=== PATIENT | female | born 1950 ===

== ENCOUNTER 2018-06-21 13:17 | Inpatient (IN) | payer MEDICARE ==
[2018-06-21] MEDS ORDERED: KEPPRA 1,000 MG/NS 0.75% 100ML 1,000 MG/100 ML BAG IV ONE (13:34)
--- NOTE | 2018-06-21 13:41 | Emergency Department Report ---
HPI - General Time Seen by Provider: 06/21/18 13:30 - HPI HPI: Room 1 The patient is a 67-year-old female presenting with chief complaint of altered mental status. Per EMS the [facility] after reportedly having a seizure witnessed by her roommate. Upon arrival to the ED the patient is unresponsive with a rightward gaze and has gurgling respirations. EMS states it has been at least 40 minutes since the seizure. At this time the decision to intubate was made using RSI Location: Mental state Duration: [See above] Quality: Altered Severity: Moderate Modifying factors: [see above] Context: [see above] Mode of transportation: [not driving] ED Past Medical Hx - Past Medical History Hx CVA: Yes Hx Diabetes: Yes Hx Deep Vein Thrombosis: Yes Hx Renal Disease: Yes Hx Psychiatric Treatment: Yes (Depression) Hx Dementia: Yes Additional medical history: Glaucoma - Surgical History Past Surgical History?: No - Family History Family history: no significant - Social History Smoking Status: Unknown if ever smoked - Medications Home Medications: Home Medications Medication Instructions Recorded Confirmed Last Taken Type Acetaminophen [Acetaminophen TAB] 650 mg PO Q4H PRN 04/06/18 04/06/18 Unknown History Apixaban [Eliquis] 5 mg PO Q12H 04/06/18 04/06/18 Unknown History AtorvaSTATin [Lipitor] 40 mg PO QHS 04/06/18 04/06/18 Unknown History Brimonidine Tartrate/Timolol 1 drop OU Q12H 04/06/18 04/06/18 Unknown History [Combigan 0.2%-0.5% Eye Drops] Donepezil HCl [Aricept] 10 mg PO HS 04/06/18 04/06/18 Unknown History Insulin Glargine [Lantus VIAL] 50 units SUB-Q QHS 04/06/18 04/06/18 Unknown History Insulin Lispro [HumaLOG VIAL] 9 units SUB-Q AC 04/06/18 04/06/18 Unknown History Lispro Insulin [Humalog] See Protocol SUB-Q ACHS 04/06/18 04/06/18 Unknown History Mirtazapine [Remeron] 15 mg PO HS 04/06/18 04/06/18 Unknown History levETIRAcetam [Keppra TAB] 1,000 mg PO Q12H 04/06/18 04/06/18 Unknown History Furosemide [Lasix TAB] 40 mg PO QDAY #30 tablet 04/10/18 Unknown Rx HYDROcodone/APAP 5-325 [[place] 1 each PO Q8HR PRN #7 tablet 04/10/18 Unknown Rx 5-325 mg TAB] Losartan [Cozaar] 25 mg PO QDAY #30 tablet 04/10/18 Unknown Rx Metoprolol Succinate [Toprol Xl] 25 mg PO DAILY #30 tab.er.24h 04/10/18 Unknown Rx ED Review of Systems ROS: Stated complaint: ALTERED MENTAL STATUS/POSS SEIZURE Other details as noted in HPI Comment: Unobtainable due to pts medical conditions Physical Exam - Physical Exam Physical Exam: GENERAL: The patient is well-developed well-nourished female lying on stretcher unresponsive. [] HEENT: Normocephalic. Atraumatic. Rightward gaze NECK: Trachea midline CHEST/LUNGS: Gurgling respirations. HEART/CARDIOVASCULAR: Regular. There is no tachycardia. There is no gallop rub or murmur. ABDOMEN: Abdomen is soft, nontender. Patient has normal bowel sounds. There is no abdominal distention. SKIN: There is no rash. There is no edema. There is no diaphoresis. NEURO: The patient is GCS 3 MUSCULOSKELETAL: There is no evidence of acute injury. - Intubation Time Out Performed: No Sedative: Versed Mg Given: 5 Paralytic: Succinylcholine Mg Given: 100 Laryngoscope: Elio Size: 3 ET Tube Size: 8 Tube Secured Depth (cm): 21 Tube Secured Location: lips Tube Placement Confirmation: equal breath sounds bilat, no breath sounds over epi, confirmation by capnometr Patient Tolerated Procedure: no complications Intubation Complications: hypoxia (transient hypoxia) ED Medical Decision Making - Lab Data Result diagrams: 06/21/18 14:06 06/21/18 14:06 Laboratory Tests 06/21/18 06/21/18 06/21/18 14:02 14:06 14:06 WBC 7.3 RBC 4.90 Hgb 10.8 Hct 34.6 MCV 71 L MCH 22 L MCHC 31 RDW 21.1 H Plt Count 252 Lymph % (Auto) 21.8 Lynn % (Auto) 6.8 Eos % (Auto) 2.1 Baso % (Auto) 0.6 Lymph # 1.6 Lynn # 0.5 Eos # 0.2 Baso # 0.0 Seg Neutrophils % 68.7 Seg Neutrophils # 5.0 PT 18.9 H INR 1.54 H APTT 32.5 POC ABG pH POC ABG pCO2 POC ABG pO2 POC ABG HCO3 POC ABG Total CO2 POC ABG O2 Sat POC ABG Base Excess FiO2 Sodium Potassium Chloride Carbon Dioxide Anion Gap BUN Creatinine Estimated GFR BUN/Creatinine Ratio Glucose POC Glucose 250 H Calcium Magnesium Total Bilirubin AST ALT Alkaline Phosphatase Total Creatine Kinase CK-MB (CK-2) CK-MB (CK-2) Rel Index Troponin T Total Protein Albumin Albumin/Globulin Ratio Triglycerides Cholesterol LDL Cholesterol Direct HDL Cholesterol Cholesterol/HDL Ratio 06/21/18 06/21/18 06/21/18 14:06 14:06 14:23 WBC RBC Hgb Hct MCV MCH MCHC RDW Plt Count Lymph % (Auto) Lynn % (Auto) Eos % (Auto) Baso % (Auto) Lymph # Lynn # Eos # Baso # Seg Neutrophils % Seg Neutrophils # PT INR APTT POC ABG pH 7.499 H POC ABG pCO2 34.8 L POC ABG pO2 342 H POC ABG HCO3 27.0 POC ABG Total CO2 28 POC ABG O2 Sat 100 POC ABG Base Excess 4 FiO2 100 Sodium 142 Potassium 3.8 Chloride 100.2 Carbon Dioxide 23 Anion Gap 23 BUN 15 Creatinine 1.5 H Estimated GFR 35 BUN/Creatinine Ratio 10 Glucose 214 H POC Glucose Calcium 8.8 Magnesium 1.70 Total Bilirubin 1.30 H AST 19 ALT 17 Alkaline Phosphatase 174 H Total Creatine Kinase 102 CK-MB (CK-2) 2.2 CK-MB (CK-2) Rel Index 2.1 Troponin T 0.050 H Total Protein 6.9 Albumin 3.1 L Albumin/Globulin Ratio 0.8 Triglycerides 115 Cholesterol 123 LDL Cholesterol Direct 61 HDL Cholesterol 50 Cholesterol/HDL Ratio 2.46 - EKG Data -: EKG Interpreted by Me EKG shows normal: sinus rhythm Rate: normal - EKG Data When compared to previous EKG there are: previous EKG unavailable Interpretation: nonspecific ST-T wave wenceslao (T-wave inversions in leads V5, V6) - Radiology Data Radiology results: report reviewed (CT head, chest x-ray), image reviewed (CT head, chest x-ray) interpreted by me: Chest x-ray- ET tube in appropriate position. No definite focal infiltrates, no pneumothorax [facility] [address] [place] [id number] Cat Scan Report Signed Patient: INESSA GOLDSTEIN MR#: [id number] : 1950 Acct:[id number] Age/Sex: 67 / F ADM Date: 06/21/18 Loc: ED Attending Dr: Ordering Physician: MASSIMO ZELAYA MD Date of Service: 06/21/18 Procedure(s): CT head/brain wo con Accession Number(s): [id number] cc: MASSIMO ZELAYA MD FINAL REPORT PROCEDURE: CT HEAD/BRAIN WO CON TECHNIQUE: Computerized tomography of the head was performed without contrast material. HISTORY: prolonged postictal state, rightward gaze COMPARISON: No prior studies are available for comparison. FINDINGS: Brain: There is no evidence of intracranial hemorrhage. No parenchymal hemorrhage is seen. No mass lesions or mass effect is identified. No abnormal extra-axial fluid collections or masses are seen. Chronic encephalomalacia visualized in the left parietal lobe and a portion of the left temporal lobe. This was seen on the prior study without interval change. There is chronic heavy nonspecific calcification of portions of the right and left basal ganglia, right caudate nucleus and right and left cerebellar hemispheres. There is some decreased density seen in the periventricular white matter without mass effect. This is fairly symmetric and does not exhibit any mass effect consistent with gliosis probably on the basis of microvascular disease or white matter changes of aging. Ventricles: The ventricles, sulcal pattern and fissures are prominent consistent with atrophy. Bones: No evidence of acute fracture. Paranasal sinuses: Visualized portions are clear. Mastoid air cells: clear NG tube partially visualized IMPRESSION: Stable exam. There is evidence of atrophy and gliosis. Old encephalomalacia again seen in portions of the left parietal and left temporal lobe. Nonspecific calcifications seen in the right and left basal ganglia and right and left cerebellar hemispheres as described. No acute intracranial abnormalities are identified. Portion of an NG tube is visualized. Transcribed By: DFN Dictated By: XOCHITL JUSTICE MD Electronically Authenticated By: XOCHITL JUSTICE MD Signed Date/Time: 06/21/181433 DD/ 35 TD/TT: 06/21/181435 [address] [address] XRay Report Signed Patient: INESSA GOLDSTEIN MR#: [id number] : 1950 Acct:[id number] Age/Sex: 67 / F ADM Date: 06/21/18 Loc: ED Attending Dr: Ordering Physician: MASSIMO ZELAYA MD Date of Service: 06/21/18 Procedure(s): XR chest 1V ap Accession Number(s): [id number] cc: MASSIMO ZELAYA MD Fluoro Time In Minutes: FINAL REPORT EXAM: XR CHEST 1V AP HISTORY: post intubation TECHNIQUE: Frontal chest radiograph. PRIORS: None. FINDINGS: The endotracheal tube tip projects in the mid to lower thoracic trachea. Aortic calculi are seen. The cardiac silhouette is mildly prominent in size. Hazy bilateral pulmonary opacities are seen. No focal consolidation. There is a small left pleural effusion. No pneumothorax. No acute osseous abnormality. The enteric tube tip projects in the gastric fundus. IMPRESSION: 1. Endotracheal tube tip projecting in the mid to lower thoracic trachea, 2.9 centimeters above the jojo. 2. Mildly prominent cardiac silhouette size with bilateral pulmonary edema versus atypical pneumonia. Small left pleural effusion. Transcribed By: MG Dictated By: JOHNSON LUCAS MD Electronically Authenticated By: JOHNSON LUCAS MD Signed Date/Time: 06/21/18 144 DD/ 144 TD/TT: 06/21/18 144 - Differential Diagnosis ICH, prolonged postictal state Critical care attestation.: If time is entered above; I have spent that time in minutes in the direct care of this critically ill patient, excluding procedure time. ED Disposition Clinical Impression: Altered mental status Disposition: DC-[id number] OP ADMIT IP TO THIS HOSP Is pt being admited?: Yes Does the pt Need Aspirin: Yes Condition: Fair Referrals: RAFA PRAKASH MD [Primary Care Provider] - 3-5 Days Time of Disposition: 15:34 (Hospitalist Notified (Dr Mcneal))
[2018-06-21 14:33] LABS: Basophils % (Auto) 0.6 % (0.0-1.8); Eosinophils # (Auto) 0.2 K/mm3 (0.0-0.4); Eosinophils % (Auto) 2.1 % (0.0-4.3); Hematocrit 34.6 % (30.3-42.9); Hemoglobin 10.8 gm/dl (10.1-14.3); Lymphocytes # (Auto) 1.6 K/mm3 (1.2-5.4); Lymphocytes % (Auto) 21.8 % (13.4-35.0); Mean Corpuscular HGB Conc 31 % (30-34); Mean Corpuscular Volume 71 fl (79-97); Monocytes # (Auto) 0.5 K/mm3 (0.0-0.8); Monocytes % (Auto) 6.8 % (0.0-7.3); Platelet Count 252 K/mm3 (140-440)
[2018-06-21 14:34] LABS: Red Cell Distribution Width 21.1 % (13.2-15.2)
--- NOTE | 2018-06-21 14:34 | Cat Scan Report ---
FINAL REPORT PROCEDURE: CT HEAD/BRAIN WO CON TECHNIQUE: Computerized tomography of the head was performed without contrast material. HISTORY: prolonged postictal state, rightward gaze COMPARISON: No prior studies are available for comparison. FINDINGS: Brain: There is no evidence of intracranial hemorrhage. No parenchymal hemorrhage is seen. No mass lesions or mass effect is identified. No abnormal extra-axial fluid collections or masses are seen. Chronic encephalomalacia visualized in the left parietal lobe and a portion of the left temporal lobe . This was seen on the prior study without interval change. There is chronic heavy nonspecific calcif ication of portions of the right and left basal ganglia, right caudate nucleus and right and left cer ebellar hemispheres. There is some decreased density seen in the periventricular white matter without mass effect. This i s fairly symmetric and does not exhibit any mass effect consistent with gliosis probably on the basis of microvascular disease or white matter changes of aging. Ventricles: The ventricles, sulcal pattern and fissures are prominent consistent with atrophy. Bones: No evidence of acute fracture. Paranasal sinuses: Visualized portions are clear. Mastoid air cells: clear NG tube partially visualized IMPRESSION: Stable exam. There is evidence of atrophy and gliosis. Old encephalomalacia again seen in portions of the left parietal and left temporal lobe. Nonspecific calcifications seen in the right and left basal ganglia and right and left cerebellar hem ispheres as described. No acute intracranial abnormalities are identified. Portion of an NG tube is visualized.
--- NOTE | 2018-06-21 14:45 | XRay Report ---
FINAL REPORT EXAM: XR CHEST 1V AP HISTORY: post intubation TECHNIQUE: Frontal chest radiograph. PRIORS: None. FINDINGS: The endotracheal tube tip projects in the mid to lower thoracic trachea. Aortic calculi are seen. The cardiac silhouette is mildly prominent in size. Hazy bilateral pulmonary opacities are seen. No focal consolidation. There is a small left pleural effusion. No pneumothorax. No acute osseous abnormality. The enteric tube tip projects in the gastric fundus. IMPRESSION: 1. Endotracheal tube tip projecting in the mid to lower thoracic trachea, 2.9 centimeters above the c vlad. 2. Mildly prominent cardiac silhouette size with bilateral pulmonary edema versus atypical pneumonia. Small left pleural effusion.
[2018-06-21 14:46] LABS: INR 1.54 (0.87-1.13)
[2018-06-21 14:47] LABS: Partial Thromboplastin Time 32.5 Sec. (24.2-36.6)
[2018-06-21 14:49] LABS: Creatine Kinase MB 2.2 ng/mL (0.0-4.0)
[2018-06-21 15:14] LABS: Albumin 3.1 g/dL (3.9-5); Calcium 8.8 mg/dL (8.4-10.2); Chol/HDL Ratio 2.46 %
[2018-06-21] MEDS ORDERED: ASPIRIN PR ONE ×2 (15:15→19:56)
--- NOTE | 2018-06-21 15:30 | History and Physical Report ---
History of Present Illness Chief complaint: Unresponsive History of present illness: 67 YO Female [facility] Resident with Obesity, DM, HTN, HLD, CVA, DVT,Dementia, Debility presents to ED for evaluation. Pt is confused, lethargic and unable to provide history. Pt history provides by EMS, ED staff, and SNF staff. As per SNF staff, the patient was found to have a witnessed generalized tonic clonic seizure with gurgling sounds coming from her oral cavity. EMS notified, and upon arrival the patient was found to be in distress. Pt transported to [facility] for further care and evaluation. Pt seen and evaluated in ED and found to have Encephalopathy, Acute Respiratory Failure, ARF, as well Aspiration Pneumonia. Pt is unable to protect her airway. Pt intubated and placed on vent support. Pt admitted to ICU. Pulmonary team consulted in ED. Past History Past Medical History: diabetes, DVT, stroke, other (Dementia, Debility, Depression) Past Surgical History: No surgical history, Other (reviewed) Social history: single. denies: smoking, alcohol abuse, prescription drug abuse Family history: diabetes Medications and Allergies Allergies Allergy/AdvReac Type Severity Reaction Status Date / Time No Known Allergies Allergy Unverified 04/06/18 11:56 Home Medications Medication Instructions Recorded Confirmed Last Taken Type Acetaminophen [Acetaminophen TAB] 650 mg PO Q4H PRN 04/06/18 04/06/18 Unknown History Apixaban [Eliquis] 5 mg PO Q12H 04/06/18 04/06/18 Unknown History AtorvaSTATin [Lipitor] 40 mg PO QHS 04/06/18 04/06/18 Unknown History Brimonidine Tartrate/Timolol 1 drop OU Q12H 04/06/18 04/06/18 Unknown History [Combigan 0.2%-0.5% Eye Drops] Donepezil HCl [Aricept] 10 mg PO HS 04/06/18 04/06/18 Unknown History Insulin Glargine [Lantus VIAL] 50 units SUB-Q QHS 04/06/18 04/06/18 Unknown History Insulin Lispro [HumaLOG VIAL] 9 units SUB-Q AC 04/06/18 04/06/18 Unknown History Lispro Insulin [Humalog] See Protocol SUB-Q ACHS 04/06/18 04/06/18 Unknown Histo ry Mirtazapine [Remeron] 15 mg PO HS 04/06/18 04/06/18 Unknown History levETIRAcetam [Keppra TAB] 1,000 mg PO Q12H 04/06/18 04/06/18 Unknown History Furosemide [Lasix TAB] 40 mg PO QDAY #30 tablet 04/10/18 Unknown Rx HYDROcodone/APAP 5-325 [[place] 1 each PO Q8HR PRN #7 tablet 04/10/18 Unknown Rx 5-325 mg TAB] Losartan [Cozaar] 25 mg PO QDAY #30 tablet 04/10/18 Unknown Rx Metoprolol Succinate [Toprol Xl] 25 mg PO DAILY #30 tab.er.24h 04/10/18 Unknown Rx Review of Systems ROS unobtainable: due to endotracheal tube Exam - Constitutional Vitals: Temp Pulse Resp BP Pulse Ox 97.6 F 78 18 164/98 100 06/21/18 14:56 06/21/18 14:30 06/21/18 14:30 06/21/18 14:30 06/21/18 14:30 General appearance: Present: severe distress, obese - EENT Eyes: Present: irregular pupil - Neck Neck: Present: supple, normal ROM - Respiratory Respiratory effort: labored Respiratory: bilateral: diminished, rhonchi - Cardiovascular Heart Sounds: Present: S1 & S2. Absent: rub, click - Extremities Extremities: pulses symmetrical, No edema Peripheral Pulses: within normal limits - Abdominal General gastrointestinal: Present: soft, non-tender, non-distended, normal bowel sounds Female genitourinary: Present: normal - Integumentary Integumentary: Present: clear, dry, clammy, decreased turgor - Musculoskeletal Musculoskeletal: generalized weakness - Psychiatric Psychiatric: no appropriate mood/affect, no intact judgment & insight, no memory intact - Neurologic Neurologic: focal deficits, no gait normal Results - Labs CBC & Chem 7: 06/21/18 14:06 06/21/18 14:06 Labs: Abnormal lab results 06/21/18 06/21/18 06/21/18 Range/Units 14:02 14:06 14:06 MCV 71 L (79-97) fl MCH 22 L (28-32) pg RDW 21.1 H (13.2-15.2) % PT 18.9 H (12.2-14.9) Sec. INR 1.54 H (0.87-1.13) POC ABG pH (7.35-7.45) POC ABG pCO2 (35-45) POC ABG pO2 (80-105) Creatinine (0.7-1.2) mg/dL Glucose (65-100) mg/dL POC Glucose 250 H (70-105) Total Bilirubin (0.1-1.2) mg/dL Alkaline Phosphatase (35-129) units/L Troponin T (0.00-0.029) ng/mL Albumin (3.9-5) g/dL 06/21/18 06/21/18 Range/Units 14:06 14:23 MCV (79-97) fl MCH (28-32) pg RDW (13.2-15.2) % PT (12.2-14.9) Sec. INR (0.87-1.13) POC ABG pH 7.499 H (7.35-7.45) POC ABG pCO2 34.8 L (35-45) POC ABG pO2 342 H (80-105) Creatinine 1.5 H (0.7-1.2) mg/dL Glucose 214 H (65-100) mg/dL POC Glucose (70-105) Total Bilirubin 1.30 H (0.1-1.2) mg/dL Alkaline Phosphatase 174 H (35-129) units/L Troponin T 0.050 H (0.00-0.029) ng/mL Albumin 3.1 L (3.9-5) g/dL Assessment and Plan - Patient Problems (1) Respiratory failure Current Visit: No Status: Acute Qualifiers: Chronicity: acute Respiratory failure complication: hypoxia Plan to address problem: Admit to ICU, Pt intubated, sedated on vent support, wean vent as tolerated, SBT daily, sedation holiday, Pulmonary team consulted in ED, The high probability of a clinically significant, sudden or life threatening deterioration of the [pulmonary, neuro, renal, cardiac] system(s) required my full and direct attention, intervention and personal management. The aggregate critical care time was [65] minutes. This time is in addition to time spent performing reported procedures but includes the following: [x] Data Review and interpretation [x] Patient assessment and monitoring of vital signs [x] Documentation [x] Medication orders and management (2) Pneumonia Current Visit: Yes Status: Acute Qualifiers: Laterality: bilateral Lung location: lower lobe of lung Plan to address problem: Pneumonia protocol: IV antibiotic therapy, chest x ray, supplemental oxygen, nebulizer therapy (3) ARF (acute renal failure) with tubular necrosis Current Visit: Yes Status: Acute Plan to address problem: IVF resuscitation therapy, monitor uop q shift, supportive care. repeat bmp to monitor serum creatnine (4) Encephalopathy Current Visit: No Status: Acute Plan to address problem: CT head, neuro checks, supportive care. treat SIRS (5) SIRS due to infectious process with acute organ dysfunction Current Visit: Yes Status: Acute Plan to address problem: IV antibiotic therapy, IVF resuscitation as tolerated, CBC, Urinalysis, Blood cultures, monitor uop q shift, serial lactic acid level (6) Seizures Current Visit: Yes Status: Acute Plan to address problem: continue AED, Seizure precautions, (7) DVT prophylaxis Current Visit: No Status: Acute Plan to address problem: SCD to BLE while in bed.
[2018-06-21] MEDS ORDERED: SODIUM CHLORIDE FLUSH SYRINGE 10 ML IV PRN (15:39)
[2018-06-21] MEDS ORDERED: VERSED IV PRN (15:50)
[2018-06-21] MEDS ORDERED: ARTIFICIAL TEARS OPHTH OINT OU PRN (15:50)
[2018-06-21] MEDS ORDERED: VASELINE LIP THERAPY TP PRN (15:50)
--- NOTE | 2018-06-21 16:44 | Consultation ---
History of Present Illness Consult date: 06/21/18 Requesting physician: JUAN COBURN Reason for consult: hypoxemia, other (Hypothermia, JULISA, acute encephaloapthy, SIRS , pneumonia) History of present illness: History of Present Illness Chief complaint: Unresponsive History of present illness: 67 YO Female [facility] Resident with Obesity, DM, HTN, HLD,CVA, DVT,Dementia, Debility presents to ED for evaluation. Pt is confused, lethargic and unable to provide history. Pt history provides by EMS, ED staff, and SNF staff. As per SNF staff, the patient was found to have a witnessed generalized tonic clonic seizure by her roommate. . EMS was notified, and upon arrival the patient was found to be lethargic with a blood glucose of 18 as well as hypoxemic with a pulse oximetry of 88% on room air. Pt transported to [facility] for further care and evaluation. Pt seen and evaluated in ED and found to have Encephalopathy, Acute respiratory Failure, ARF, as well ACS. Upon arrival to the ED the patient is unresponsive with a rightward gaze and has gurgling respirations. EMS states it has been at least 40 minutes since the seizure. At that time the decision to intubate was made by the ED staff. I have been consulted fro critical care management. At the time of my evaluation in the ED, she was agitated. Unable to get any history from the patient. She was seen and examined. Vitals, labs, medications, chart and imaging were reviewed. Past History Past Medical History: diabetes, DVT, stroke, other (Dementia, Debility, Depression) Past Surgical History: No surgical history, Other (reviewed) Social history: single. denies: smoking, alcohol abuse, prescription drug abuse Family history: diabetes Medications and Allergies Allergies Allergy/AdvReac Type Severity Reaction Status Date / Time No Known Allergies Allergy Unverified 04/06/18 11:56 Home Medications Medication Instructions Recorded Confirmed Last Taken Type Acetaminophen [Acetaminophen TAB] 650 mg PO Q4H PRN 04/06/18 06/21/18 Unknown History Apixaban [Eliquis] 5 mg PO Q12H 04/06/18 06/21/18 Unknown History AtorvaSTATin [Lipitor] 40 mg PO QHS 04/06/18 06/21/18 Unknown History Brimonidine Tartrate/Timolol 1 drop OU Q12H 04/06/18 06/21/18 Unknown History [Combigan 0.2%-0.5% Eye Drops] Donepezil HCl [Aricept] 10 mg PO HS 04/06/18 06/21/18 Unknown History Insulin Glargine [Lantus VIAL] 50 units SUB-Q QHS 04/06/18 06/21/18 Unknown History Insulin Lispro [HumaLOG VIAL] 9 units SUB-Q AC 04/06/18 06/21/18 Unknown History Lispro Insulin [Humalog] See Protocol SUB-Q ACHS 04/06/18 06/21/18 Unknown History Mirtazapine [Remeron] 15 mg PO HS 04/06/18 06/21/18 Unknown History levETIRAcetam [Keppra TAB] 1,000 mg PO Q12H 04/06/18 06/21/18 Unknown History Furosemide [Lasix TAB] 40 mg PO QDAY #30 tablet 04/10/18 06/21/18 Unknown Rx HYDROcodone/APAP 5-325 [[place] 1 each PO Q8HR PRN #7 tablet 04/10/18 06/21/18 Unknown Rx 5-325 mg TAB] Losartan [Cozaar] 25 mg PO QDAY #30 tablet 04/10/18 06/21/18 Unknown Rx Metoprolol Succinate [Toprol Xl] 25 mg PO DAILY #30 tab.er.24h 04/10/18 06/21/18 Unknown Rx Active Meds: Active Medications Hydrophilic Ointment (Vaseline Lip Therapy) 1 applic TP Q2HR PRN PRN Reason: Dry Lips Azithromycin 500 mg/ Sodium (Chloride) 250 mls @ 250 mls/hr IV Q24HR RICKY; Protocol Ceftriaxone Sodium (Rocephin/Ns 2 Gm/100 Ml) 2 gm in 100 mls @ 200 mls/hr IV Q24HR RICKY; Protocol Metronidazole (Flagyl 500 Mg/100 Ml) 500 mg in 100 mls @ 100 mls/hr IV Q8HR RICKY; Protocol Midazolam HCl 100 mg/ Sodium (Chloride) 100 mls @ 2 mls/hr IV TITR RICKY; Protocol Midazolam HCl (Versed) 2 mg IV Q10MIN PRN PRN Reason: Sedation Multi-Ingred Cream/Lotion/Oil/Oint (Artificial Tears Ophth Oint) 1 applic OU Q4HR PRN PRN Reason: Dry Eye(s) Sodium Chloride (Sodium Chloride Flush Syringe 10 Ml) 10 ml IV BID RICKY Sodium Chloride (Sodium Chloride Flush Syringe 10 Ml) 10 ml IV PRN PRN PRN Reason: LINE FLUSH Review of Systems ROS unobtainable: due to endotracheal tube, due to mental status Physical Examination Vital signs: Vital Signs Pulse Ox 96 06/21/18 13:22 General appearance: agitated, other (Obese, ETT at 21 cm at the lip) Eyes: non-icteric ENT: oropharynx moist Neck: supple, no lymphadenopathy, no JVD Effort: mildly labored Ascultation: Bilateral: diminished breath sounds, rhonchi Cardiovascular: regular rate and rhythm, other (S1,S2, no murmurs, gallops, rubs) Gastrointestinal: normoactive bowel sounds, soft, non-tender, non-distended, other (No hepatosplenomegaly) Integumentary: normal Extremities: no cyanosis, no edema, pulses normal, no ischemia or petechiae pupils equal and round, unable to assess, other (moves all extremities) other (unable to assess) Results - Laboratory Findings CBC and BMP: 06/22/18 17:21 06/22/18 03:17 ABG POC ABG pH 7.499 (7.35-7.45) H 06/21/18 14:23 POC ABG pCO2 34.8 (35-45) L 06/21/18 14:23 POC ABG pO2 342 (80-105) H 06/21/18 14:23 POC ABG HCO3 27.0 06/21/18 14:23 POC ABG Total CO2 28 06/21/18 14:23 POC ABG O2 Sat 100 06/21/18 14:23 PT/INR, D-dimer PT 18.9 Sec. (12.2-14.9) H 06/21/18 14:06 INR 1.54 (0.87-1.13) H 06/21/18 14:06 Abnormal lab findings: Abnormal Labs 06/21/18 06/21/18 06/21/18 14:02 14:06 14:06 MCV 71 L MCH 22 L RDW 21.1 H PT 18.9 H INR 1.54 H POC ABG pH POC ABG pCO2 POC ABG pO2 Creatinine Glucose POC Glucose 250 H Total Bilirubin Alkaline Phosphatase Troponin T Albumin 06/21/18 06/21/18 14:06 14:23 MCV MCH RDW PT INR POC ABG pH 7.499 H POC ABG pCO2 34.8 L POC ABG pO2 342 H Creatinine 1.5 H Glucose 214 H POC Glucose Total Bilirubin 1.30 H Alkaline Phosphatase 174 H Troponin T 0.050 H Albumin 3.1 L - Diagnostic Findings Chest x-ray: image reviewed (ETT in position, right lung infiltrate) Assessment and Plan Respiratory failure-acute hypoxemic on MVS Seizures Pneumonia, Right lung ARF (acute renal failure) with tubular necrosis Encephalopathy Hypothermia Obesity Hyperglycemia -Admit ICU -VAP bundle addressed -Get procalcitonin, CRP levels -VTE prophylaxis( anticoagulated)- on Eliquis -Stress ulcer prophylaxis -Treat for aspiration pneumonia empirically in view of hypothermia, witnessed seizures and right lung infiltrate -Monitor renal function -Avoid nephrotoxic agents, adjust all medications for GFR and CrCL -Agitation management -AEDs -Get EEG -Place SBFT for nutritional support -Supplemental oxygen to keep O2 sats>90% -Daily SBT and SAT trials to start in the morning -Titrate sedation to RAAS 0 to -1 -Get urine, tracheal and blood cultures -Strict intake and output -Accuchecks, glycemic control. Target blood glucose of 140-180mg/dL -Get 2D echocardiogram to evaluate LVEF and for pulmonary HTN CONDITION: CRITICAL CODE STATUS: FULL CODE PROGNOSIS: GUARDED The high probability of a clinically significant, sudden or life threatening deterioration of the [pulmonary, neurology, renal, cardiac] system(s) required my full and direct attention, intervention and personal management. The aggregate critical care time was [65] minutes. This time is in addition to time spent performing reported procedures but includes the following: [x] Data Review and interpretation [x] Patient assessment and monitoring of vital signs [x] Documentation [x] Medication orders and management
[2018-06-21] MEDS ORDERED: KEPPRA 500 MG/NS 0.82% 100 ML 500 MG/100 ML BAG IV ONE (17:19)
[2018-06-21] MEDS: MIDAZOLAM 100 MG in NACL 0.9% 80 ML IV SCH (17:59)
[2018-06-21] MEDS ORDERED: ATIVAN IV ONE (18:00)
[2018-06-21] MEDS ORDERED: XYLOCAINE CARDIAC IV ONE (18:08)
[2018-06-21] MEDS ORDERED: ZEMURON IV ONE (18:08)
[2018-06-21] MEDS ORDERED: QUELICIN ONE (18:08)
[2018-06-21] MEDS ORDERED: ATIVAN ONE (18:30)
[2018-06-21] MEDS: ZITHROMAX 500 MG in NACL 0.9% 250ML 250 ML IV SCH (19:05)
[2018-06-21] MEDS: KEPPRA 500 MG in NACL 0.9% 100 ML IV SCH (19:06)
[2018-06-21] MEDS: ROCEPHIN/NS 2 GM/100 ML 2 GM/100 ML BAG IV SCH (21:48)
[2018-06-21] MEDS: SODIUM CHLORIDE FLUSH SYRINGE 10 ML IV SCH (22:49)
[2018-06-21] MEDS: FLAGYL 500 MG/100 ML 500 MG/100 ML BAG IV SCH (22:49)
[2018-06-21] MEDS: APRESOLINE IV PRN (22:49)
[2018-06-22 04:16] LABS: Calcium 8.7 mg/dL (8.4-10.2)
[2018-06-22 04:22] LABS: Basophils # (Auto) 0.1 K/mm3 (0.0-0.1); Basophils % (Auto) 0.6 % (0.0-1.8); Eosinophils % (Auto) 0.1 % (0.0-4.3); Hemoglobin 10.8 gm/dl (10.1-14.3); Lymphocytes # (Auto) 2.4 K/mm3 (1.2-5.4); Mean Corpuscular HGB Conc 31 % (30-34); Monocytes # (Auto) 1.1 K/mm3 (0.0-0.8); Monocytes % (Auto) 9.8 % (0.0-7.3); Platelet Count 242 K/mm3 (140-440); Red Blood Count 5.07 M/mm3 (3.65-5.03)
[2018-06-22 04:26] LABS: Mean Corpuscular Volume 69 fl (79-97); Red Cell Distribution Width 21.9 % (13.2-15.2)
[2018-06-22] MEDS: APRESOLINE IV PRN ×3 (06:25→17:00)
[2018-06-22] MEDS: FLAGYL 500 MG/100 ML 500 MG/100 ML BAG IV SCH ×3 (06:27→22:00)
[2018-06-22] MEDS: KEPPRA 500 MG in NACL 0.9% 100 ML IV SCH ×2 (06:27→18:41)
--- NOTE | 2018-06-22 08:48 | XRay Report ---
AP CHEST: HISTORY: Followup respiratory failure Lines and support devices remain in good position. Mild bilateral pulmonary vascular congestion has resolved since yesterday's exam. The lungs are generally clear. Heart and mediastinal structures are within normal limits. IMPRESSION: Unremarkable AP chest.
[2018-06-22] MEDS: ROCEPHIN/NS 2 GM/100 ML 2 GM/100 ML BAG IV SCH (09:38)
[2018-06-22] MEDS: SODIUM CHLORIDE FLUSH SYRINGE 10 ML IV SCH ×2 (09:38→22:00)
[2018-06-22] MEDS: ZITHROMAX 500 MG in NACL 0.9% 250ML 250 ML IV SCH (10:27)
--- NOTE | 2018-06-22 12:10 | Progress Note ---
Assessment and Plan Acute Hypoxemic Respiratory failure on MVS Pneumonia (Likely aspiration) JULISA Acute on Chronic Encephalopathy SIRS due to infectious process with acute organ dysfunction Seizures Obesity Diabetes type II Hypertension Hyperlipidemia H/O CVA H/O DVT Dementia Debility - continue full MVS acutely - neurology consultation re: seizures - continue versed drip acutely - Keppra for seizures - VAP bundle addressed - continue empiric CAP antibiotics and follow cultures - continue IV heparin acutely (H/O DVT and on outpatient Eliquis) - Stress ulcer prophylaxis - Monitor renal function - Avoid nephrotoxic agents, adjust all medications for GFR and CrCL - titrate sedation for RASS 0 to -1 - follow EEG - enteral nutrition as tolerated - wean supplemental oxygen to keep O2 sats>90% - Daily SBT and SAT trials to start shortly - follow urine, tracheal and blood cultures (NGTD) - Strict intake and output - Accuchecks, glycemic control. Target blood glucose of 140-180mg/dL - follow 2D echocardiogram to evaluate LVEF and for pulmonary HTN CONDITION: CRITICAL CODE STATUS: FULL CODE PROGNOSIS: GUARDED The high probability of a clinically significant, sudden or life threatening deterioration of the [pulmonary, neuro, renal, cardiac] system(s) required my full and direct attention, intervention and personal management. The aggregate critical care time was [35] minutes. This time is in addition to time spent performing reported procedures but includes the following: [x] Data Review and interpretation [x] Patient assessment and monitoring of vital signs [x] Documentation [x] Medication orders and management Subjective Date of service: 06/22/18 Principal diagnosis: Acute Hypoxemic Resp failure; Pneumonia (Likely aspiration); JULISA; SIRS Interval history: Patient is seen today for: Acute Hypoxemic Respiratory failure on MVS; Pneumonia (Likely aspiration); JULISA; Acute on Chronic Encephalopathy; SIRS Seen and examined at bedside; 24hour events reviewed; nursing and respiratory ca re staff consulted; no adverse overnight events reported to me; resting peacefully in bed; remains on MVS; AMS is persistent; no recurrent seizures reported; no emesis or overt aspiration; no new issues otherwise Objective Vital Signs - 12hr 06/22/18 06/22/18 06/22/18 00:15 00:22 00:30 Temperature Pulse Rate 84 83 82 Pulse Rate [ From Monitor] Respiratory 06 03 12 Rate Blood Pressure 165/82 159/76 154/74 O2 Sat by Pulse 100 100 100 Oximetry 06/22/18 06/22/18 06/22/18 00:45 01:00 01:16 Temperature Pulse Rate 82 83 84 Pulse Rate [ From Monitor] Respiratory 12 12 12 Rate Blood Pressure 144/67 144/75 177/96 O2 Sat by Pulse 100 99 100 Oximetry 06/22/18 06/22/18 06/22/18 01:30 01:45 02:00 Temperature Pulse Rate 84 82 81 Pulse Rate [ From Monitor] Respiratory 12 12 12 Rate Blood Pressure 173/86 157/76 149/72 O2 Sat by Pulse 100 100 100 Oximetry 06/22/18 06/22/18 06/22/18 02:16 02:30 02:45 Temperature Pulse Rate 87 86 93 H Pulse Rate [ From Monitor] Respiratory 12 12 11 L Rate Blood Pressure 174/85 166/97 176/93 O2 Sat by Pulse 100 100 100 Oximetry 06/22/18 06/22/18 06/22/18 03:00 03:15 03:30 Temperature Pulse Rate 87 88 86 Pulse Rate [ From Monitor] Respiratory 12 12 12 Rate Blood Pressure 177/87 187/92 180/90 O2 Sat by Pulse 100 100 100 Oximetry 06/22/18 06/22/18 06/22/18 03:45 04:00 04:15 Temperature 99.1 F Pulse Rate 85 85 84 Pulse Rate [ From Monitor] Respiratory 12 12 12 Rate Blood Pressure 176/89 166/82 160/79 O2 Sat by Pulse 100 100 100 Oximetry 06/22/18 06/22/18 06/22/18 04:20 04:30 04:45 Temperature Pulse Rate 84 87 Pulse Rate [ 84 From Monitor] Respiratory 16 12 12 Rate Blood Pressure 158/76 180/95 O2 Sat by Pulse 100 100 100 Oximetry 06/22/18 06/22/18 06/22/18 05:00 05:15 05:16 Temperature Pulse Rate 87 90 88 Pulse Rate [ From Monitor] Respiratory 12 12 Rate Blood Pressure 187/100 192/106 187/101 O2 Sat by Pulse 100 100 100 Oximetry 06/22/18 06/22/18 06/22/18 05:30 05:45 06:00 Temperature Pulse Rate 86 86 87 Pulse Rate [ From Monitor] Respiratory 12 12 12 Rate Blood Pressure 181/93 179/93 175/92 O2 Sat by Pulse 100 100 100 Oximetry 06/22/18 06/22/18 06/22/18 06:15 06:25 06:30 Temperature Pulse Rate 90 90 90 Pulse Rate [ From Monitor] Respiratory 12 15 Rate Blood Pressure 189/99 189/99 177/83 O2 Sat by Pulse 100 100 Oximetry 06/22/18 06/22/18 06/22/18 06:45 07:00 07:15 Temperature Pulse Rate 97 H 96 H 97 H Pulse Rate [ From Monitor] Respiratory 18 19 19 Rate Blood Pressure 151/72 151/72 157/72 O2 Sat by Pulse 100 99 99 Oximetry 06/22/18 06/22/18 06/22/18 07:30 07:45 08:00 Temperature Pulse Rate 96 H 94 H 95 H Pulse Rate [ From Monitor] Respiratory 15 13 16 Rate Blood Pressure 170/73 165/71 164/75 O2 Sat by Pulse 100 99 100 Oximetry 06/22/18 06/22/18 06/22/18 08:15 08:30 08:35 Temperature Pulse Rate 94 H 92 H 94 H Pulse Rate [ From Monitor] Respiratory 13 15 Rate Blood Pressure 161/77 162/71 161/77 O2 Sat by Pulse 99 99 99 Oximetry 06/22/18 06/22/18 06/22/18 08:45 09:00 09:15 Temperature Pulse Rate 94 H 92 H 90 Pulse Rate [ From Monitor] Respiratory 15 14 12 Rate Blood Pressure 169/79 161/76 164/68 O2 Sat by Pulse 100 100 99 Oximetry 06/22/18 06/22/18 06/22/18 09:30 09:45 10:00 Temperature Pulse Rate 90 91 H 95 H Pulse Rate [ From Monitor] Respiratory 12 12 14 Rate Blood Pressure 137/67 166/80 177/91 O2 Sat by Pulse 99 99 100 Oximetry 06/22/18 06/22/18 06/22/18 10:15 10:30 10:46 Temperature Pulse Rate 90 90 91 H Pulse Rate [ From Monitor] Respiratory 14 13 12 Rate Blood Pressure 161/77 161/79 161/79 O2 Sat by Pulse 99 100 100 Oximetry 06/22/18 06/22/18 11:00 11:16 Temperature Pulse Rate 93 H 93 H Pulse Rate [ From Monitor] Respiratory 12 12 Rate Blood Pressure 149/77 149/77 O2 Sat by Pulse 100 100 Oximetry Constitutional: no acute distress, other (elderly looking AAF normocephalic and atraumatic with ETT to MVS and mildly increased resp effort) Eyes: non-icteric ENT: oropharynx moist, other (ETT 23 cm DAVIDSON) Neck: supple, no lymphadenopathy, no JVD, other (no thyromegaly) Effort: mildly labored Ascultation: Bilateral: rhonchi Percussion: Bilateral: not dull Cardiovascular: regular rate and rhythm Gastrointestinal: normoactive bowel sounds, soft, tender, non-distended Extremities: no cyanosis, no edema, pulses normal, no ischemia or petechiae Neurologic: non-focal exam (grossly), pupils equal and round, unable to assess Psychiatric: other (unable to assess) CBC and BMP: 06/22/18 17:21 06/22/18 03:17 ABG, PT/INR, D-dimer: ABG POC ABG pH 7.539 (7.35-7.45) H 06/22/18 05:27 POC ABG pCO2 30.1 (35-45) L 06/22/18 05:27 POC ABG pO2 170 (80-105) H 06/22/18 05:27 POC ABG HCO3 25.7 06/22/18 05:27 POC ABG Total CO2 27 06/22/18 05:27 POC ABG O2 Sat 100 06/22/18 05:27 PT/INR, D-dimer PT 18.9 Sec. (12.2-14.9) H 06/21/18 14:06 INR 1.54 (0.87-1.13) H 06/21/18 14:06 Abnormal lab findings: Abnormal Labs 06/21/18 06/21/18 06/21/18 14:02 14:06 14:06 WBC RBC MCV 71 L MCH 22 L RDW 21.1 H Fallon % (Auto) Fallon # Seg Neutrophils # PT 18.9 H INR 1.54 H POC ABG pH POC ABG pCO2 POC ABG pO2 Creatinine Glucose POC Glucose 250 H Total Bilirubin Alkaline Phosphatase Troponin T Albumin 06/21/18 06/21/18 06/21/18 14:06 14:23 21:17 WBC RBC MCV MCH RDW Fallon % (Auto) Fallon # Seg Neutrophils # PT INR POC ABG pH 7.499 H 7.600 H POC ABG pCO2 34.8 L 24.9 L POC ABG pO2 342 H 176 H Creatinine 1.5 H Glucose 214 H POC Glucose Total Bilirubin 1.30 H Alkaline Phosphatase 174 H Troponin T 0.050 H Albumin 3.1 L 06/22/18 06/22/18 06/22/18 03:17 03:17 05:27 WBC 11.5 H RBC 5.07 H MCV 69 L MCH 21 L RDW 21.9 H Fallon % (Auto) 9.8 H Fallon # 1.1 H Seg Neutrophils # 7.9 H PT INR POC ABG pH 7.539 H POC ABG pCO2 30.1 L POC ABG pO2 170 H Creatinine 1.5 H Glucose 164 H POC Glucose Total Bilirubin Alkaline Phosphatase Troponin T Albumin Chest x-ray: image reviewed (ETT in good position; borderline cardiomegaly but AP film) Allied health notes reviewed: nursing
[2018-06-22] MEDS ORDERED: NON-FORMULARY (Levetiracetam [Keppra Tab] 1,000 MG) PO SCH (16:00)
--- NOTE | 2018-06-22 16:25 | Progress Note ---
Assessment and Plan Assessment and plan: 65[facility] The staff witnessed grand mal seizure, she had gurgling sounds were oral cavities. And she was then brought into the ER, she was intubated there. Past medical history includes obesity diabetes hypertension hyperlipidemia CVA history of DVT dementia debility Acute respiratory failure Continue ventilator, management per pulmonary team Pneumonia ruled out, repeat x-ray does not show any pneumonia Acute renal failure, suspected vasomotor nephropathy Continue IV fluids Acute metabolic encephalopathy Likely from post ictal state, Supportive care SIRS with acute organ dysfunction Presenting with hypothermia now having fevers Treatment and empiric antibiotics, obtain UA and urine culture, chest x-ray is negative, obtain blood cultures Status epilepticus AED, seizure precautions, neurology consults ? PE Given history of DVT, will obtain VQ scan and LE US, keep on heparin drip for now, she usually is on eliquis 5 twice a day Hypertensive urgency Optimize BP meds DVT prophylaxis Full anticoagulated Critical care time 35 minutes History Interval history: No seizures overnight, no fevers overnight, no agitation Hospitalist Physical - Physical exam Narrative exam: General.: Intubated and sedated HEENT: Moist mucous membranes, extraocular muscles intact, no lymphadenopathy Neck: supple Cardiac: S1-S2 heard Lungs: clear to auscultation bilaterally Abdomen: soft , nontender, nondistended, bowel sounds positive Extremities: no edema clubbing or cyanosis Skin: no rash or lesions Neurologic: Intubated and sedated Psych: Intubated and sedated - Constitutional Vitals: Temp Pulse Resp BP Pulse Ox 100.3 F H 106 H 19 168/82 99 06/22/18 16:01 06/22/18 15:00 06/22/18 15:00 06/22/18 15:00 06/22/18 15:00 General appearance: Present: severe distress, obese Results - Labs CBC & Chem 7: 06/22/18 03:17 06/22/18 03:17 Labs: Laboratory Last Values WBC 11.5 K/mm3 (4.5-11.0) H 06/22/18 03:17 RBC 5.07 M/mm3 (3.65-5.03) H 06/22/18 03:17 Hgb 10.8 gm/dl (10.1-14.3) 06/22/18 03:17 Hct 35.0 % (30.3-42.9) 06/22/18 03:17 MCV 69 fl (79-97) L 06/22/18 03:17 MCH 21 pg (28-32) L 06/22/18 03:17 MCHC 31 % (30-34) 06/22/18 03:17 RDW 21.9 % (13.2-15.2) H 06/22/18 03:17 Plt Count 242 K/mm3 (140-440) 06/22/18 03:17 Lymph % (Auto) 21.0 % (13.4-35.0) 06/22/18 03:17 Mitchell % (Auto) 9.8 % (0.0-7.3) H 06/22/18 03:17 Eos % (Auto) 0.1 % (0.0-4.3) 06/22/18 03:17 Baso % (Auto) 0.6 % (0.0-1.8) 06/22/18 03:17 Lymph # 2.4 K/mm3 (1.2-5.4) 06/22/18 03:17 Mitchell # 1.1 K/mm3 (0.0-0.8) H 06/22/18 03:17 Eos # 0.0 K/mm3 (0.0-0.4) 06/22/18 03:17 Baso # 0.1 K/mm3 (0.0-0.1) 06/22/18 03:17 Seg Neutrophils % 68.5 % (40.0-70.0) 06/22/18 03:17 Seg Neutrophils # 7.9 K/mm3 (1.8-7.7) H 06/22/18 03:17 PT 18.9 Sec. (12.2-14.9) H 06/21/18 14:06 INR 1.54 (0.87-1.13) H 06/21/18 14:06 APTT 32.5 Sec. (24.2-36.6) 06/21/18 14:06 POC ABG pH 7.539 (7.35-7.45) H 06/22/18 05:27 POC ABG pCO2 30.1 (35-45) L 06/22/18 05:27 POC ABG pO2 170 (80-105) H 06/22/18 05:27 POC ABG HCO3 25.7 06/22/18 05:27 POC ABG Total CO2 27 06/22/18 05:27 POC ABG O2 Sat 100 06/22/18 05:27 POC ABG Base Excess 3 06/22/18 05:27 FiO2 35 % 06/22/18 05:27 Sodium 143 mmol/L (137-145) 06/22/18 03:17 Potassium 3.8 mmol/L (3.6-5.0) 06/22/18 03:17 Chloride 101.9 mmol/L (98-107) 06/22/18 03:17 Carbon Dioxide 27 mmol/L (22-30) 06/22/18 03:17 Anion Gap 18 mmol/L 06/22/18 03:17 BUN 16 mg/dL (7-17) 06/22/18 03:17 Creatinine 1.5 mg/dL (0.7-1.2) H 06/22/18 03:17 Estimated GFR 35 ml/min 06/22/18 03:17 BUN/Creatinine Ratio 11 % 06/22/18 03:17 Glucose 164 mg/dL (65-100) H 06/22/18 03:17 POC Glucose 250 (70-105) H 06/21/18 14:02 Calcium 8.7 mg/dL (8.4-10.2) 06/22/18 03:17 Magnesium 1.70 mg/dL (1.7-2.3) 06/21/18 14:06 Total Bilirubin 1.30 mg/dL (0.1-1.2) H 06/21/18 14:06 AST 19 units/L (5-40) 06/21/18 14:06 ALT 17 units/L (7-56) 06/21/18 14:06 Alkaline Phosphatase 174 units/L (35-129) H 06/21/18 14:06 Total Creatine Kinase 102 units/L (30-135) 06/21/18 14:06 CK-MB (CK-2) 2.2 ng/mL (0.0-4.0) 06/21/18 14:06 CK-MB (CK-2) Rel Index 2.1 (0-4) 06/21/18 14:06 Troponin T 0.050 ng/mL (0.00-0.029) H 06/21/18 14:06 Total Protein 6.9 g/dL (6.3-8.2) 06/21/18 14:06 Albumin 3.1 g/dL (3.9-5) L 06/21/18 14:06 Albumin/Globulin Ratio 0.8 % 06/21/18 14:06 Triglycerides 115 mg/dL (2-149) 06/21/18 14:06 Cholesterol 123 mg/dL (50-199) 06/21/18 14:06 LDL Cholesterol Direct 61 mg/dL (50-130) 06/21/18 14:06 HDL Cholesterol 50 mg/dL (40-59) 06/21/18 14:06 Cholesterol/HDL Ratio 2.46 % 06/21/18 14:06 Nutrition/Malnutrition Assess - Dietary Evaluation Nutrition/Malnutrition Findings: Nutrition Notes Start: 06/22/18 10:19 Freq: Status: Active Protocol: Document 06/22/18 10:35 OL (Rec: 06/22/18 10:45 OL [id number]) Nutrition Notes Need for Assessment generated from: MD Order Initial or Follow up Assessment Current Diagnoses Diabetes Hypertension Stroke Hyperlipidemia Current Diet NPO Labs/Tests Cr 1.5 glucose 164 Medications Reviewed Height 5 ft 2 in Weight 92.986 kg Armstrong Body Weight (lbs) 110.0 BMI 37.5 Weight Status Obese Subjective/Other Information RD consult to evaluate nutrition intake and screen for malnutrition risk. Pt. admitted from SNF. Burn Absent Trauma Absent #1 Nutrition Diagnoses Inadequate oral intake Etiology mech vent As Evidenced by Signs and Symptoms NPO status Is patient on ventilator? Yes Is Patient Ambulatory and/or Out of Bed No REE-([facility]-confined to bed) 1707.048 Calculation Used for Recommendations [facility] Additional Notes protein (2g/kg IBW): 105g fluid: 1mL/kcal or per MD Nutrition Intervention Change Diet Order: Advance when medically feasible Nutrition Support: TF recs: Vital AF at 60mL/hr with 100mL flush q4h Kcal 1,728 Protein (gm) 108 Fluid (mL) 1,167 Goal #1 Diet advancement or nutrition support to meet nutrient needs Anticipated Discharge Needs: Unable to determine at this time Follow-Up By: 06/24/18 Additional Comments f/u: diet advancement/TF consult
[2018-06-22] MEDS: KEPPRA PO SCH ×2 (16:39→22:00)
[2018-06-22] MEDS ORDERED: PANCREAZE DR 10,500 UNIT FEEDTUBE PRN (16:53)
[2018-06-22] MEDS ORDERED: SODIUM BICARBONATE FEEDTUBE PRN (16:53)
[2018-06-22] MEDS ORDERED: SIMPLE SYRUP FEEDTUBE PRN ×2 (16:53)
[2018-06-22] MEDS: MIDAZOLAM 100 MG in NACL 0.9% 80 ML IV SCH (17:01)
[2018-06-22 17:36] LABS: Hemoglobin 11.6 gm/dl (10.1-14.3)
--- NOTE | 2018-06-22 17:44 | XRay Report ---
FINAL REPORT EXAM: XR ABDOMEN 1V AP HISTORY: confirm NG tube placement TECHNIQUE: Frontal portable views of the chest and abdomen Comparison: Chest x-ray dated June 21, 2018. FINDINGS: The tip of the endotracheal tube is at the inferior aspect of the clavicles. The tip and side port location of the IVC. Of the esophagogastric tube are projected in the region of the stomach. A tip of an IVC filter is demonstrated in the abdomen in the expected There is pulmonary consolidation in the left lung base with possible small left pleural fluid collect ion as was demonstrated on the previous study. The cardiac silhouette is enlarged similar in appearance to the previous study. The thoracic aorta is unremarkable. The bony structures are unremarkable. Surgical clips are demonstrated in the right axillary region. IMPRESSION: 1. Endotracheal tube and esophagogastric tube projected to be in satisfactory position. 2. Persistent pulmonary consolidation left lung base with possible small left pleural fluid collectio n. 3. Enlarged cardiac silhouette.
[2018-06-22 17:46] LABS: INR 1.39 (0.87-1.13)
[2018-06-22 17:47] LABS: Partial Thromboplastin Time 22.8 Sec. (24.2-36.6)
[2018-06-22] MEDS: COMBIGAN 0.2-0.5% OU SCH (18:29)
[2018-06-22] MEDS: NORVASC PO SCH (18:40)
[2018-06-22] MEDS: NORMODYNE IV PRN ×2 (18:41→18:55)
[2018-06-22] MEDS ORDERED: ATIVAN ONE (18:53)
[2018-06-22] MEDS: HEPARIN/ 0.45% NACL-25,000 UNIT/500 ML 25,000 UNIT/500 ML BAG IV SCH (19:04)
[2018-06-22] MEDS: COREG PO SCH (22:00)
[2018-06-23] MEDS: HumaLOG SUB-Q SCH ×6 (00:40→22:36)
--- NOTE | 2018-06-23 03:42 | XRay Report ---
FINAL REPORT PROCEDURE: XR CHEST 1V AP TECHNIQUE: Chest radiograph anteroposterior view. CPT 12169 HISTORY: follow up respiratory failure COMPARISON: 06/21/2018 FINDINGS: Heart: Normal. Mediastinum/Vessels: Normal. Lungs/Pleural space: Normal. Bony thorax: No acute osseous abnormality. Life support devices: The endotracheal tube ends 4 centimeters above jojo a nasogastric tube ends b elow the hemidiaphragms. IMPRESSION: There is no evidence of an acute infiltrate or effusion. The endotracheal tube and nasogastric tube a re properly positioned.
[2018-06-23] MEDS: COMBIGAN 0.2-0.5% OU SCH ×2 (04:00→16:18)
[2018-06-23] MEDS: KEPPRA 500 MG in NACL 0.9% 100 ML IV SCH (06:13)
[2018-06-23] MEDS: FLAGYL 500 MG/100 ML 500 MG/100 ML BAG IV SCH ×3 (06:14→22:00)
[2018-06-23] MEDS: ROCEPHIN/NS 2 GM/100 ML 2 GM/100 ML BAG IV SCH (09:41)
[2018-06-23] MEDS: SODIUM CHLORIDE FLUSH SYRINGE 10 ML IV SCH ×2 (09:43→22:35)
[2018-06-23] MEDS: NORVASC PO SCH (09:43)
[2018-06-23] MEDS: COZAAR PO SCH (09:44)
[2018-06-23] MEDS: COREG PO SCH ×2 (09:44→22:15)
[2018-06-23] MEDS: KEPPRA PO SCH ×2 (09:44→22:00)
[2018-06-23] MEDS: ZITHROMAX 500 MG in NACL 0.9% 250ML 250 ML IV SCH (09:47)
[2018-06-23] MEDS ORDERED: TOPROL XL PO SCH (10:00)
[2018-06-23] MEDS ORDERED: COZAAR PO SCH (10:00)
--- NOTE | 2018-06-23 11:09 | Progress Note ---
Assessment and Plan Assessment and plan: 65-year-old woman presents from [facility] nursing facility. The staff witnessed grand mal seizure, she had gurgling sounds were oral cavities. And she was then brought into the ER, she was intubated there. Past medical history includes obesity diabetes hypertension hyperlipidemia CVA history of DVT dementia debility Acute respiratory failure Continue ventilator, management per pulmonary team Pneumonia ruled out, repeat x-ray does not show any pneumonia Acute renal failure, suspected vasomotor nephropathy Continue IV fluids Acute metabolic encephalopathy Likely from post ictal state, Supportive care SIRS with acute organ dysfunction Presenting with hypothermia now having fevers- TMAX 100.7 this am Treatment and empiric antibiotics, obtain UA and urine culture, chest x-ray is negative, obtain blood cultures pending with no growth yet Status epilepticus AED, seizure precautions, neurology consults pending ? PE Given history of DVT, will obtain VQ scan and LE US pending, keep on heparin drip for now, she usually is on eliquis 5 twice a day Hypertensive urgency Optimize BP meds DVT prophylaxis Full anticoagulated ' Patients nurse today had finger stick while providing care to the patient. Nursing management is calling family, if no objection from them, can procedure with rapid HIV check blood draw since patient unable to give consent due to current medical condition Critical care time 35 minutes History Interval history: Patient seen and examined, No seizures overnight, no fevers overnight, no agitation. Remains intubated Hospitalist Physical - Physical exam Narrative exam: General.: Intubated and sedated HEENT: Moist mucous membranes, PERRL no lymphadenopathy Neck: supple Cardiac: S1-S2 heard Lungs: clear to auscultation bilaterally Abdomen: soft , nontender, nondistended, bowel sounds positive Extremities: no edema clubbing or cyanosis Skin: no rash or lesions Neurologic: Intubated and sedated Psych: Intubated and sedated - Constitutional Vitals: Temp Pulse Resp BP Pulse Ox 98.6 F 73 12 132/63 89 06/23/18 08:00 06/23/18 09:44 06/23/18 09:00 06/23/18 09:44 06/23/18 09:00 General appearance: Present: severe distress, obese Results - Labs CBC & Chem 7: 06/24/18 03:55 06/24/18 03:55 Labs: Laboratory Last Values WBC 11.5 K/mm3 (4.5-11.0) H 06/22/18 03:17 RBC 5.07 M/mm3 (3.65-5.03) H 06/22/18 03:17 Hgb 11.6 gm/dl (10.1-14.3) 06/22/18 17:21 Hct 37.0 % (30.3-42.9) 06/22/18 17:21 MCV 69 fl (79-97) L 06/22/18 03:17 MCH 21 pg (28-32) L 06/22/18 03:17 MCHC 31 % (30-34) 06/22/18 03:17 RDW 21.9 % (13.2-15.2) H 06/22/18 03:17 Plt Count 219 K/mm3 (140-440) 06/22/18 17:21 Lymph % (Auto) 21.0 % (13.4-35.0) 06/22/18 03:17 [place] % (Auto) 9.8 % (0.0-7.3) H 06/22/18 03:17 Eos % (Auto) 0.1 % (0.0-4.3) 06/22/18 03:17 Baso % (Auto) 0.6 % (0.0-1.8) 06/22/18 03:17 Lymph # 2.4 K/mm3 (1.2-5.4) 06/22/18 03:17 [place] # 1.1 K/mm3 (0.0-0.8) H 06/22/18 03:17 Eos # 0.0 K/mm3 (0.0-0.4) 06/22/18 03:17 Baso # 0.1 K/mm3 (0.0-0.1) 06/22/18 03:17 Seg Neutrophils % 68.5 % (40.0-70.0) 06/22/18 03:17 Seg Neutrophils # 7.9 K/mm3 (1.8-7.7) H 06/22/18 03:17 PT 17.5 Sec. (12.2-14.9) H 06/22/18 17:21 INR 1.39 (0.87-1.13) H 06/22/18 17:21 APTT 22.8 Sec. (24.2-36.6) L 06/22/18 17:21 Heparin Anti-Xa Level 0.10 U.I./ml (0.3-0.7) L 06/23/18 01:44 POC ABG pH 7.519 (7.35-7.45) H 06/23/18 05:34 POC ABG pCO2 35.7 (35-45) 06/23/18 05:34 POC ABG pO2 133 (80-105) H 06/23/18 05:34 POC ABG HCO3 29.1 06/23/18 05:34 POC ABG Total CO2 30 06/23/18 05:34 POC ABG O2 Sat 99 06/23/18 05:34 POC ABG Base Excess 6 06/23/18 05:34 FiO2 35 % 06/23/18 05:34 Sodium 143 mmol/L (137-145) 06/22/18 03:17 Potassium 3.8 mmol/L (3.6-5.0) 06/22/18 03:17 Chloride 101.9 mmol/L (98-107) 06/22/18 03:17 Carbon Dioxide 27 mmol/L (22-30) 06/22/18 03:17 Anion Gap 18 mmol/L 06/22/18 03:17 BUN 16 mg/dL (7-17) 06/22/18 03:17 Creatinine 1.5 mg/dL (0.7-1.2) H 06/22/18 03:17 Estimated GFR 35 ml/min 06/22/18 03:17 BUN/Creatinine Ratio 11 % 06/22/18 03:17 Glucose 164 mg/dL (65-100) H 06/22/18 03:17 POC Glucose 183 (70-105) H 06/23/18 10:24 Calcium 8.7 mg/dL (8.4-10.2) 06/22/18 03:17 Magnesium 1.70 mg/dL (1.7-2.3) 06/21/18 14:06 Total Bilirubin 1.30 mg/dL (0.1-1.2) H 06/21/18 14:06 AST 19 units/L (5-40) 06/21/18 14:06 ALT 17 units/L (7-56) 06/21/18 14:06 Alkaline Phosphatase 174 units/L (35-129) H 06/21/18 14:06 Total Creatine Kinase 102 units/L (30-135) 06/21/18 14:06 CK-MB (CK-2) 2.2 ng/mL (0.0-4.0) 06/21/18 14:06 CK-MB (CK-2) Rel Index 2.1 (0-4) 06/21/18 14:06 Troponin T 0.050 ng/mL (0.00-0.029) H 06/21/18 14:06 Total Protein 6.9 g/dL (6.3-8.2) 06/21/18 14:06 Albumin 3.1 g/dL (3.9-5) L 06/21/18 14:06 Albumin/Globulin Ratio 0.8 % 06/21/18 14:06 Triglycerides 115 mg/dL (2-149) 06/21/18 14:06 Cholesterol 123 mg/dL (50-199) 06/21/18 14:06 LDL Cholesterol Direct 61 mg/dL (50-130) 06/21/18 14:06 HDL Cholesterol 50 mg/dL (40-59) 06/21/18 14:06 Cholesterol/HDL Ratio 2.46 % 06/21/18 14:06 Nutrition/Malnutrition Assess - Dietary Evaluation Nutrition/Malnutrition Findings: Nutrition Notes Start: 06/22/18 10:19 Freq: Status: Active Protocol: Document 06/22/18 10:35 OL (Rec: 06/22/18 10:45 OL [id number]) Nutrition Notes Need for Assessment generated from: MD Order Initial or Follow up Assessment Current Diagnoses Diabetes Hypertension Stroke Hyperlipidemia Current Diet NPO Labs/Tests Cr 1.5 glucose 164 Medications Reviewed Height 5 ft 2 in Weight 92.986 kg [place] Body Weight (lbs) 110.0 BMI 37.5 Weight Status Obese Subjective/Other Information RD consult to evaluate nutrition intake and screen for malnutrition risk. Pt. admitted from SNF. Addendum (16:52) TF consult received. Order entered into chart. Burn Absent Trauma Absent #1 Nutrition Diagnoses Inadequate oral intake Etiology mech vent As Evidenced by Signs and Symptoms NPO status Is patient on ventilator? Yes Is Patient Ambulatory and/or Out of Bed No REE-([place]-St. Jeor-confined to bed) 1707.048 Calculation Used for Recommendations [place]-St Jeor Additional Notes protein (2g/kg IBW): 105g fluid: 1mL/kcal or per MD Nutrition Intervention Change Diet Order: Advance when medically feasible Nutrition Support: TF recs: Vital AF at 60mL/hr with 100mL flush q4h Kcal 1,728 Protein (gm) 108 Fluid (mL) 1,167 Goal #1 Diet advancement or nutrition support to meet nutrient needs Anticipated Discharge Needs: Unable to determine at this time Follow-Up By: 06/24/18 Additional Comments f/u: diet advancement/TF consult
--- NOTE | 2018-06-23 11:56 | Consultation ---
History of Present Illness Consult date: 06/23/18 Requesting physician: MARYA ROBERSON Reason for Consult: generalized seizure, encephalopathy History of present illness: 67 YO Female from a Assisted Facility, has a hx of Obesity, DM, HTN, HLD, CVA, DVT, Dementia, and presented to ED for generalized witnessed seizure. The patient's room mate witnessed the seizure, EMS was called, she was brought to the ED unresponsive and at risk for aspiration. She was intubated and sedated. CT scan reveals old left parietal/frontal cortical CVAs, no acute process. CXR clear. UA is pending. The patient has been on Keppra 1000 mg BID, as per discharge from admission in 2017. Currently she is on the respirator, sedated on Versed Past History Past Medical History: diabetes, DVT, hypertension, hyperlipidemia, seizures, s troke, other (Dementia, Debility, Depression) Past Surgical History: No surgical history, Other (reviewed) Social history: single. denies: smoking, alcohol abuse, prescription drug abuse Family history: diabetes Medications and Allergies Allergies Allergy/AdvReac Type Severity Reaction Status Date / Time No Known Allergies Allergy Unverified 04/06/18 11:56 Home Medications Medication Instructions Recorded Confirmed Last Taken Type Acetaminophen [Acetaminophen TAB] 650 mg PO Q4H PRN 04/06/18 06/21/18 Unknown History Apixaban [Eliquis] 5 mg PO Q12H 04/06/18 06/21/18 Unknown History AtorvaSTATin [Lipitor] 40 mg PO QHS 04/06/18 06/21/18 Unknown History Brimonidine Tartrate/Timolol 1 drop OU Q12H 04/06/18 06/21/18 Unknown History [Combigan 0.2%-0.5% Eye Drops] Donepezil HCl [Aricept] 10 mg PO HS 04/06/18 06/21/18 Unknown History Insulin Glargine [Lantus VIAL] 50 units SUB-Q QHS 04/06/18 06/21/18 Unknown History Insulin Lispro [HumaLOG VIAL] 9 units SUB-Q AC 04/06/18 06/21/18 Unknown History Lispro Insulin [Humalog] See Protocol SUB-Q ACHS 04/06/18 06/21/18 Unknown History Mirtazapine [Remeron] 15 mg PO HS 04/06/18 06/21/18 Unknown History levETIRAcetam [Keppra TAB] 1,000 mg PO Q12H 04/06/18 06/21/18 Unknown History Furosemide [Lasix TAB] 40 mg PO QDAY #30 tablet 04/10/18 06/21/18 Unknown Rx HYDROcodone/APAP 5-325 [[place] 1 each PO Q8HR PRN #7 tablet 04/10/18 06/21/18 Unknown Rx 5-325 mg TAB] Losartan [Cozaar] 25 mg PO QDAY #30 tablet 04/10/18 06/21/18 Unknown Rx Metoprolol Succinate [Toprol Xl] 25 mg PO DAILY #30 tab.er.24h 04/10/18 06/21/18 Unknown Rx Active Meds: Active Medications Amlodipine Besylate (Norvasc) 10 mg PO QDAY [facility] Last Admin: 06/23/18 09:43 Dose: 10 mg Documented by: Lipase/Protease/Amylase ([place]yl [place] 10,500 Unit) 1 each FEEDTUBE PRN PRN PRN Reason: For Clogged Feeding Tube Atorvastatin Calcium (Lipitor) 40 mg PO QHS [facility] Last Admin: 06/22/18 22:00 Dose: 40 mg Documented by: Brimonidine/Timolol (Combigan 0.2-0.5%) 1 drops OU Q12H [facility] Last Admin: 06/23/18 04:00 Dose: 1 drops Documented by: Carvedilol (Coreg) 12.5 mg PO BID [facility] Last Admin: 06/23/18 09:44 Dose: 12.5 mg Documented by: Hydralazine HCl (Apresoline) 20 mg IV Q6H PRN PRN Reason: HTN Last Admin: 06/22/18 17:00 Dose: 20 mg Documented by: Hydrophilic Ointment (Vaseline Lip Therapy) 1 applic TP Q2HR PRN PRN Reason: Dry Lips Azithromycin 500 mg/ Sodium (Chloride) 250 mls @ 250 mls/hr IV Q24HR [facility]; Protocol Last Infusion: 06/23/18 11:24 Dose: Infused Documented by: Ceftriaxone Sodium (Rocephin/Ns 2 Gm/100 Ml) 2 gm in 100 mls @ 200 mls/hr IV Q24HR [facility]; Protocol Last Infusion: 06/23/18 11:25 Dose: Infused Documented by: Metronidazole (Flagyl 500 Mg/100 Ml) 500 mg in 100 mls @ 100 mls/hr IV Q8HR [facility]; Protocol Last Infusion: 06/23/18 07:43 Dose: Infused Documented by: Midazolam HCl 100 mg/ Sodium (Chloride) 100 mls @ 2 mls/hr IV TITR [facility]; Protocol Last Titration: 06/23/18 09:40 Dose: 4 mg/hr, 4 mls/hr Documented by: Heparin Sodium/Sodium Chloride (Heparin/ 0.45% Nacl-25,000 Unit/500 Ml) 25,000 unit in 500 mls @ 27 mls/hr IV TITR [facility]; Protocol Last Titration: 06/23/18 07:42 Dose: 1,550 units/hr, 31 mls/hr Documented by: Insulin Human Lispro (Humalog) 0 unit SUB-Q Q4HR [facility]; Protocol Last Admin: 06/23/18 09:48 Dose: 2 unit Documented by: Labetalol HCl (Normodyne) 20 mg IV Q4H PRN PRN Reason: BP >160/100; hold for HR <60 Last Admin: 06/22/18 18:55 Dose: 20 mg Documented by: Levetiracetam (Keppra) 1,500 mg PO BID [facility] Losartan Potassium (Cozaar) 100 mg PO QDAY [facility] Last Admin: 06/23/18 09:44 Dose: 100 mg Documented by: Midazolam HCl (Versed) 2 mg IV Q10MIN PRN PRN Reason: Sedation Multi-Ingred Cream/Lotion/Oil/Oint (Artificial Tears Ophth Oint) 1 applic OU Q4HR PRN PRN Reason: Dry Eye(s) Simple Syrup (Simple Syrup) 15 ml FEEDTUBE PRN PRN PRN Reason: Hypoglycemia Simple Syrup (Simple Syrup) 30 ml FEEDTUBE PRN PRN PRN Reason: Hypoglycemia Sodium Bicarbonate (Sodium Bicarbonate) 325 mg FEEDTUBE PRN PRN PRN Reason: For Clogged Feeding Tube Sodium Chloride (Sodium Chloride Flush Syringe 10 Ml) 10 ml IV BID [facility] Last Admin: 06/23/18 09:43 Dose: 10 ml Documented by: Sodium Chloride (Sodium Chloride Flush Syringe 10 Ml) 10 ml IV PRN PRN PRN Reason: LINE FLUSH Last Admin: 06/22/18 06:27 Dose: 10 ml Documented by: Review of Systems ROS unobtainable: due to endotracheal tube Physical Examination - Vital Signs Vital Signs: Vital Signs Pulse Ox 96 06/21/18 13:22 - Physical Exam Narrative exam: Neurological exam - sedated on ventilator Opens eyes to examiner's voice. Does not follow commands family support worker - eyes appear yoked. Blinks spontaneously and to threat. face symmetric Motor - no spontaneous movement. No movement to deep pain stimuli. Reflexes - trace throughout. Sensory - eyes open to painful stimuli but there is no withdrawal or movement, in all 4 limbs. Results - Laboratory Findings CBC and BMP: 06/22/18 17:21 06/22/18 03:17 Abnormal Lab Findings: Abnormal Labs 06/21/18 06/21/18 06/21/18 14:02 14:06 14:06 WBC RBC MCV 71 L MCH 22 L RDW 21.1 H Ada % (Auto) Ada # Seg Neutrophils # PT 18.9 H INR 1.54 H APTT Heparin Anti-Xa Level POC ABG pH POC ABG pCO2 POC ABG pO2 Creatinine Glucose POC Glucose 250 H Total Bilirubin Alkaline Phosphatase Troponin T Albumin 06/21/18 06/21/18 06/21/18 14:06 14:23 21:17 WBC RBC MCV MCH RDW Ada % (Auto) Ada # Seg Neutrophils # PT INR APTT Heparin Anti-Xa Level POC ABG pH 7.499 H 7.600 H POC ABG pCO2 34.8 L 24.9 L POC ABG pO2 342 H 176 H Creatinine 1.5 H Glucose 214 H POC Glucose Total Bilirubin 1.30 H Alkaline Phosphatase 174 H Troponin T 0.050 H Albumin 3.1 L 06/22/18 06/22/18 06/22/18 03:17 03:17 05:27 WBC 11.5 H RBC 5.07 H MCV 69 L MCH 21 L RDW 21.9 H Ada % (Auto) 9.8 H Ada # 1.1 H Seg Neutrophils # 7.9 H PT INR APTT Heparin Anti-Xa Level POC ABG pH 7.539 H POC ABG pCO2 30.1 L POC ABG pO2 170 H Creatinine 1.5 H Glucose 164 H POC Glucose Total Bilirubin Alkaline Phosphatase Troponin T Albumin 06/22/18 06/22/18 06/22/18 17:21 17:50 19:46 WBC RBC MCV MCH RDW Ada % (Auto) Ada # Seg Neutrophils # PT 17.5 H INR 1.39 H APTT 22.8 L Heparin Anti-Xa Level 1.64 H POC ABG pH POC ABG pCO2 POC ABG pO2 Creatinine Glucose POC Glucose 240 H Total Bilirubin Alkaline Phosphatase Troponin T Albumin 06/22/18 06/23/18 06/23/18 23:47 01:44 04:14 WBC RBC MCV MCH RDW Ada % (Auto) Ada # Seg Neutrophils # PT INR APTT Heparin Anti-Xa Level 0.10 L POC ABG pH POC ABG pCO2 POC ABG pO2 Creatinine Glucose POC Glucose 240 H 229 H Total Bilirubin Alkaline Phosphatase Troponin T Albumin 06/23/18 06/23/18 06/23/18 05:34 09:24 10:24 WBC RBC MCV MCH RDW Ada % (Auto) Ada # Seg Neutrophils # PT INR APTT Heparin Anti-Xa Level POC ABG pH 7.519 H POC ABG pCO2 POC ABG pO2 133 H Creatinine Glucose POC Glucose 220 H 183 H Total Bilirubin Alkaline Phosphatase Troponin T Albumin Assessment and Plan 67 yr old female admitted from shelter facility because of a witnessed generalized seizure. The pt. was admitted in for hypoglycemia. There do not appear to be any metabolic issues on this admission. According to notes from , the pt. was taking Keppra [address] brain reveals old CVAs in left hemisphere, no acute ischemia. CXR is clear. Plan - UA pending, rule out UTI MRI when stable Increased Keppra to 1500 mg BID
[2018-06-23] MEDS: HEPARIN/ 0.45% NACL-25,000 UNIT/500 ML 25,000 UNIT/500 ML BAG IV SCH (12:21)
--- NOTE | 2018-06-23 18:35 | Progress Note ---
Assessment and Plan Acute Hypoxemic Respiratory failure on MVS Pneumonia (Likely aspiration) JULISA Respiratory Alkalosis Acute on Chronic Encephalopathy SIRS due to infectious process with acute organ dysfunction Seizures Obesity Diabetes type II Hypertension Hyperlipidemia H/O CVA H/O DVT Dementia Debility - continue full MVS acutely but reduce set minute ventilation (rate to 10/min and TV to 400 mls) - neurology consultation re: seizures - continue versed drip acutely - Keppra for seizures - VAP bundle addressed - continue empiric CAP antibiotics and follow cultures - continue IV heparin acutely (H/O DVT and on outpatient Eliquis) - Stress ulcer prophylaxis - Monitor renal function - Avoid nephrotoxic agents, adjust all medications for GFR and CrCL - titrate sedation for RASS 0 to -1 - follow EEG - enteral nutrition as tolerated - wean supplemental oxygen to keep O2 sats>90% - Daily SBT and SAT trials to start shortly - follow urine, tracheal and blood cultures (NGTD) - Strict intake and output - Accuchecks, glycemic control. Target blood glucose of 140-180mg/dL - follow 2D echocardiogram to evaluate LVEF and for pulmonary HTN CONDITION: CRITICAL CODE STATUS: FULL CODE PROGNOSIS: GUARDED The high probability of a clinically significant, sudden or life threatening deterioration of the [pulmonary, neuro, renal, cardiac] system(s) required my full and direct attention, intervention and personal management. The aggregate critical care time was [35] minutes. This time is in addition to time spent performing reported procedures but includes the following: [x] Data Review and interpretation [x] Patient assessment and monitoring of vital signs [x] Documentation [x] Medication orders and management Subjective Date of service: 06/23/18 Principal diagnosis: Acute Hypoxemic Resp failure; Pneumonia (Likely aspiration); JULISA; SIRS Interval history: Patient is seen today for: Acute Hypoxemic Respiratory failure on MVS; Pneumonia (Likely aspiration); JULISA; Acute on Chronic Encephalopathy; SIRS Seen and examined at bedside; 24hour events reviewed; nursing and respiratory care staff consulted; no adverse overnight events reported to me; resting peacefully in bed; remains on MVS; AMS is persistent; no recurrent seizures reported; seen by neurologist and keppra dose increased Objective Vital Signs - 12hr 06/23/18 06/23/18 06/23/18 06:46 07:00 07:16 Temperature Pulse Rate 72 72 72 Pulse Rate [ Right Dorsalis Pedis] Respiratory 12 12 12 Rate Blood Pressure 113/55 126/61 126/61 O2 Sat by Pulse 100 100 100 Oximetry 06/23/18 06/23/18 06/23/18 07:30 07:46 07:50 Temperature Pulse Rate 71 72 71 Pulse Rate [ Right Dorsalis Pedis] Respiratory 12 12 Rate Blood Pressure 120/57 120/57 120/57 O2 Sat by Pulse 100 99 100 Oximetry 06/23/18 06/23/18 06/23/18 08:00 08:16 08:30 Temperature 98.6 F Pulse Rate 71 71 73 Pulse Rate [ 73 Right Dorsalis Pedis] Respiratory 12 12 12 Rate Blood Pressure 131/63 131/63 135/68 O2 Sat by Pulse 100 99 99 Oximetry 06/23/18 06/23/18 06/23/18 08:46 09:00 09:16 Temperature Pulse Rate 73 72 74 Pulse Rate [ Right Dorsalis Pedis] Respiratory 12 12 12 Rate Blood Pressure 131/63 124/59 124/59 O2 Sat by Pulse 90 89 89 Oximetry 06/23/18 06/23/18 06/23/18 09:30 09:43 09:44 Temperature Pulse Rate 72 73 73 Pulse Rate [ Right Dorsalis Pedis] Respiratory 12 Rate Blood Pressure 132/63 132/63 132/63 O2 Sat by Pulse 100 Oximetry 06/23/18 06/23/18 06/23/18 09:46 10:00 10:16 Temperature Pulse Rate 72 74 73 Pulse Rate [ Right Dorsalis Pedis] Respiratory 12 12 12 Rate Blood Pressure 132/63 134/75 134/75 O2 Sat by Pulse 98 100 98 Oximetry 06/23/18 06/23/18 06/23/18 10:30 10:46 11:00 Temperature Pulse Rate 73 73 74 Pulse Rate [ Right Dorsalis Pedis] Respiratory 13 12 12 Rate Blood Pressure 128/63 134/75 134/75 O2 Sat by Pulse 99 96 97 Oximetry 06/23/18 06/23/18 06/23/18 11:16 11:29 11:30 Temperature Pulse Rate 77 77 76 Pulse Rate [ Right Dorsalis Pedis] Respiratory 12 12 Rate Blood Pressure 128/63 102/56 O2 Sat by Pulse 94 95 Oximetry 06/23/18 06/23/18 06/23/18 11:46 12:00 12:13 Temperature 98.6 F Pulse Rate 74 74 74 Pulse Rate [ 77 Right Dorsalis Pedis] Respiratory 12 12 Rate Blood Pressure 102/56 111/63 111/63 O2 Sat by Pulse 97 97 97 Oximetry 06/23/18 06/23/18 06/23/18 12:16 12:30 12:46 Temperature Pulse Rate 73 73 74 Pulse Rate [ Right Dorsalis Pedis] Respiratory 12 13 12 Rate Blood Pressure 102/56 113/65 111/63 O2 Sat by Pulse 98 99 99 Oximetry 06/23/18 06/23/18 06/23/18 13:00 13:16 13:30 Temperature Pulse Rate 73 77 75 Pulse Rate [ Right Dorsalis Pedis] Respiratory 12 12 12 Rate Blood Pressure 124/68 124/68 132/71 O2 Sat by Pulse 99 99 100 Oximetry 06/23/18 06/23/18 06/23/18 13:46 14:00 14:16 Temperature Pulse Rate 76 77 77 Pulse Rate [ Right Dorsalis Pedis] Respiratory 14 14 13 Rate Blood Pressure 132/71 132/71 122/64 O2 Sat by Pulse 99 99 99 Oximetry 06/23/18 06/23/18 06/23/18 14:30 14:46 15:00 Temperature Pulse Rate 75 75 77 Pulse Rate [ Right Dorsalis Pedis] Respiratory 13 12 16 Rate Blood Pressure 122/64 133/64 133/64 O2 Sat by Pulse 99 100 98 Oximetry 06/23/18 06/23/18 06/23/18 15:16 15:30 15:46 Temperature Pulse Rate 76 76 74 Pulse Rate [ Right Dorsalis Pedis] Respiratory 12 12 12 Rate Blood Pressure 139/61 139/61 131/62 O2 Sat by Pulse 98 98 99 Oximetry 06/23/18 06/23/18 06/23/18 15:55 16:00 16:16 Temperature 98.4 F 98.4 F Pulse Rate 75 75 Pulse Rate [ 72 Right Dorsalis Pedis] Respiratory 14 14 Rate Blood Pressure 131/62 146/65 O2 Sat by Pulse 93 100 Oximetry 06/23/18 06/23/18 06/23/18 16:30 16:33 16:46 Temperature Pulse Rate 75 77 74 Pulse Rate [ Right Dorsalis Pedis] Respiratory 12 12 Rate Blood Pressure 146/65 124/68 125/64 O2 Sat by Pulse 100 99 100 Oximetry 01/01/19 01/01/19 01/01/19 17:00 17:16 17:30 Temperature Pulse Rate 75 73 73 Pulse Rate [ Right Dorsalis Pedis] Respiratory 12 12 11 L Rate Blood Pressure 122/63 122/63 114/65 O2 Sat by Pulse 100 100 100 Oximetry 06/23/18 06/23/18 17:46 18:00 Temperature Pulse Rate 72 73 Pulse Rate [ Right Dorsalis Pedis] Respiratory 12 12 Rate Blood Pressure 114/65 124/63 O2 Sat by Pulse 100 100 Oximetry Constitutional: no acute distress, other (elderly looking AAF normocephalic and atraumatic with ETT to MVS and mildly increased resp effort) Eyes: non-icteric ENT: oropharynx moist, other (ETT 23 cm DAVIDSON) Neck: supple, no lymphadenopathy, no JVD, other (no thyromegaly) Effort: mildly labored Ascultation: Bilateral: diminished breath sounds, rhonchi Percussion: Bilateral: not dull Cardiovascular: regular rate and rhythm Gastrointestinal: normoactive bowel sounds, soft, tender, non-distended Integumentary: normal Extremities: no cyanosis, no edema, pulses normal, no ischemia or petechiae Neurologic: non-focal exam (grossly), pupils equal and round, unable to assess Psychiatric: other (unable to assess) CBC and BMP: 06/22/18 17:21 06/22/18 03:17 ABG, PT/INR, D-dimer: ABG POC ABG pH 7.519 (7.35-7.45) H 06/23/18 05:34 POC ABG pCO2 35.7 (35-45) 06/23/18 05:34 POC ABG pO2 133 (80-105) H 06/23/18 05:34 POC ABG HCO3 29.1 06/23/18 05:34 POC ABG Total CO2 30 06/23/18 05:34 POC ABG O2 Sat 99 06/23/18 05:34 PT/INR, D-dimer PT 17.5 Sec. (12.2-14.9) H 06/22/18 17:21 INR 1.39 (0.87-1.13) H 06/22/18 17:21 Abnormal lab findings: Abnormal Labs 06/21/18 06/21/18 06/21/18 14:02 14:06 14:06 WBC RBC MCV 71 L MCH 22 L RDW 21.1 H [place] % (Auto) [place] # Seg Neutrophils # PT 18.9 H INR 1.54 H APTT Heparin Anti-Xa Level POC ABG pH POC ABG pCO2 POC ABG pO2 Creatinine Glucose POC Glucose 250 H Total Bilirubin Alkaline Phosphatase Troponin T Albumin 06/21/18 06/21/18 06/21/18 14:06 14:23 21:17 WBC RBC MCV MCH RDW [place] % (Auto) [place] # Seg Neutrophils # PT INR APTT Heparin Anti-Xa Level POC ABG pH 7.499 H 7.600 H POC ABG pCO2 34.8 L 24.9 L POC ABG pO2 342 H 176 H Creatinine 1.5 H Glucose 214 H POC Glucose Total Bilirubin 1.30 H Alkaline Phosphatase 174 H Troponin T 0.050 H Albumin 3.1 L 06/22/18 06/22/18 06/22/18 03:17 03:17 05:27 WBC 11.5 H RBC 5.07 H MCV 69 L MCH 21 L RDW 21.9 H [place] % (Auto) 9.8 H [place] # 1.1 H Seg Neutrophils # 7.9 H PT INR APTT Heparin Anti-Xa Level POC ABG pH 7.539 H POC ABG pCO2 30.1 L POC ABG pO2 170 H Creatinine 1.5 H Glucose 164 H POC Glucose Total Bilirubin Alkaline Phosphatase Troponin T Albumin 06/22/18 06/22/18 06/22/18 17:21 17:50 19:46 WBC RBC MCV MCH RDW [place] % (Auto) [place] # Seg Neutrophils # PT 17.5 H INR 1.39 H APTT 22.8 L Heparin Anti-Xa Level 1.64 H POC ABG pH POC ABG pCO2 POC ABG pO2 Creatinine Glucose POC Glucose 240 H Total Bilirubin Alkaline Phosphatase Troponin T Albumin 06/22/18 06/23/18 06/23/18 23:47 01:44 04:14 WBC RBC MCV MCH RDW [place] % (Auto) [place] # Seg Neutrophils # PT INR APTT Heparin Anti-Xa Level 0.10 L POC ABG pH POC ABG pCO2 POC ABG pO2 Creatinine Glucose POC Glucose 240 H 229 H Total Bilirubin Alkaline Phosphatase Troponin T Albumin 06/23/18 06/23/18 06/23/18 05:34 09:24 10:24 WBC RBC MCV MCH RDW [place] % (Auto) [place] # Seg Neutrophils # PT INR APTT Heparin Anti-Xa Level POC ABG pH 7.519 H POC ABG pCO2 POC ABG pO2 133 H Creatinine Glucose POC Glucose 220 H 183 H Total Bilirubin Alkaline Phosphatase Troponin T Albumin 06/23/18 06/23/18 06/23/18 12:39 13:32 14:08 WBC RBC MCV MCH RDW [place] % (Auto) [place] # Seg Neutrophils # PT INR APTT Heparin Anti-Xa Level > 2.00 H POC ABG pH POC ABG pCO2 POC ABG pO2 Creatinine Glucose POC Glucose 151 H 140 H Total Bilirubin Alkaline Phosphatase Troponin T Albumin 06/23/18 18:00 WBC RBC MCV MCH RDW [place] % (Auto) [place] # Seg Neutrophils # PT INR APTT Heparin Anti-Xa Level POC ABG pH POC ABG pCO2 POC ABG pO2 Creatinine Glucose POC Glucose 141 H Total Bilirubin Alkaline Phosphatase Troponin T Albumin Allied health notes reviewed: nursing
[2018-06-23] MEDS ORDERED: KEPPRA FEEDTUBE SCH (22:00)
[2018-06-24] MEDS: HumaLOG SUB-Q SCH ×6 (02:00→21:50)
--- NOTE | 2018-06-24 02:57 | XRay Report ---
FINAL REPORT PROCEDURE: XR CHEST 1V AP TECHNIQUE: Chest radiograph anteroposterior view. CPT 54470 HISTORY: follow up respiratory failure COMPARISON: None 19 FINDINGS: Heart: Normal. Mediastinum/Vessels: Normal. Lungs/Pleural space: Slight atelectasis right lower lung.. Bony thorax: No acute osseous abnormality. Life support devices: The endotracheal tube ends 4 centimeters above the jojo. A nasogastric tube e nds below the hemidiaphragms.. IMPRESSION: Mild atelectasis right lower lung. The endotracheal tube and nasogastric tube are properly positioned ..
[2018-06-24] MEDS: COMBIGAN 0.2-0.5% OU SCH ×2 (04:08→17:10)
[2018-06-24 04:28] LABS: Hematocrit 31.7 % (30.3-42.9); Hemoglobin 9.9 gm/dl (10.1-14.3); Mean Corpuscular HGB Conc 31 % (30-34); Platelet Count 195 K/mm3 (140-440); Red Blood Count 4.55 M/mm3 (3.65-5.03)
[2018-06-24 04:33] LABS: Mean Corpuscular Volume 70 fl (79-97); Red Cell Distribution Width 22.1 % (13.2-15.2)
[2018-06-24 04:52] LABS: Calcium 8.2 mg/dL (8.4-10.2)
[2018-06-24] MEDS: FLAGYL 500 MG/100 ML 500 MG/100 ML BAG IV SCH ×3 (06:00→21:46)
[2018-06-24] MEDS: ZITHROMAX 500 MG in NACL 0.9% 250ML 250 ML IV SCH (09:45)
[2018-06-24] MEDS: COREG PO SCH ×2 (09:46→21:47)
[2018-06-24] MEDS: ROCEPHIN/NS 2 GM/100 ML 2 GM/100 ML BAG IV SCH (09:46)
[2018-06-24] MEDS: PEPCID PO SCH (09:47)
[2018-06-24] MEDS: COZAAR PO SCH (09:47)
[2018-06-24] MEDS: NORVASC PO SCH (09:47)
[2018-06-24] MEDS: KEPPRA PO SCH ×2 (09:48→21:46)
[2018-06-24] MEDS: HEPARIN/ 0.45% NACL-25,000 UNIT/500 ML 25,000 UNIT/500 ML BAG IV SCH (09:48)
[2018-06-24] MEDS: SODIUM CHLORIDE FLUSH SYRINGE 10 ML IV SCH ×2 (10:00→21:47)
--- NOTE | 2018-06-24 11:18 | Progress Note ---
Assessment and Plan Acute Hypoxemic Respiratory failure on MVS Pneumonia (Likely aspiration) JULISA Respiratory Alkalosis Acute on Chronic Encephalopathy SIRS due to infectious process with acute organ dysfunction Seizures Obesity Diabetes type II Hypertension Hyperlipidemia H/O CVA H/O DVT Dementia Debility - Begin daily SBT's as tolerated - ABG after first couple hours on PSV - resume daily SAT's (no breakthrough seizures) - neurology evaluation ongoing and input appreciated - Keppra for seizures (1500mg bid) - VAP bundle addressed - continue empiric CAP antibiotics and follow cultures - continue IV heparin acutely (H/O DVT and on outpatient Eliquis) - Stress ulcer prophylaxis - Monitor renal function - Avoid nephrotoxic agents, adjust all medications for GFR and CrCL - titrate sedation for RASS 0 to -1 - follow EEG report - continue enteral nutrition as tolerated - continue to wean supplemental oxygen to keep O2 sats>90% - follow urine, tracheal and blood cultures (NGTD) - Strict intake and output - Accuchecks, glycemic control. Target blood glucose of 140-180mg/dL - follow 2D echocardiogram to evaluate LVEF and for pulmonary HTN CONDITION: CRITICAL CODE STATUS: FULL CODE PROGNOSIS: GUARDED The high probability of a clinically significant, sudden or life threatening deterioration of the [pulmonary, neuro, renal, cardiac] system(s) required my full and direct attention, intervention and personal management. The aggregate critical care time was [35] minutes. This time is in addition to time spent performing reported procedures but includes the following: [x] Data Review and interpretation [x] Patient assessment and monitoring of vital signs [x] Documentation [x] Medication orders and management Subjective Date of service: 06/24/18 Principal diagnosis: Acute Hypoxemic Resp failure; Pneumonia (Likely aspiration); JULISA; SIRS Interval history: Patient is seen today for: Acute Hypoxemic Respiratory failure on MVS; Pneumonia (Likely aspiration); JULISA; Acute on Chronic Encephalopathy; SIRS Seen and examined at bedside; 24hour events reviewed; nursing and respiratory care staff consulted; no adverse overnight events reported to me; remains on MVS ; tolerated reduced set rate with good ventilation and ABG; no emesis or overt aspiration; a little more responsive and no repeat seizures Objective Vital Signs - 12hr 06/23/18 06/23/18 06/23/18 23:30 23:46 23:47 Temperature 99.1 F Pulse Rate 80 78 Pulse Rate [ Right Dorsalis Pedis] Respiratory 18 15 Rate Blood Pressure 137/62 137/62 O2 Sat by Pulse 97 97 Oximetry 06/23/18 06/24/18 06/24/18 23:50 00:00 00:01 Temperature Pulse Rate 80 77 Pulse Rate [ 81 Right Dorsalis Pedis] Respiratory 17 15 Rate Blood Pressure 119/62 119/61 O2 Sat by Pulse 99 100 97 Oximetry 06/24/18 06/24/18 06/24/18 00:15 00:30 00:45 Temperature Pulse Rate 78 76 76 Pulse Rate [ Right Dorsalis Pedis] Respiratory 18 13 15 Rate Blood Pressure 137/62 109/58 119/61 O2 Sat by Pulse 97 97 98 Oximetry 06/24/18 06/24/18 06/24/18 01:00 01:15 01:30 Temperature Pulse Rate 75 75 73 Pulse Rate [ Right Dorsalis Pedis] Respiratory 13 13 11 L Rate Blood Pressure 112/54 112/54 122/61 O2 Sat by Pulse 98 98 99 Oximetry 06/24/18 06/24/18 06/24/18 01:45 02:00 02:15 Temperature Pulse Rate 101 H 100 H 99 H Pulse Rate [ Right Dorsalis Pedis] Respiratory 12 11 L 10 L Rate Blood Pressure 122/61 121/66 121/66 O2 Sat by Pulse 99 99 98 Oximetry 06/24/18 06/24/18 06/24/18 02:30 02:45 03:01 Temperature Pulse Rate 101 H 100 H 102 H Pulse Rate [ Right Dorsalis Pedis] Respiratory 18 14 15 Rate Blood Pressure 125/69 125/69 125/69 O2 Sat by Pulse 100 100 100 Oximetry 06/24/18 06/24/18 06/24/18 03:15 03:25 03:30 Temperature 98.8 F Pulse Rate 101 H 102 H Pulse Rate [ Right Dorsalis Pedis] Respiratory 18 Rate Blood Pressure 124/82 133/85 133/85 O2 Sat by Pulse 98 99 98 Oximetry 06/24/18 06/24/18 06/24/18 03:45 03:54 04:00 Temperature Pulse Rate 100 H 101 H Pulse Rate [ 88 Right Dorsalis Pedis] Respiratory 14 17 20 Rate Blood Pressure 133/85 144/83 O2 Sat by Pulse 98 100 97 Oximetry 06/24/18 06/24/18 06/24/18 04:15 04:30 04:45 Temperature Pulse Rate 102 H 102 H 101 H Pulse Rate [ Right Dorsalis Pedis] Respiratory 18 16 14 Rate Blood Pressure 144/83 146/84 146/84 O2 Sat by Pulse 98 99 98 Oximetry 06/24/18 06/24/18 06/24/18 05:00 05:15 05:30 Temperature Pulse Rate 102 H 100 H 98 H Pulse Rate [ Right Dorsalis Pedis] Respiratory 16 14 11 L Rate Blood Pressure 140/91 140/91 142/80 O2 Sat by Pulse 99 99 99 Oximetry 06/24/18 06/24/18 06/24/18 05:45 06:00 06:15 Temperature Pulse Rate 98 H 98 H 97 H Pulse Rate [ Right Dorsalis Pedis] Respiratory 11 L 16 11 L Rate Blood Pressure 142/80 135/73 135/73 O2 Sat by Pulse 100 99 99 Oximetry 06/24/18 06/24/18 06/24/18 06:30 06:45 07:00 Temperature Pulse Rate 97 H 96 H 98 H Pulse Rate [ Right Dorsalis Pedis] Respiratory 11 L 11 L 23 Rate Blood Pressure 127/68 127/68 140/82 O2 Sat by Pulse 99 99 92 Oximetry 06/24/18 06/24/18 06/24/18 07:15 07:30 07:45 Temperature Pulse Rate 96 H 96 H 95 H Pulse Rate [ Right Dorsalis Pedis] Respiratory 11 L 13 12 Rate Blood Pressure 140/82 144/84 144/84 O2 Sat by Pulse 99 98 99 Oximetry 06/24/18 06/24/18 06/24/18 07:56 08:00 08:15 Temperature 98.5 F Pulse Rate 96 H 95 H Pulse Rate [ 96 H Right Dorsalis Pedis] Respiratory 15 14 Rate Blood Pressure 149/84 149/84 O2 Sat by Pulse 100 90 Oximetry 06/24/18 06/24/18 06/24/18 08:30 08:45 09:00 Temperature Pulse Rate 95 H 94 H 96 H Pulse Rate [ Right Dorsalis Pedis] Respiratory 16 11 L 14 Rate Blood Pressure 144/79 144/79 143/80 O2 Sat by Pulse 91 93 94 Oximetry 06/24/18 06/24/18 06/24/18 09:15 09:23 09:30 Temperature Pulse Rate 96 H 97 H 98 H Pulse Rate [ Right Dorsalis Pedis] Respiratory 15 14 Rate Blood Pressure 143/80 143/80 138/79 O2 Sat by Pulse 95 95 98 Oximetry 06/24/18 06/24/18 06/24/18 09:45 09:46 09:47 Temperature Pulse Rate 99 H 100 H 100 H Pulse Rate [ Right Dorsalis Pedis] Respiratory 19 Rate Blood Pressure 138/79 138/79 138/79 O2 Sat by Pulse 99 Oximetry 06/24/18 06/24/18 06/24/18 10:00 10:15 10:30 Temperature Pulse Rate 98 H 97 H 98 H Pulse Rate [ Right Dorsalis Pedis] Respiratory 15 13 20 Rate Blood Pressure 144/81 144/81 130/80 O2 Sat by Pulse 99 100 100 Oximetry 06/24/18 06/24/18 10:45 11:00 Temperature Pulse Rate 96 H 97 H Pulse Rate [ Right Dorsalis Pedis] Respiratory 12 15 Rate Blood Pressure 130/80 123/76 O2 Sat by Pulse 100 100 Oximetry Constitutional: no acute distress, other (elderly looking AAF normocephalic and atraumatic with ETT to MVS and mildly increased resp effort) Eyes: non-icteric ENT: oropharynx moist, other (ETT 23 cm DAVIDSON) Neck: supple, no lymphadenopathy, no JVD, other (no thyromegaly) Effort: mildly labored Ascultation: Bilateral: diminished breath sounds, rhonchi Percussion: Bilateral: not dull Cardiovascular: regular rate and rhythm Gastrointestinal: normoactive bowel sounds, soft, tender, non-distended Integumentary: normal Extremities: no cyanosis, no edema, pulses normal, no ischemia or petechiae Neurologic: non-focal exam (grossly), pupils equal and round, unable to assess Psychiatric: other (unable to assess) CBC and BMP: 06/26/18 10:14 06/26/18 10:14 ABG, PT/INR, D-dimer: ABG POC ABG pH 7.446 (7.35-7.45) 06/24/18 04:21 POC ABG pCO2 37.6 (35-45) 06/24/18 04:21 POC ABG pO2 82 (80-105) 06/24/18 04:21 POC ABG HCO3 25.9 06/24/18 04:21 POC ABG Total CO2 27 06/24/18 04:21 POC ABG O2 Sat 97 06/24/18 04:21 PT/INR, D-dimer PT 17.5 Sec. (12.2-14.9) H 06/22/18 17:21 INR 1.39 (0.87-1.13) H 06/22/18 17:21 Abnormal lab findings: Abnormal Labs 06/21/18 06/21/18 06/21/18 14:02 14:06 14:06 WBC RBC Hgb MCV 71 L MCH 22 L RDW 21.1 H [place] % (Auto) [place] # Seg Neutrophils # PT 18.9 H INR 1.54 H APTT Heparin Anti-Xa Level POC ABG pH POC ABG pCO2 POC ABG pO2 BUN Creatinine Glucose POC Glucose 250 H Calcium Total Bilirubin Alkaline Phosphatase Troponin T Albumin 06/21/18 06/21/18 06/21/18 14:06 14:23 21:17 WBC RBC Hgb MCV MCH RDW [place] % (Auto) [place] # Seg Neutrophils # PT INR APTT Heparin Anti-Xa Level POC ABG pH 7.499 H 7.600 H POC ABG pCO2 34.8 L 24.9 L POC ABG pO2 342 H 176 H BUN Creatinine 1.5 H Glucose 214 H POC Glucose Calcium Total Bilirubin 1.30 H Alkaline Phosphatase 174 H Troponin T 0.050 H Albumin 3.1 L 06/22/18 06/22/18 06/22/18 03:17 03:17 05:27 WBC 11.5 H RBC 5.07 H Hgb MCV 69 L MCH 21 L RDW 21.9 H [place] % (Auto) 9.8 H [place] # 1.1 H Seg Neutrophils # 7.9 H PT INR APTT Heparin Anti-Xa Level POC ABG pH 7.539 H POC ABG pCO2 30.1 L POC ABG pO2 170 H BUN Creatinine 1.5 H Glucose 164 H POC Glucose Calcium Total Bilirubin Alkaline Phosphatase Troponin T Albumin 06/22/18 06/22/18 06/22/18 17:21 17:50 19:46 WBC RBC Hgb MCV MCH RDW [place] % (Auto) [place] # Seg Neutrophils # PT 17.5 H INR 1.39 H APTT 22.8 L Heparin Anti-Xa Level 1.64 H POC ABG pH POC ABG pCO2 POC ABG pO2 BUN Creatinine Glucose POC Glucose 240 H Calcium Total Bilirubin Alkaline Phosphatase Troponin T Albumin 06/22/18 06/23/1819 23:47 01:44 04:14 WBC RBC Hgb MCV MCH RDW [place] % (Auto) [place] # Seg Neutrophils # PT INR APTT Heparin Anti-Xa Level 0.10 L POC ABG pH POC ABG pCO2 POC ABG pO2 BUN Creatinine Glucose POC Glucose 240 H 229 H Calcium Total Bilirubin Alkaline Phosphatase Troponin T Albumin 06/23/18 06/23/18 06/23/18 05:34 09:24 10:24 WBC RBC Hgb MCV MCH RDW [place] % (Auto) [place] # Seg Neutrophils # PT INR APTT Heparin Anti-Xa Level POC ABG pH 7.519 H POC ABG pCO2 POC ABG pO2 133 H BUN Creatinine Glucose POC Glucose 220 H 183 H Calcium Total Bilirubin Alkaline Phosphatase Troponin T Albumin 06/23/18 06/23/18 06/23/18 12:39 13:32 14:08 WBC RBC Hgb MCV MCH RDW [place] % (Auto) [place] # Seg Neutrophils # PT INR APTT Heparin Anti-Xa Level > 2.00 H POC ABG pH POC ABG pCO2 POC ABG pO2 BUN Creatinine Glucose POC Glucose 151 H 140 H Calcium Total Bilirubin Alkaline Phosphatase Troponin T Albumin 06/23/18 06/23/18 06/23/18 18:00 19:33 21:31 WBC RBC Hgb MCV MCH RDW [place] % (Auto) [place] # Seg Neutrophils # PT INR APTT Heparin Anti-Xa Level 1.74 H POC ABG pH POC ABG pCO2 POC ABG pO2 BUN Creatinine Glucose POC Glucose 141 H 153 H Calcium Total Bilirubin Alkaline Phosphatase Troponin T Albumin 06/24/18 06/24/18 06/24/18 02:36 03:55 03:55 WBC 12.9 H RBC Hgb 9.9 L MCV 70 L MCH 22 L RDW 22.1 H [place] % (Auto) [place] # Seg Neutrophils # PT INR APTT Heparin Anti-Xa Level POC ABG pH POC ABG pCO2 POC ABG pO2 BUN 25 H Creatinine 1.6 H Glucose 151 H POC Glucose 162 H Calcium 8.2 L Total Bilirubin Alkaline Phosphatase Troponin T Albumin 06/24/18 06/24/18 06/24/18 03:55 05:01 09:34 WBC RBC Hgb MCV MCH RDW [place] % (Auto) [place] # Seg Neutrophils # PT INR APTT Heparin Anti-Xa Level 1.75 H POC ABG pH POC ABG pCO2 POC ABG pO2 BUN Creatinine Glucose POC Glucose 175 H 143 H Calcium Total Bilirubin Alkaline Phosphatase Troponin T Albumin Allied health notes reviewed: nursing
[2018-06-24] MEDS ORDERED: NACL 0.9% 1000 ML 1,000 ML IV SCH (12:00)
--- NOTE | 2018-06-24 12:10 | Progress Note ---
Assessment and Plan Assessment and plan: 65-year-old woman presents from [facility] nursing facility. The staff witnessed grand mal seizure, she had gurgling sounds were oral cavities. And she was then brought into the ER, she was intubated there. Past medical history includes obesity diabetes hypertension hyperlipidemia CVA history of DVT dementia debility Acute respiratory failure Continue ventilator, management per pulmonary team Pneumonia ruled out, repeat x-ray does not show any pneumonia Acute renal failure, suspected vasomotor nephropathy Continue IV fluids Acute metabolic encephalopathy Likely from post ictal state, Supportive care SIRS with acute organ dysfunction Presenting with hypothermia now having fevers- TMAX 100.7 this am Treatment and empiric antibiotics, obtain UA and urine culture, chest x-ray is negative, obtain blood cultures pending with no growth yet Status epilepticus AED, seizure precautions, neurology consults pending ? PE Given history of DVT, will obtain VQ scan and LE US pending, keep on heparin drip for now, she usually is on eliquis 5 twice a day Hypertensive urgency Optimize BP meds DVT prophylaxis Full anticoagulated ' Patients nurse today had finger stick while providing care to the patient. Nursing management is calling family, if no objection from them, can procedure with rapid HIV check blood draw since patient unable to give consent due to current medical condition Critical care time 35 minutes History Interval history: Patient seen and examined, No seizures overnight, no fevers overnight, no agitation. Remains intubated, awakes to verbal stimuli but not following much commands Hospitalist Physical - Physical exam Narrative exam: General.: Intubated and sedated HEENT: Moist mucous membranes, PERRL no lymphadenopathy Neck: supple Cardiac: S1-S2 heard Lungs: clear to auscultation bilaterally Abdomen: soft , nontender, nondistended, bowel sounds positive Extremities: no edema clubbing or cyanosis Skin: no rash or lesions Neurologic: Intubated and sedated Psych: Intubated and sedated - Constitutional Vitals: Temp Pulse Resp BP Pulse Ox 98.5 F 97 H 15 123/76 100 06/24/18 07:56 06/24/18 11:00 06/24/18 11:00 06/24/18 11:00 06/24/18 11:00 General appearance: Present: severe distress, obese Results - Labs CBC & Chem 7: 06/24/18 03:55 06/24/18 03:55 Labs: Laboratory Last Values WBC 12.9 K/mm3 (4.5-11.0) H 06/24/18 03:55 RBC 4.55 M/mm3 (3.65-5.03) 06/24/18 03:55 Hgb 9.9 gm/dl (10.1-14.3) L 06/24/18 03:55 Hct 31.7 % (30.3-42.9) 06/24/18 03:55 MCV 70 fl (79-97) L 06/24/18 03:55 MCH 22 pg (28-32) L 06/24/18 03:55 MCHC 31 % (30-34) 06/24/18 03:55 RDW 22.1 % (13.2-15.2) H 06/24/18 03:55 Plt Count 195 K/mm3 (140-440) 06/24/18 03:55 Lymph % (Auto) 21.0 % (13.4-35.0) 06/22/18 03:17 [place] % (Auto) 9.8 % (0.0-7.3) H 06/22/18 03:17 Eos % (Auto) 0.1 % (0.0-4.3) 06/22/18 03:17 Baso % (Auto) 0.6 % (0.0-1.8) 06/22/18 03:17 Lymph # 2.4 K/mm3 (1.2-5.4) 06/22/18 03:17 [place] # 1.1 K/mm3 (0.0-0.8) H 06/22/18 03:17 Eos # 0.0 K/mm3 (0.0-0.4) 06/22/18 03:17 Baso # 0.1 K/mm3 (0.0-0.1) 06/22/18 03:17 Seg Neutrophils % 68.5 % (40.0-70.0) 06/22/18 03:17 Seg Neutrophils # 7.9 K/mm3 (1.8-7.7) H 06/22/18 03:17 PT 17.5 Sec. (12.2-14.9) H 06/22/18 17:21 INR 1.39 (0.87-1.13) H 06/22/18 17:21 APTT 22.8 Sec. (24.2-36.6) L 06/22/18 17:21 Heparin Anti-Xa Level 1.75 U.I./ml (0.3-0.7) H 06/24/18 03:55 POC ABG pH 7.446 (7.35-7.45) 06/24/18 04:21 POC ABG pCO2 37.6 (35-45) 06/24/18 04:21 POC ABG pO2 82 (80-105) 06/24/18 04:21 POC ABG HCO3 25.9 06/24/18 04:21 POC ABG Total CO2 27 06/24/18 04:21 POC ABG O2 Sat 97 06/24/18 04:21 POC ABG Base Excess 2 06/24/18 04:21 FiO2 30 % 06/24/18 04:21 Sodium 145 mmol/L (137-145) 06/24/18 03:55 Potassium 3.7 mmol/L (3.6-5.0) 06/24/18 03:55 Chloride 105.0 mmol/L (98-107) 06/24/18 03:55 Carbon Dioxide 27 mmol/L (22-30) 06/24/18 03:55 Anion Gap 17 mmol/L 06/24/18 03:55 BUN 25 mg/dL (7-17) H 06/24/18 03:55 Creatinine 1.6 mg/dL (0.7-1.2) H 06/24/18 03:55 Estimated GFR 32 ml/min 06/24/18 03:55 BUN/Creatinine Ratio 16 % 06/24/18 03:55 Glucose 151 mg/dL (65-100) H 06/24/18 03:55 POC Glucose 143 (70-105) H 06/24/18 09:34 Calcium 8.2 mg/dL (8.4-10.2) L 06/24/18 03:55 Magnesium 1.70 mg/dL (1.7-2.3) 06/21/18 14:06 Total Bilirubin 1.30 mg/dL (0.1-1.2) H 06/21/18 14:06 AST 19 units/L (5-40) 06/21/18 14:06 ALT 17 units/L (7-56) 06/21/18 14:06 Alkaline Phosphatase 174 units/L (35-129) H 06/21/18 14:06 Total Creatine Kinase 102 units/L (30-135) 06/21/18 14:06 CK-MB (CK-2) 2.2 ng/mL (0.0-4.0) 06/21/18 14:06 CK-MB (CK-2) Rel Index 2.1 (0-4) 06/21/18 14:06 Troponin T 0.050 ng/mL (0.00-0.029) H 06/21/18 14:06 Total Protein 6.9 g/dL (6.3-8.2) 06/21/18 14:06 Albumin 3.1 g/dL (3.9-5) L 06/21/18 14:06 Albumin/Globulin Ratio 0.8 % 06/21/18 14:06 Triglycerides 115 mg/dL (2-149) 06/21/18 14:06 Cholesterol 123 mg/dL (50-199) 06/21/18 14:06 LDL Cholesterol Direct 61 mg/dL (50-130) 06/21/18 14:06 HDL Cholesterol 50 mg/dL (40-59) 06/21/18 14:06 Cholesterol/HDL Ratio 2.46 % 06/21/18 14:06 Nutrition/Malnutrition Assess - Dietary Evaluation Nutrition/Malnutrition Findings: Nutrition Notes Start: 06/22/18 10:19 Freq: Status: Active Protocol: Document 06/22/18 10:35 OL (Rec: 06/22/18 10:45 OL [id number]) Nutrition Notes Need for Assessment generated from: MD Order Initial or Follow up Assessment Current Diagnoses Diabetes Hypertension Stroke Hyperlipidemia Current Diet NPO Labs/Tests Cr 1.5 glucose 164 Medications Reviewed Height 5 ft 2 in Weight 92.986 kg [place] Body Weight (lbs) 110.0 BMI 37.5 Weight Status Obese Subjective/Other Information RD consult to evaluate nutrition intake and screen for malnutrition risk. Pt. admitted from SNF. Addendum (16:52) TF consult received. Order entered into chart. Burn Absent Trauma Absent #1 Nutrition Diagnoses Inadequate oral intake Etiology mech vent As Evidenced by Signs and Symptoms NPO status Is patient on ventilator? Yes Is Patient Ambulatory and/or Out of Bed No REE-([facility]-confined to bed) 1707.048 Calculation Used for Recommendations Paulette Mathews Additional Notes protein (2g/kg IBW): 105g fluid: 1mL/kcal or per MD Nutrition Intervention Change Diet Order: Advance when medically feasible Nutrition Support: TF recs: Vital AF at 60mL/hr with 100mL flush q4h Kcal 1,728 Protein (gm) 108 Fluid (mL) 1,167 Goal #1 Diet advancement or nutrition support to meet nutrient needs Anticipated Discharge Needs: Unable to determine at this time Follow-Up By: 06/24/18 Additional Comments f/u: diet advancement/TF consult
--- NOTE | 2018-06-24 13:19 | Progress Note ---
Assessment and Plan 67 yr old female admitted from senior living facility because of a witnessed generalized seizure. The pt. was admitted in for hypoglycemia. There do not appear to be any metabolic issues on this admission. According to notes from , the pt. was taking Keppra [address] brain reveals old CVAs in left hemisphere, no acute ischemia. CXR is clear. Plan - MRI when stable Increased Keppra to 1500 mg BID Will watch renal function and adjust Keppra dose accordingly EEG Subjective Principal diagnosis: Acute Hypoxemic Resp failure; Pneumonia (Likely aspiration); JULISA; SIRS Interval history: 67 YO Female from a Group Home Facility, has a hx of Obesity, DM, HTN, HLD, CVA, DVT, Dementia, and presented to ED for generalized witnessed seizure. The patient's room mate witnessed the seizure, EMS was called, she was brought to the ED unresponsive and at risk for aspiration. She was intubated and sedated. CT scan reveals old left parietal/frontal cortical CVAs, no acute process. The patient has been on Keppra 1000 mg BID, as per discharge from admission in 2017. Continues on ventilator. Objective - Exam Narrative Exam: Neurological exam - sedated on ventilator Opens eyes to examiner's voice. Follows simple commands, such as blink your eyes, slight hand squeeze. instructor bridge - eyes appear yoked. Blinks spontaneously and to threat. face symmetric Motor - no spontaneous movement. No withdrawal to pain. Moves feet on command. Reflexes - trace throughout. Sensory - eyes open to painful stimuli but there is no withdrawal or movement, in all 4 limbs. - Vital Sign Vital Signs - 12hr 06/24/18 06/24/18 06/24/18 01:30 01:45 02:00 Temperature Pulse Rate 73 101 H 100 H Pulse Rate [ Right Dorsalis Pedis] Respiratory 11 L 12 11 L Rate Blood Pressure 122/61 122/61 121/66 O2 Sat by Pulse 99 99 99 Oximetry 06/24/18 06/24/18 06/24/18 02:15 02:30 02:45 Temperature Pulse Rate 99 H 101 H 100 H Pulse Rate [ Right Dorsalis Pedis] Respiratory 10 L 18 14 Rate Blood Pressure 121/66 125/69 125/69 O2 Sat by Pulse 98 100 100 Oximetry 06/24/18 06/24/18 06/24/18 03:01 03:15 03:25 Temperature Pulse Rate 102 H 101 H Pulse Rate [ Right Dorsalis Pedis] Respiratory 15 Rate Blood Pressure 125/69 124/82 133/85 O2 Sat by Pulse 100 98 99 Oximetry 06/24/18 06/24/18 06/24/18 03:30 03:45 03:54 Temperature 98.8 F Pulse Rate 102 H 100 H Pulse Rate [ 88 Right Dorsalis Pedis] Respiratory 18 14 17 Rate Blood Pressure 133/85 133/85 O2 Sat by Pulse 98 98 100 Oximetry 06/24/18 06/24/18 06/24/18 04:00 04:15 04:30 Temperature Pulse Rate 101 H 102 H 102 H Pulse Rate [ Right Dorsalis Pedis] Respiratory 20 18 16 Rate Blood Pressure 144/83 144/83 146/84 O2 Sat by Pulse 97 98 99 Oximetry 06/24/18 06/24/18 06/24/18 04:45 05:00 05:15 Temperature Pulse Rate 101 H 102 H 100 H Pulse Rate [ Right Dorsalis Pedis] Respiratory 14 16 14 Rate Blood Pressure 146/84 140/91 140/91 O2 Sat by Pulse 98 99 99 Oximetry 06/24/18 06/24/18 06/24/18 05:30 05:45 06:00 Temperature Pulse Rate 98 H 98 H 98 H Pulse Rate [ Right Dorsalis Pedis] Respiratory 11 L 11 L 16 Rate Blood Pressure 142/80 142/80 135/73 O2 Sat by Pulse 99 100 99 Oximetry 06/24/18 06/24/18 06/24/18 06:15 06:30 06:45 Temperature Pulse Rate 97 H 97 H 96 H Pulse Rate [ Right Dorsalis Pedis] Respiratory 11 L 11 L 11 L Rate Blood Pressure 135/73 127/68 127/68 O2 Sat by Pulse 99 99 99 Oximetry 06/24/18 06/24/18 06/24/18 07:00 07:15 07:30 Temperature Pulse Rate 98 H 96 H 96 H Pulse Rate [ Right Dorsalis Pedis] Respiratory 23 11 L 13 Rate Blood Pressure 140/82 140/82 144/84 O2 Sat by Pulse 92 99 98 Oximetry 06/24/18 06/24/18 06/24/18 07:45 07:56 08:00 Temperature 98.5 F Pulse Rate 95 H 96 H Pulse Rate [ 96 H Right Dorsalis Pedis] Respiratory 12 15 Rate Blood Pressure 144/84 149/84 O2 Sat by Pulse 99 100 Oximetry 06/24/18 06/24/18 06/24/18 08:15 08:30 08:45 Temperature Pulse Rate 95 H 95 H 94 H Pulse Rate [ Right Dorsalis Pedis] Respiratory 14 16 11 L Rate Blood Pressure 149/84 144/79 144/79 O2 Sat by Pulse 90 91 93 Oximetry 06/24/18 06/24/18 06/24/18 09:00 09:15 09:23 Temperature Pulse Rate 96 H 96 H 97 H Pulse Rate [ Right Dorsalis Pedis] Respiratory 14 15 Rate Blood Pressure 143/80 143/80 143/80 O2 Sat by Pulse 94 95 95 Oximetry 06/24/18 06/24/18 06/24/18 09:30 09:45 09:46 Temperature Pulse Rate 98 H 99 H 100 H Pulse Rate [ Right Dorsalis Pedis] Respiratory 14 19 Rate Blood Pressure 138/79 138/79 138/79 O2 Sat by Pulse 98 99 Oximetry 06/24/18 06/24/18 06/24/18 09:47 10:00 10:15 Temperature Pulse Rate 100 H 98 H 97 H Pulse Rate [ Right Dorsalis Pedis] Respiratory 15 13 Rate Blood Pressure 138/79 144/81 144/81 O2 Sat by Pulse 99 100 Oximetry 06/24/18 06/24/18 06/24/18 10:30 10:45 11:00 Temperature Pulse Rate 98 H 96 H 97 H Pulse Rate [ Right Dorsalis Pedis] Respiratory 20 12 15 Rate Blood Pressure 130/80 130/80 123/76 O2 Sat by Pulse 100 100 100 Oximetry 06/24/18 06/24/18 06/24/18 11:15 11:30 11:45 Temperature Pulse Rate 96 H 98 H 100 H Pulse Rate [ Right Dorsalis Pedis] Respiratory 15 20 19 Rate Blood Pressure 123/76 132/84 132/84 O2 Sat by Pulse 100 100 100 Oximetry 06/24/18 06/24/18 06/24/18 12:00 12:01 12:15 Temperature 98.6 F Pulse Rate 99 H 98 H Pulse Rate [ 100 H Right Dorsalis Pedis] Respiratory 18 21 18 Rate Blood Pressure 141/83 141/83 O2 Sat by Pulse 99 100 100 Oximetry 06/24/18 06/24/18 06/24/18 12:30 12:45 12:58 Temperature Pulse Rate 100 H 99 H 100 H Pulse Rate [ Right Dorsalis Pedis] Respiratory 18 20 22 Rate Blood Pressure 147/84 147/84 139/82 O2 Sat by Pulse 100 100 99 Oximetry - Laboratory Findings CBC and BMP: 06/24/18 03:55 06/24/18 03:55 Abnormal Lab Findings: Abnormal Labs 06/21/18 06/21/18 06/21/18 14:02 14:06 14:06 WBC RBC Hgb MCV 71 L MCH 22 L RDW 21.1 H [place] % (Auto) [place] # Seg Neutrophils # PT 18.9 H INR 1.54 H APTT Heparin Anti-Xa Level POC ABG pH POC ABG pCO2 POC ABG pO2 BUN Creatinine Glucose POC Glucose 250 H Calcium Total Bilirubin Alkaline Phosphatase Troponin T Albumin 06/21/18 06/21/18 06/21/18 14:06 14:23 21:17 WBC RBC Hgb MCV MCH RDW [place] % (Auto) [place] # Seg Neutrophils # PT INR APTT Heparin Anti-Xa Level POC ABG pH 7.499 H 7.600 H POC ABG pCO2 34.8 L 24.9 L POC ABG pO2 342 H 176 H BUN Creatinine 1.5 H Glucose 214 H POC Glucose Calcium Total Bilirubin 1.30 H Alkaline Phosphatase 174 H Troponin T 0.050 H Albumin 3.1 L 06/22/18 06/22/18 06/22/18 03:17 03:17 05:27 WBC 11.5 H RBC 5.07 H Hgb MCV 69 L MCH 21 L RDW 21.9 H [place] % (Auto) 9.8 H [place] # 1.1 H Seg Neutrophils # 7.9 H PT INR APTT Heparin Anti-Xa Level POC ABG pH 7.539 H POC ABG pCO2 30.1 L POC ABG pO2 170 H BUN Creatinine 1.5 H Glucose 164 H POC Glucose Calcium Total Bilirubin Alkaline Phosphatase Troponin T Albumin 06/22/18 06/22/18 06/22/18 17:21 17:50 19:46 WBC RBC Hgb MCV MCH RDW [place] % (Auto) [place] # Seg Neutrophils # PT 17.5 H INR 1.39 H APTT 22.8 L Heparin Anti-Xa Level 1.64 H POC ABG pH POC ABG pCO2 POC ABG pO2 BUN Creatinine Glucose POC Glucose 240 H Calcium Total Bilirubin Alkaline Phosphatase Troponin T Albumin 06/22/18 06/23/18 06/23/18 23:47 01:44 04:14 WBC RBC Hgb MCV MCH RDW [place] % (Auto) [place] # Seg Neutrophils # PT INR APTT Heparin Anti-Xa Level 0.10 L POC ABG pH POC ABG pCO2 POC ABG pO2 BUN Creatinine Glucose POC Glucose 240 H 229 H Calcium Total Bilirubin Alkaline Phosphatase Troponin T Albumin 06/23/18 06/23/18 06/23/18 05:34 09:24 10:24 WBC RBC Hgb MCV MCH RDW [place] % (Auto) [place] # Seg Neutrophils # PT INR APTT Heparin Anti-Xa Level POC ABG pH 7.519 H POC ABG pCO2 POC ABG pO2 133 H BUN Creatinine Glucose POC Glucose 220 H 183 H Calcium Total Bilirubin Alkaline Phosphatase Troponin T Albumin 06/23/18 06/23/18 06/23/18 12:39 13:32 14:08 WBC RBC Hgb MCV MCH RDW [place] % (Auto) [place] # Seg Neutrophils # PT INR APTT Heparin Anti-Xa Level > 2.00 H POC ABG pH POC ABG pCO2 POC ABG pO2 BUN Creatinine Glucose POC Glucose 151 H 140 H Calcium Total Bilirubin Alkaline Phosphatase Troponin T Albumin 06/23/18 06/23/18 06/23/18 18:00 19:33 21:31 WBC RBC Hgb MCV MCH RDW [place] % (Auto) [place] # Seg Neutrophils # PT INR APTT Heparin Anti-Xa Level 1.74 H POC ABG pH POC ABG pCO2 POC ABG pO2 BUN Creatinine Glucose POC Glucose 141 H 153 H Calcium Total Bilirubin Alkaline Phosphatase Troponin T Albumin 06/24/18 06/24/18 06/24/18 02:36 03:55 03:55 WBC 12.9 H RBC Hgb 9.9 L MCV 70 L MCH 22 L RDW 22.1 H [place] % (Auto) [place] # Seg Neutrophils # PT INR APTT Heparin Anti-Xa Level POC ABG pH POC ABG pCO2 POC ABG pO2 BUN 25 H Creatinine 1.6 H Glucose 151 H POC Glucose 162 H Calcium 8.2 L Total Bilirubin Alkaline Phosphatase Troponin T Albumin 06/24/18 06/24/18 06/24/18 03:55 05:01 09:34 WBC RBC Hgb MCV MCH RDW [place] % (Auto) [place] # Seg Neutrophils # PT INR APTT Heparin Anti-Xa Level 1.75 H POC ABG pH POC ABG pCO2 POC ABG pO2 BUN Creatinine Glucose POC Glucose 175 H 143 H Calcium Total Bilirubin Alkaline Phosphatase Troponin T Albumin
--- NOTE | 2018-06-24 13:31 | Progress Note ---
Subjective Date of service: 06/24/18 Principal diagnosis: Acute Hypoxemic Resp failure; Pneumonia (Likely aspiration); JULISA; SIRS Objective - Vital Sign Vital Signs - 12hr 06/24/18 06/24/18 06/24/18 01:15 01:30 01:45 Temperature Pulse Rate 75 73 101 H Pulse Rate [ Right Dorsalis Pedis] Respiratory 13 11 L 12 Rate Blood Pressure 112/54 122/61 122/61 O2 Sat by Pulse 98 99 99 Oximetry 06/24/18 06/24/18 06/24/18 02:00 02:15 02:30 Temperature Pulse Rate 100 H 99 H 101 H Pulse Rate [ Right Dorsalis Pedis] Respiratory 11 L 10 L 18 Rate Blood Pressure 121/66 121/66 125/69 O2 Sat by Pulse 99 98 100 Oximetry 06/24/18 06/24/18 06/24/18 02:45 03:01 03:15 Temperature Pulse Rate 100 H 102 H Pulse Rate [ Right Dorsalis Pedis] Respiratory 14 15 Rate Blood Pressure 125/69 125/69 124/82 O2 Sat by Pulse 100 100 98 Oximetry 06/24/18 06/24/18 06/24/18 03:25 03:30 03:45 Temperature 98.8 F Pulse Rate 101 H 102 H 100 H Pulse Rate [ Right Dorsalis Pedis] Respiratory 18 14 Rate Blood Pressure 133/85 133/85 133/85 O2 Sat by Pulse 99 98 98 Oximetry 06/24/18 06/24/18 06/24/18 03:54 04:00 04:15 Temperature Pulse Rate 101 H 102 H Pulse Rate [ 88 Right Dorsalis Pedis] Respiratory 17 20 18 Rate Blood Pressure 144/83 144/83 O2 Sat by Pulse 100 97 98 Oximetry 06/24/18 06/24/18 06/24/18 04:30 04:45 05:00 Temperature Pulse Rate 102 H 101 H 102 H Pulse Rate [ Right Dorsalis Pedis] Respiratory 16 14 16 Rate Blood Pressure 146/84 146/84 140/91 O2 Sat by Pulse 99 98 99 Oximetry 06/24/18 06/24/18 06/24/18 05:15 05:30 05:45 Temperature Pulse Rate 100 H 98 H 98 H Pulse Rate [ Right Dorsalis Pedis] Respiratory 14 11 L 11 L Rate Blood Pressure 140/91 142/80 142/80 O2 Sat by Pulse 99 99 100 Oximetry 06/24/18 06/24/18 06/24/18 06:00 06:15 06:30 Temperature Pulse Rate 98 H 97 H 97 H Pulse Rate [ Right Dorsalis Pedis] Respiratory 16 11 L 11 L Rate Blood Pressure 135/73 135/73 127/68 O2 Sat by Pulse 99 99 99 Oximetry 06/24/18 06/24/18 06/24/18 06:45 07:00 07:15 Temperature Pulse Rate 96 H 98 H 96 H Pulse Rate [ Right Dorsalis Pedis] Respiratory 11 L 23 11 L Rate Blood Pressure 127/68 140/82 140/82 O2 Sat by Pulse 99 92 99 Oximetry 06/24/18 06/24/18 06/24/18 07:30 07:45 07:56 Temperature 98.5 F Pulse Rate 96 H 95 H Pulse Rate [ Right Dorsalis Pedis] Respiratory 13 12 Rate Blood Pressure 144/84 144/84 O2 Sat by Pulse 98 99 Oximetry 06/24/18 06/24/18 06/24/18 08:00 08:15 08:30 Temperature Pulse Rate 96 H 95 H 95 H Pulse Rate [ 96 H Right Dorsalis Pedis] Respiratory 15 14 16 Rate Blood Pressure 149/84 149/84 144/79 O2 Sat by Pulse 100 90 91 Oximetry 06/24/18 06/24/18 06/24/18 08:45 09:00 09:15 Temperature Pulse Rate 94 H 96 H 96 H Pulse Rate [ Right Dorsalis Pedis] Respiratory 11 L 14 15 Rate Blood Pressure 144/79 143/80 143/80 O2 Sat by Pulse 93 94 95 Oximetry 06/24/18 06/24/18 06/24/18 09:23 09:30 09:45 Temperature Pulse Rate 97 H 98 H 99 H Pulse Rate [ Right Dorsalis Pedis] Respiratory 14 19 Rate Blood Pressure 143/80 138/79 138/79 O2 Sat by Pulse 95 98 99 Oximetry 06/24/18 06/24/18 06/24/18 09:46 09:47 10:00 Temperature Pulse Rate 100 H 100 H 98 H Pulse Rate [ Right Dorsalis Pedis] Respiratory 15 Rate Blood Pressure 138/79 138/79 144/81 O2 Sat by Pulse 99 Oximetry 06/24/18 06/24/18 06/24/18 10:15 10:30 10:45 Temperature Pulse Rate 97 H 98 H 96 H Pulse Rate [ Right Dorsalis Pedis] Respiratory 13 20 12 Rate Blood Pressure 144/81 130/80 130/80 O2 Sat by Pulse 100 100 100 Oximetry 06/24/18 06/24/18 06/24/18 11:00 11:15 11:30 Temperature Pulse Rate 97 H 96 H 98 H Pulse Rate [ Right Dorsalis Pedis] Respiratory 15 15 20 Rate Blood Pressure 123/76 123/76 132/84 O2 Sat by Pulse 100 100 100 Oximetry 06/24/18 06/24/18 06/24/18 11:45 12:00 12:01 Temperature 98.6 F Pulse Rate 100 H 99 H Pulse Rate [ 100 H Right Dorsalis Pedis] Respiratory 19 18 21 Rate Blood Pressure 132/84 141/83 O2 Sat by Pulse 100 99 100 Oximetry 06/24/18 06/24/18 06/24/18 12:15 12:30 12:45 Temperature Pulse Rate 98 H 100 H 99 H Pulse Rate [ Right Dorsalis Pedis] Respiratory 18 18 20 Rate Blood Pressure 141/83 147/84 147/84 O2 Sat by Pulse 100 100 100 Oximetry 06/24/18 12:58 Temperature Pulse Rate 100 H Pulse Rate [ Right Dorsalis Pedis] Respiratory 22 Rate Blood Pressure 139/82 O2 Sat by Pulse 99 Oximetry - Laboratory Findings CBC and BMP: 06/24/18 03:55 06/24/18 03:55 Abnormal Lab Findings: Abnormal Labs 06/21/18 06/21/18 06/21/18 14:02 14:06 14:06 WBC RBC Hgb MCV 71 L MCH 22 L RDW 21.1 H [place] % (Auto) [place] # Seg Neutrophils # PT 18.9 H INR 1.54 H APTT Heparin Anti-Xa Level POC ABG pH POC ABG pCO2 POC ABG pO2 BUN Creatinine Glucose POC Glucose 250 H Calcium Total Bilirubin Alkaline Phosphatase Troponin T Albumin 06/21/18 06/21/18 06/21/18 14:06 14:23 21:17 WBC RBC Hgb MCV MCH RDW [place] % (Auto) [place] # Seg Neutrophils # PT INR APTT Heparin Anti-Xa Level POC ABG pH 7.499 H 7.600 H POC ABG pCO2 34.8 L 24.9 L POC ABG pO2 342 H 176 H BUN Creatinine 1.5 H Glucose 214 H POC Glucose Calcium Total Bilirubin 1.30 H Alkaline Phosphatase 174 H Troponin T 0.050 H Albumin 3.1 L 06/22/18 06/22/18 06/22/18 03:17 03:17 05:27 WBC 11.5 H RBC 5.07 H Hgb MCV 69 L MCH 21 L RDW 21.9 H [place] % (Auto) 9.8 H [place] # 1.1 H Seg Neutrophils # 7.9 H PT INR APTT Heparin Anti-Xa Level POC ABG pH 7.539 H POC ABG pCO2 30.1 L POC ABG pO2 170 H BUN Creatinine 1.5 H Glucose 164 H POC Glucose Calcium Total Bilirubin Alkaline Phosphatase Troponin T Albumin 06/22/18 06/22/18 06/22/18 17:21 17:50 19:46 WBC RBC Hgb MCV MCH RDW [place] % (Auto) [place] # Seg Neutrophils # PT 17.5 H INR 1.39 H APTT 22.8 L Heparin Anti-Xa Level 1.64 H POC ABG pH POC ABG pCO2 POC ABG pO2 BUN Creatinine Glucose POC Glucose 240 H Calcium Total Bilirubin Alkaline Phosphatase Troponin T Albumin 06/22/18 06/23/18 06/23/18 23:47 01:44 04:14 WBC RBC Hgb MCV MCH RDW [place] % (Auto) [place] # Seg Neutrophils # PT INR APTT Heparin Anti-Xa Level 0.10 L POC ABG pH POC ABG pCO2 POC ABG pO2 BUN Creatinine Glucose POC Glucose 240 H 229 H Calcium Total Bilirubin Alkaline Phosphatase Troponin T Albumin 06/23/18 06/23/18 06/23/18 05:34 09:24 10:24 WBC RBC Hgb MCV MCH RDW [place] % (Auto) [place] # Seg Neutrophils # PT INR APTT Heparin Anti-Xa Level POC ABG pH 7.519 H POC ABG pCO2 POC ABG pO2 133 H BUN Creatinine Glucose POC Glucose 220 H 183 H Calcium Total Bilirubin Alkaline Phosphatase Troponin T Albumin 06/23/18 06/23/18 06/23/18 12:39 13:32 14:08 WBC RBC Hgb MCV MCH RDW [place] % (Auto) [place] # Seg Neutrophils # PT INR APTT Heparin Anti-Xa Level > 2.00 H POC ABG pH POC ABG pCO2 POC ABG pO2 BUN Creatinine Glucose POC Glucose 151 H 140 H Calcium Total Bilirubin Alkaline Phosphatase Troponin T Albumin 06/23/18 06/23/18 06/23/18 18:00 19:33 21:31 WBC RBC Hgb MCV MCH RDW [place] % (Auto) [place] # Seg Neutrophils # PT INR APTT Heparin Anti-Xa Level 1.74 H POC ABG pH POC ABG pCO2 POC ABG pO2 BUN Creatinine Glucose POC Glucose 141 H 153 H Calcium Total Bilirubin Alkaline Phosphatase Troponin T Albumin 06/24/18 06/24/18 06/24/18 02:36 03:55 03:55 WBC 12.9 H RBC Hgb 9.9 L MCV 70 L MCH 22 L RDW 22.1 H [place] % (Auto) [place] # Seg Neutrophils # PT INR APTT Heparin Anti-Xa Level POC ABG pH POC ABG pCO2 POC ABG pO2 BUN 25 H Creatinine 1.6 H Glucose 151 H POC Glucose 162 H Calcium 8.2 L Total Bilirubin Alkaline Phosphatase Troponin T Albumin 06/24/18 06/24/18 06/24/18 03:55 05:01 09:34 WBC RBC Hgb MCV MCH RDW [place] % (Auto) [place] # Seg Neutrophils # PT INR APTT Heparin Anti-Xa Level 1.75 H POC ABG pH POC ABG pCO2 POC ABG pO2 BUN Creatinine Glucose POC Glucose 175 H 143 H Calcium Total Bilirubin Alkaline Phosphatase Troponin T Albumin
--- NOTE | 2018-06-24 13:58 | Nuclear Medicine Report ---
PERFUSION LUNG SCAN: History: Respiratory failure. After injection of Technetium 99m macroaggregated albumin gamma camera imaging of the lungs in multiple projections demonstrates normal pulmonary contours with a homogeneous distribution of activity. No focal areas of perfusion deficiency are identified. IMPRESSION: No perfusion defect is identified to suggest pulmonary embolus.
[2018-06-24] MEDS ORDERED: PANCREAZE DR 10,500 UNIT FEEDTUBE PRN (13:59)
[2018-06-24] MEDS ORDERED: SIMPLE SYRUP FEEDTUBE PRN ×2 (13:59)
[2018-06-24] MEDS ORDERED: SODIUM BICARBONATE FEEDTUBE PRN (13:59)
[2018-06-25] MEDS: HumaLOG SUB-Q SCH ×6 (01:49→22:13)
--- NOTE | 2018-06-25 03:51 | XRay Report ---
FINAL REPORT PROCEDURE: XR CHEST 1V AP TECHNIQUE: Chest radiograph anteroposterior view. CPT 19951 HISTORY: RESPIRATORY FAILURE COMPARISON: 06/24/2018 FINDINGS: Heart: Normal. Mediastinum/Vessels: Normal. Lungs/Pleural space: Normal. Bony thorax: No acute osseous abnormality. Life support devices: The nasogastric tube ends below the hemidiaphragms. IMPRESSION: There is no evidence of an acute infiltrate or effusion. The nasogastric tube ends below the hemidiap hragms..
[2018-06-25] MEDS: COMBIGAN 0.2-0.5% OU SCH ×2 (04:14→18:19)
[2018-06-25] MEDS: FLAGYL 500 MG/100 ML 500 MG/100 ML BAG IV SCH ×2 (05:34→14:55)
[2018-06-25] MEDS ORDERED: KCL 10MEQ/100ML 40 MEQ/400 ML BAG IV ONE (07:22)
[2018-06-25] MEDS ORDERED: POTASSIUM CHLORIDE ONE (07:23)
--- NOTE | 2018-06-25 09:41 | Progress Note ---
Assessment and Plan Respiratory failure-acute hypoxemic on MVS Seizures Pneumonia, Right lung ARF (acute renal failure) with tubular necrosis Encephalopathy Hypothermia Obesity Hyperglycemia -VAP bundle addressed -VTE prophylaxis( anticoagulated)- on heparin infusion Eliquis on hold -Stress ulcer prophylaxis -Complete antibiotic course -Monitor renal function -Avoid nephrotoxic agents, adjust all medications for GFR and CrCL -Agitation management -Enteric feeding with aspiration precautions -Supplemental oxygen to keep O2 sats>90% -Strict intake and output -Accuchecks, glycemic control. Target blood glucose of 140-180mg/dL Discussed in ICU-IDT rounds. For SBT today, if weaning parameters, mental status and respiratory mechanics are acceptable, plan to wean to extubate. Otherwise will place back on full support . CONDITION: CRITICAL CODE STATUS: FULL CODE PROGNOSIS: GUARDED The high probability of a clinically significant, sudden or life threatening deterioration of the [pulmonary, neurology, renal, cardiac] system(s) required my full and direct attention, intervention and personal management. The aggregate critical care time was [35] minutes. This time is in addition to time spent performing reported procedures but includes the following: [x] Data Review and interpretation [x] Patient assessment and monitoring of vital signs [x] Documentation [x] Medication orders and management Subjective Date of service: 06/25/18 Principal diagnosis: Acute Hypoxemic Resp failure; Pneumonia (Likely aspiration); JULISA; SIRS Interval history: Patient is seen today for: Acute Hypoxemic Respiratory failure on MVS; Pneumonia (Likely aspiration); JULISA; Acute on Chronic Encephalopathy; SIRS Seen and examined at bedside; 24hour events reviewed; nursing and respiratory care staff consulted; no adverse overnight events reported to me; resting peacefully in bed; remains on MVS; AMS is improving, opens eyes, no recurrent seizures reported; Objective Vital Signs - 12hr 06/24/18 06/24/18 06/24/18 21:47 22:00 22:30 Temperature Pulse Rate 108 H 109 H 107 H Respiratory 18 14 Rate Blood Pressure 141/75 131/69 127/67 O2 Sat by Pulse 96 96 Oximetry 06/24/18 06/24/18 06/24/18 23:00 23:18 23:30 Temperature Pulse Rate 104 H 104 H 104 H Respiratory 16 15 14 Rate Blood Pressure 115/63 141/75 115/59 O2 Sat by Pulse 96 97 96 Oximetry 06/24/18 06/25/18 06/25/18 23:40 00:00 00:15 Temperature 100.1 F H Pulse Rate 101 H 106 H Respiratory 12 Rate Blood Pressure 111/60 127/67 O2 Sat by Pulse 96 96 Oximetry 06/25/18 06/25/18 06/25/18 00:30 01:00 01:31 Temperature Pulse Rate 101 H 103 H 104 H Respiratory 12 15 12 Rate Blood Pressure 114/68 119/69 101/54 O2 Sat by Pulse 96 96 97 Oximetry 06/25/18 06/25/18 06/25/18 02:00 02:30 03:00 Temperature Pulse Rate 103 H 103 H 100 H Respiratory 12 12 12 Rate Blood Pressure 110/56 113/59 115/62 O2 Sat by Pulse 96 97 97 Oximetry 06/25/18 06/25/18 06/25/18 03:30 04:00 04:30 Temperature 99.6 F Pulse Rate 102 H 103 H 103 H Respiratory 19 13 20 Rate Blood Pressure 115/63 126/66 125/72 O2 Sat by Pulse 96 96 96 Oximetry 06/25/18 06/25/18 06/25/18 05:00 05:30 06:00 Temperature Pulse Rate 103 H 102 H 106 H Respiratory 20 14 12 Rate Blood Pressure 125/72 131/69 135/74 O2 Sat by Pulse 97 94 97 Oximetry 06/25/18 07:36 Temperature Pulse Rate 103 H Respiratory Rate Blood Pressure 139/70 O2 Sat by Pulse 99 Oximetry Constitutional: no acute distress, other (elderly looking AAF normocephalic and atraumatic with ETT to MVS and mildly increased resp effort) Eyes: non-icteric ENT: oropharynx moist, other (ETT 23 cm DAVIDSON) Neck: supple, no lymphadenopathy, no JVD, other (no thyromegaly) Effort: mildly labored Ascultation: Bilateral: diminished breath sounds, rhonchi Percussion: Bilateral: not dull Cardiovascular: regular rate and rhythm, other (S1,S2) Gastrointestinal: normoactive bowel sounds, soft, tender, non-distended Integumentary: normal Extremities: no cyanosis, no edema, pulses normal, no ischemia or petechiae Neurologic: non-focal exam (withdraws all extemities to pain, opens eyes to verbal and tactile stimuli), pupils equal and round, unable to assess Psychiatric: other (unable to assess) CBC and BMP: 06/26/18 10:14 06/26/18 10:14 ABG, PT/INR, D-dimer: ABG POC ABG pH 7.422 (7.35-7.45) 06/24/18 16:00 POC ABG pCO2 40.3 (35-45) 06/24/18 16:00 POC ABG pO2 90 (80-105) 06/24/18 16:00 POC ABG HCO3 26.2 06/24/18 16:00 POC ABG Total CO2 27 06/24/18 16:00 POC ABG O2 Sat 97 06/24/18 16:00 PT/INR, D-dimer PT 17.5 Sec. (12.2-14.9) H 06/22/18 17:21 INR 1.39 (0.87-1.13) H 06/22/18 17:21 Abnormal lab findings: Abnormal Labs 06/21/18 06/21/18 06/21/18 14:02 14:06 14:06 WBC RBC Hgb MCV 71 L MCH 22 L RDW 21.1 H [place] % (Auto) [place] # Seg Neutrophils # PT 18.9 H INR 1.54 H APTT Heparin Anti-Xa Level POC ABG pH POC ABG pCO2 POC ABG pO2 BUN Creatinine Glucose POC Glucose 250 H Calcium Total Bilirubin Alkaline Phosphatase Troponin T Albumin 06/21/18 06/21/18 06/21/18 14:06 14:23 21:17 WBC RBC Hgb MCV MCH RDW [place] % (Auto) [place] # Seg Neutrophils # PT INR APTT Heparin Anti-Xa Level POC ABG pH 7.499 H 7.600 H POC ABG pCO2 34.8 L 24.9 L POC ABG pO2 342 H 176 H BUN Creatinine 1.5 H Glucose 214 H POC Glucose Calcium Total Bilirubin 1.30 H Alkaline Phosphatase 174 H Troponin T 0.050 H Albumin 3.1 L 06/22/18 06/22/18 06/22/18 03:17 03:17 05:27 WBC 11.5 H RBC 5.07 H Hgb MCV 69 L MCH 21 L RDW 21.9 H [place] % (Auto) 9.8 H [place] # 1.1 H Seg Neutrophils # 7.9 H PT INR APTT Heparin Anti-Xa Level POC ABG pH 7.539 H POC ABG pCO2 30.1 L POC ABG pO2 170 H BUN Creatinine 1.5 H Glucose 164 H POC Glucose Calcium Total Bilirubin Alkaline Phosphatase Troponin T Albumin 06/22/18 06/22/18 06/22/18 17:21 17:50 19:46 WBC RBC Hgb MCV MCH RDW [place] % (Auto) [place] # Seg Neutrophils # PT 17.5 H INR 1.39 H APTT 22.8 L Heparin Anti-Xa Level 1.64 H POC ABG pH POC ABG pCO2 POC ABG pO2 BUN Creatinine Glucose POC Glucose 240 H Calcium Total Bilirubin Alkaline Phosphatase Troponin T Albumin 06/22/18 06/23/18 06/23/18 23:47 01:44 04:14 WBC RBC Hgb MCV MCH RDW [place] % (Auto) [place] # Seg Neutrophils # PT INR APTT Heparin Anti-Xa Level 0.10 L POC ABG pH POC ABG pCO2 POC ABG pO2 BUN Creatinine Glucose POC Glucose 240 H 229 H Calcium Total Bilirubin Alkaline Phosphatase Troponin T Albumin 06/23/18 06/23/18 06/23/18 05:34 09:24 10:24 WBC RBC Hgb MCV MCH RDW [place] % (Auto) [place] # Seg Neutrophils # PT INR APTT Heparin Anti-Xa Level POC ABG pH 7.519 H POC ABG pCO2 POC ABG pO2 133 H BUN Creatinine Glucose POC Glucose 220 H 183 H Calcium Total Bilirubin Alkaline Phosphatase Troponin T Albumin 06/23/18 06/23/18 06/23/18 12:39 13:32 14:08 WBC RBC Hgb MCV MCH RDW [place] % (Auto) [place] # Seg Neutrophils # PT INR APTT Heparin Anti-Xa Level > 2.00 H POC ABG pH POC ABG pCO2 POC ABG pO2 BUN Creatinine Glucose POC Glucose 151 H 140 H Calcium Total Bilirubin Alkaline Phosphatase Troponin T Albumin 06/23/18 06/23/18 06/23/18 18:00 19:33 21:31 WBC RBC Hgb MCV MCH RDW [place] % (Auto) [place] # Seg Neutrophils # PT INR APTT Heparin Anti-Xa Level 1.74 H POC ABG pH POC ABG pCO2 POC ABG pO2 BUN Creatinine Glucose POC Glucose 141 H 153 H Calcium Total Bilirubin Alkaline Phosphatase Troponin T Albumin 06/24/18 06/24/18 06/24/18 02:36 03:55 03:55 WBC 12.9 H RBC Hgb 9.9 L MCV 70 L MCH 22 L RDW 22.1 H [place] % (Auto) [place] # Seg Neutrophils # PT INR APTT Heparin Anti-Xa Level POC ABG pH POC ABG pCO2 POC ABG pO2 BUN 25 H Creatinine 1.6 H Glucose 151 H POC Glucose 162 H Calcium 8.2 L Total Bilirubin Alkaline Phosphatase Troponin T Albumin 06/24/18 06/24/18 06/24/18 03:55 05:01 09:34 WBC RBC Hgb MCV MCH RDW [place] % (Auto) [place] # Seg Neutrophils # PT INR APTT Heparin Anti-Xa Level 1.75 H POC ABG pH POC ABG pCO2 POC ABG pO2 BUN Creatinine Glucose POC Glucose 175 H 143 H Calcium Total Bilirubin Alkaline Phosphatase Troponin T Albumin 06/24/18 06/24/18 06/24/18 12:50 14:29 17:08 WBC RBC Hgb MCV MCH RDW [place] % (Auto) [place] # Seg Neutrophils # PT INR APTT Heparin Anti-Xa Level 1.60 H POC ABG pH POC ABG pCO2 POC ABG pO2 BUN Creatinine Glucose POC Glucose 169 H 138 H Calcium Total Bilirubin Alkaline Phosphatase Troponin T Albumin 06/24/18 06/24/18 06/25/18 21:13 21:50 01:45 WBC RBC Hgb MCV MCH RDW [place] % (Auto) [place] # Seg Neutrophils # PT INR APTT Heparin Anti-Xa Level 1.53 H POC ABG pH POC ABG pCO2 POC ABG pO2 BUN Creatinine Glucose POC Glucose 186 H 177 H Calcium Total Bilirubin Alkaline Phosphatase Troponin T Albumin 06/25/18 06/25/18 05:23 05:41 WBC RBC Hgb MCV MCH RDW [place] % (Auto) [place] # Seg Neutrophils # PT INR APTT Heparin Anti-Xa Level 1.13 H POC ABG pH POC ABG pCO2 POC ABG pO2 BUN Creatinine Glucose POC Glucose 160 H Calcium Total Bilirubin Alkaline Phosphatase Troponin T Albumin Chest x-ray: image reviewed Allied health notes reviewed: RT (iniitate SBT today)
[2018-06-25] MEDS: PEPCID PO SCH (10:10)
[2018-06-25] MEDS: NORVASC PO SCH (10:10)
[2018-06-25] MEDS: KEPPRA PO SCH ×2 (10:10→22:12)
[2018-06-25] MEDS: ROCEPHIN/NS 2 GM/100 ML 2 GM/100 ML BAG IV SCH (10:11)
[2018-06-25] MEDS: COREG PO SCH ×2 (10:11→22:13)
[2018-06-25] MEDS: HEPARIN/ 0.45% NACL-25,000 UNIT/500 ML 25,000 UNIT/500 ML BAG IV SCH (10:12)
[2018-06-25] MEDS: COZAAR PO SCH (10:12)
[2018-06-25] MEDS: SODIUM CHLORIDE FLUSH SYRINGE 10 ML IV SCH ×2 (10:14→22:15)
[2018-06-25] MEDS: ZITHROMAX 500 MG in NACL 0.9% 250ML 250 ML IV SCH (11:03)
[2018-06-25 15:22] LABS: Calcium 8.5 mg/dL (8.4-10.2)
[2018-06-25] MEDS ORDERED: K-DUR PO ONE (16:43)
--- NOTE | 2018-06-25 17:10 | Progress Note ---
Assessment and Plan Assessment and plan: 65-year-old woman presents from [facility] nursing facility. The staff witnessed grand mal seizure, she had gurgling sounds were oral cavities. And she was then brought into the ER, she was intubated there. Past medical history includes obesity diabetes hypertension hyperlipidemia CVA history of DVT dementia debility Acute respiratory failure Continue ventilator, management per pulmonary team Pneumonia ruled out, repeat x-ray does not show any pneumonia Acute renal failure, suspected vasomotor nephropathy Continue IV fluids Acute metabolic encephalopathy Likely from post ictal state, Supportive care SIRS with acute organ dysfunction Presenting with hypothermia- TMAX 100.7 this am Treatment and empiric antibiotics, obtain UA and urine culture, chest x-ray is negative, obtain blood cultures pending with no growth yet Status epilepticus AED, seizure precautions, neurology consults pending ?PE Given history of DVT, will obtain VQ scan and LE US pending, keep on heparin drip for now, she usually is on eliquis 5 twice a day Hypertensive urgency Optimize BP meds DVT prophylaxis Full anticoagulated ' Critical care time 35 minutes History Interval history: Patient seen and examined, No seizures overnight, no fevers overnight, no agitation. Remains intubated, awakes to verbal stimuli but not following much commands Hospitalist Physical - Physical exam Narrative exam: General.: Intubated and sedated HEENT: Moist mucous membranes, PERRL no lymphadenopathy Neck: supple Cardiac: S1-S2 heard Lungs: clear to auscultation bilaterally Abdomen: soft , nontender, nondistended, bowel sounds positive Extremities: no edema clubbing or cyanosis Skin: no rash or lesions Neurologic: Intubated. off sedation but still very weak Psych: Intubated and off sedation - Constitutional Vitals: Temp Pulse Resp BP Pulse Ox 99 F 82 27 H 112/61 99 06/25/18 08:00 06/25/18 16:00 06/25/18 15:00 06/25/18 16:00 06/25/18 16:00 General appearance: Present: severe distress, obese Results - Labs CBC & Chem 7: 06/24/18 03:55 06/25/18 14:27 Labs: Laboratory Last Values WBC 12.9 K/mm3 (4.5-11.0) H 06/24/18 03:55 RBC 4.55 M/mm3 (3.65-5.03) 06/24/18 03:55 Hgb 9.9 gm/dl (10.1-14.3) L 06/24/18 03:55 Hct 31.7 % (30.3-42.9) 06/24/18 03:55 MCV 70 fl (79-97) L 06/24/18 03:55 MCH 22 pg (28-32) L 06/24/18 03:55 MCHC 31 % (30-34) 06/24/18 03:55 RDW 22.1 % (13.2-15.2) H 06/24/18 03:55 Plt Count 195 K/mm3 (140-440) 06/24/18 03:55 Lymph % (Auto) 21.0 % (13.4-35.0) 06/22/18 03:17 [place] % (Auto) 9.8 % (0.0-7.3) H 06/22/18 03:17 Eos % (Auto) 0.1 % (0.0-4.3) 06/22/18 03:17 Baso % (Auto) 0.6 % (0.0-1.8) 06/22/18 03:17 Lymph # 2.4 K/mm3 (1.2-5.4) 06/22/18 03:17 [place] # 1.1 K/mm3 (0.0-0.8) H 06/22/18 03:17 Eos # 0.0 K/mm3 (0.0-0.4) 06/22/18 03:17 Baso # 0.1 K/mm3 (0.0-0.1) 06/22/18 03:17 Seg Neutrophils % 68.5 % (40.0-70.0) 06/22/18 03:17 Seg Neutrophils # 7.9 K/mm3 (1.8-7.7) H 06/22/18 03:17 PT 17.5 Sec. (12.2-14.9) H 06/22/18 17:21 INR 1.39 (0.87-1.13) H 06/22/18 17:21 APTT 22.8 Sec. (24.2-36.6) L 06/22/18 17:21 Heparin Anti-Xa Level 0.73 U.I./ml (0.3-0.7) H 06/25/18 12:54 POC ABG pH 7.422 (7.35-7.45) 06/24/18 16:00 POC ABG pCO2 40.3 (35-45) 06/24/18 16:00 POC ABG pO2 90 (80-105) 06/24/18 16:00 POC ABG HCO3 26.2 06/24/18 16:00 POC ABG Total CO2 27 06/24/18 16:00 POC ABG O2 Sat 97 06/24/18 16:00 POC ABG Base Excess 2 06/24/18 16:00 FiO2 30 % 06/24/18 16:00 Sodium 145 mmol/L (137-145) 06/25/18 14:27 Potassium 3.4 mmol/L (3.6-5.0) L 06/25/18 14:27 Chloride 105.6 mmol/L (98-107) 06/25/18 14:27 Carbon Dioxide 26 mmol/L (22-30) 06/25/18 14:27 Anion Gap 17 mmol/L 06/25/18 14:27 BUN 30 mg/dL (7-17) H 06/25/18 14:27 Creatinine 2.1 mg/dL (0.7-1.2) H 06/25/18 14:27 Estimated GFR 23 ml/min 06/25/18 14:27 BUN/Creatinine Ratio 14 % 06/25/18 14:27 Glucose 220 mg/dL (65-100) H 06/25/18 14:27 POC Glucose 218 (70-105) H 06/25/18 14:33 Calcium 8.5 mg/dL (8.4-10.2) 06/25/18 14:27 Magnesium 1.70 mg/dL (1.7-2.3) 06/21/18 14:06 Total Bilirubin 1.30 mg/dL (0.1-1.2) H 06/21/18 14:06 AST 19 units/L (5-40) 06/21/18 14:06 ALT 17 units/L (7-56) 06/21/18 14:06 Alkaline Phosphatase 174 units/L (35-129) H 06/21/18 14:06 Total Creatine Kinase 102 units/L (30-135) 06/21/18 14:06 CK-MB (CK-2) 2.2 ng/mL (0.0-4.0) 06/21/18 14:06 CK-MB (CK-2) Rel Index 2.1 (0-4) 06/21/18 14:06 Troponin T 0.050 ng/mL (0.00-0.029) H 06/21/18 14:06 Total Protein 6.9 g/dL (6.3-8.2) 06/21/18 14:06 Albumin 3.1 g/dL (3.9-5) L 06/21/18 14:06 Albumin/Globulin Ratio 0.8 % 06/21/18 14:06 Triglycerides 115 mg/dL (2-149) 06/21/18 14:06 Cholesterol 123 mg/dL (50-199) 06/21/18 14:06 LDL Cholesterol Direct 61 mg/dL (50-130) 06/21/18 14:06 HDL Cholesterol 50 mg/dL (40-59) 06/21/18 14:06 Cholesterol/HDL Ratio 2.46 % 06/21/18 14:06 Levetiracetam 65.9 mcg/mL 06/21/18 16:01 Nutrition/Malnutrition Assess - Dietary Evaluation Nutrition/Malnutrition Findings: Nutrition Notes Start: 06/22/18 10:19 Freq: Status: Active Protocol: Document 06/24/18 13:47 JOHNNIE (Rec: 06/24/18 13:58 JOHNNIE [email or web address]- [email or web address]) Nutrition Notes Initial or Follow up Reassessment Current Diagnoses Acute Kidney Injury Diabetes Hypertension Respiratory Failure Stroke Hyperlipidemia Other Pertinent Diagnosis Pneu, dementia, seizures Current Diet TF - Vital AF 1.2 at 60ml/hr Labs/Tests BUN 25 Cr 1.6 BG 151 Medications Reviewed Height 5 ft 2 in Weight 92.4 kg [place] Body Weight (lbs) 110.0 BMI 37.2 Weight change and time frame Current wt obtained from bed scale Weight Status Obese Subjective/Other Information Observed TF infusing at 20ml/ hr. Per RN, TF started this am. Pt remains on vent support. Pt not making urine; nephrology consulted. Percent of energy/protein needs met: 100% energy and pro Burn Absent Trauma Absent #1 Nutrition Diagnoses Inadequate oral intake Diagnosis Progress(for reassessment Continues documentation) Is patient on ventilator? Yes Is Patient Ambulatory and/or Out of Bed No REE-([place]-conf[place] to bed) 1700.028 Additional Notes Pro needs 2g/kg IBW: 100g/day Fluid needs 1ml/kcal Nutrition Intervention Nutrition Support: Decrease TF goal rate to 45ml/ hr. Provide 100ml water flush q4h. Kcal 1,296 Protein (gm) 81 Carbohydrates (gm) 119 Fat (gm) 58 Fluid (mL) 876 Goal #1 TF tolerance Goal #2 TF to meet at least 75% energy and pro needs Follow-Up By: 06/26/18 Additional Comments F/U: TF rate decrease, renal function, vent status - Attestation Statement I have reviewed and agreed w/ Malnutrition eval & tx plan: Yes
--- NOTE | 2018-06-25 20:09 | Progress Note ---
Assessment and Plan 67 yr old female admitted from assisted facility because of a witnessed generalized seizure. The pt. was admitted in for hypoglycemia. There do not appear to be any metabolic issues on this admission. According to notes from , the pt. was taking Keppra [address] brain reveals old CVAs in left hemisphere, no acute ischemia. CXR is clear. Creatinine is rising. EEG performed today reveals diffuse slowing, delta wave activity throughout. Higher voltage, and occasional sharp waves in the frontal leads. No active seizures. Compatible with encephalopathy Plan - MRI when stable Increased Keppra to 1500 mg BID. In light of rising creatinine will go down to 1000 mg BID on the Keppra. Add dilantin if necessary. Subjective Date of service: 06/26/18 Principal diagnosis: Acute Hypoxemic Resp failure; Pneumonia (Likely aspiration); JULISA; SIRS Interval history: 67 YO Female from a [facility], has a hx of Obesity, DM, HTN, HLD, CVA, DVT, Dementia, and presented to ED for generalized witnessed seizure. The patient's room mate witnessed the seizure, EMS was called, she was brought to the ED unresponsive and at risk for aspiration. She was intubated and sedated. CT scan reveals old left parietal/frontal cortical CVAs, no acute process. The patient has been on Keppra 1000 mg BID, as per discharge from admission in 2017. Continues on ventilator. Objective - Exam Narrative Exam: Neurological exam - sedated on ventilator Opens eyes to examiner's voice. Follows simple commands, such as blink your eyes, slight hand squeeze. bariatric surgeon - eyes appear yoked. Blinks spontaneously and to threat. face symmetric Motor - no spontaneous movement. No withdrawal to pain. Moves feet on command. Reflexes - trace throughout. Sensory - eyes open to painful stimuli but there is no withdrawal or movement, in all 4 limbs. - Vital Sign Vital Signs - 12hr 06/25/18 06/25/18 06/25/18 08:30 09:00 09:30 Temperature Pulse Rate 100 H 102 H 100 H Respiratory 26 H 21 17 Rate Blood Pressure 132/65 134/70 131/69 O2 Sat by Pulse 91 99 100 Oximetry 06/25/18 06/25/18 06/25/18 10:00 10:10 10:11 Temperature Pulse Rate 102 H 102 H 103 H Respiratory 23 Rate Blood Pressure 121/60 121/60 121/60 O2 Sat by Pulse 99 Oximetry 06/25/18 06/25/18 06/25/18 10:12 10:30 10:32 Temperature Pulse Rate 103 H 102 H 103 H Respiratory 27 H Rate Blood Pressure 121/60 129/64 132/74 O2 Sat by Pulse 99 99 Oximetry 06/25/18 06/25/18 06/25/18 11:00 11:30 12:00 Temperature 99.3 F Pulse Rate 102 H 100 H 80 Respiratory 20 20 Rate Blood Pressure 138/72 133/70 101/56 O2 Sat by Pulse 100 99 96 Oximetry 06/25/18 06/25/18 06/25/18 12:01 12:31 13:00 Temperature Pulse Rate 86 81 79 Respiratory 24 22 15 Rate Blood Pressure 108/59 98/53 95/47 O2 Sat by Pulse 98 96 95 Oximetry 06/25/18 06/25/18 06/25/18 13:30 14:00 14:30 Temperature Pulse Rate 79 81 84 Respiratory 24 26 H 28 H Rate Blood Pressure 101/56 108/58 103/61 O2 Sat by Pulse 93 86 97 Oximetry 06/25/18 06/25/18 06/25/18 15:00 15:30 16:00 Temperature 99.2 F Pulse Rate 84 87 85 Respiratory 27 H 21 19 Rate Blood Pressure 111/64 109/56 117/68 O2 Sat by Pulse 98 99 98 Oximetry 06/25/18 06/25/18 06/25/18 16:30 17:00 17:30 Temperature Pulse Rate 84 84 80 Respiratory 19 22 17 Rate Blood Pressure 112/61 109/60 111/60 O2 Sat by Pulse 98 99 99 Oximetry 06/25/18 06/25/18 18:00 18:30 Temperature Pulse Rate 84 80 Respiratory 19 18 Rate Blood Pressure 113/65 110/62 O2 Sat by Pulse 99 100 Oximetry - Laboratory Findings CBC and BMP: 06/24/18 03:55 06/25/18 14:27 Abnormal Lab Findings: Abnormal Labs 06/21/18 06/21/18 06/21/18 14:02 14:06 14:06 WBC RBC Hgb MCV 71 L MCH 22 L RDW 21.1 H [place] % (Auto) [place] # Seg Neutrophils # PT 18.9 H INR 1.54 H APTT Heparin Anti-Xa Level POC ABG pH POC ABG pCO2 POC ABG pO2 Potassium BUN Creatinine Glucose POC Glucose 250 H Calcium Total Bilirubin Alkaline Phosphatase Troponin T Albumin 06/21/18 06/21/18 06/21/18 14:06 14:23 21:17 WBC RBC Hgb MCV MCH RDW [place] % (Auto) [place] # Seg Neutrophils # PT INR APTT Heparin Anti-Xa Level POC ABG pH 7.499 H 7.600 H POC ABG pCO2 34.8 L 24.9 L POC ABG pO2 342 H 176 H Potassium BUN Creatinine 1.5 H Glucose 214 H POC Glucose Calcium Total Bilirubin 1.30 H Alkaline Phosphatase 174 H Troponin T 0.050 H Albumin 3.1 L 06/22/18 06/22/18 06/22/18 03:17 03:17 05:27 WBC 11.5 H RBC 5.07 H Hgb MCV 69 L MCH 21 L RDW 21.9 H [place] % (Auto) 9.8 H [place] # 1.1 H Seg Neutrophils # 7.9 H PT INR APTT Heparin Anti-Xa Level POC ABG pH 7.539 H POC ABG pCO2 30.1 L POC ABG pO2 170 H Potassium BUN Creatinine 1.5 H Glucose 164 H POC Glucose Calcium Total Bilirubin Alkaline Phosphatase Troponin T Albumin 06/22/18 06/22/18 06/22/18 17:21 17:50 19:46 WBC RBC Hgb MCV MCH RDW [place] % (Auto) [place] # Seg Neutrophils # PT 17.5 H INR 1.39 H APTT 22.8 L Heparin Anti-Xa Level 1.64 H POC ABG pH POC ABG pCO2 POC ABG pO2 Potassium BUN Creatinine Glucose POC Glucose 240 H Calcium Total Bilirubin Alkaline Phosphatase Troponin T Albumin 06/22/18 06/23/18 06/23/18 23:47 01:44 04:14 WBC RBC Hgb MCV MCH RDW [place] % (Auto) [place] # Seg Neutrophils # PT INR APTT Heparin Anti-Xa Level 0.10 L POC ABG pH POC ABG pCO2 POC ABG pO2 Potassium BUN Creatinine Glucose POC Glucose 240 H 229 H Calcium Total Bilirubin Alkaline Phosphatase Troponin T Albumin 06/23/18 06/23/18 06/23/18 05:34 09:24 10:24 WBC RBC Hgb MCV MCH RDW [place] % (Auto) [place] # Seg Neutrophils # PT INR APTT Heparin Anti-Xa Level POC ABG pH 7.519 H POC ABG pCO2 POC ABG pO2 133 H Potassium BUN Creatinine Glucose POC Glucose 220 H 183 H Calcium Total Bilirubin Alkaline Phosphatase Troponin T Albumin 06/23/18 06/23/18 06/23/18 12:39 13:32 14:08 WBC RBC Hgb MCV MCH RDW [place] % (Auto) [place] # Seg Neutrophils # PT INR APTT Heparin Anti-Xa Level > 2.00 H POC ABG pH POC ABG pCO2 POC ABG pO2 Potassium BUN Creatinine Glucose POC Glucose 151 H 140 H Calcium Total Bilirubin Alkaline Phosphatase Troponin T Albumin 06/23/18 06/23/18 06/23/18 18:00 19:33 21:31 WBC RBC Hgb MCV MCH RDW [place] % (Auto) [place] # Seg Neutrophils # PT INR APTT Heparin Anti-Xa Level 1.74 H POC ABG pH POC ABG pCO2 POC ABG pO2 Potassium BUN Creatinine Glucose POC Glucose 141 H 153 H Calcium Total Bilirubin Alkaline Phosphatase Troponin T Albumin 06/24/18 06/24/18 06/24/18 02:36 03:55 03:55 WBC 12.9 H RBC Hgb 9.9 L MCV 70 L MCH 22 L RDW 22.1 H [place] % (Auto) [place] # Seg Neutrophils # PT INR APTT Heparin Anti-Xa Level POC ABG pH POC ABG pCO2 POC ABG pO2 Potassium BUN 25 H Creatinine 1.6 H Glucose 151 H POC Glucose 162 H Calcium 8.2 L Total Bilirubin Alkaline Phosphatase Troponin T Albumin 06/24/18 06/24/18 06/24/18 03:55 05:01 09:34 WBC RBC Hgb MCV MCH RDW [place] % (Auto) [place] # Seg Neutrophils # PT INR APTT Heparin Anti-Xa Level 1.75 H POC ABG pH POC ABG pCO2 POC ABG pO2 Potassium BUN Creatinine Glucose POC Glucose 175 H 143 H Calcium Total Bilirubin Alkaline Phosphatase Troponin T Albumin 06/24/18 06/24/18 06/24/18 12:50 14:29 17:08 WBC RBC Hgb MCV MCH RDW [place] % (Auto) [place] # Seg Neutrophils # PT INR APTT Heparin Anti-Xa Level 1.60 H POC ABG pH POC ABG pCO2 POC ABG pO2 Potassium BUN Creatinine Glucose POC Glucose 169 H 138 H Calcium Total Bilirubin Alkaline Phosphatase Troponin T Albumin 06/24/18 06/24/18 06/25/18 21:13 21:50 01:45 WBC RBC Hgb MCV MCH RDW [place] % (Auto) [place] # Seg Neutrophils # PT INR APTT Heparin Anti-Xa Level 1.53 H POC ABG pH POC ABG pCO2 POC ABG pO2 Potassium BUN Creatinine Glucose POC Glucose 186 H 177 H Calcium Total Bilirubin Alkaline Phosphatase Troponin T Albumin 06/25/18 06/25/18 06/25/18 05:23 05:41 09:55 WBC RBC Hgb MCV MCH RDW [place] % (Auto) [place] # Seg Neutrophils # PT INR APTT Heparin Anti-Xa Level 1.13 H POC ABG pH POC ABG pCO2 POC ABG pO2 Potassium BUN Creatinine Glucose POC Glucose 160 H 181 H Calcium Total Bilirubin Alkaline Phosphatase Troponin T Albumin 06/25/18 06/25/18 06/25/18 12:54 14:27 14:33 WBC RBC Hgb MCV MCH RDW [place] % (Auto) [place] # Seg Neutrophils # PT INR APTT Heparin Anti-Xa Level 0.73 H POC ABG pH POC ABG pCO2 POC ABG pO2 Potassium 3.4 L BUN 30 H Creatinine 2.1 H Glucose 220 H POC Glucose 218 H Calcium Total Bilirubin Alkaline Phosphatase Troponin T Albumin 06/25/18 17:36 WBC RBC Hgb MCV MCH RDW [place] % (Auto) [place] # Seg Neutrophils # PT INR APTT Heparin Anti-Xa Level POC ABG pH POC ABG pCO2 POC ABG pO2 Potassium BUN Creatinine Glucose POC Glucose 219 H Calcium Total Bilirubin Alkaline Phosphatase Troponin T Albumin
[2018-06-26] MEDS: HumaLOG SUB-Q SCH ×5 (02:12→20:02)
--- NOTE | 2018-06-26 02:48 | XRay Report ---
FINAL REPORT PROCEDURE: XR CHEST 1V AP TECHNIQUE: Chest radiograph anteroposterior view. CPT 48073 HISTORY: follow up respiratory failure COMPARISON: 06/25/2018 FINDINGS: Heart: Normal. Mediastinum/Vessels: Normal. Lungs/Pleural space: Normal. Bony thorax: No acute osseous abnormality. Life support devices: The nasogastric tube ends below the hemidiaphragms. A tracheal tube ends 3 cent imeters above the jojo. IMPRESSION: No evidence of an acute infiltrate or effusion. The nasogastric tube and endotracheal tube are proper ly positioned..
[2018-06-26] MEDS: COMBIGAN 0.2-0.5% OU SCH ×2 (03:17→16:50)
[2018-06-26 05:39] LABS: Hematocrit 27.7 % (30.3-42.9); Hemoglobin 8.8 gm/dl (10.1-14.3)
--- NOTE | 2018-06-26 08:59 | Progress Note ---
Assessment and Plan Respiratory failure-acute hypoxemic on MVS Seizures Pneumonia, Right lung ARF (acute renal failure) with tubular necrosis Encephalopathy Hypothermia Obesity Hyperglycemia -SBT today. Get weaning parameters with goal to liberate from mechanical ventilatory support. May need NIPPV support post extubation. Discussed in detail in ICU-IDT round. -VAP bundle addressed -VTE prophylaxis( anticoagulated)- on heaprin infusion. Once extubated, resume Eliquis and stop heparin infusion -Stress ulcer prophylaxis -Antibiotics to complete course -Avoid nephrotoxic agents, adjust all medications for GFR and CrCL -Continue enteric feeding with aspiration precautions -Supplemental oxygen to keep O2 sats>90% -Strict intake and output -Accuchecks, glycemic control. Target blood glucose of 140-180mg/dL CONDITION: IMPROVING CODE STATUS: FULL CODE PROGNOSIS: GUARDED The high probability of a clinically significant, sudden or life threatening deterioration of the [pulmonary, neurology, renal, cardiac] system(s) required my full and direct attention, intervention and personal management. The aggregate critical care time was [35] minutes. This time is in addition to time spent performing reported procedures but includes the following: [x] Data Review and interpretation [x] Patient assessment and monitoring of vital signs [x] Documentation [x] Medication orders and management Subjective Date of service: 06/26/18 Principal diagnosis: Acute Hypoxemic Resp failure; Pneumonia (Likely aspiration); JULISA; SIRS Interval history: Patient is seen today for: Acute Hypoxemic Respiratory failure on MVS; Pneumonia (Likely aspiration); JULISA; Acute on Chronic Encephalopathy; SIRS Seen and examined at bedside; 24hour events reviewed; nursing and respiratory care staff consulted; no adverse overnight events reported to me; resting peacefully in bed; remains on MVS; no recurrent seizures reported, more awake and alert today, obeying one step commands; Received 1L Nsaline overnight. Unclear why as she was hemodynamically normal. Will hold off the second liter of saline that was ordered, in anticipation of liberation from MVS Objective Vital Signs - 12hr 06/25/18 06/25/18 06/25/18 21:00 21:30 22:00 Temperature Pulse Rate 79 85 81 Respiratory 15 15 15 Rate Blood Pressure 108/61 103/59 107/61 O2 Sat by Pulse 99 99 99 Oximetry 06/25/18 06/25/18 06/25/18 22:13 22:30 23:00 Temperature Pulse Rate 80 87 82 Respiratory 13 13 Rate Blood Pressure 107/61 110/66 107/64 O2 Sat by Pulse 99 100 Oximetry 06/25/18 06/25/18 06/26/18 23:13 23:30 00:00 Temperature 100.3 F H Pulse Rate 80 85 82 Respiratory 12 17 12 Rate Blood Pressure 107/64 103/56 107/60 O2 Sat by Pulse 99 99 100 Oximetry 06/26/18 06/26/18 06/26/18 00:16 00:30 01:00 Temperature Pulse Rate 86 84 84 Respiratory 14 12 Rate Blood Pressure 107/60 104/59 117/66 O2 Sat by Pulse 100 99 99 Oximetry 06/26/18 06/26/18 06/26/18 01:30 02:00 02:30 Temperature Pulse Rate 86 82 84 Respiratory 13 12 15 Rate Blood Pressure 116/64 116/62 114/61 O2 Sat by Pulse 99 99 98 Oximetry 06/26/18 06/26/18 06/26/18 03:00 03:30 04:00 Temperature 99.6 F Pulse Rate 89 82 81 Respiratory 18 14 12 Rate Blood Pressure 124/59 110/60 117/62 O2 Sat by Pulse 98 98 99 Oximetry 06/26/18 06/26/18 06/26/18 04:30 05:00 05:30 Temperature Pulse Rate 79 78 86 Respiratory 12 12 16 Rate Blood Pressure 114/61 112/60 125/68 O2 Sat by Pulse 99 100 99 Oximetry 06/26/18 06/26/18 06/26/18 05:38 06:00 08:00 Temperature 99.9 F H Pulse Rate 85 86 81 Respiratory 14 Rate Blood Pressure 125/68 121/67 129/67 O2 Sat by Pulse 11 L 99 99 Oximetry 06/26/18 08:50 Temperature Pulse Rate 86 Respiratory Rate Blood Pressure 122/72 O2 Sat by Pulse 100 Oximetry Constitutional: no acute distress, other (elderly looking AAF normocephalic and atraumatic with ETT to MVS and mildly increased resp effort) Eyes: non-icteric ENT: oropharynx moist, other (ETT 23 cm DAVIDSON) Neck: supple, no lymphadenopathy, no JVD, other (no thyromegaly) Effort: mildly labored Ascultation: Bilateral: diminished breath sounds, rhonchi Percussion: Bilateral: not dull Cardiovascular: regular rate and rhythm, other (S1,S2) Gastrointestinal: normoactive bowel sounds, soft, tender, non-distended Integumentary: normal Extremities: no cyanosis, no edema, pulses normal, no ischemia or petechiae Neurologic: non-focal exam (grossly), pupils equal and round, motor strength normal and Psychiatric: other (unable to assess) CBC and BMP: 06/26/18 10:14 06/26/18 10:14 ABG, PT/INR, D-dimer: ABG POC ABG pH 7.376 (7.35-7.45) 06/26/18 05:39 POC ABG pCO2 41.3 (35-45) 06/26/18 05:39 POC ABG pO2 102 (80-105) 06/26/18 05:39 POC ABG HCO3 24.2 06/26/18 05:39 POC ABG Total CO2 25 06/26/18 05:39 POC ABG O2 Sat 98 06/26/18 05:39 PT/INR, D-dimer PT 17.5 Sec. (12.2-14.9) H 06/22/18 17:21 INR 1.39 (0.87-1.13) H 06/22/18 17:21 Abnormal lab findings: Abnormal Labs 06/21/18 06/21/18 06/21/18 14:02 14:06 14:06 WBC RBC Hgb Hct MCV 71 L MCH 22 L RDW 21.1 H Metcalfe % (Auto) Metcalfe # Seg Neutrophils # PT 18.9 H INR 1.54 H APTT Heparin Anti-Xa Level POC ABG pH POC ABG pCO2 POC ABG pO2 Potassium BUN Creatinine Glucose POC Glucose 250 H Calcium Total Bilirubin Alkaline Phosphatase Troponin T Albumin 06/21/18 06/21/18 06/21/18 14:06 14:23 21:17 WBC RBC Hgb Hct MCV MCH RDW [place] % (Auto) Metcalfe # Seg Neutrophils # PT INR APTT Heparin Anti-Xa Level POC ABG pH 7.499 H 7.600 H POC ABG pCO2 34.8 L 24.9 L POC ABG pO2 342 H 176 H Potassium BUN Creatinine 1.5 H Glucose 214 H POC Glucose Calcium Total Bilirubin 1.30 H Alkaline Phosphatase 174 H Troponin T 0.050 H Albumin 3.1 L 06/22/18 06/22/18 06/22/18 03:17 03:17 05:27 WBC 11.5 H RBC 5.07 H Hgb Hct MCV 69 L MCH 21 L RDW 21.9 H Metcalfe % (Auto) 9.8 H Metcalfe # 1.1 H Seg Neutrophils # 7.9 H PT INR APTT Heparin Anti-Xa Level POC ABG pH 7.539 H POC ABG pCO2 30.1 L POC ABG pO2 170 H Potassium BUN Creatinine 1.5 H Glucose 164 H POC Glucose Calcium Total Bilirubin Alkaline Phosphatase Troponin T Albumin 06/22/18 06/22/18 06/22/18 17:21 17:50 19:46 WBC RBC Hgb Hct MCV MCH RDW [place] % (Auto) Met[place]fe # Seg Neutrophils # PT 17.5 H INR 1.39 H APTT 22.8 L Heparin Anti-Xa Level 1.64 H POC ABG pH POC ABG pCO2 POC ABG pO2 Potassium BUN Creatinine Glucose POC Glucose 240 H Calcium Total Bilirubin Alkaline Phosphatase Troponin T Albumin 06/22/18 06/23/18 06/23/18 23:47 01:44 04:14 WBC RBC Hgb Hct MCV MCH RDW [place] % (Auto) Metcalfe # Seg Neutrophils # PT INR APTT Heparin Anti-Xa Level 0.10 L POC ABG pH POC ABG pCO2 POC ABG pO2 Potassium BUN Creatinine Glucose POC Glucose 240 H 229 H Calcium Total Bilirubin Alkaline Phosphatase Troponin T Albumin 06/23/18 06/23/18 06/23/18 05:34 09:24 10:24 WBC RBC Hgb Hct MCV MCH RDW [place] % (Auto) Metcalfe # Seg Neutrophils # PT INR APTT Heparin Anti-Xa Level POC ABG pH 7.519 H POC ABG pCO2 POC ABG pO2 133 H Potassium BUN Creatinine Glucose POC Glucose 220 H 183 H Calcium Total Bilirubin Alkaline Phosphatase Troponin T Albumin 06/23/18 06/23/18 06/23/18 12:39 13:32 14:08 WBC RBC Hgb Hct MCV MCH RDW [place] % (Auto) [place]fe # Seg Neutrophils # PT INR APTT Heparin Anti-Xa Level > 2.00 H POC ABG pH POC ABG pCO2 POC ABG pO2 Potassium BUN Creatinine Glucose POC Glucose 151 H 140 H Calcium Total Bilirubin Alkaline Phosphatase Troponin T Albumin 06/23/18 06/23/18 06/23/18 18:00 19:33 21:31 WBC RBC Hgb Hct MCV MCH RDW [place] % (Auto) Met[place]fe # Seg Neutrophils # PT INR APTT Heparin Anti-Xa Level 1.74 H POC ABG pH POC ABG pCO2 POC ABG pO2 Potassium BUN Creatinine Glucose POC Glucose 141 H 153 H Calcium Total Bilirubin Alkaline Phosphatase Troponin T Albumin 06/24/18 06/24/18 06/24/18 02:36 03:55 03:55 WBC 12.9 H RBC Hgb 9.9 L Hct MCV 70 L MCH 22 L RDW 22.1 H [place] % (Auto) Metcalfe # Seg Neutrophils # PT INR APTT Heparin Anti-Xa Level POC ABG pH POC ABG pCO2 POC ABG pO2 Potassium BUN 25 H Creatinine 1.6 H Glucose 151 H POC Glucose 162 H Calcium 8.2 L Total Bilirubin Alkaline Phosphatase Troponin T Albumin 06/24/18 06/24/18 06/24/18 03:55 05:01 09:34 WBC RBC Hgb Hct MCV MCH RDW [place] % (Auto) Met[place]fe # Seg Neutrophils # PT INR APTT Heparin Anti-Xa Level 1.75 H POC ABG pH POC ABG pCO2 POC ABG pO2 Potassium BUN Creatinine Glucose POC Glucose 175 H 143 H Calcium Total Bilirubin Alkaline Phosphatase Troponin T Albumin 06/24/18 06/24/18 06/24/18 12:50 14:29 17:08 WBC RBC Hgb Hct MCV MCH RDW [place] % (Auto) Metcalfe # Seg Neutrophils # PT INR APTT Heparin Anti-Xa Level 1.60 H POC ABG pH POC ABG pCO2 POC ABG pO2 Potassium BUN Creatinine Glucose POC Glucose 169 H 138 H Calcium Total Bilirubin Alkaline Phosphatase Troponin T Albumin 06/24/18 06/24/18 06/25/18 21:13 21:50 01:45 WBC RBC Hgb Hct MCV MCH RDW [place] % (Auto) Metcalfe # Seg Neutrophils # PT INR APTT Heparin Anti-Xa Level 1.53 H POC ABG pH POC ABG pCO2 POC ABG pO2 Potassium BUN Creatinine Glucose POC Glucose 186 H 177 H Calcium Total Bilirubin Alkaline Phosphatase Troponin T Albumin 06/25/18 06/25/18 06/25/18 05:23 05:41 09:55 WBC RBC Hgb Hct MCV MCH RDW [place] % (Auto) Metcalfe # Seg Neutrophils # PT INR APTT Heparin Anti-Xa Level 1.13 H POC ABG pH POC ABG pCO2 POC ABG pO2 Potassium BUN Creatinine Glucose POC Glucose 160 H 181 H Calcium Total Bilirubin Alkaline Phosphatase Troponin T Albumin 06/25/18 06/25/18 06/25/18 12:54 14:27 14:33 WBC RBC Hgb Hct MCV MCH RDW [place] % (Auto) Metcalfe # Seg Neutrophils # PT INR APTT Heparin Anti-Xa Level 0.73 H POC ABG pH POC ABG pCO2 POC ABG pO2 Potassium 3.4 L BUN 30 H Creatinine 2.1 H Glucose 220 H POC Glucose 218 H Calcium Total Bilirubin Alkaline Phosphatase Troponin T Albumin 06/25/18 06/25/18 06/26/18 17:36 21:40 01:49 WBC RBC Hgb Hct MCV MCH RDW [place] % (Auto) Metcalfe # Seg Neutrophils # PT INR APTT Heparin Anti-Xa Level POC ABG pH POC ABG pCO2 POC ABG pO2 Potassium BUN Creatinine Glucose POC Glucose 219 H 162 H 152 H Calcium Total Bilirubin Alkaline Phosphatase Troponin T Albumin 06/26/18 06/26/18 04:43 05:50 WBC RBC Hgb 8.8 L Hct 27.7 L MCV MCH RDW [place] % (Auto) Metcalfe # Seg Neutrophils # PT INR APTT Heparin Anti-Xa Level POC ABG pH POC ABG pCO2 POC ABG pO2 Potassium BUN Creatinine Glucose POC Glucose 176 H Calcium Total Bilirubin Alkaline Phosphatase Troponin T Albumin Chest x-ray: image reviewed Allied health notes reviewed: RT (SBT today, plan to wean)
[2018-06-26] MEDS: COZAAR PO SCH (09:52)
[2018-06-26] MEDS: KEPPRA PO SCH ×2 (09:52→23:42)
[2018-06-26] MEDS: NORVASC PO SCH (09:52)
[2018-06-26] MEDS: PEPCID PO SCH (09:53)
[2018-06-26] MEDS: COREG PO SCH ×2 (11:12→23:42)
[2018-06-26] MEDS: SODIUM CHLORIDE FLUSH SYRINGE 10 ML IV SCH ×2 (11:13→23:59)
[2018-06-26 11:20] LABS: Basophils % (Auto) 0.2 % (0.0-1.8); Eosinophils # (Auto) 0.4 K/mm3 (0.0-0.4); Eosinophils % (Auto) 3.7 % (0.0-4.3); Hemoglobin 9.5 gm/dl (10.1-14.3); Lymphocytes # (Auto) 2.3 K/mm3 (1.2-5.4); Lymphocytes % (Auto) 24.5 % (13.4-35.0); Mean Corpuscular HGB Conc 32 % (30-34); Mean Corpuscular Volume 69 fl (79-97); Platelet Count 214 K/mm3 (140-440); Red Blood Count 4.33 M/mm3 (3.65-5.03); Red Cell Distribution Width 22.4 % (13.2-15.2)
[2018-06-26 11:33] LABS: Calcium 8.8 mg/dL (8.4-10.2)
--- NOTE | 2018-06-26 15:50 | Vascular Lab Report ---
FINAL REPORT EXAM: VL VENOUS DUPLEX LE BILAT HISTORY: LE edema COMPARISON: None. TECHNIQUE: Duplex Doppler imaging of the veins of the bilateral lower extremities was performed. FINDINGS: The right common femoral vein, greater saphenous vein, superficial femoral vein, popliteal vein, post erior tibial vein, and peroneal vein are patent, compressible, and demonstrate normal waveforms and a ugmentation. The left common femoral vein, greater saphenous vein, superficial femoral vein, popliteal vein, poste rior tibial vein, and peroneal vein are patent, compressible, and demonstrate normal waveforms and au gmentation. IMPRESSION: No evidence of deep venous thrombosis in the bilateral lower extremities.
[2018-06-26] MEDS: HEPARIN/ 0.45% NACL-25,000 UNIT/500 ML 25,000 UNIT/500 ML BAG IV SCH (16:00)
--- NOTE | 2018-06-26 20:48 | Progress Note ---
Assessment and Plan Assessment and plan: 65-year-old woman presents from [facility] nursing facility. The staff witnessed grand mal seizure, she had gurgling sounds were oral cavities. And she was then brought into the ER, she was intubated there. Past medical history includes obesity diabetes hypertension hyperlipidemia, CVA history of DVT dementia debility Acute respiratory failure Continue ventilator, management per pulmonary team Pneumonia ruled out, repeat x-ray does not show any pneumonia Acute renal failure, suspected vasomotor nephropathy Continue IV fluids. hold losartan, obtain nephrology consult Acute metabolic encephalopathy Likely from post ictal state, Supportive care SIRS with acute organ dysfunction Presenting with hypothermia- TMAX 100.7 this am Treatment and empiric antibiotics, obtain blood cultures pending with no growth yet Status epilepticus AED, seizure precautions, neurology consults pending ?PE Given history of DVT, will obtain VQ scan and LE US pending, keep on heparin drip for now, she usually is on eliquis 5 twice a day Hypertensive urgency Optimize BP meds DVT prophylaxis Full anticoagulated ' Critical care time 35 minutes History Interval history: Patient seen and examined, No seizures overnight, no fevers overnight, no agitation. Remains intubated, awakes to verbal stimuli but now following much commands, BREATHING IS IMPROVED Hospitalist Physical - Physical exam Narrative exam: General.: Intubated a HEENT: Moist mucous membranes, PERRL no lymphadenopathy Neck: supple Cardiac: S1-S2 heard Lungs: clear to auscultation bilaterally Abdomen: soft , nontender, nondistended, bowel sounds positive Extremities: no edema clubbing or cyanosis Skin: no rash or lesions Neurologic: Intubated. off sedation but still very weak Psych: Intubated and off sedation - Constitutional Vitals: Temp Pulse Resp BP Pulse Ox 97.7 F 82 25 H 115/61 98 06/26/18 20:00 06/26/18 19:30 06/26/18 19:30 06/26/18 19:30 06/26/18 19:30 General appearance: Present: severe distress, obese Results - Labs CBC & Chem 7: 06/26/18 10:14 06/26/18 10:14 Labs: Laboratory Last Values WBC 9.5 K/mm3 (4.5-11.0) 06/26/18 10:14 RBC 4.33 M/mm3 (3.65-5.03) 06/26/18 10:14 Hgb 9.5 gm/dl (10.1-14.3) L 06/26/18 10:14 Hct 30.0 % (30.3-42.9) L 06/26/18 10:14 MCV 69 fl (79-97) L 06/26/18 10:14 MCH 22 pg (28-32) L 06/26/18 10:14 MCHC 32 % (30-34) 06/26/18 10:14 RDW 22.4 % (13.2-15.2) H 06/26/18 10:14 Plt Count 214 K/mm3 (140-440) 06/26/18 10:14 Lymph % (Auto) 24.5 % (13.4-35.0) 06/26/18 10:14 [place] % (Auto) 11.0 % (0.0-7.3) H 06/26/18 10:14 Eos % (Auto) 3.7 % (0.0-4.3) 06/26/18 10:14 Baso % (Auto) 0.2 % (0.0-1.8) 06/26/18 10:14 Lymph # 2.3 K/mm3 (1.2-5.4) 06/26/18 10:14 [place] # 1.0 K/mm3 (0.0-0.8) H 06/26/18 10:14 Eos # 0.4 K/mm3 (0.0-0.4) 06/26/18 10:14 Baso # 0.0 K/mm3 (0.0-0.1) 06/26/18 10:14 Seg Neutrophils % 60.6 % (40.0-70.0) 06/26/18 10:14 Seg Neutrophils # 5.8 K/mm3 (1.8-7.7) 06/26/18 10:14 PT 17.5 Sec. (12.2-14.9) H 06/22/18 17:21 INR 1.39 (0.87-1.13) H 06/22/18 17:21 APTT 22.8 Sec. (24.2-36.6) L 06/22/18 17:21 Heparin Anti-Xa Level 0.57 U.I./ml (0.3-0.7) 06/25/18 21:54 POC ABG pH 7.311 (7.35-7.45) L 06/26/18 12:43 POC ABG pCO2 46.6 (35-45) H 06/26/18 12:43 POC ABG pO2 99 (80-105) 06/26/18 12:43 POC ABG HCO3 23.5 06/26/18 12:43 POC ABG Total CO2 25 06/26/18 12:43 POC ABG O2 Sat 97 06/26/18 12:43 POC ABG Base Excess -3 06/26/18 12:43 FiO2 30 % 06/26/18 12:43 Sodium 145 mmol/L (137-145) 06/26/18 10:14 Potassium 3.8 mmol/L (3.6-5.0) 06/26/18 10:14 Chloride 106.6 mmol/L (98-107) 06/26/18 10:14 Carbon Dioxide 24 mmol/L (22-30) 06/26/18 10:14 Anion Gap 18 mmol/L 06/26/18 10:14 BUN 34 mg/dL (7-17) H 06/26/18 10:14 Creatinine 2.4 mg/dL (0.7-1.2) H 06/26/18 10:14 Estimated GFR 20 ml/min 06/26/18 10:14 BUN/Creatinine Ratio 14 % 06/26/18 10:14 Glucose 194 mg/dL (65-100) H 06/26/18 10:14 POC Glucose 228 (70-105) H 06/26/18 17:32 Calcium 8.8 mg/dL (8.4-10.2) 06/26/18 10:14 Magnesium 1.70 mg/dL (1.7-2.3) 06/21/18 14:06 Total Bilirubin 1.30 mg/dL (0.1-1.2) H 06/21/18 14:06 AST 19 units/L (5-40) 06/21/18 14:06 ALT 17 units/L (7-56) 06/21/18 14:06 Alkaline Phosphatase 174 units/L (35-129) H 06/21/18 14:06 Total Creatine Kinase 102 units/L (30-135) 06/21/18 14:06 CK-MB (CK-2) 2.2 ng/mL (0.0-4.0) 06/21/18 14:06 CK-MB (CK-2) Rel Index 2.1 (0-4) 06/21/18 14:06 Troponin T 0.050 ng/mL (0.00-0.029) H 06/21/18 14:06 Total Protein 6.9 g/dL (6.3-8.2) 06/21/18 14:06 Albumin 3.1 g/dL (3.9-5) L 06/21/18 14:06 Albumin/Globulin Ratio 0.8 % 06/21/18 14:06 Triglycerides 115 mg/dL (2-149) 06/21/18 14:06 Cholesterol 123 mg/dL (50-199) 06/21/18 14:06 LDL Cholesterol Direct 61 mg/dL (50-130) 06/21/18 14:06 HDL Cholesterol 50 mg/dL (40-59) 06/21/18 14:06 Cholesterol/HDL Ratio 2.46 % 06/21/18 14:06 Levetiracetam 65.9 mcg/mL 06/21/18 16:01 Nutrition/Malnutrition Assess - Dietary Evaluation Nutrition/Malnutrition Findings: Nutrition Notes Start: 06/22/18 10:19 Freq: Status: Active Protocol: Document 06/26/18 14:51 JOHNNIE (Rec: 06/26/18 14:54 JOHNNIE [email or web address]) Nutrition Notes Initial or Follow up Brief Note Current Diet TF - Vital AF at 45ml/hr Height 5 ft 2 in Weight 92.4 kg [place] Body Weight (lbs) 110.0 BMI 37.2 Subjective/Other Information Pt tolerating TF at goal rate of 45ml/hr. She remains on vent support. Kcal/Kg value to use for calculation 14 Approximate Energy Requirements Using 1294 kcal/Kg Calculation Used for Recommendations Kcal/kg Nutrition Intervention Follow-Up By: 07/01/18 Additional Comments F/U: stable TF, vent status - Attestation Statement I have reviewed and agreed w/ Malnutrition eval & tx plan: Yes
[2018-06-27] MEDS: HumaLOG SUB-Q SCH ×7 (04:30→22:38)
--- NOTE | 2018-06-27 05:32 | XRay Report ---
FINAL REPORT PROCEDURE: XR CHEST 1V AP TECHNIQUE: Chest radiograph anteroposterior view. CPT 83540 HISTORY: follow up respiratory failure COMPARISON: 06/26/2018 FINDINGS: Heart: Normal. Mediastinum/Vessels: Normal. Lungs/Pleural space: Mild atelectasis and effusion left lower lung. Bony thorax: No acute osseous abnormality. Life support devices: None. IMPRESSION: Mild atelectasis and effusion left lower lung the.
[2018-06-27] MEDS: NORVASC PO SCH (10:23)
[2018-06-27] MEDS: KEPPRA PO SCH ×2 (10:24→21:03)
[2018-06-27] MEDS: PEPCID PO SCH (10:24)
[2018-06-27] MEDS: COREG PO SCH ×2 (10:24→21:02)
[2018-06-27] MEDS: SODIUM CHLORIDE FLUSH SYRINGE 10 ML IV SCH (10:25)
--- NOTE | 2018-06-27 12:22 | Consultation ---
History of Present Illness - Reason for Consult Consult date: 06/27/18 acute renal failure Requesting physician: JESSE PALACIOS - History of Present Illness 67 YO Female [facility] Resident with Obesity, DM, HTN, HLD, CVA, DVT,Dementia, Debility presents to ED on 06/21/2018 for evaluation. Pt was confused, lethargic and unable to provide history. Pt history provides by EMS, ED staff, and SNF staff. As per SNF staff, the patient was found to have a witnessed generalized tonic clonic seizure with gurgling sounds coming from her oral cavity. EMS notified, and upon arrival the patient was found to be in distress. Pt transported to [facility] for further care and evaluation. Pt seen and evaluated in ED and found to have Encephalopathy, Acute Respiratory Failure, ARF, as well Aspiration Pneumonia. Pt is unable to protect her airway. Pt was intubated and placed on vent support. Pt was admitted to ICU. Patient is not extubated. Remains in the ICU. Serum creatinine was approximately 1.5-1.6 on admission. It has not gone up to 2.4 and therefore this consultation. Patient states that she does have a kidney doctor that she sees. However cannot recall the name Past History Past Medical History: diabetes, DVT, hypertension, hyperlipidemia, seizures, stroke, other (Dementia, Debility, Depression) Past Surgical History: No surgical history, Other (reviewed) Social history: single. denies: smoking, alcohol abuse, prescription drug abuse Family history: diabetes Medications and Allergies Allergies Allergy/AdvReac Type Severity Reaction Status Date / Time No Known Allergies Allergy Unverified 04/06/18 11:56 Home Medications Medication Instructions Recorded Confirmed Last Taken Type Acetaminophen [Acetaminophen TAB] 650 mg PO Q4H PRN 04/06/18 06/21/18 Unknown History Apixaban [Eliquis] 5 mg PO Q12H 04/06/18 06/21/18 Unknown History AtorvaSTATin [Lipitor] 40 mg PO QHS 04/06/18 06/21/18 Unknown History Brimonidine Tartrate/Timolol 1 drop OU Q12H 04/06/18 06/21/18 Unknown History [Combigan 0.2%-0.5% Eye Drops] Donepezil HCl [Aricept] 10 mg PO HS 04/06/18 06/21/18 Unknown History Insulin Glargine [Lantus VIAL] 50 units SUB-Q QHS 04/06/18 06/21/18 Unknown History Insulin Lispro [HumaLOG VIAL] 9 units SUB-Q AC 04/06/18 06/21/18 Unknown History Lispro Insulin [Humalog] See Protocol SUB-Q ACHS 04/06/18 06/21/18 Unknown History Mirtazapine [Remeron] 15 mg PO HS 04/06/18 06/21/18 Unknown History levETIRAcetam [Keppra TAB] 1,000 mg PO Q12H 04/06/18 06/21/18 Unknown History Furosemide [Lasix TAB] 40 mg PO QDAY #30 tablet 04/10/18 06/21/18 Unknown Rx HYDROcodone/APAP 5-325 [Downey 1 each PO Q8HR PRN #7 tablet 04/10/18 06/21/18 Unknown Rx 5-325 mg TAB] Losartan [Cozaar] 25 mg PO QDAY #30 tablet 04/10/18 06/21/18 Unknown Rx Metoprolol Succinate [Toprol Xl] 25 mg PO DAILY #30 tab.er.24h 04/10/18 06/21/18 Unknown Rx Active Meds: Active Medications Amlodipine Besylate (Norvasc) 10 mg PO QDAY [facility] Last Admin: 06/27/18 10:23 Dose: 10 mg Documented by: Lipase/Protease/Amylase (Syl Dodd 10,500 Unit) 1 each FEEDTUBE PRN PRN PRN Reason: For Clogged Feeding Tube Atorvastatin Calcium (Lipitor) 40 mg PO QHS [facility] Last Admin: 06/26/18 23:42 Dose: 40 mg Documented by: Brimonidine/Timolol (Combigan 0.2-0.5%) 1 drops OU Q12H [facility] Last Admin: 06/26/18 16:50 Dose: 1 drops Documented by: Carvedilol (Coreg) 12.5 mg PO BID [facility] Last Admin: 06/27/18 10:24 Dose: 12.5 mg Documented by: Famotidine (Pepcid) 20 mg PO QDAY [facility] Last Admin: 06/27/18 10:24 Dose: 20 mg Documented by: Hydralazine HCl (Apresoline) 20 mg IV Q6H PRN PRN Reason: HTN Last Admin: 06/22/18 17:00 Dose: 20 mg Documented by: Hydrophilic Ointment (Vaseline Lip Therapy) 1 applic TP Q2HR PRN PRN Reason: Dry Lips Heparin Sodium/Sodium Chloride (Heparin/ 0.45% Nacl-25,000 Unit/500 Ml) 25,000 unit in 500 mls @ 27 mls/hr IV TITR [facility]; Protocol Last Titration: 06/26/18 23:00 Dose: 850 units/hr, 17 mls/hr Documented by: Insulin Human Lispro (Humalog) 0 unit SUB-Q Q4HR [facility]; Protocol Last Admin: 06/27/18 06:55 Dose: Not Given Documented by: Labetalol HCl (Normodyne) 20 mg IV Q4H PRN PRN Reason: BP >160/100; hold for HR <60 Last Admin: 06/22/18 18:55 Dose: 20 mg Documented by: Levetiracetam (Keppra) 1,000 mg PO BID [facility] Last Admin: 06/27/18 10:24 Dose: 1,000 mg Documented by: Multi-Ingred Cream/Lotion/Oil/Oint (Artificial Tears Ophth Oint) 1 applic OU Q4HR PRN PRN Reason: Dry Eye(s) Simple Syrup (Simple Syrup) 15 ml FEEDTUBE PRN PRN PRN Reason: Hypoglycemia Simple Syrup (Simple Syrup) 30 ml FEEDTUBE PRN PRN PRN Reason: Hypoglycemia Sodium Bicarbonate (Sodium Bicarbonate) 325 mg FEEDTUBE PRN PRN PRN Reason: For Clogged Feeding Tube Sodium Chloride (Sodium Chloride Flush Syringe 10 Ml) 10 ml IV BID [facility] Last Admin: 06/27/18 10:25 Dose: 10 ml Documented by: Sodium Chloride (Sodium Chloride Flush Syringe 10 Ml) 10 ml IV PRN PRN PRN Reason: LINE FLUSH Last Admin: 06/22/18 06:27 Dose: 10 ml Documented by: Review of Systems ROS unobtainable: due to mental status All systems: negative Exam - Vital Signs Vital signs: Vital Signs Pulse Ox 96 06/21/18 13:22 - General Appearance General appearance: well-developed, well-nourished, appears stated age EENT: PERRL, mucous membranes moist Neck: Present: neck supple, trachea midline. Absent: JVD/HJR, Masses Respiratory: Clear to Ascultation Heart: regular, normal heart rate, S1S2, no murmurs Gastrointestinal: Present: normal, normoactive bowel sounds Integumentary: other (trace edema) Results - Lab Results 06/26/18 10:14 06/26/18 10:14 Most recent lab results Calcium 8.8 mg/dL (8.4-10.2) 06/26/18 10:14 Magnesium 1.70 mg/dL (1.7-2.3) 06/21/18 14:06 Assessment and Plan Impression * Acute on chronic renal failure. Serum creatinine was 1.7 in March 2018 * Status post respiratory failure * Seizure disorder * Hypertension * Diabetes * Dementia * History of CVA Recommendations * Check a UA as well as a fractional excretion of sodium * Check urine for eosinophils * Renal ultrasound to assess kidney size and echogenicity * Hold off on diuretics or VU inhibitor/ARB at this time * The patient has an active urinary sediment she would need additional workup * Check office records regarding her previous renal status and workup * Avoid nephrotoxins * Monitor fluid status and electrolytes closely * Thank you very much for the consultation. Shall follow along with you
--- NOTE | 2018-06-27 13:46 | Progress Note ---
Assessment and Plan Assessment and plan: Patient is a 68 yo woman from [facility] with a history of seizure disorder, type 2 DM, hypertension, dyslipidemia, CVA, PE, DVT and Dementia who presented to [facility] ED on 06/21/18 with Seizures and was Intubated. Acute respiratory failure, s/p ETT intubated >96 hours and extubated 06/26/18: continue o2 support Status epilepticus: treat with keppra, EEG reviewed Hypertensive Urgency, resolved: iv antihypertensives as needed H/o CVA, she is weaker on the right, ?old RHP: get MRI SIRS with organ dysfunction as above Acute Metabolic Encephalopathy per above ARF, vasomotor nephropathy, Cr was 1.5 now 2.4: Nephrology following History of PE/DVT, v/q negative for PE. MRI brain has been ordered since Jun.23. CCT 32 minutes History Interval history: Patient was seen and examined. Follow-up on current diagnosis of sz. Overnight uneventful. Patient appears to have expressive aphasia. Imaging, nursing note, chart, labs and old chart reviewed. Discussed with patient. Hospitalist Physical - Physical exam Narrative exam: Gen: chronically disable, NAD, Awake, Alert, Orientated x 2, missed year HEENT: NCAT, EOMI, PERRL, OP Clear Neck: supple, no adenopathy, no thyromegaly, no JVD CVS/Heart: RRR, normal S1S2, pulses present bilaterally Chest/Lungs: CTA B, Symmetrical chest expansion, good air entry bilaterally GI/Abdomen: soft, NTND, good bowel sounds, no guarding or rebound /Bladder: no suprapubic tenderness, no CVA or paraspinal tenderness Extermity/Skin: no c/c/e, no obvious rash MSK: right side weaker than left, but spontaneous movement x 4 Neuro: CN 2-12 grossly intact, no new focal deficits, garbled speech Psych: calm - Constitutional Vitals: Temp Pulse Resp BP Pulse Ox 98.5 F 75 23 110/61 95 06/27/18 08:00 06/27/18 13:00 06/27/18 13:00 06/27/18 13:00 06/27/18 13:00 General appearance: Present: obese. Absent: severe distress Results - Labs CBC & Chem 7: 06/26/18 10:14 06/26/18 10:14 Labs: Laboratory Last Values WBC 9.5 K/mm3 (4.5-11.0) 06/26/18 10:14 RBC 4.33 M/mm3 (3.65-5.03) 06/26/18 10:14 Hgb 9.5 gm/dl (10.1-14.3) L 06/26/18 10:14 Hct 30.0 % (30.3-42.9) L 06/26/18 10:14 MCV 69 fl (79-97) L 06/26/18 10:14 MCH 22 pg (28-32) L 06/26/18 10:14 MCHC 32 % (30-34) 06/26/18 10:14 RDW 22.4 % (13.2-15.2) H 06/26/18 10:14 Plt Count 214 K/mm3 (140-440) 06/26/18 10:14 Lymph % (Auto) 24.5 % (13.4-35.0) 06/26/18 10:14 Haines % (Auto) 11.0 % (0.0-7.3) H 06/26/18 10:14 Eos % (Auto) 3.7 % (0.0-4.3) 06/26/18 10:14 Baso % (Auto) 0.2 % (0.0-1.8) 06/26/18 10:14 Lymph # 2.3 K/mm3 (1.2-5.4) 06/26/18 10:14 Haines # 1.0 K/mm3 (0.0-0.8) H 06/26/18 10:14 Eos # 0.4 K/mm3 (0.0-0.4) 06/26/18 10:14 Baso # 0.0 K/mm3 (0.0-0.1) 06/26/18 10:14 Seg Neutrophils % 60.6 % (40.0-70.0) 06/26/18 10:14 Seg Neutrophils # 5.8 K/mm3 (1.8-7.7) 06/26/18 10:14 PT 17.5 Sec. (12.2-14.9) H 06/22/18 17:21 INR 1.39 (0.87-1.13) H 06/22/18 17:21 APTT 22.8 Sec. (24.2-36.6) L 06/22/18 17:21 Heparin Anti-Xa Level 0.34 U.I./ml (0.3-0.7) 06/26/18 22:41 POC ABG pH 7.311 (7.35-7.45) L 06/26/18 12:43 POC ABG pCO2 46.6 (35-45) H 06/26/18 12:43 POC ABG pO2 99 (80-105) 06/26/18 12:43 POC ABG HCO3 23.5 06/26/18 12:43 POC ABG Total CO2 25 06/26/18 12:43 POC ABG O2 Sat 97 06/26/18 12:43 POC ABG Base Excess -3 06/26/18 12:43 FiO2 30 % 06/26/18 12:43 Sodium 145 mmol/L (137-145) 06/26/18 10:14 Potassium 3.8 mmol/L (3.6-5.0) 06/26/18 10:14 Chloride 106.6 mmol/L (98-107) 06/26/18 10:14 Carbon Dioxide 24 mmol/L (22-30) 06/26/18 10:14 Anion Gap 18 mmol/L 06/26/18 10:14 BUN 34 mg/dL (7-17) H 06/26/18 10:14 Creatinine 2.4 mg/dL (0.7-1.2) H 06/26/18 10:14 Estimated GFR 20 ml/min 06/26/18 10:14 BUN/Creatinine Ratio 14 % 06/26/18 10:14 Glucose 194 mg/dL (65-100) H 06/26/18 10:14 POC Glucose 192 (70-105) H 06/27/18 12:24 Calcium 8.8 mg/dL (8.4-10.2) 06/26/18 10:14 Magnesium 1.70 mg/dL (1.7-2.3) 06/21/18 14:06 Total Bilirubin 1.30 mg/dL (0.1-1.2) H 06/21/18 14:06 AST 19 units/L (5-40) 06/21/18 14:06 ALT 17 units/L (7-56) 06/21/18 14:06 Alkaline Phosphatase 174 units/L (35-129) H 06/21/18 14:06 Total Creatine Kinase 102 units/L (30-135) 06/21/18 14:06 CK-MB (CK-2) 2.2 ng/mL (0.0-4.0) 06/21/18 14:06 CK-MB (CK-2) Rel Index 2.1 (0-4) 06/21/18 14:06 Troponin T 0.050 ng/mL (0.00-0.029) H 06/21/18 14:06 Total Protein 6.9 g/dL (6.3-8.2) 06/21/18 14:06 Albumin 3.1 g/dL (3.9-5) L 06/21/18 14:06 Albumin/Globulin Ratio 0.8 % 06/21/18 14:06 Triglycerides 115 mg/dL (2-149) 06/21/18 14:06 Cholesterol 123 mg/dL (50-199) 06/21/18 14:06 LDL Cholesterol Direct 61 mg/dL (50-130) 06/21/18 14:06 HDL Cholesterol 50 mg/dL (40-59) 06/21/18 14:06 Cholesterol/HDL Ratio 2.46 % 06/21/18 14:06 Levetiracetam 65.9 mcg/mL 06/21/18 16:01 Nutrition/Malnutrition Assess - Dietary Evaluation Nutrition/Malnutrition Findings: Nutrition Notes Start: 06/22/18 10:19 Freq: Status: Active Protocol: Document 06/26/18 14:51 JOHNNIE (Rec: 06/26/18 14:54 JOHNNIE SRW- [email or web address]) Nutrition Notes Initial or Follow up Brief Note Current Diet TF - Vital AF at 45ml/hr Height 5 ft 2 in Weight 92.4 kg [place] Body Weight (lbs) 110.0 BMI 37.2 Subjective/Other Information Pt tolerating TF at goal rate of 45ml/hr. She remains on vent support. Kcal/Kg value to use for calculation 14 Approximate Energy Requirements Using 1294 kcal/Kg Calculation Used for Recommendations Kcal/kg Nutrition Intervention Follow-Up By: 07/01/18 Additional Comments F/U: stable TF, vent status
--- NOTE | 2018-06-27 14:08 | Progress Note ---
Assessment and Plan Acute Hypoxemic Respiratory failure on MVS Pneumonia (Likely aspiration) JULISA Respiratory Alkalosis Acute on Chronic Encephalopathy SIRS due to infectious process with acute organ dysfunction Seizures Obesity Diabetes type II Hypertension Hyperlipidemia H/O CVA H/O DVT Dementia Debility - watch closely in short term; if stridorous sounds persist will treat with racemic epinephrine, steroids course and BIPAP - schedule BIPAP qhs in short term - neurology evaluation ongoing and input appreciated - continue Keppra for seizures (1500mg bid) - complete empiric CAP antibiotics and follow cultures - continue IV heparin acutely (H/O DVT and on outpatient Eliquis) - Stress ulcer prophylaxis - Monitor renal function - Avoid nephrotoxic agents, adjust all medications for GFR and CrCL - follow EEG report - Bedside dyspagia screen and if passes then introduce oral diet otherwise continue enteral nutrition as tolerated - continue to wean supplemental oxygen to keep O2 sats>90% - follow urine, tracheal and blood cultures (NGTD) - Strict intake and output - Accuchecks, glycemic control. Target blood glucose of 140-180mg/dL - follow 2D echocardiogram to evaluate LVEF and for pulmonary HTN .... transfer to [facility] later today if no decompensation ... care plan discussed with family in room CODE STATUS: FULL CODE Subjective Date of service: 06/27/18 Principal diagnosis: Acute Hypoxemic Resp failure; Pneumonia (Likely aspiration); JULISA; SIRS Interval history: Patient is seen today for: Acute Hypoxemic Respiratory failure on MVS; Pneumonia (Likely aspiration); JULISA; Acute on Chronic Encephalopathy; SIRS Seen and examined at bedside; 24hour events reviewed; nursing and respiratory care staff consulted; no adverse overnight events reported to me; doind well post extubation; developed some stridorous type sounds / labored breathing during cleaning but no overt decompensation; family visiting; no emesis or overt aspiration Objective Vital Signs - 12hr 06/27/18 06/27/18 06/27/18 02:24 02:30 03:00 Temperature Pulse Rate 77 76 75 Pulse Rate [ From Monitor] Respiratory 26 H 27 H 26 H Rate Blood Pressure 109/66 111/67 120/67 O2 Sat by Pulse 95 94 96 Oximetry 06/27/18 06/27/18 06/27/18 03:05 03:30 04:00 Temperature 98.7 F Pulse Rate 81 77 Pulse Rate [ 81 From Monitor] Respiratory 24 27 H Rate Blood Pressure 117/75 117/65 O2 Sat by Pulse 98 96 Oximetry 06/27/18 06/27/18 06/27/18 04:30 05:00 05:30 Temperature Pulse Rate 77 79 84 Pulse Rate [ From Monitor] Respiratory 27 H 24 28 H Rate Blood Pressure 117/64 113/64 129/63 O2 Sat by Pulse 97 97 97 Oximetry 06/27/18 06/27/18 06/27/18 06:00 06:30 07:00 Temperature Pulse Rate 80 80 Pulse Rate [ From Monitor] Respiratory 27 H 29 H Rate Blood Pressure 118/65 111/65 122/60 O2 Sat by Pulse 98 97 Oximetry 06/27/18 06/27/18 06/27/18 07:30 08:00 08:30 Temperature 98.5 F Pulse Rate 81 80 82 Pulse Rate [ 82 From Monitor] Respiratory 24 28 H 29 H Rate Blood Pressure 120/63 120/66 131/63 O2 Sat by Pulse 94 94 Oximetry 06/27/18 06/27/18 06/27/18 09:00 09:30 10:00 Temperature Pulse Rate 82 83 82 Pulse Rate [ From Monitor] Respiratory 28 H 31 H 18 Rate Blood Pressure 131/76 128/67 126/70 O2 Sat by Pulse 95 95 Oximetry 06/27/18 06/27/18 06/27/18 10:23 10:24 10:30 Temperature Pulse Rate 82 82 86 Pulse Rate [ From Monitor] Respiratory 18 Rate Blood Pressure 126/70 126/70 122/66 O2 Sat by Pulse 96 Oximetry 06/27/18 06/27/18 06/27/18 11:00 11:30 12:00 Temperature Pulse Rate 82 81 79 Pulse Rate [ From Monitor] Respiratory 13 17 14 Rate Blood Pressure 123/67 134/67 121/63 O2 Sat by Pulse 95 97 96 Oximetry 06/27/18 06/27/18 12:30 13:00 Temperature Pulse Rate 73 75 Pulse Rate [ From Monitor] Respiratory 14 23 Rate Blood Pressure 112/61 110/61 O2 Sat by Pulse 94 95 Oximetry Constitutional: no acute distress, other (elderly looking AAF normocephalic and atraumatic with ETT to MVS and mildly increased resp effort) Eyes: non-icteric ENT: oropharynx moist, other (extubated) Neck: supple, no lymphadenopathy, no JVD, other (no thyromegaly) Effort: mildly labored Ascultation: Bilateral: diminished breath sounds, rhonchi Percussion: Bilateral: not dull Cardiovascular: regular rate and rhythm Gastrointestinal: normoactive bowel sounds, soft, tender, non-distended Integumentary: normal Extremities: no cyanosis, no edema, pulses normal, no ischemia or petechiae Neurologic: normal mental status, non-focal exam (grossly), pupils equal and round, CN II-XII normal Psychiatric: anxious CBC and BMP: 06/26/18 10:14 06/28/18 03:25 ABG, PT/INR, D-dimer: ABG POC ABG pH 7.311 (7.35-7.45) L 06/26/18 12:43 POC ABG pCO2 46.6 (35-45) H 06/26/18 12:43 POC ABG pO2 99 (80-105) 06/26/18 12:43 POC ABG HCO3 23.5 06/26/18 12:43 POC ABG Total CO2 25 06/26/18 12:43 POC ABG O2 Sat 97 06/26/18 12:43 PT/INR, D-dimer PT 17.5 Sec. (12.2-14.9) H 06/22/18 17:21 INR 1.39 (0.87-1.13) H 06/22/18 17:21 Abnormal lab findings: Abnormal Labs 06/21/18 06/21/18 06/21/18 14:02 14:06 14:06 WBC RBC Hgb Hct MCV 71 L MCH 22 L RDW 21.1 H Hinds % (Auto) Hinds # Seg Neutrophils # PT 18.9 H INR 1.54 H APTT Heparin Anti-Xa Level POC ABG pH POC ABG pCO2 POC ABG pO2 Potassium BUN Creatinine Glucose POC Glucose 250 H Calcium Total Bilirubin Alkaline Phosphatase Troponin T Albumin 06/21/18 06/21/18 06/21/18 14:06 14:23 21:17 WBC RBC Hgb Hct MCV MCH RDW Hinds % (Auto) Hinds # Seg Neutrophils # PT INR APTT Heparin Anti-Xa Level POC ABG pH 7.499 H 7.600 H POC ABG pCO2 34.8 L 24.9 L POC ABG pO2 342 H 176 H Potassium BUN Creatinine 1.5 H Glucose 214 H POC Glucose Calcium Total Bilirubin 1.30 H Alkaline Phosphatase 174 H Troponin T 0.050 H Albumin 3.1 L 06/22/18 06/22/18 06/22/18 03:17 03:17 05:27 WBC 11.5 H RBC 5.07 H Hgb Hct MCV 69 L MCH 21 L RDW 21.9 H Hinds % (Auto) 9.8 H Hinds # 1.1 H Seg Neutrophils # 7.9 H PT INR APTT Heparin Anti-Xa Level POC ABG pH 7.539 H POC ABG pCO2 30.1 L POC ABG pO2 170 H Potassium BUN Creatinine 1.5 H Glucose 164 H POC Glucose Calcium Total Bilirubin Alkaline Phosphatase Troponin T Albumin 06/22/18 06/22/18 06/22/18 17:21 17:50 19:46 WBC RBC Hgb Hct MCV MCH RDW Hinds % (Auto) Hinds # Seg Neutrophils # PT 17.5 H INR 1.39 H APTT 22.8 L Heparin Anti-Xa Level 1.64 H POC ABG pH POC ABG pCO2 POC ABG pO2 Potassium BUN Creatinine Glucose POC Glucose 240 H Calcium Total Bilirubin Alkaline Phosphatase Troponin T Albumin 06/22/18 06/23/18 06/23/18 23:47 01:44 04:14 WBC RBC Hgb Hct MCV MCH RDW Hinds % (Auto) Hinds # Seg Neutrophils # PT INR APTT Heparin Anti-Xa Level 0.10 L POC ABG pH POC ABG pCO2 POC ABG pO2 Potassium BUN Creatinine Glucose POC Glucose 240 H 229 H Calcium Total Bilirubin Alkaline Phosphatase Troponin T Albumin 06/23/18 06/23/18 06/23/18 05:34 09:24 10:24 WBC RBC Hgb Hct MCV MCH RDW Hinds % (Auto) Hinds # Seg Neutrophils # PT INR APTT Heparin Anti-Xa Level POC ABG pH 7.519 H POC ABG pCO2 POC ABG pO2 133 H Potassium BUN Creatinine Glucose POC Glucose 220 H 183 H Calcium Total Bilirubin Alkaline Phosphatase Troponin T Albumin 06/23/18 06/23/18 06/23/18 12:39 13:32 14:08 WBC RBC Hgb Hct MCV MCH RDW Hinds % (Auto) Hinds # Seg Neutrophils # PT INR APTT Heparin Anti-Xa Level > 2.00 H POC ABG pH POC ABG pCO2 POC ABG pO2 Potassium BUN Creatinine Glucose POC Glucose 151 H 140 H Calcium Total Bilirubin Alkaline Phosphatase Troponin T Albumin 06/23/18 06/23/18 06/23/18 18:00 19:33 21:31 WBC RBC Hgb Hct MCV MCH RDW Hinds % (Auto) Hinds # Seg Neutrophils # PT INR APTT Heparin Anti-Xa Level 1.74 H POC ABG pH POC ABG pCO2 POC ABG pO2 Potassium BUN Creatinine Glucose POC Glucose 141 H 153 H Calcium Total Bilirubin Alkaline Phosphatase Troponin T Albumin 06/24/18 06/24/18 06/24/18 02:36 03:55 03:55 WBC 12.9 H RBC Hgb 9.9 L Hct MCV 70 L MCH 22 L RDW 22.1 H Hinds % (Auto) Hinds # Seg Neutrophils # PT INR APTT Heparin Anti-Xa Level POC ABG pH POC ABG pCO2 POC ABG pO2 Potassium BUN 25 H Creatinine 1.6 H Glucose 151 H POC Glucose 162 H Calcium 8.2 L Total Bilirubin Alkaline Phosphatase Troponin T Albumin 06/24/18 06/24/18 06/24/18 03:55 05:01 09:34 WBC RBC Hgb Hct MCV MCH RDW Hinds % (Auto) Hinds # Seg Neutrophils # PT INR APTT Heparin Anti-Xa Level 1.75 H POC ABG pH POC ABG pCO2 POC ABG pO2 Potassium BUN Creatinine Glucose POC Glucose 175 H 143 H Calcium Total Bilirubin Alkaline Phosphatase Troponin T Albumin 06/24/18 06/24/18 06/24/18 12:50 14:29 17:08 WBC RBC Hgb Hct MCV MCH RDW Hinds % (Auto) Hinds # Seg Neutrophils # PT INR APTT Heparin Anti-Xa Level 1.60 H POC ABG pH POC ABG pCO2 POC ABG pO2 Potassium BUN Creatinine Glucose POC Glucose 169 H 138 H Calcium Total Bilirubin Alkaline Phosphatase Troponin T Albumin 06/24/18 06/24/18 06/25/18 21:13 21:50 01:45 WBC RBC Hgb Hct MCV MCH RDW Hinds % (Auto) Hinds # Seg Neutrophils # PT INR APTT Heparin Anti-Xa Level 1.53 H POC ABG pH POC ABG pCO2 POC ABG pO2 Potassium BUN Creatinine Glucose POC Glucose 186 H 177 H Calcium Total Bilirubin Alkaline Phosphatase Troponin T Albumin 06/25/18 06/25/18 06/25/18 05:23 05:41 09:55 WBC RBC Hgb Hct MCV MCH RDW Hinds % (Auto) Hinds # Seg Neutrophils # PT INR APTT Heparin Anti-Xa Level 1.13 H POC ABG pH POC ABG pCO2 POC ABG pO2 Potassium BUN Creatinine Glucose POC Glucose 160 H 181 H Calcium Total Bilirubin Alkaline Phosphatase Troponin T Albumin 06/25/18 06/25/18 06/25/18 12:54 14:27 14:33 WBC RBC Hgb Hct MCV MCH RDW Hinds % (Auto) Hinds # Seg Neutrophils # PT INR APTT Heparin Anti-Xa Level 0.73 H POC ABG pH POC ABG pCO2 POC ABG pO2 Potassium 3.4 L BUN 30 H Creatinine 2.1 H Glucose 220 H POC Glucose 218 H Calcium Total Bilirubin Alkaline Phosphatase Troponin T Albumin 06/25/18 06/25/18 06/26/18 17:36 21:40 01:49 WBC RBC Hgb Hct MCV MCH RDW Hinds % (Auto) Hinds # Seg Neutrophils # PT INR APTT Heparin Anti-Xa Level POC ABG pH POC ABG pCO2 POC ABG pO2 Potassium BUN Creatinine Glucose POC Glucose 219 H 162 H 152 H Calcium Total Bilirubin Alkaline Phosphatase Troponin T Albumin 06/26/18 06/26/18 06/26/18 04:43 05:50 09:43 WBC RBC Hgb 8.8 L Hct 27.7 L MCV MCH RDW Hinds % (Auto) Hinds # Seg Neutrophils # PT INR APTT Heparin Anti-Xa Level POC ABG pH POC ABG pCO2 POC ABG pO2 Potassium BUN Creatinine Glucose POC Glucose 176 H 206 H Calcium Total Bilirubin Alkaline Phosphatase Troponin T Albumin 06/26/18 06/26/18 06/26/18 10:14 10:14 12:43 WBC RBC Hgb 9.5 L Hct 30.0 L MCV 69 L MCH 22 L RDW 22.4 H Hinds % (Auto) 11.0 H Hinds # 1.0 H Seg Neutrophils # PT INR APTT Heparin Anti-Xa Level POC ABG pH 7.311 L POC ABG pCO2 46.6 H POC ABG pO2 Potassium BUN 34 H Creatinine 2.4 H Glucose 194 H POC Glucose Calcium Total Bilirubin Alkaline Phosphatase Troponin T Albumin 06/26/18 06/26/18 06/27/18 14:30 17:32 00:00 WBC RBC Hgb Hct MCV MCH RDW Hinds % (Auto) Hinds # Seg Neutrophils # PT INR APTT Heparin Anti-Xa Level POC ABG pH POC ABG pCO2 POC ABG pO2 Potassium BUN Creatinine Glucose POC Glucose 219 H 228 H 173 H Calcium Total Bilirubin Alkaline Phosphatase Troponin T Albumin 06/27/18 06/27/18 06/27/18 01:25 06:06 10:24 WBC RBC Hgb Hct MCV MCH RDW Hinds % (Auto) Hinds # Seg Neutrophils # PT INR APTT Heparin Anti-Xa Level POC ABG pH POC ABG pCO2 POC ABG pO2 Potassium BUN Creatinine Glucose POC Glucose 178 H 157 H 171 H Calcium Total Bilirubin Alkaline Phosphatase Troponin T Albumin 06/27/18 12:24 WBC RBC Hgb Hct MCV MCH RDW Hinds % (Auto) Hinds # Seg Neutrophils # PT INR APTT Heparin Anti-Xa Level POC ABG pH POC ABG pCO2 POC ABG pO2 Potassium BUN Creatinine Glucose POC Glucose 192 H Calcium Total Bilirubin Alkaline Phosphatase Troponin T Albumin Chest x-ray: image reviewed (no new infiltrate) Allied health notes reviewed: nursing
[2018-06-27] MEDS: COMBIGAN 0.2-0.5% OU SCH (16:20)
[2018-06-27 17:26] LABS: Bacteria,Urine 1+ /HPF (Negative); Bilirubin,Urine NEG (Negative); Blood,Urine NEG (Negative); Color,Urine Amber (Yellow); Creatinine,Urine 192.2 mg/dL (0.1-20.0); Urobilinogen,Urine < 2.0 mg/dL (<2.0)
[2018-06-27 19:11] LABS: Fractional Sodium Excretion 1.6
--- NOTE | 2018-06-27 20:34 | Ultrasound Report ---
FINAL REPORT PROCEDURE: US RENAL BILAT TECHNIQUE: Real-time sonography in multiple planes of the kidneys, ureters and urinary bladder was p erformed with image documentation. CPT 93537 HISTORY: renal failure COMPARISON: No prior studies are available for comparison. FINDINGS: RIGHT kidney: Normal echotexture. No focal renal mass, calculus, or hydronephrosis. Length: 10.9 x 3. 8 x 5.2 cm. LEFT kidney: Normal echotexture. No focal renal mass, calculus, or hydronephrosis. Length: 9.5 x 5.9 x 7.0cm. Bladder: Empty with a Cr bulb in situ. IMPRESSION: Unremarkable study.
[2018-06-27] MEDS: HEPARIN/ 0.45% NACL-25,000 UNIT/500 ML 25,000 UNIT/500 ML BAG IV SCH (21:11)
--- NOTE | 2018-06-28 02:22 | XRay Report ---
FINAL REPORT PROCEDURE: XR CHEST 1V AP TECHNIQUE: Chest radiograph anteroposterior view. CPT 60310 HISTORY: follow up respiratory failure COMPARISON: 06/27/2018 FINDINGS: Heart: Normal. Mediastinum/Vessels: Normal. Lungs/Pleural space: Mild left lower lung atelectasis and effusion. Bony thorax: No acute osseous abnormality. Life support devices: None. IMPRESSION: Mild left lower lung atelectasis and effusion..
[2018-06-28] MEDS: HumaLOG SUB-Q SCH ×5 (04:05→17:39)
[2018-06-28] MEDS: SODIUM CHLORIDE FLUSH SYRINGE 10 ML IV SCH ×3 (04:07→22:38)
[2018-06-28] MEDS: COMBIGAN 0.2-0.5% OU SCH ×3 (04:10→16:39)
--- NOTE | 2018-06-28 08:54 | Progress Note ---
Assessment and Plan Assessment and plan: Patient is a 68 yo woman from [facility] with a history of seizure disorder, type 2 DM, hypertension, dyslipidemia, CVA, DVT on Eliquis and Dementia who presented to [facility] ED on 06/21/18 with Seizures and was Intubated. ARF, vasomotor nephropathy, worsening: Nephrology following Acute respiratory failure, s/p ETT intubated 06/21/18 >96 hours and extubated 06/26/18: continue o2 support, Pulmonology is following Status epilepticus: treat with keppra, EEG reviewed Hypertensive Urgency, resolved: iv antihypertensives as needed H/o CVA, she is weaker on the right, ?old RHP: get MRI SIRS with organ dysfunction as above Acute Metabolic Encephalopathy per above History of DVT on Eliquis, v/q negative for PE. Continue iv heparin drip with close monitoring, and hold Eliquis because renal failure. MRI brain has been ordered since Jun.23. Renal function worsening Awaiting transfer to [facility] from ICU CCT 31 minutes History Interval history: Patient was seen and examined. Follow-up on current diagnosis of sz. Overnight uneventful. Patient appears to have expressive aphasia. Imaging, nursing note, chart, labs and old chart reviewed. Discussed with patient. Hospitalist Physical - Physical exam Narrative exam: Gen: chronically disable, NAD, Awake, Alert, Orientated x 2, missed year HEENT: NCAT, EOMI, PERRL, OP Clear Neck: supple, no adenopathy, no thyromegaly, no JVD CVS/Heart: RRR, normal S1S2, pulses present bilaterally Chest/Lungs: CTA B, Symmetrical chest expansion, good air entry bilaterally GI/Abdomen: soft, NTND, good bowel sounds, no guarding or rebound /Bladder: no suprapubic tenderness, no CVA or paraspinal tenderness Extermity/Skin: no c/c/e, no obvious rash MSK: right side weaker than left, but spontaneous movement x 4 Neuro: CN 2-12 grossly intact, no new focal deficits, garbled speech Psych: calm - Constitutional Vitals: Temp Pulse Resp BP Pulse Ox 97.5 F L 66 13 99/75 96 06/28/18 08:00 06/28/18 08:00 06/28/18 08:00 06/28/18 08:00 06/28/18 08:00 General appearance: Present: obese. Absent: severe distress Results - Labs CBC & Chem 7: 06/26/18 10:14 06/28/18 03:25 Labs: Laboratory Last Values WBC 9.5 K/mm3 (4.5-11.0) 06/26/18 10:14 RBC 4.33 M/mm3 (3.65-5.03) 06/26/18 10:14 Hgb 9.5 gm/dl (10.1-14.3) L 06/26/18 10:14 Hct 30.0 % (30.3-42.9) L 06/26/18 10:14 MCV 69 fl (79-97) L 06/26/18 10:14 MCH 22 pg (28-32) L 06/26/18 10:14 MCHC 32 % (30-34) 06/26/18 10:14 RDW 22.4 % (13.2-15.2) H 06/26/18 10:14 Plt Count 214 K/mm3 (140-440) 06/26/18 10:14 Lymph % (Auto) 24.5 % (13.4-35.0) 06/26/18 10:14 [place] % (Auto) 11.0 % (0.0-7.3) H 06/26/18 10:14 Eos % (Auto) 3.7 % (0.0-4.3) 06/26/18 10:14 Baso % (Auto) 0.2 % (0.0-1.8) 06/26/18 10:14 Lymph # 2.3 K/mm3 (1.2-5.4) 06/26/18 10:14 [place] # 1.0 K/mm3 (0.0-0.8) H 06/26/18 10:14 Eos # 0.4 K/mm3 (0.0-0.4) 06/26/18 10:14 Baso # 0.0 K/mm3 (0.0-0.1) 06/26/18 10:14 Seg Neutrophils % 60.6 % (40.0-70.0) 06/26/18 10:14 Seg Neutrophils # 5.8 K/mm3 (1.8-7.7) 06/26/18 10:14 PT 17.5 Sec. (12.2-14.9) H 06/22/18 17:21 INR 1.39 (0.87-1.13) H 06/22/18 17:21 APTT 22.8 Sec. (24.2-36.6) L 06/22/18 17:21 Heparin Anti-Xa Level 0.38 U.I./ml (0.3-0.7) 06/28/18 06:33 POC ABG pH 7.311 (7.35-7.45) L 06/26/18 12:43 POC ABG pCO2 46.6 (35-45) H 06/26/18 12:43 POC ABG pO2 99 (80-105) 06/26/18 12:43 POC ABG HCO3 23.5 06/26/18 12:43 POC ABG Total CO2 25 06/26/18 12:43 POC ABG O2 Sat 97 06/26/18 12:43 POC ABG Base Excess -3 06/26/18 12:43 FiO2 30 % 06/26/18 12:43 Sodium 139 mmol/L (137-145) 06/28/18 03:25 Potassium 4.7 mmol/L (3.6-5.0) D 06/28/18 03:25 Chloride 102.8 mmol/L (98-107) 06/28/18 03:25 Carbon Dioxide 19 mmol/L (22-30) L 06/28/18 03:25 Anion Gap 22 mmol/L 06/28/18 03:25 BUN 49 mg/dL (7-17) H 06/28/18 03:25 Creatinine 3.8 mg/dL (0.7-1.2) H 06/28/18 03:25 Estimated GFR 12 ml/min 06/28/18 03:25 BUN/Creatinine Ratio 13 % 06/28/18 03:25 Glucose 159 mg/dL (65-100) H 06/28/18 03:25 POC Glucose 174 (70-105) H 06/28/18 06:44 Calcium 9.0 mg/dL (8.4-10.2) 06/28/18 03:25 Magnesium 1.70 mg/dL (1.7-2.3) 06/21/18 14:06 Total Bilirubin 1.30 mg/dL (0.1-1.2) H 06/21/18 14:06 AST 19 units/L (5-40) 06/21/18 14:06 ALT 17 units/L (7-56) 06/21/18 14:06 Alkaline Phosphatase 174 units/L (35-129) H 06/21/18 14:06 Total Creatine Kinase 102 units/L (30-135) 06/21/18 14:06 CK-MB (CK-2) 2.2 ng/mL (0.0-4.0) 06/21/18 14:06 CK-MB (CK-2) Rel Index 2.1 (0-4) 06/21/18 14:06 Troponin T 0.050 ng/mL (0.00-0.029) H 06/21/18 14:06 Total Protein 6.9 g/dL (6.3-8.2) 06/21/18 14:06 Albumin 3.1 g/dL (3.9-5) L 06/21/18 14:06 Albumin/Globulin Ratio 0.8 % 06/21/18 14:06 Triglycerides 115 mg/dL (2-149) 06/21/18 14:06 Cholesterol 123 mg/dL (50-199) 06/21/18 14:06 LDL Cholesterol Direct 61 mg/dL (50-130) 06/21/18 14:06 HDL Cholesterol 50 mg/dL (40-59) 06/21/18 14:06 Cholesterol/HDL Ratio 2.46 % 06/21/18 14:06 Urine Color Mary (Yellow) 06/27/18 Unknown Urine Turbidity Cloudy (Clear) 06/27/18 Unknown Urine pH 5.0 (5.0-7.0) 06/27/18 Unknown Ur Specific [place] 1.015 (1.003-1.030) 06/27/18 Unknown Urine Protein 100 mg/dl mg/dL (Negative) 06/27/18 Unknown Urine Glucose (UA) Neg mg/dL (Negative) 06/27/18 Unknown Urine Ketones Tr mg/dL (Negative) 06/27/18 Unknown Urine Blood Neg (Negative) 06/27/18 Unknown Urine Nitrite Neg (Negative) 06/27/18 Unknown Urine Bilirubin Neg (Negative) 06/27/18 Unknown Urine Urobilinogen < 2.0 mg/dL (<2.0) 06/27/18 Unknown Ur Leukocyte Esterase Tr (Negative) 06/27/18 Unknown Urine WBC (Auto) 2.0 /HPF (0.0-6.0) 06/27/18 Unknown Urine RBC (Auto) 11.0 /HPF (0.0-6.0) 06/27/18 Unknown U Epithel Cells (Auto) < 1.0 /HPF (0-13.0) 06/27/18 Unknown Urine Bacteria (Auto) 1+ /HPF (Negative) 06/27/18 Unknown Urine Eosinophils None seen (None Seen) 06/27/18 Unknown Urine Creatinine 192.2 mg/dL (0.1-20.0) H 06/27/18 Unknown Urine Sodium 11 mmol/L 06/27/18 Unknown Fraction Sodium Excret 1.6 06/27/18 Unknown Levetiracetam 65.9 mcg/mL 06/21/18 16:01 Nutrition/Malnutrition Assess - Dietary Evaluation Nutrition/Malnutrition Findings: Nutrition Notes Start: 06/22/18 10:19 Freq: Status: Active Protocol: Document 06/26/18 14:51 JOHNNIE (Rec: 06/26/18 14:54 JOHNNIE [email or web address]- [email or web address]) Nutrition Notes Initial or Follow up Brief Note Current Diet TF - Vital AF at 45ml/hr Height 5 ft 2 in Weight 92.4 kg [place] Body Weight (lbs) 110.0 BMI 37.2 Subjective/Other Information Pt tolerating TF at goal rate of 45ml/hr. She remains on vent support. Kcal/Kg value to use for calculation 14 Approximate Energy Requirements Using 1294 kcal/Kg Calculation Used for Recommendations Kcal/kg Nutrition Intervention Follow-Up By: 07/01/18 Additional Comments F/U: stable TF, vent status
[2018-06-28] MEDS: KEPPRA PO SCH ×2 (10:24→22:39)
[2018-06-28] MEDS: NORVASC PO SCH (10:25)
[2018-06-28] MEDS: COREG PO SCH ×2 (10:26→22:39)
[2018-06-28] MEDS: PEPCID PO SCH (10:27)
--- NOTE | 2018-06-28 11:25 | Progress Note ---
Assessment and Plan Impression * Acute on chronic renal failure. Serum creatinine was 1.7 in March 2018 * Status post respiratory failure * Seizure disorder * Hypertension * Diabetes * Dementia * History of CVA Recommendations * her urine shows 2+ dipstick protein and a few red cells. Check urine protein creatinine ratio * fractional excretion of sodium Is 1.6%. However, patient is having some and creatinine is slowly rising. Give a trial of gentle IV hydration * Check urine for eosinophils * Renal ultrasound is normal * Hold off on diuretics or VU inhibitor/ARB at this time * The patient has an active urinary sediment she would need additional workup * Check office records regarding her previous renal status and workup * Avoid nephrotoxins * Monitor fluid status and electrolytes closely Subjective Date of service: 06/28/18 Principal diagnosis: Acute Hypoxemic Resp failure; Pneumonia (Likely aspiration); JULISA; SIRS Interval history: patient is awake and alert. Complains of diarrhea. Objective - Vital Signs Vital signs: Vital Signs - 12hr 06/27/18 06/27/18 06/28/18 23:30 23:34 00:00 Temperature 97.7 F Pulse Rate 74 75 74 Pulse Rate [ 72 From Monitor] Respiratory 18 18 17 Rate Blood Pressure 114/58 114/58 122/77 O2 Sat by Pulse 99 99 99 Oximetry 06/28/18 06/28/18 06/28/18 00:29 00:30 01:00 Temperature Pulse Rate 72 72 73 Pulse Rate [ From Monitor] Respiratory 22 19 Rate Blood Pressure 123/82 123/78 O2 Sat by Pulse 98 99 Oximetry 06/28/18 06/28/18 06/28/18 01:30 02:00 02:30 Temperature Pulse Rate 74 71 69 Pulse Rate [ From Monitor] Respiratory 21 21 19 Rate Blood Pressure 126/69 122/61 124/52 O2 Sat by Pulse 99 99 99 Oximetry 06/28/18 06/28/18 06/28/18 03:00 03:30 04:00 Temperature 97.7 F Pulse Rate 71 68 70 Pulse Rate [ 65 From Monitor] Respiratory 19 16 14 Rate Blood Pressure 119/59 126/62 109/55 O2 Sat by Pulse 97 99 100 Oximetry 06/28/18 06/28/18 06/28/18 04:30 05:00 05:30 Temperature Pulse Rate 65 64 64 Pulse Rate [ From Monitor] Respiratory 16 16 16 Rate Blood Pressure 110/53 110/53 112/60 O2 Sat by Pulse 99 99 100 Oximetry 06/28/18 06/28/18 06/28/18 06:00 06:30 07:00 Temperature Pulse Rate 60 61 62 Pulse Rate [ From Monitor] Respiratory 14 18 15 Rate Blood Pressure 96/48 113/56 119/64 O2 Sat by Pulse 97 96 99 Oximetry 06/28/18 06/28/18 06/28/18 07:30 08:00 09:41 Temperature 97.5 F L Pulse Rate 61 66 Pulse Rate [ 66 From Monitor] Respiratory 31 H 13 Rate Blood Pressure 111/61 99/75 O2 Sat by Pulse 99 99 96 Oximetry 06/28/18 06/28/18 10:25 10:26 Temperature Pulse Rate 71 71 Pulse Rate [ From Monitor] Respiratory Rate Blood Pressure 132/56 132/56 O2 Sat by Pulse Oximetry - General Appearance General appearance: well-developed, well-nourished, appears stated age EENT: PERRL, mucous membranes moist Neck: no JVD, no thyromegaly, no carotid bruit, supple Respiratory: Present: Clear to Ascultation Cardiology: regular, normal heart rate Gastrointestinal: normal Integumentary: no rash, other (1+ edema) - Lab 06/26/18 10:14 06/28/18 03:25 Most recent lab results Calcium 9.0 mg/dL (8.4-10.2) 06/28/18 03:25 Magnesium 1.70 mg/dL (1.7-2.3) 06/21/18 14:06 Urine Creatinine 192.2 mg/dL (0.1-20.0) H 06/27/18 Unknown Urine Sodium 11 mmol/L 06/27/18 Unknown Medications & Allergies - Medications Allergies/Adverse Reactions: Allergies No Known Allergies Allergy (Unverified 04/06/18 11:56) Home Medications: Home Medications Medication Instructions Recorded Confirmed Last Taken Type Acetaminophen [Acetaminophen TAB] 650 mg PO Q4H PRN 04/06/18 06/21/18 Unknown History Apixaban [Eliquis] 5 mg PO Q12H 04/06/18 06/21/18 Unknown History AtorvaSTATin [Lipitor] 40 mg PO QHS 04/06/18 06/21/18 Unknown History Brimonidine Tartrate/Timolol 1 drop OU Q12H 04/06/18 06/21/18 Unknown History [Combigan 0.2%-0.5% Eye Drops] Donepezil HCl [Aricept] 10 mg PO HS 04/06/18 06/21/18 Unknown History Insulin Glargine [Lantus VIAL] 50 units SUB-Q QHS 04/06/18 06/21/18 Unknown History Insulin Lispro [HumaLOG VIAL] 9 units SUB-Q AC 04/06/18 06/21/18 Unknown History Lispro Insulin [Humalog] See Protocol SUB-Q ACHS 04/06/18 06/21/18 Unknown History Mirtazapine [Remeron] 15 mg PO HS 04/06/18 06/21/18 Unknown History levETIRAcetam [Keppra TAB] 1,000 mg PO Q12H 04/06/18 06/21/18 Unknown History Furosemide [Lasix TAB] 40 mg PO QDAY #30 tablet 04/10/18 06/21/18 Unknown Rx HYDROcodone/APAP 5-325 [[place] 1 each PO Q8HR PRN #7 tablet 04/10/18 06/21/18 Unknown Rx 5-325 mg TAB] Losartan [Cozaar] 25 mg PO QDAY #30 tablet 04/10/18 06/21/18 Unknown Rx Metoprolol Succinate [Toprol Xl] 25 mg PO DAILY #30 tab.er.24h 04/10/18 06/21/18 Unknown Rx Active Medications: Generic Name Dose Route Start Last Admin Trade Name Freq PRN Reason Stop Dose Admin Amlodipine Besylate 10 mg 06/22/18 19:00 06/28/18 10:25 Norvasc PO 10 mg QDAY RICKY Administration Atorvastatin Calcium 40 mg 06/22/18 22:00 06/27/18 21:02 Lipitor PO 40 mg QHS RICKY Administration Brimonidine/Timolol 1 drops 06/22/18 16:00 06/28/18 04:11 Combigan 0.2-0.5% OU 1 drops Q12H RICKY Administration Carvedilol 12.5 mg 06/22/18 22:00 06/28/18 10:26 Coreg PO 12.5 mg BID RICKY Administration Famotidine 20 mg 06/24/18 10:00 06/28/18 10:27 Pepcid PO 20 mg QDAY RICKY Administration Hydralazine HCl 20 mg 06/22/18 16:03 06/22/18 17:00 Apresoline IV 20 mg Q6H PRN Administration HTN Hydrophilic Ointment 1 applic 06/21/18 15:50 Vaseline Lip Therapy TP Q2HR PRN Dry Lips Heparin Sodium/Sodium Chloride 25,000 unit in 500 mls @ 27 mls/hr 06/22/18 17:00 06/28/18 07:36 Heparin/ 0.45% Nacl-25,000 Unit/500 Ml IV 1,050 units/hr TITR RICKY 21 mls/hr Titration Protocol 1,350 UNITS/HR Insulin Human Lispro 0 unit 06/23/18 02:00 06/28/18 10:29 Humalog SUB-Q 1 unit Q4HR RICKY Administration Protocol Labetalol HCl 20 mg 06/22/18 18:00 06/22/18 18:55 Normodyne IV 20 mg Q4H PRN Administration BP >160/100; hold for HR <60 Levetiracetam 1,000 mg 06/25/18 22:00 06/28/18 10:24 Keppra PO 1,000 mg BID RICKY Administration Multi-Ingred Cream/Lotion/Oil/Oint 1 applic 06/21/18 15:50 Artificial Tears Ophth Oint OU Q4HR PRN Dry Eye(s) Sodium Chloride 10 ml 06/21/18 22:00 06/28/18 10:29 Sodium Chloride Flush Syringe 10 Ml IV 10 ml BID RICKY Administration Sodium Chloride 10 ml 06/21/18 15:39 06/22/18 06:27 Sodium Chloride Flush Syringe 10 Ml IV 10 ml PRN PRN Administration LINE FLUSH
--- NOTE | 2018-06-28 13:10 | Progress Note ---
Assessment and Plan Acute Hypoxemic Respiratory failure on MVS Pneumonia (Likely aspiration) JULISA Respiratory Alkalosis Acute on Chronic Encephalopathy SIRS due to infectious process with acute organ dysfunction Seizures Obesity Diabetes type II Hypertension Hyperlipidemia H/O CVA H/O DVT Dementia Debility - continue scheduled BIPAP qhs in short term - neurology evaluation ongoing and input appreciated - continue Keppra for seizures (1500mg bid) - complete empiric CAP antibiotics and follow cultures - transition to oral anticoagulation - Stress ulcer prophylaxis - Monitor renal function - Avoid nephrotoxic agents, adjust all medications for GFR and CrCL - follow EEG report - advance diet per ST - continue to wean supplemental oxygen to keep O2 sats>90% - Accuchecks, glycemic control. Target blood glucose of 140-180mg/dL - follow 2D echocardiogram to evaluate LVEF and for pulmonary HTN .... re-evaluate in am & prn Subjective Date of service: 06/28/18 Principal diagnosis: Acute Hypoxemic Resp failure; Pneumonia (Likely aspiration); JULISA; SIRS Interval history: Patient is seen today for: Acute Hypoxemic Respiratory failure on MVS; Pneumonia (Likely aspiration); JULISA; Acute on Chronic Encephalopathy; SIRS Seen and examined at bedside; 24hour events reviewed; nursing and respiratory care staff consulted; no adverse overnight events reported to me; resting peacefully in bed; denies acute chest pains or palpitations Objective Vital Signs - 12hr 06/28/18 06/28/18 06/28/18 01:30 02:00 02:30 Temperature Pulse Rate 74 71 69 Pulse Rate [ From Monitor] Respiratory 21 21 19 Rate Blood Pressure 126/69 122/61 124/52 O2 Sat by Pulse 99 99 99 Oximetry 06/28/18 06/28/18 06/28/18 03:00 03:30 04:00 Temperature 97.7 F Pulse Rate 71 68 70 Pulse Rate [ 65 From Monitor] Respiratory 19 16 14 Rate Blood Pressure 119/59 126/62 109/55 O2 Sat by Pulse 97 99 100 Oximetry 06/28/18 06/28/18 06/28/18 04:30 05:00 05:30 Temperature Pulse Rate 65 64 64 Pulse Rate [ From Monitor] Respiratory 16 16 16 Rate Blood Pressure 110/53 110/53 112/60 O2 Sat by Pulse 99 99 100 Oximetry 06/28/18 06/28/18 06/28/18 06:00 06:30 07:00 Temperature Pulse Rate 60 61 62 Pulse Rate [ From Monitor] Respiratory 14 18 15 Rate Blood Pressure 96/48 113/56 119/64 O2 Sat by Pulse 97 96 99 Oximetry 06/28/18 06/28/18 06/28/18 07:30 08:00 08:30 Temperature 97.5 F L Pulse Rate 61 66 68 Pulse Rate [ 66 From Monitor] Respiratory 31 H 13 22 Rate Blood Pressure 111/61 99/75 103/73 O2 Sat by Pulse 99 99 97 Oximetry 06/28/18 06/28/18 06/28/18 09:00 09:30 09:41 Temperature Pulse Rate 72 69 Pulse Rate [ From Monitor] Respiratory 14 23 Rate Blood Pressure 103/73 113/61 O2 Sat by Pulse 97 100 96 Oximetry 06/28/18 06/28/18 06/28/18 10:00 10:25 10:26 Temperature Pulse Rate 70 71 71 Pulse Rate [ From Monitor] Respiratory 23 Rate Blood Pressure 113/61 132/56 132/56 O2 Sat by Pulse 99 Oximetry 06/28/18 06/28/18 06/28/18 10:30 11:00 11:30 Temperature Pulse Rate 72 76 72 Pulse Rate [ From Monitor] Respiratory 24 12 19 Rate Blood Pressure 124/67 127/71 132/66 O2 Sat by Pulse 96 98 100 Oximetry 06/28/18 06/28/18 06/28/18 12:00 12:30 13:00 Temperature Pulse Rate 72 75 67 Pulse Rate [ From Monitor] Respiratory 20 21 15 Rate Blood Pressure 139/70 120/66 121/71 O2 Sat by Pulse 99 98 99 Oximetry Constitutional: no acute distress, other (elderly looking AAF normocephalic and atraumatic with ETT to MVS and mildly increased resp effort) Eyes: non-icteric ENT: oropharynx moist, other (extubated) Neck: supple, no lymphadenopathy, no JVD, other (no thyromegaly) Effort: mildly labored Ascultation: Bilateral: diminished breath sounds, rhonchi Percussion: Bilateral: not dull Cardiovascular: regular rate and rhythm Gastrointestinal: normoactive bowel sounds, soft, tender, non-distended Integumentary: normal Extremities: no cyanosis, no edema, pulses normal, no ischemia or petechiae Neurologic: normal mental status, non-focal exam (grossly), pupils equal and round, CN II-XII normal Psychiatric: anxious CBC and BMP: 06/26/18 10:14 07/02/18 05:23 ABG, PT/INR, D-dimer: ABG POC ABG pH 7.311 (7.35-7.45) L 06/26/18 12:43 POC ABG pCO2 46.6 (35-45) H 06/26/18 12:43 POC ABG pO2 99 (80-105) 06/26/18 12:43 POC ABG HCO3 23.5 06/26/18 12:43 POC ABG Total CO2 25 06/26/18 12:43 POC ABG O2 Sat 97 06/26/18 12:43 PT/INR, D-dimer PT 17.5 Sec. (12.2-14.9) H 06/22/18 17:21 INR 1.39 (0.87-1.13) H 06/22/18 17:21 Abnormal lab findings: Abnormal Labs 06/21/18 06/21/18 06/21/18 14:02 14:06 14:06 WBC RBC Hgb Hct MCV 71 L MCH 22 L RDW 21.1 H [place] % (Auto) [place] # Seg Neutrophils # PT 18.9 H INR 1.54 H APTT Heparin Anti-Xa Level POC ABG pH POC ABG pCO2 POC ABG pO2 Potassium Carbon Dioxide BUN Creatinine Glucose POC Glucose 250 H Calcium Total Bilirubin Alkaline Phosphatase Troponin T Albumin Urine Creatinine 06/21/18 06/21/18 06/21/18 14:06 14:23 21:17 WBC RBC Hgb Hct MCV MCH RDW [place] % (Auto) [place] # Seg Neutrophils # PT INR APTT Heparin Anti-Xa Level POC ABG pH 7.499 H 7.600 H POC ABG pCO2 34.8 L 24.9 L POC ABG pO2 342 H 176 H Potassium Carbon Dioxide BUN Creatinine 1.5 H Glucose 214 H POC Glucose Calcium Total Bilirubin 1.30 H Alkaline Phosphatase 174 H Troponin T 0.050 H Albumin 3.1 L Urine Creatinine 06/22/18 06/22/18 06/22/18 03:17 03:17 05:27 WBC 11.5 H RBC 5.07 H Hgb Hct MCV 69 L MCH 21 L RDW 21.9 H [place] % (Auto) 9.8 H [place] # 1.1 H Seg Neutrophils # 7.9 H PT INR APTT Heparin Anti-Xa Level POC ABG pH 7.539 H POC ABG pCO2 30.1 L POC ABG pO2 170 H Potassium Carbon Dioxide BUN Creatinine 1.5 H Glucose 164 H POC Glucose Calcium Total Bilirubin Alkaline Phosphatase Troponin T Albumin Urine Creatinine 06/22/18 06/22/18 06/22/18 17:21 17:50 19:46 WBC RBC Hgb Hct MCV MCH RDW [place] % (Auto) [place] # Seg Neutrophils # PT 17.5 H INR 1.39 H APTT 22.8 L Heparin Anti-Xa Level 1.64 H POC ABG pH POC ABG pCO2 POC ABG pO2 Potassium Carbon Dioxide BUN Creatinine Glucose POC Glucose 240 H Calcium Total Bilirubin Alkaline Phosphatase Troponin T Albumin Urine Creatinine 06/22/18 06/23/18 06/23/18 23:47 01:44 04:14 WBC RBC Hgb Hct MCV MCH RDW [place] % (Auto) [place] # Seg Neutrophils # PT INR APTT Heparin Anti-Xa Level 0.10 L POC ABG pH POC ABG pCO2 POC ABG pO2 Potassium Carbon Dioxide BUN Creatinine Glucose POC Glucose 240 H 229 H Calcium Total Bilirubin Alkaline Phosphatase Troponin T Albumin Urine Creatinine 06/23/18 06/23/18 06/23/18 05:34 09:24 10:24 WBC RBC Hgb Hct MCV MCH RDW [place] % (Auto) [place] # Seg Neutrophils # PT INR APTT Heparin Anti-Xa Level POC ABG pH 7.519 H POC ABG pCO2 POC ABG pO2 133 H Potassium Carbon Dioxide BUN Creatinine Glucose POC Glucose 220 H 183 H Calcium Total Bilirubin Alkaline Phosphatase Troponin T Albumin Urine Creatinine 06/23/18 06/23/18 06/23/18 12:39 13:32 14:08 WBC RBC Hgb Hct MCV MCH RDW [place] % (Auto) [place] # Seg Neutrophils # PT INR APTT Heparin Anti-Xa Level > 2.00 H POC ABG pH POC ABG pCO2 POC ABG pO2 Potassium Carbon Dioxide BUN Creatinine Glucose POC Glucose 151 H 140 H Calcium Total Bilirubin Alkaline Phosphatase Troponin T Albumin Urine Creatinine 06/23/18 06/23/18 06/23/18 18:00 19:33 21:31 WBC RBC Hgb Hct MCV MCH RDW [place] % (Auto) [place] # Seg Neutrophils # PT INR APTT Heparin Anti-Xa Level 1.74 H POC ABG pH POC ABG pCO2 POC ABG pO2 Potassium Carbon Dioxide BUN Creatinine Glucose POC Glucose 141 H 153 H Calcium Total Bilirubin Alkaline Phosphatase Troponin T Albumin Urine Creatinine 06/24/18 06/24/18 06/24/18 02:36 03:55 03:55 WBC 12.9 H RBC Hgb 9.9 L Hct MCV 70 L MCH 22 L RDW 22.1 H [place] % (Auto) [place] # Seg Neutrophils # PT INR APTT Heparin Anti-Xa Level POC ABG pH POC ABG pCO2 POC ABG pO2 Potassium Carbon Dioxide BUN 25 H Creatinine 1.6 H Glucose 151 H POC Glucose 162 H Calcium 8.2 L Total Bilirubin Alkaline Phosphatase Troponin T Albumin Urine Creatinine 06/24/18 06/24/18 06/24/18 03:55 05:01 09:34 WBC RBC Hgb Hct MCV MCH RDW [place] % (Auto) [place] # Seg Neutrophils # PT INR APTT Heparin Anti-Xa Level 1.75 H POC ABG pH POC ABG pCO2 POC ABG pO2 Potassium Carbon Dioxide BUN Creatinine Glucose POC Glucose 175 H 143 H Calcium Total Bilirubin Alkaline Phosphatase Troponin T Albumin Urine Creatinine 06/24/18 06/24/18 06/24/18 12:50 14:29 17:08 WBC RBC Hgb Hct MCV MCH RDW [place] % (Auto) [place] # Seg Neutrophils # PT INR APTT Heparin Anti-Xa Level 1.60 H POC ABG pH POC ABG pCO2 POC ABG pO2 Potassium Carbon Dioxide BUN Creatinine Glucose POC Glucose 169 H 138 H Calcium Total Bilirubin Alkaline Phosphatase Troponin T Albumin Urine Creatinine 06/24/18 06/24/18 06/25/18 21:13 21:50 01:45 WBC RBC Hgb Hct MCV MCH RDW [place] % (Auto) [place] # Seg Neutrophils # PT INR APTT Heparin Anti-Xa Level 1.53 H POC ABG pH POC ABG pCO2 POC ABG pO2 Potassium Carbon Dioxide BUN Creatinine Glucose POC Glucose 186 H 177 H Calcium Total Bilirubin Alkaline Phosphatase Troponin T Albumin Urine Creatinine 06/25/18 06/25/18 06/25/18 05:23 05:41 09:55 WBC RBC Hgb Hct MCV MCH RDW [place] % (Auto) [place] # Seg Neutrophils # PT INR APTT Heparin Anti-Xa Level 1.13 H POC ABG pH POC ABG pCO2 POC ABG pO2 Potassium Carbon Dioxide BUN Creatinine Glucose POC Glucose 160 H 181 H Calcium Total Bilirubin Alkaline Phosphatase Troponin T Albumin Urine Creatinine 06/25/18 06/25/18 06/25/18 12:54 14:27 14:33 WBC RBC Hgb Hct MCV MCH RDW [place] % (Auto) [place] # Seg Neutrophils # PT INR APTT Heparin Anti-Xa Level 0.73 H POC ABG pH POC ABG pCO2 POC ABG pO2 Potassium 3.4 L Carbon Dioxide BUN 30 H Creatinine 2.1 H Glucose 220 H POC Glucose 218 H Calcium Total Bilirubin Alkaline Phosphatase Troponin T Albumin Urine Creatinine 06/25/18 06/25/18 06/26/18 17:36 21:40 01:49 WBC RBC Hgb Hct MCV MCH RDW [place] % (Auto) [place] # Seg Neutrophils # PT INR APTT Heparin Anti-Xa Level POC ABG pH POC ABG pCO2 POC ABG pO2 Potassium Carbon Dioxide BUN Creatinine Glucose POC Glucose 219 H 162 H 152 H Calcium Total Bilirubin Alkaline Phosphatase Troponin T Albumin Urine Creatinine 06/26/18 06/26/18 06/26/18 04:43 05:50 09:43 WBC RBC Hgb 8.8 L Hct 27.7 L MCV MCH RDW [place] % (Auto) [place] # Seg Neutrophils # PT INR APTT Heparin Anti-Xa Level POC ABG pH POC ABG pCO2 POC ABG pO2 Potassium Carbon Dioxide BUN Creatinine Glucose POC Glucose 176 H 206 H Calcium Total Bilirubin Alkaline Phosphatase Troponin T Albumin Urine Creatinine 06/26/18 06/26/18 06/26/18 10:14 10:14 12:43 WBC RBC Hgb 9.5 L Hct 30.0 L MCV 69 L MCH 22 L RDW 22.4 H [place] % (Auto) 11.0 H [place] # 1.0 H Seg Neutrophils # PT INR APTT Heparin Anti-Xa Level POC ABG pH 7.311 L POC ABG pCO2 46.6 H POC ABG pO2 Potassium Carbon Dioxide BUN 34 H Creatinine 2.4 H Glucose 194 H POC Glucose Calcium Total Bilirubin Alkaline Phosphatase Troponin T Albumin Urine Creatinine 06/26/18 06/26/18 06/27/18 14:30 17:32 00:00 WBC RBC Hgb Hct MCV MCH RDW [place] % (Auto) [place] # Seg Neutrophils # PT INR APTT Heparin Anti-Xa Level POC ABG pH POC ABG pCO2 POC ABG pO2 Potassium Carbon Dioxide BUN Creatinine Glucose POC Glucose 219 H 228 H 173 H Calcium Total Bilirubin Alkaline Phosphatase Troponin T Albumin Urine Creatinine 06/27/18 06/27/18 06/27/18 01:25 06:06 10:24 WBC RBC Hgb Hct MCV MCH RDW [place] % (Auto) [place] # Seg Neutrophils # PT INR APTT Heparin Anti-Xa Level POC ABG pH POC ABG pCO2 POC ABG pO2 Potassium Carbon Dioxide BUN Creatinine Glucose POC Glucose 178 H 157 H 171 H Calcium Total Bilirubin Alkaline Phosphatase Troponin T Albumin Urine Creatinine 06/27/18 06/27/18 06/27/18 12:24 12:24 18:13 WBC RBC Hgb Hct MCV MCH RDW [place] % (Auto) [place] # Seg Neutrophils # PT INR APTT Heparin Anti-Xa Level POC ABG pH POC ABG pCO2 POC ABG pO2 Potassium Carbon Dioxide BUN Creatinine 3.3 H Glucose POC Glucose 192 H 158 H Calcium Total Bilirubin Alkaline Phosphatase Troponin T Albumin Urine Creatinine 06/27/18 06/27/18 06/27/18 22:23 22:34 Unknown WBC RBC Hgb Hct MCV MCH RDW [place] % (Auto) [place] # Seg Neutrophils # PT INR APTT Heparin Anti-Xa Level 0.13 L POC ABG pH POC ABG pCO2 POC ABG pO2 Potassium Carbon Dioxide BUN Creatinine Glucose POC Glucose 137 H Calcium Total Bilirubin Alkaline Phosphatase Troponin T Albumin Urine Creatinine 192.2 H 06/28/18 06/28/18 06/28/18 03:25 04:06 06:44 WBC RBC Hgb Hct MCV MCH RDW [place] % (Auto) [place] # Seg Neutrophils # PT INR APTT Heparin Anti-Xa Level POC ABG pH POC ABG pCO2 POC ABG pO2 Potassium Carbon Dioxide 19 L BUN 49 H Creatinine 3.8 H Glucose 159 H POC Glucose 149 H 174 H Calcium Total Bilirubin Alkaline Phosphatase Troponin T Albumin Urine Creatinine 06/28/18 08:59 WBC RBC Hgb Hct MCV MCH RDW [place] % (Auto) [place] # Seg Neutrophils # PT INR APTT Heparin Anti-Xa Level POC ABG pH POC ABG pCO2 POC ABG pO2 Potassium Carbon Dioxide BUN Creatinine Glucose POC Glucose 167 H Calcium Total Bilirubin Alkaline Phosphatase Troponin T Albumin Urine Creatinine Allied health notes reviewed: nursing
[2018-06-28] MEDS: NACL 0.9% 1000 ML 1,000 ML IV SCH (22:38)
[2018-06-28] MEDS: HEPARIN/ 0.45% NACL-25,000 UNIT/500 ML 25,000 UNIT/500 ML BAG IV SCH (22:40)
[2018-06-29] MEDS: HumaLOG SUB-Q SCH ×7 (00:20→22:24)
[2018-06-29] MEDS: COMBIGAN 0.2-0.5% OU SCH ×2 (03:00→16:56)
[2018-06-29 04:56] LABS: Calcium 8.8 mg/dL (8.4-10.2)
--- NOTE | 2018-06-29 07:11 | Progress Note ---
Assessment and Plan Assessment and plan: Patient is a 68 yo woman from [facility] with a history of seizure disorder, type 2 DM, hypertension, dyslipidemia, CVA, DVT on Eliquis and Dementia who presented to [facility] ED on 06/21/18 with Seizures and was Intubated. ARF, vasomotor nephropathy, worsening: Nephrology following Acute respiratory failure, s/p ETT intubated 06/21/18 >96 hours and extubated 06/26/18: continue o2 support, Pulmonology is following Status epilepticus: treat with keppra, EEG reviewed Hypertensive Urgency, resolved: iv antihypertensives as needed H/o CVA, she is weaker on the right, ?old RHP: get MRI SIRS with organ dysfunction as above Acute Metabolic Encephalopathy per above History of DVT on Eliquis, v/q negative for PE. Continue iv heparin drip with close monitoring, and hold Eliquis because renal failure. MRI brain pending Renal function worsening History Interval history: Patient was seen and examined. Follow-up on current diagnosis of sz. Overnight uneventful. Patient appears to have expressive aphasia. Imaging, nursing note, chart, labs and old chart reviewed. Discussed with patient. Hospitalist Physical - Physical exam Narrative exam: Gen: chronically disable, NAD, Awake, Alert, Orientated x 2, missed year HEENT: NCAT, EOMI, PERRL, OP Clear Neck: supple, no adenopathy, no thyromegaly, no JVD CVS/Heart: RRR, normal S1S2, pulses present bilaterally Chest/Lungs: CTA B, Symmetrical chest expansion, good air entry bilaterally GI/Abdomen: soft, NTND, good bowel sounds, no guarding or rebound /Bladder: no suprapubic tenderness, no CVA or paraspinal tenderness Extermity/Skin: no c/c/e, no obvious rash MSK: right side weaker than left, but spontaneous movement x 4 Neuro: CN 2-12 grossly intact, no new focal deficits, garbled speech Psych: calm - Constitutional Vitals: Temp Pulse Resp BP Pulse Ox 98.5 F 72 19 111/72 96 06/29/18 04:00 06/29/18 04:00 06/29/18 04:00 06/29/18 04:00 06/29/18 04:00 General appearance: Present: obese. Absent: severe distress Results - Labs CBC & Chem 7: 06/26/18 10:14 06/29/18 04:15 Labs: Laboratory Last Values WBC 9.5 K/mm3 (4.5-11.0) 06/26/18 10:14 RBC 4.33 M/mm3 (3.65-5.03) 06/26/18 10:14 Hgb 9.5 gm/dl (10.1-14.3) L 06/26/18 10:14 Hct 30.0 % (30.3-42.9) L 06/26/18 10:14 MCV 69 fl (79-97) L 06/26/18 10:14 MCH 22 pg (28-32) L 06/26/18 10:14 MCHC 32 % (30-34) 06/26/18 10:14 RDW 22.4 % (13.2-15.2) H 06/26/18 10:14 Plt Count 214 K/mm3 (140-440) 06/26/18 10:14 Lymph % (Auto) 24.5 % (13.4-35.0) 06/26/18 10:14 [place] % (Auto) 11.0 % (0.0-7.3) H 06/26/18 10:14 Eos % (Auto) 3.7 % (0.0-4.3) 06/26/18 10:14 Baso % (Auto) 0.2 % (0.0-1.8) 06/26/18 10:14 Lymph # 2.3 K/mm3 (1.2-5.4) 06/26/18 10:14 [place] # 1.0 K/mm3 (0.0-0.8) H 06/26/18 10:14 Eos # 0.4 K/mm3 (0.0-0.4) 06/26/18 10:14 Baso # 0.0 K/mm3 (0.0-0.1) 06/26/18 10:14 Seg Neutrophils % 60.6 % (40.0-70.0) 06/26/18 10:14 Seg Neutrophils # 5.8 K/mm3 (1.8-7.7) 06/26/18 10:14 PT 17.5 Sec. (12.2-14.9) H 12/31/18 17:21 INR 1.39 (0.87-1.13) H 06/22/18 17:21 APTT 22.8 Sec. (24.2-36.6) L 06/22/18 17:21 Heparin Anti-Xa Level 0.42 U.I./ml (0.3-0.7) 06/28/18 13:38 POC ABG pH 7.311 (7.35-7.45) L 06/26/18 12:43 POC ABG pCO2 46.6 (35-45) H 06/26/18 12:43 POC ABG pO2 99 (80-105) 06/26/18 12:43 POC ABG HCO3 23.5 06/26/18 12:43 POC ABG Total CO2 25 06/26/18 12:43 POC ABG O2 Sat 97 06/26/18 12:43 POC ABG Base Excess -3 06/26/18 12:43 FiO2 30 % 06/26/18 12:43 Sodium 140 mmol/L (137-145) 06/29/18 04:15 Potassium 4.0 mmol/L (3.6-5.0) 06/29/18 04:15 Chloride 104.0 mmol/L (98-107) 06/29/18 04:15 Carbon Dioxide 17 mmol/L (22-30) L 06/29/18 04:15 Anion Gap 23 mmol/L 06/29/18 04:15 BUN 55 mg/dL (7-17) H 06/29/18 04:15 Creatinine 4.3 mg/dL (0.7-1.2) H 06/29/18 04:15 Estimated GFR 10 ml/min 06/29/18 04:15 BUN/Creatinine Ratio 13 % 06/29/18 04:15 Glucose 141 mg/dL (65-100) H 06/29/18 04:15 POC Glucose 125 (70-105) H 06/29/18 05:41 Calcium 8.8 mg/dL (8.4-10.2) 06/29/18 04:15 Magnesium 1.70 mg/dL (1.7-2.3) 06/21/18 14:06 Total Bilirubin 1.30 mg/dL (0.1-1.2) H 06/21/18 14:06 AST 19 units/L (5-40) 06/21/18 14:06 ALT 17 units/L (7-56) 06/21/18 14:06 Alkaline Phosphatase 174 units/L (35-129) H 06/21/18 14:06 Total Creatine Kinase 102 units/L (30-135) 06/21/18 14:06 CK-MB (CK-2) 2.2 ng/mL (0.0-4.0) 06/21/18 14:06 CK-MB (CK-2) Rel Index 2.1 (0-4) 06/21/18 14:06 Troponin T 0.050 ng/mL (0.00-0.029) H 06/21/18 14:06 Total Protein 6.9 g/dL (6.3-8.2) 06/21/18 14:06 Albumin 3.1 g/dL (3.9-5) L 06/21/18 14:06 Albumin/Globulin Ratio 0.8 % 06/21/18 14:06 Triglycerides 115 mg/dL (2-149) 06/21/18 14:06 Cholesterol 123 mg/dL (50-199) 06/21/18 14:06 LDL Cholesterol Direct 61 mg/dL (50-130) 06/21/18 14:06 HDL Cholesterol 50 mg/dL (40-59) 06/21/18 14:06 Cholesterol/HDL Ratio 2.46 % 06/21/18 14:06 Urine Color [place] (Yellow) 06/27/18 Unknown Urine Turbidity Cloudy (Clear) 06/27/18 Unknown Urine pH 5.0 (5.0-7.0) 06/27/18 Unknown Ur Specific [place] 1.015 (1.003-1.030) 06/27/18 Unknown Urine Protein 100 mg/dl mg/dL (Negative) 06/27/18 Unknown Urine Glucose (UA) Neg mg/dL (Negative) 06/27/18 Unknown Urine Ketones Tr mg/dL (Negative) 06/27/18 Unknown Urine Blood Neg (Negative) 06/27/18 Unknown Urine Nitrite Neg (Negative) 06/27/18 Unknown Urine Bilirubin Neg (Negative) 06/27/18 Unknown Urine Urobilinogen < 2.0 mg/dL (<2.0) 06/27/18 Unknown Ur Leukocyte Esterase Tr (Negative) 06/27/18 Unknown Urine WBC (Auto) 2.0 /HPF (0.0-6.0) 06/27/18 Unknown Urine RBC (Auto) 11.0 /HPF (0.0-6.0) 06/27/18 Unknown U Epithel Cells (Auto) < 1.0 /HPF (0-13.0) 06/27/18 Unknown Urine Bacteria (Auto) 1+ /HPF (Negative) 06/27/18 Unknown Urine Eosinophils None seen (None Seen) 06/27/18 Unknown Urine Creatinine 192.2 mg/dL (0.1-20.0) H 06/27/18 Unknown Urine Sodium 11 mmol/L 06/27/18 Unknown Fraction Sodium Excret 1.6 06/27/18 Unknown Levetiracetam 65.9 mcg/mL 06/21/18 16:01 Nutrition/Malnutrition Assess - Dietary Evaluation Nutrition/Malnutrition Findings: Nutrition Notes Start: 06/22/18 10:19 Freq: Status: Active Protocol: Document 06/26/18 14:51 JOHNNIE (Rec: 06/26/18 14:54 JOHNNIE [email or web address]) Nutrition Notes Initial or Follow up Brief Note Current Diet TF - Vital AF at 45ml/hr Height 5 ft 2 in Weight 92.4 kg [place] Body Weight (lbs) 110.0 BMI 37.2 Subjective/Other Information Pt tolerating TF at goal rate of 45ml/hr. She remains on vent support. Kcal/Kg value to use for calculation 14 Approximate Energy Requirements Using 1294 kcal/Kg Calculation Used for Recommendations Kcal/kg Nutrition Intervention Follow-Up By: 07/01/18 Additional Comments F/U: stable TF, vent status
--- NOTE | 2018-06-29 08:46 | Progress Note ---
Assessment and Plan Impression * Acute on chronic renal failure. Serum creatinine was 1.7 in March 2018 * Status post respiratory failure * Seizure disorder * Hypertension * Diabetes * Dementia * History of CVA * Metabolic acidosis Recommendations * her urine shows 2+ dipstick protein and a few red cells. Check urine protein creatinine ratio * fractional excretion of sodium Is 1.6%. However, patient is having some and creatinine is slowly rising. Give a trial of gentle IV hydration * Patient may have ATN. * Check urine for eosinophils * Renal ultrasound is normal * Hold off on diuretics or VU inhibitor/ARB at this time * Check office records regarding her previous renal status and workup * Avoid nephrotoxins * Monitor fluid status and electrolytes closely * Check vasculitis workup * If renal function continues to deteriorate, may need to consider renal replac ement therapy Subjective Date of service: 06/29/18 Principal diagnosis: Acute Hypoxemic Resp failure; Pneumonia (Likely aspiration); JULISA; SIRS Interval history: Patient is comfortable today. Denies any more diarrhea. Was on BiPAP mask overnight with 30% FiO2 Objective - Vital Signs Vital signs: Vital Signs - 12hr 06/28/18 06/29/18 06/29/18 22:39 00:00 03:46 Temperature 97.2 F L Pulse Rate 69 68 68 Pulse Rate [ 65 From Monitor] Pulse Rate [ None] Respiratory 22 22 Rate Blood Pressure 135/72 135/72 O2 Sat by Pulse 96 98 Oximetry 06/29/18 04:00 Temperature 98.5 F Pulse Rate 72 Pulse Rate [ 67 From Monitor] Pulse Rate [ 72 None] Respiratory 19 Rate Blood Pressure 111/72 O2 Sat by Pulse 96 Oximetry - General Appearance General appearance: well-developed, well-nourished, appears stated age EENT: PERRL, mucous membranes moist Neck: no JVD, no thyromegaly, no carotid bruit, supple Respiratory: Present: [facility] Card[facility]: regular, normal heart rate, S1S2, no murmurs Gastrointestinal: normal, normoactive bowel sounds Integumentary: no rash, other (1+ edema) - Lab 06/26/18 10:14 06/29/18 04:15 Most recent lab results Calcium 8.8 mg/dL (8.4-10.2) 06/29/18 04:15 Magnesium 1.70 mg/dL (1.7-2.3) 06/21/18 14:06 Urine Creatinine 192.2 mg/dL (0.1-20.0) H 06/27/18 Unknown Urine Sodium 11 mmol/L 06/27/18 Unknown Medications & Allergies - Medications Allergies/Adverse Reactions: Allergies No Known Allergies Allergy (Unverified 04/06/18 11:56) Home Medications: Home Medications Medication Instructions Recorded Confirmed Last Taken Type Acetaminophen [Acetaminophen TAB] 650 mg PO Q4H PRN 04/06/18 06/21/18 Unknown History Apixaban [Eliquis] 5 mg PO Q12H 04/06/18 06/21/18 Unknown History AtorvaSTATin [Lipitor] 40 mg PO QHS 04/06/18 06/21/18 Unknown History Brimonidine Tartrate/Timolol 1 drop OU Q12H 04/06/18 06/21/18 Unknown History [Combigan 0.2%-0.5% Eye Drops] Donepezil HCl [Aricept] 10 mg PO HS 04/06/18 06/21/18 Unknown History Insulin Glargine [Lantus VIAL] 50 units SUB-Q QHS 04/06/18 06/21/18 Unknown History Insulin Lispro [HumaLOG VIAL] 9 units SUB-Q AC 04/06/18 06/21/18 Unknown History Lispro Insulin [Humalog] See Protocol SUB-Q ACHS 04/06/18 06/21/18 Unknown History Mirtazapine [Remeron] 15 mg PO HS 04/06/18 06/21/18 Unknown History levETIRAcetam [Keppra TAB] 1,000 mg PO Q12H 04/06/18 06/21/18 Unknown History Furosemide [Lasix TAB] 40 mg PO QDAY #30 tablet 04/10/18 06/21/18 Unknown Rx HYDROcodone/APAP 5-325 [[place] 1 each PO Q8HR PRN #7 tablet 04/10/18 06/21/18 Unknown Rx 5-325 mg TAB] Losartan [Cozaar] 25 mg PO QDAY #30 tablet 04/10/18 06/21/18 Unknown Rx Metoprolol Succinate [Toprol Xl] 25 mg PO DAILY #30 tab.er.24h 04/10/18 06/21/18 Unknown Rx Active Medications: Generic Name Dose Route Start Last Admin Trade Name Freq PRN Reason Stop Dose Admin Amlodipine Besylate 10 mg 12/31/18 19:00 06/28/18 10:25 Norvasc PO 10 mg QDAY RICKY Administration Atorvastatin Calcium 40 mg 06/22/18 22:00 06/28/18 22:39 Lipitor PO 40 mg QHS RICKY Administration Brimonidine/Timolol 1 drops 06/22/18 16:00 06/29/18 03:00 Combigan 0.2-0.5% OU 1 drops Q12H RICKY Administration Carvedilol 12.5 mg 06/22/18 22:00 06/28/18 22:39 Coreg PO 12.5 mg BID RICKY Administration Famotidine 20 mg 06/24/18 10:00 06/28/18 10:27 Pepcid PO 20 mg QDAY RICKY Administration Hydralazine HCl 20 mg 06/22/18 16:03 06/22/18 17:00 Apresoline IV 20 mg Q6H PRN Administration HTN Hydrophilic Ointment 1 applic 06/21/18 15:50 Vaseline Lip Therapy TP Q2HR PRN Dry Lips Heparin Sodium/Sodium Chloride 25,000 unit in 500 mls @ 27 mls/hr 06/22/18 17:00 06/28/18 22:40 Heparin/ 0.45% Nacl-25,000 Unit/500 Ml IV 1,050 units/hr TITR RICKY 21 mls/hr Administration Protocol 1,350 UNITS/HR Sodium Chloride 1,000 mls @ 75 mls/hr 06/28/18 18:00 06/28/18 22:38 Nacl 0.9% 1000 Ml IV 75 mls/hr DIRECT RICKY Administration Insulin Human Lispro 0 unit 06/23/18 02:00 06/29/18 03:00 Humalog SUB-Q 1 unit Q4HR RICKY Administration Protocol Labetalol HCl 20 mg 06/22/18 18:00 06/22/18 18:55 Normodyne IV 20 mg Q4H PRN Administration BP >160/100; hold for HR <60 Levetiracetam 1,000 mg 06/25/18 22:00 06/28/18 22:39 Keppra PO 1,000 mg BID RICKY Administration Multi-Ingred Cream/Lotion/Oil/Oint 1 applic 06/21/18 15:50 Artificial Tears Ophth Oint OU Q4HR PRN Dry Eye(s) Sodium Chloride 10 ml 06/21/18 22:00 06/28/18 22:38 Sodium Chloride Flush Syringe 10 Ml IV 10 ml BID RICKY Administration Sodium Chloride 10 ml 06/21/18 15:39 06/22/18 06:27 Sodium Chloride Flush Syringe 10 Ml IV 10 ml PRN PRN Administration LINE FLUSH
[2018-06-29] MEDS: KEPPRA PO SCH ×2 (09:41→22:27)
[2018-06-29] MEDS: COREG PO SCH ×2 (09:41→22:27)
[2018-06-29] MEDS: SODIUM CHLORIDE FLUSH SYRINGE 10 ML IV SCH ×2 (09:42→22:26)
[2018-06-29] MEDS: PEPCID PO SCH (09:42)
[2018-06-29] MEDS: NORVASC PO SCH (09:59)
[2018-06-29 11:40] LABS: Hepatitis B Surface Antigen Non-Reactive (Negative); Hepatitis C Virus Antibody Non-Reactive (NonReactive)
[2018-06-29] MEDS: NACL 0.9% 1000 ML 1,000 ML IV SCH (12:50)
--- NOTE | 2018-06-29 17:29 | Progress Note ---
Assessment and Plan Patient weak. resting on nasal canula 2 litres.O2 saturation 97%. Complaining cough and some shortness of breath.Patient is on I/V heparin for acute coronary syndrome. - Patient Problems (1) ARF (acute renal failure) with tubular necrosis Current Visit: Yes Status: Acute Plan to address problem: Management as per nephrology. (2) Altered mental status Current Visit: Yes Status: Acute Plan to address problem: Management as per primary care. (3) Seizures Current Visit: Yes Status: Acute Plan to address problem: Management as per neurology. (4) ACS (acute coronary syndrome) Current Visit: No Status: Acute Plan to address problem: Patient is on I/V Heparin. Management as per cardiology. (5) Atelectasis of left lung Current Visit: Yes Status: Acute Plan to address problem: Albuterol/atrovent aerosol treatments q 6 hours. Respiratory suctioning. Subjective Date of service: 06/29/18 Principal diagnosis: Acute Hypoxemic Resp failure; Pneumonia (Likely aspiration); JULISA; SIRS Interval history: Patient weak. resting on nasal canula 2 litres.O2 saturation 97%. Complaining cough and some shortness of breath.Patient is on I/V heparin for acute coronary syndrome. Objective Vital Signs - 12hr 06/29/18 06/29/18 06/29/18 08:00 09:04 09:41 Temperature 97.8 F Pulse Rate 77 77 Pulse Rate [ 71 From Monitor] Respiratory 22 Rate Blood Pressure 121/64 O2 Sat by Pulse 95 97 Oximetry 06/29/18 06/29/18 09:59 12:00 Temperature 97.9 F Pulse Rate 74 74 Pulse Rate [ 69 From Monitor] Respiratory 20 Rate Blood Pressure 121/64 O2 Sat by Pulse 97 Oximetry Constitutional: no acute distress, alert, other (elderly looking AAF normocephalic and atraumatic with ETT to MVS and mildly increased resp effort) Eyes: non-icteric ENT: oropharynx moist, other (extubated) Neck: supple, no lymphadenopathy, no JVD, other (no thyromegaly) Effort: mildly labored Ascultation: Bilateral: diminished breath sounds, rhonchi Percussion: Bilateral: not dull Cardiovascular: regular rate and rhythm Gastrointestinal: normoactive bowel sounds, soft, tender, non-distended Integumentary: normal Extremities: no cyanosis, no edema, pulses normal, no ischemia or petechiae Neurologic: normal mental status, non-focal exam (grossly), pupils equal and round, CN II-XII normal Psychiatric: anxious CBC and BMP: 06/26/18 10:14 06/29/18 04:15 ABG, PT/INR, D-dimer: ABG POC ABG pH 7.311 (7.35-7.45) L 06/26/18 12:43 POC ABG pCO2 46.6 (35-45) H 06/26/18 12:43 POC ABG pO2 99 (80-105) 06/26/18 12:43 POC ABG HCO3 23.5 06/26/18 12:43 POC ABG Total CO2 25 06/26/18 12:43 POC ABG O2 Sat 97 06/26/18 12:43 PT/INR, D-dimer PT 17.5 Sec. (12.2-14.9) H 06/22/18 17:21 INR 1.39 (0.87-1.13) H 06/22/18 17:21 Abnormal lab findings: Abnormal Labs 06/21/18 06/21/18 06/21/18 14:02 14:06 14:06 WBC RBC Hgb Hct MCV 71 L MCH 22 L RDW 21.1 H Carroll % (Auto) Carroll # Seg Neutrophils # PT 18.9 H INR 1.54 H APTT Heparin Anti-Xa Level POC ABG pH POC ABG pCO2 POC ABG pO2 Potassium Carbon Dioxide BUN Creatinine Glucose POC Glucose 250 H Calcium Total Bilirubin Alkaline Phosphatase Troponin T Albumin Urine Creatinine 06/21/18 06/21/18 06/21/18 14:06 14:23 21:17 WBC RBC Hgb Hct MCV MCH RDW Carroll % (Auto) Carroll # Seg Neutrophils # PT INR APTT Heparin Anti-Xa Level POC ABG pH 7.499 H 7.600 H POC ABG pCO2 34.8 L 24.9 L POC ABG pO2 342 H 176 H Potassium Carbon Dioxide BUN Creatinine 1.5 H Glucose 214 H POC Glucose Calcium Total Bilirubin 1.30 H Alkaline Phosphatase 174 H Troponin T 0.050 H Albumin 3.1 L Urine Creatinine 06/22/18 06/22/18 06/22/18 03:17 03:17 05:27 WBC 11.5 H RBC 5.07 H Hgb Hct MCV 69 L MCH 21 L RDW 21.9 H Carroll % (Auto) 9.8 H Carroll # 1.1 H Seg Neutrophils # 7.9 H PT INR APTT Heparin Anti-Xa Level POC ABG pH 7.539 H POC ABG pCO2 30.1 L POC ABG pO2 170 H Potassium Carbon Dioxide BUN Creatinine 1.5 H Glucose 164 H POC Glucose Calcium Total Bilirubin Alkaline Phosphatase Troponin T Albumin Urine Creatinine 06/22/18 06/22/18 06/22/18 17:21 17:50 19:46 WBC RBC Hgb Hct MCV MCH RDW Carroll % (Auto) Carroll # Seg Neutrophils # PT 17.5 H INR 1.39 H APTT 22.8 L Heparin Anti-Xa Level 1.64 H POC ABG pH POC ABG pCO2 POC ABG pO2 Potassium Carbon Dioxide BUN Creatinine Glucose POC Glucose 240 H Calcium Total Bilirubin Alkaline Phosphatase Troponin T Albumin Urine Creatinine 06/22/18 06/23/18 06/23/18 23:47 01:44 04:14 WBC RBC Hgb Hct MCV MCH RDW Carroll % (Auto) Carroll # Seg Neutrophils # PT INR APTT Heparin Anti-Xa Level 0.10 L POC ABG pH POC ABG pCO2 POC ABG pO2 Potassium Carbon Dioxide BUN Creatinine Glucose POC Glucose 240 H 229 H Calcium Total Bilirubin Alkaline Phosphatase Troponin T Albumin Urine Creatinine 06/23/18 06/23/18 06/23/18 05:34 09:24 10:24 WBC RBC Hgb Hct MCV MCH RDW Carroll % (Auto) Carroll # Seg Neutrophils # PT INR APTT Heparin Anti-Xa Level POC ABG pH 7.519 H POC ABG pCO2 POC ABG pO2 133 H Potassium Carbon Dioxide BUN Creatinine Glucose POC Glucose 220 H 183 H Calcium Total Bilirubin Alkaline Phosphatase Troponin T Albumin Urine Creatinine 06/23/18 06/23/18 06/23/18 12:39 13:32 14:08 WBC RBC Hgb Hct MCV MCH RDW Carroll % (Auto) Carroll # Seg Neutrophils # PT INR APTT Heparin Anti-Xa Level > 2.00 H POC ABG pH POC ABG pCO2 POC ABG pO2 Potassium Carbon Dioxide BUN Creatinine Glucose POC Glucose 151 H 140 H Calcium Total Bilirubin Alkaline Phosphatase Troponin T Albumin Urine Creatinine 06/23/18 06/23/18 06/23/18 18:00 19:33 21:31 WBC RBC Hgb Hct MCV MCH RDW Carroll % (Auto) Carroll # Seg Neutrophils # PT INR APTT Heparin Anti-Xa Level 1.74 H POC ABG pH POC ABG pCO2 POC ABG pO2 Potassium Carbon Dioxide BUN Creatinine Glucose POC Glucose 141 H 153 H Calcium Total Bilirubin Alkaline Phosphatase Troponin T Albumin Urine Creatinine 06/24/18 06/24/18 06/24/18 02:36 03:55 03:55 WBC 12.9 H RBC Hgb 9.9 L Hct MCV 70 L MCH 22 L RDW 22.1 H Carroll % (Auto) Carroll # Seg Neutrophils # PT INR APTT Heparin Anti-Xa Level POC ABG pH POC ABG pCO2 POC ABG pO2 Potassium Carbon Dioxide BUN 25 H Creatinine 1.6 H Glucose 151 H POC Glucose 162 H Calcium 8.2 L Total Bilirubin Alkaline Phosphatase Troponin T Albumin Urine Creatinine 06/24/18 06/24/18 06/24/18 03:55 05:01 09:34 WBC RBC Hgb Hct MCV MCH RDW Carroll % (Auto) Carroll # Seg Neutrophils # PT INR APTT Heparin Anti-Xa Level 1.75 H POC ABG pH POC ABG pCO2 POC ABG pO2 Potassium Carbon Dioxide BUN Creatinine Glucose POC Glucose 175 H 143 H Calcium Total Bilirubin Alkaline Phosphatase Troponin T Albumin Urine Creatinine 06/24/18 06/24/18 06/24/18 12:50 14:29 17:08 WBC RBC Hgb Hct MCV MCH RDW Carroll % (Auto) Carroll # Seg Neutrophils # PT INR APTT Heparin Anti-Xa Level 1.60 H POC ABG pH POC ABG pCO2 POC ABG pO2 Potassium Carbon Dioxide BUN Creatinine Glucose POC Glucose 169 H 138 H Calcium Total Bilirubin Alkaline Phosphatase Troponin T Albumin Urine Creatinine 06/24/18 06/24/18 06/25/18 21:13 21:50 01:45 WBC RBC Hgb Hct MCV MCH RDW Carroll % (Auto) Carroll # Seg Neutrophils # PT INR APTT Heparin Anti-Xa Level 1.53 H POC ABG pH POC ABG pCO2 POC ABG pO2 Potassium Carbon Dioxide BUN Creatinine Glucose POC Glucose 186 H 177 H Calcium Total Bilirubin Alkaline Phosphatase Troponin T Albumin Urine Creatinine 06/25/18 06/25/18 06/25/18 05:23 05:41 09:55 WBC RBC Hgb Hct MCV MCH RDW Carroll % (Auto) Carroll # Seg Neutrophils # PT INR APTT Heparin Anti-Xa Level 1.13 H POC ABG pH POC ABG pCO2 POC ABG pO2 Potassium Carbon Dioxide BUN Creatinine Glucose POC Glucose 160 H 181 H Calcium Total Bilirubin Alkaline Phosphatase Troponin T Albumin Urine Creatinine 06/25/18 06/25/18 06/25/18 12:54 14:27 14:33 WBC RBC Hgb Hct MCV MCH RDW Carroll % (Auto) Carroll # Seg Neutrophils # PT INR APTT Heparin Anti-Xa Level 0.73 H POC ABG pH POC ABG pCO2 POC ABG pO2 Potassium 3.4 L Carbon Dioxide BUN 30 H Creatinine 2.1 H Glucose 220 H POC Glucose 218 H Calcium Total Bilirubin Alkaline Phosphatase Troponin T Albumin Urine Creatinine 06/25/18 06/25/18 06/26/18 17:36 21:40 01:49 WBC RBC Hgb Hct MCV MCH RDW Carroll % (Auto) Carroll # Seg Neutrophils # PT INR APTT Heparin Anti-Xa Level POC ABG pH POC ABG pCO2 POC ABG pO2 Potassium Carbon Dioxide BUN Creatinine Glucose POC Glucose 219 H 162 H 152 H Calcium Total Bilirubin Alkaline Phosphatase Troponin T Albumin Urine Creatinine 06/26/18 06/26/18 06/26/18 04:43 05:50 09:43 WBC RBC Hgb 8.8 L Hct 27.7 L MCV MCH RDW Carroll % (Auto) Carroll # Seg Neutrophils # PT INR APTT Heparin Anti-Xa Level POC ABG pH POC ABG pCO2 POC ABG pO2 Potassium Carbon Dioxide BUN Creatinine Glucose POC Glucose 176 H 206 H Calcium Total Bilirubin Alkaline Phosphatase Troponin T Albumin Urine Creatinine 06/26/18 06/26/18 06/26/18 10:14 10:14 12:43 WBC RBC Hgb 9.5 L Hct 30.0 L MCV 69 L MCH 22 L RDW 22.4 H Carroll % (Auto) 11.0 H Carroll # 1.0 H Seg Neutrophils # PT INR APTT Heparin Anti-Xa Level POC ABG pH 7.311 L POC ABG pCO2 46.6 H POC ABG pO2 Potassium Carbon Dioxide BUN 34 H Creatinine 2.4 H Glucose 194 H POC Glucose Calcium Total Bilirubin Alkaline Phosphatase Troponin T Albumin Urine Creatinine 06/26/18 06/26/18 06/27/18 14:30 17:32 00:00 WBC RBC Hgb Hct MCV MCH RDW [place] % (Auto) [place] # Seg Neutrophils # PT INR APTT Heparin Anti-Xa Level POC ABG pH POC ABG pCO2 POC ABG pO2 Potassium Carbon Dioxide BUN Creatinine Glucose POC Glucose 219 H 228 H 173 H Calcium Total Bilirubin Alkaline Phosphatase Troponin T Albumin Urine Creatinine 06/27/18 06/27/18 06/27/18 01:25 06:06 10:24 WBC RBC Hgb Hct MCV MCH RDW [place] % (Auto) [place] # Seg Neutrophils # PT INR APTT Heparin Anti-Xa Level POC ABG pH POC ABG pCO2 POC ABG pO2 Potassium Carbon Dioxide BUN Creatinine Glucose POC Glucose 178 H 157 H 171 H Calcium Total Bilirubin Alkaline Phosphatase Troponin T Albumin Urine Creatinine 06/27/18 06/27/18 06/27/18 12:24 12:24 18:13 WBC RBC Hgb Hct MCV MCH RDW [place] % (Auto) [place] # Seg Neutrophils # PT INR APTT Heparin Anti-Xa Level POC ABG pH POC ABG pCO2 POC ABG pO2 Potassium Carbon Dioxide BUN Creatinine 3.3 H Glucose POC Glucose 192 H 158 H Calcium Total Bilirubin Alkaline Phosphatase Troponin T Albumin Urine Creatinine 06/27/18 06/27/18 06/27/18 22:23 22:34 Unknown WBC RBC Hgb Hct MCV MCH RDW [place] % (Auto) Carroll # Seg Neutrophils # PT INR APTT Heparin Anti-Xa Level 0.13 L POC ABG pH POC ABG pCO2 POC ABG pO2 Potassium Carbon Dioxide BUN Creatinine Glucose POC Glucose 137 H Calcium Total Bilirubin Alkaline Phosphatase Troponin T Albumin Urine Creatinine 192.2 H 06/28/18 06/28/18 06/28/18 03:25 04:06 06:44 WBC RBC Hgb Hct MCV MCH RDW [place] % (Auto) [place] # Seg Neutrophils # PT INR APTT Heparin Anti-Xa Level POC ABG pH POC ABG pCO2 POC ABG pO2 Potassium Carbon Dioxide 19 L BUN 49 H Creatinine 3.8 H Glucose 159 H POC Glucose 149 H 174 H Calcium Total Bilirubin Alkaline Phosphatase Troponin T Albumin Urine Creatinine 06/28/18 06/28/18 06/28/18 08:59 14:32 17:34 WBC RBC Hgb Hct MCV MCH RDW [place] % (Auto) [place] # Seg Neutrophils # PT INR APTT Heparin Anti-Xa Level POC ABG pH POC ABG pCO2 POC ABG pO2 Potassium Carbon Dioxide BUN Creatinine Glucose POC Glucose 167 H 161 H 162 H Calcium Total Bilirubin Alkaline Phosphatase Troponin T Albumin Urine Creatinine 06/28/18 06/29/18 06/29/18 23:03 02:59 04:15 WBC RBC Hgb Hct MCV MCH RDW [place] % (Auto) [place] # Seg Neutrophils # PT INR APTT Heparin Anti-Xa Level POC ABG pH POC ABG pCO2 POC ABG pO2 Potassium Carbon Dioxide 17 L BUN 55 H Creatinine 4.3 H Glucose 141 H POC Glucose 198 H 162 H Calcium Total Bilirubin Alkaline Phosphatase Troponin T Albumin Urine Creatinine 06/29/18 06/29/18 06/29/18 05:41 09:35 15:06 WBC RBC Hgb Hct MCV MCH RDW Carroll % (Auto) [place] # Seg Neutrophils # PT INR APTT Heparin Anti-Xa Level 0.18 L POC ABG pH POC ABG pCO2 POC ABG pO2 Potassium Carbon Dioxide BUN Creatinine Glucose POC Glucose 125 H 128 H Calcium Total Bilirubin Alkaline Phosphatase Troponin T Albumin Urine Creatinine 06/29/18 16:26 WBC RBC Hgb Hct MCV MCH RDW [place] % (Auto) [place] # Seg Neutrophils # PT INR APTT Heparin Anti-Xa Level POC ABG pH POC ABG pCO2 POC ABG pO2 Potassium Carbon Dioxide BUN Creatinine Glucose POC Glucose 211 H Calcium Total Bilirubin Alkaline Phosphatase Troponin T Albumin Urine Creatinine Chest x-ray: report reviewed (Reported. Mild left lung atelectasis.), image reviewed Allied health notes reviewed: nursing
[2018-06-29] MEDS: HEPARIN/ 0.45% NACL-25,000 UNIT/500 ML 25,000 UNIT/500 ML BAG IV SCH (22:27)
[2018-06-30] MEDS ORDERED: HEPARIN 10,000 UNITS/10 ML IV ONE (01:41)
[2018-06-30] MEDS: NACL 0.9% 1000 ML 1,000 ML IV SCH (02:01)
[2018-06-30] MEDS: HumaLOG SUB-Q SCH ×6 (02:08→23:17)
[2018-06-30] MEDS: COMBIGAN 0.2-0.5% OU SCH ×2 (04:29→18:47)
[2018-06-30 07:29] LABS: Calcium 8.8 mg/dL (8.4-10.2)
--- NOTE | 2018-06-30 08:35 | Progress Note ---
Assessment and Plan Assessment and plan: Patient is a 68 yo woman from [facility] with a history of seizure disorder, type 2 DM, hypertension, dyslipidemia, CVA, DVT on Eliquis and Dementia who presented to [facility] ED on 06/21/18 with Seizures and was Intubated. ARF, vasomotor nephropathy, worsening: Nephrology following Acute respiratory failure, s/p ETT intubated (on admission) 06/21/18 >96 hours and extubated 06/26/18: continue o2 support, Pulmonology is following Status epilepticus: treated with keppra, EEG reviewed again with Dr. Haque Hypertensive Urgency, resolved: iv antihypertensives as needed H/o CVA, she is weaker on the right, ?old RHP: get MRI SIRS with organ dysfunction as above Acute Metabolic Encephalopathy per above History of DVT on Eliquis, v/q negative for PE. Continue iv heparin drip with close monitoring, and hold Eliquis because renal failure. MRI brain pending -Renal function worsening, Cr up to 5.0, on Keppra. Re-consult neurology to see if anything else we can use beside keppra or lower the dose. I spoke with Dr. Haque, Neurologist, he will re-evaluate. Patient received 1000mg keppra this morning -Patient has stidor like breathing, added neb, add racemic, get abg, pCXR, RN notified Pulmonology CCT 36 minutes History Interval history: Patient was seen and examined. Follow-up on current diagnosis of sz. Overnight uneventful. Patient appears to have expressive aphasia. Imaging, nursing note, chart, labs and old chart reviewed. Discussed with patient. This morning, breathing worse. Hospitalist Physical - Physical exam Narrative exam: Gen: chronically disable, NAD, Awake, Alert, Orientated x 2, missed year HEENT: NCAT, EOMI, PERRL, OP Clear Neck: supple, no adenopathy, no thyromegaly, no JVD CVS/Heart: RRR, normal S1S2, pulses present bilaterally Chest/Lungs: CTA B, Symmetrical chest expansion, good air entry bilaterally GI/Abdomen: soft, NTND, good bowel sounds, no guarding or rebound /Bladder: no suprapubic tenderness, no CVA or paraspinal tenderness Extermity/Skin: no c/c/e, no obvious rash MSK: right side weaker than left, but spontaneous movement x 4 Neuro: CN 2-12 grossly intact, no new focal deficits, garbled speech Psych: calm - Constitutional Vitals: Temp Pulse Resp BP Pulse Ox 97.4 F L 62 22 124/63 95 06/30/18 04:00 06/30/18 07:31 06/30/18 07:31 06/30/18 07:31 06/30/18 07:31 General appearance: Present: obese. Absent: severe distress Results - Labs CBC & Chem 7: 06/26/18 10:14 06/30/18 05:43 Labs: Laboratory Last Values WBC 9.5 K/mm3 (4.5-11.0) 06/26/18 10:14 RBC 4.33 M/mm3 (3.65-5.03) 06/26/18 10:14 Hgb 9.5 gm/dl (10.1-14.3) L 06/26/18 10:14 Hct 30.0 % (30.3-42.9) L 06/26/18 10:14 MCV 69 fl (79-97) L 06/26/18 10:14 MCH 22 pg (28-32) L 06/26/18 10:14 MCHC 32 % (30-34) 06/26/18 10:14 RDW 22.4 % (13.2-15.2) H 06/26/18 10:14 Plt Count 214 K/mm3 (140-440) 06/26/18 10:14 Lymph % (Auto) 24.5 % (13.4-35.0) 06/26/18 10:14 [place] % (Auto) 11.0 % (0.0-7.3) H 06/26/18 10:14 Eos % (Auto) 3.7 % (0.0-4.3) 06/26/18 10:14 Baso % (Auto) 0.2 % (0.0-1.8) 06/26/18 10:14 Lymph # 2.3 K/mm3 (1.2-5.4) 06/26/18 10:14 [place] # 1.0 K/mm3 (0.0-0.8) H 06/26/18 10:14 Eos # 0.4 K/mm3 (0.0-0.4) 06/26/18 10:14 Baso # 0.0 K/mm3 (0.0-0.1) 06/26/18 10:14 Seg Neutrophils % 60.6 % (40.0-70.0) 06/26/18 10:14 Seg Neutrophils # 5.8 K/mm3 (1.8-7.7) 06/26/18 10:14 PT 17.5 Sec. (12.2-14.9) H 06/22/18 17:21 INR 1.39 (0.87-1.13) H 06/22/18 17:21 APTT 22.8 Sec. (24.2-36.6) L 06/22/18 17:21 Heparin Anti-Xa Level < 0.10 U.I./ml (0.3-0.7) L 06/30/18 00:11 POC ABG pH 7.311 (7.35-7.45) L 06/26/18 12:43 POC ABG pCO2 46.6 (35-45) H 06/26/18 12:43 POC ABG pO2 99 (80-105) 06/26/18 12:43 POC ABG HCO3 23.5 06/26/18 12:43 POC ABG Total CO2 25 06/26/18 12:43 POC ABG O2 Sat 97 06/26/18 12:43 POC ABG Base Excess -3 06/26/18 12:43 FiO2 30 % 06/26/18 12:43 Sodium 141 mmol/L (137-145) 06/30/18 05:43 Potassium 4.6 mmol/L (3.6-5.0) 06/30/18 05:43 Chloride 103.2 mmol/L (98-107) 06/30/18 05:43 Carbon Dioxide 17 mmol/L (22-30) L 06/30/18 05:43 Anion Gap 25 mmol/L 06/30/18 05:43 BUN 60 mg/dL (7-17) H 06/30/18 05:43 Creatinine 5.0 mg/dL (0.7-1.2) H 06/30/18 05:43 Estimated GFR 9 ml/min 06/30/18 05:43 BUN/Creatinine Ratio 12 % 06/30/18 05:43 Glucose 125 mg/dL (65-100) H 06/30/18 05:43 POC Glucose 141 (70-105) H 06/30/18 06:29 Calcium 8.8 mg/dL (8.4-10.2) 06/30/18 05:43 Magnesium 1.70 mg/dL (1.7-2.3) 06/21/18 14:06 Total Bilirubin 1.30 mg/dL (0.1-1.2) H 06/21/18 14:06 AST 19 units/L (5-40) 06/21/18 14:06 ALT 17 units/L (7-56) 06/21/18 14:06 Alkaline Phosphatase 174 units/L (35-129) H 06/21/18 14:06 Total Creatine Kinase 102 units/L (30-135) 06/21/18 14:06 CK-MB (CK-2) 2.2 ng/mL (0.0-4.0) 06/21/18 14:06 CK-MB (CK-2) Rel Index 2.1 (0-4) 06/21/18 14:06 Troponin T 0.050 ng/mL (0.00-0.029) H 06/21/18 14:06 Total Protein 6.9 g/dL (6.3-8.2) 06/21/18 14:06 Albumin 3.1 g/dL (3.9-5) L 06/21/18 14:06 Albumin/Globulin Ratio 0.8 % 06/21/18 14:06 Triglycerides 115 mg/dL (2-149) 06/21/18 14:06 Cholesterol 123 mg/dL (50-199) 06/21/18 14:06 LDL Cholesterol Direct 61 mg/dL (50-130) 06/21/18 14:06 HDL Cholesterol 50 mg/dL (40-59) 06/21/18 14:06 Cholesterol/HDL Ratio 2.46 % 06/21/18 14:06 Urine Color [place] (Yellow) 06/27/18 Unknown Urine Turbidity Cloudy (Clear) 06/27/18 Unknown Urine pH 5.0 (5.0-7.0) 06/27/18 Unknown Ur Specific [place] 1.015 (1.003-1.030) 06/27/18 Unknown Urine Protein 100 mg/dl mg/dL (Negative) 06/27/18 Unknown Urine Glucose (UA) Neg mg/dL (Negative) 06/27/18 Unknown Urine Ketones Tr mg/dL (Negative) 06/27/18 Unknown Urine Blood Neg (Negative) 06/27/18 Unknown Urine Nitrite Neg (Negative) 06/27/18 Unknown Urine Bilirubin Neg (Negative) 06/27/18 Unknown Urine Urobilinogen < 2.0 mg/dL (<2.0) 06/27/18 Unknown Ur Leukocyte Esterase Tr (Negative) 06/27/18 Unknown Urine WBC (Auto) 2.0 /HPF (0.0-6.0) 06/27/18 Unknown Urine RBC (Auto) 11.0 /HPF (0.0-6.0) 06/27/18 Unknown U Epithel Cells (Auto) < 1.0 /HPF (0-13.0) 06/27/18 Unknown Urine Bacteria (Auto) 1+ /HPF (Negative) 06/27/18 Unknown Urine Eosinophils None seen (None Seen) 06/27/18 Unknown Urine Creatinine 192.2 mg/dL (0.1-20.0) H 06/27/18 Unknown Urine Sodium 11 mmol/L 06/27/18 Unknown Fraction Sodium Excret 1.6 06/27/18 Unknown Levetiracetam 65.9 mcg/mL 06/21/18 16:01 Hepatitis A IgM Ab Non-reactive (NonReactive) 06/29/18 09:22 Hep Bs Antigen Non-reactive (Negative) 06/29/18 09:22 Hep B Core IgM Ab Non-reactive (NonReactive) 06/29/18 09:22 Hepatitis C Antibody Non-reactive (NonReactive) 06/29/18 09:22 Nutrition/Malnutrition Assess - Dietary Evaluation Nutrition/Malnutrition Findings: Nutrition Notes Start: 06/22/18 10:19 Freq: Status: Active Protocol: Document 06/26/18 14:51 JOHNNIE (Rec: 06/26/18 14:54 JOHNNIE [id number]) Nutrition Notes Initial or Follow up Brief Note Current Diet TF - Vital AF at 45ml/hr Height 5 ft 2 in Weight 92.4 kg [place] Body Weight (lbs) 110.0 BMI 37.2 Subjective/Other Information Pt tolerating TF at goal rate of 45ml/hr. She remains on vent support. Kcal/Kg value to use for calculation 14 Approximate Energy Requirements Using 1294 kcal/Kg Calculation Used for Recommendations Kcal/kg Nutrition Intervention Follow-Up By: 07/01/18 Additional Comments F/U: stable TF, vent status
[2018-06-30] MEDS ORDERED: PROVENTIL IH ONE (08:38)
--- NOTE | 2018-06-30 08:40 | Progress Note ---
Assessment and Plan Impression * Acute on chronic renal failure. Serum creatinine was 1.7 in March 2018 * Status post respiratory failure * Seizure disorder * Hypertension * Diabetes * Dementia * History of CVA * Metabolic acidosis Recommendations * her urine shows 2+ dipstick protein and a few red cells. Check urine protein creatinine ratio * fractional excretion of sodium Is 1.6%. likely atn * Patient may have ATN. * negative urine for eosinophils * Renal ultrasound is normal * Hold off on diuretics or VU inhibitor/ARB at this time * Check office records regarding her previous renal status and workup * Avoid nephrotoxins * Monitor fluid status and electrolytes closely * will likely need renal replacement therapy Subjective Date of service: 06/30/18 Principal diagnosis: Acute Hypoxemic Resp failure; Pneumonia (Likely aspiration); JULISA; SIRS Interval history: resting in bed today Objective - Exam Narrative Exam: General appearance: well-developed, well-nourished, appears stated age EENT: PERRL, mucous membranes moist Neck: no JVD, no thyromegaly, no carotid bruit, supple Respiratory: Present: [facility]: regular, normal heart rate, S1S2, no murmurs Gastrointestinal: normal, normoactive bowel sounds Integumentary: no rash, other (1+ edema) - Vital Signs Vital signs: Vital Signs - 12hr 06/29/18 06/29/18 06/29/18 21:00 21:31 22:00 Temperature Pulse Rate 71 72 72 Pulse Rate [ From Monitor] Respiratory 21 20 28 H Rate Blood Pressure 121/74 121/74 118/68 O2 Sat by Pulse 98 Oximetry 06/29/18 06/29/18 06/29/18 22:27 22:31 23:01 Temperature Pulse Rate 73 73 73 Pulse Rate [ From Monitor] Respiratory 28 H 27 H Rate Blood Pressure 118/63 118/68 117/73 O2 Sat by Pulse 97 83 L Oximetry 06/29/18 06/30/18 06/30/18 23:31 00:00 00:31 Temperature 97.3 F L Pulse Rate 71 68 65 Pulse Rate [ 74 From Monitor] Respiratory 20 32 H 30 H Rate Blood Pressure 117/73 110/70 110/70 O2 Sat by Pulse 98 99 Oximetry 06/30/18 06/30/18 06/30/18 01:01 01:31 02:01 Temperature Pulse Rate 68 68 69 Pulse Rate [ From Monitor] Respiratory 21 31 H 16 Rate Blood Pressure 101/78 110/70 101/78 O2 Sat by Pulse 95 92 90 Oximetry 06/30/18 06/30/18 06/30/18 02:31 03:00 03:31 Temperature Pulse Rate 68 Pulse Rate [ From Monitor] Respiratory 29 H Rate Blood Pressure 101/78 101/78 101/78 O2 Sat by Pulse 86 89 92 Oximetry 06/30/18 06/30/18 06/30/18 04:00 04:01 04:31 Temperature 97.4 F L Pulse Rate 69 71 68 Pulse Rate [ 65 From Monitor] Respiratory 21 18 28 H Rate Blood Pressure 119/62 119/62 O2 Sat by Pulse 95 92 91 Oximetry 06/30/18 06/30/18 06/30/18 05:01 05:31 06:00 Temperature Pulse Rate 68 66 66 Pulse Rate [ From Monitor] Respiratory 26 H 28 H 27 H Rate Blood Pressure 121/60 121/60 124/63 O2 Sat by Pulse 92 94 95 Oximetry 06/30/18 06/30/18 06/30/18 06:31 07:00 07:31 Temperature Pulse Rate 65 63 62 Pulse Rate [ From Monitor] Respiratory 25 H 23 22 Rate Blood Pressure 124/63 132/64 124/63 O2 Sat by Pulse 96 96 95 Oximetry - Lab 06/26/18 10:14 06/30/18 05:43 Most recent lab results Calcium 8.8 mg/dL (8.4-10.2) 06/30/18 05:43 Magnesium 1.70 mg/dL (1.7-2.3) 06/21/18 14:06 Urine Creatinine 192.2 mg/dL (0.1-20.0) H 06/27/18 Unknown Urine Sodium 11 mmol/L 06/27/18 Unknown Medications & Allergies - Medications Allergies/Adverse Reactions: Allergies No Known Allergies Allergy (Unverified 04/06/18 11:56) Home Medications: Home Medications Medication Instructions Recorded Confirmed Last Taken Type Acetaminophen [Acetaminophen TAB] 650 mg PO Q4H PRN 04/06/18 06/21/18 Unknown H istory Apixaban [Eliquis] 5 mg PO Q12H 04/06/18 06/21/18 Unknown History AtorvaSTATin [Lipitor] 40 mg PO QHS 04/06/18 06/21/18 Unknown History Brimonidine Tartrate/Timolol 1 drop OU Q12H 04/06/18 06/21/18 Unknown History [Combigan 0.2%-0.5% Eye Drops] Donepezil HCl [Aricept] 10 mg PO HS 04/06/18 06/21/18 Unknown History Insulin Glargine [Lantus VIAL] 50 units SUB-Q QHS 04/06/18 06/21/18 Unknown History Insulin Lispro [HumaLOG VIAL] 9 units SUB-Q AC 04/06/18 06/21/18 Unknown History Lispro Insulin [Humalog] See Protocol SUB-Q ACHS 04/06/18 06/21/18 Unknown History Mirtazapine [Remeron] 15 mg PO HS 04/06/18 06/21/18 Unknown History levETIRAcetam [Keppra TAB] 1,000 mg PO Q12H 04/06/18 06/21/18 Unknown History Furosemide [Lasix TAB] 40 mg PO QDAY #30 tablet 04/10/18 06/21/18 Unknown Rx HYDROcodone/APAP 5-325 [[place] 1 each PO Q8HR PRN #7 tablet 04/10/18 06/21/18 Un known Rx 5-325 mg TAB] Losartan [Cozaar] 25 mg PO QDAY #30 tablet 04/10/18 06/21/18 Unknown Rx Metoprolol Succinate [Toprol Xl] 25 mg PO DAILY #30 tab.er.24h 04/10/18 06/21/18 Unknown Rx Active Medications: Generic Name Dose Route Start Last Admin Trade Name Freq PRN Reason Stop Dose Admin Amlodipine Besylate 10 mg 06/22/18 19:00 06/29/18 09:59 Norvasc PO 10 mg QDAY RICKY Administration Atorvastatin Calcium 40 mg 06/22/18 22:00 06/29/18 22:27 Lipitor PO 40 mg QHS RICKY Administration Brimonidine/Timolol 1 drops 06/22/18 16:00 06/30/18 04:29 Combigan 0.2-0.5% OU 1 drops Q12H RICKY Administration Carvedilol 12.5 mg 06/22/18 22:00 06/29/18 22:27 Coreg PO 12.5 mg BID RICKY Administration Famotidine 20 mg 06/24/18 10:00 06/29/18 09:42 Pepcid PO 20 mg QDAY RICKY Administration Hydralazine HCl 20 mg 06/22/18 16:03 06/22/18 17:00 Apresoline IV 20 mg Q6H PRN Administration HTN Hydrophilic Ointment 1 applic 06/21/18 15:50 Vaseline Lip Therapy TP Q2HR PRN Dry Lips Heparin Sodium/Sodium Chloride 25,000 unit in 500 mls @ 27 mls/hr 06/22/18 17:00 06/30/18 02:03 Heparin/ 0.45% Nacl-25,000 Unit/500 Ml IV 1,450 units/hr TITR RICKY 29 mls/hr Titration Protocol 1,350 UNITS/HR Sodium Chloride 1,000 mls @ 75 mls/hr 06/28/18 18:00 06/30/18 02:01 Nacl 0.9% 1000 Ml IV 75 mls/hr DIRECT RICKY Administration Insulin Human Lispro 0 unit 06/23/18 02:00 06/30/18 07:11 Humalog SUB-Q Not Given Q4HR [facility] Protocol Labetalol HCl 20 mg 06/22/18 18:00 06/22/18 18:55 Normodyne IV 20 mg Q4H PRN Administration BP >160/100; hold for HR <60 Levetiracetam 1,000 mg 06/25/18 22:00 06/29/18 22:27 Keppra PO 1,000 mg BID RICKY Administration Multi-Ingred Cream/Lotion/Oil/Oint 1 applic 06/21/18 15:50 Artificial Tears Ophth Oint OU Q4HR PRN Dry Eye(s) Sodium Chloride 10 ml 06/21/18 22:00 06/29/18 22:26 Sodium Chloride Flush Syringe 10 Ml IV 10 ml BID RICKY Administration Sodium Chloride 10 ml 06/21/18 15:39 06/22/18 06:27 Sodium Chloride Flush Syringe 10 Ml IV 10 ml PRN PRN Administration LINE FLUSH
[2018-06-30] MEDS: NORVASC PO SCH (09:35)
[2018-06-30] MEDS: KEPPRA PO SCH (09:35)
--- NOTE | 2018-06-30 09:35 | Progress Note ---
Assessment and Plan Patient weak. resting on nasal canula 2 litres.O2 saturation 95%. Complaining cough and some shortness of breath.Patient is on I/V heparin for acute coronary syndrome. - Patient Problems (1) ARF (acute renal failure) with tubular necrosis Current Visit: Yes Status: Acute Plan to address problem: Management as per nephrology. (2) Altered mental status Current Visit: Yes Status: Acute Plan to address problem: Management as per primary care. (3) Seizures Current Visit: Yes Status: Acute Plan to address problem: Management as per neurology. (4) ACS (acute coronary syndrome) Current Visit: No Status: Acute Plan to address problem: Patient is on I/V Heparin. Management as per cardiology. (5) Atelectasis of left lung Current Visit: Yes Status: Acute Plan to address problem: Albuterol/atrovent aerosol treatments q 6 hours prn for shortness of breath and cough. Brovanna/Budesonide aerosol treatments q 12 hours. Respiratory suctioning. Subjective Date of service: 06/30/18 Principal diagnosis: Acute Hypoxemic Resp failure; Pneumonia (Likely aspiration); JULISA; SIRS Interval history: Patient weak. resting on nasal canula 2 litres.O2 saturation 95%. Complaining cough and some shortness of breath.Patient is on I/V heparin for acute coronary syndrome. Objective Vital Signs - 12hr 06/29/18 06/29/18 06/29/18 22:00 22:27 22:31 Temperature Pulse Rate 72 73 73 Pulse Rate [ From Monitor] Respiratory 28 H 28 H Rate Blood Pressure 118/68 118/63 118/68 O2 Sat by Pulse 97 Oximetry 06/29/18 06/29/18 06/30/18 23:01 23:31 00:00 Temperature 97.3 F L Pulse Rate 73 71 68 Pulse Rate [ 74 From Monitor] Respiratory 27 H 20 32 H Rate Blood Pressure 117/73 117/73 110/70 O2 Sat by Pulse 83 L 98 Oximetry 06/30/18 06/30/18 06/30/18 00:31 01:01 01:31 Temperature Pulse Rate 65 68 68 Pulse Rate [ From Monitor] Respiratory 30 H 21 31 H Rate Blood Pressure 110/70 101/78 110/70 O2 Sat by Pulse 99 95 92 Oximetry 06/30/18 06/30/18 06/30/18 02:01 02:31 03:00 Temperature Pulse Rate 69 Pulse Rate [ From Monitor] Respiratory 16 Rate Blood Pressure 101/78 101/78 101/78 O2 Sat by Pulse 90 86 89 Oximetry 06/30/18 06/30/18 06/30/18 03:31 04:00 04:01 Temperature 97.4 F L Pulse Rate 68 69 71 Pulse Rate [ 65 From Monitor] Respiratory 29 H 21 18 Rate Blood Pressure 101/78 119/62 O2 Sat by Pulse 92 95 92 Oximetry 06/30/18 06/30/18 06/30/18 04:31 05:01 05:31 Temperature Pulse Rate 68 68 66 Pulse Rate [ From Monitor] Respiratory 28 H 26 H 28 H Rate Blood Pressure 119/62 121/60 121/60 O2 Sat by Pulse 91 92 94 Oximetry 06/30/18 06/30/18 06/30/18 06:00 06:31 07:00 Temperature Pulse Rate 66 65 63 Pulse Rate [ From Monitor] Respiratory 27 H 25 H 23 Rate Blood Pressure 124/63 124/63 132/64 O2 Sat by Pulse 95 96 96 Oximetry 06/30/18 07:31 Temperature Pulse Rate 62 Pulse Rate [ From Monitor] Respiratory 22 Rate Blood Pressure 124/63 O2 Sat by Pulse 95 Oximetry Constitutional: no acute distress, alert, other (elderly looking AAF normocephalic and atraumatic with ETT to MVS and mildly increased resp effort) Eyes: non-icteric ENT: oropharynx moist, other (extubated) Neck: supple, no lymphadenopathy, no JVD, other (no thyromegaly) Effort: mildly labored Ascultation: Bilateral: diminished breath sounds, wheezes (mainly upper air ways.) Percussion: Bilateral: not dull Cardiovascular: regular rate and rhythm Gastrointestinal: normoactive bowel sounds, soft, tender, non-distended Integumentary: normal Extremities: no cyanosis, no edema, pulses normal, no ischemia or petechiae Neurologic: normal mental status, non-focal exam (grossly), pupils equal and round, CN II-XII normal Psychiatric: anxious CBC and BMP: 06/26/18 10:14 06/30/18 05:43 ABG, PT/INR, D-dimer: ABG POC ABG pH 7.311 (7.35-7.45) L 06/26/18 12:43 POC ABG pCO2 46.6 (35-45) H 06/26/18 12:43 POC ABG pO2 99 (80-105) 06/26/18 12:43 POC ABG HCO3 23.5 06/26/18 12:43 POC ABG Total CO2 25 06/26/18 12:43 POC ABG O2 Sat 97 06/26/18 12:43 PT/INR, D-dimer PT 17.5 Sec. (12.2-14.9) H 06/22/18 17:21 INR 1.39 (0.87-1.13) H 06/22/18 17:21 Abnormal lab findings: Abnormal Labs 06/21/18 06/21/18 06/21/18 14:02 14:06 14:06 WBC RBC Hgb Hct MCV 71 L MCH 22 L RDW 21.1 H [place] % (Auto) [place] # Seg Neutrophils # PT 18.9 H INR 1.54 H APTT Heparin Anti-Xa Level POC ABG pH POC ABG pCO2 POC ABG pO2 Potassium Carbon Dioxide BUN Creatinine Glucose POC Glucose 250 H Calcium Total Bilirubin Alkaline Phosphatase Troponin T Albumin Urine Creatinine 06/21/18 06/21/18 06/21/18 14:06 14:23 21:17 WBC RBC Hgb Hct MCV MCH RDW [place] % (Auto) [place] # Seg Neutrophils # PT INR APTT Heparin Anti-Xa Level POC ABG pH 7.499 H 7.600 H POC ABG pCO2 34.8 L 24.9 L POC ABG pO2 342 H 176 H Potassium Carbon Dioxide BUN Creatinine 1.5 H Glucose 214 H POC Glucose Calcium Total Bilirubin 1.30 H Alkaline Phosphatase 174 H Troponin T 0.050 H Albumin 3.1 L Urine Creatinine 06/22/18 06/22/18 06/22/18 03:17 03:17 05:27 WBC 11.5 H RBC 5.07 H Hgb Hct MCV 69 L MCH 21 L RDW 21.9 H [place] % (Auto) 9.8 H [place] # 1.1 H Seg Neutrophils # 7.9 H PT INR APTT Heparin Anti-Xa Level POC ABG pH 7.539 H POC ABG pCO2 30.1 L POC ABG pO2 170 H Potassium Carbon Dioxide BUN Creatinine 1.5 H Glucose 164 H POC Glucose Calcium Total Bilirubin Alkaline Phosphatase Troponin T Albumin Urine Creatinine 06/22/18 06/22/18 06/22/18 17:21 17:50 19:46 WBC RBC Hgb Hct MCV MCH RDW [place] % (Auto) [place] # Seg Neutrophils # PT 17.5 H INR 1.39 H APTT 22.8 L Heparin Anti-Xa Level 1.64 H POC ABG pH POC ABG pCO2 POC ABG pO2 Potassium Carbon Dioxide BUN Creatinine Glucose POC Glucose 240 H Calcium Total Bilirubin Alkaline Phosphatase Troponin T Albumin Urine Creatinine 06/22/18 06/23/18 06/23/18 23:47 01:44 04:14 WBC RBC Hgb Hct MCV MCH RDW [place] % (Auto) [place] # Seg Neutrophils # PT INR APTT Heparin Anti-Xa Level 0.10 L POC ABG pH POC ABG pCO2 POC ABG pO2 Potassium Carbon Dioxide BUN Creatinine Glucose POC Glucose 240 H 229 H Calcium Total Bilirubin Alkaline Phosphatase Troponin T Albumin Urine Creatinine 06/23/18 06/23/18 06/23/18 05:34 09:24 10:24 WBC RBC Hgb Hct MCV MCH RDW [place] % (Auto) [place] # Seg Neutrophils # PT INR APTT Heparin Anti-Xa Level POC ABG pH 7.519 H POC ABG pCO2 POC ABG pO2 133 H Potassium Carbon Dioxide BUN Creatinine Glucose POC Glucose 220 H 183 H Calcium Total Bilirubin Alkaline Phosphatase Troponin T Albumin Urine Creatinine 06/23/18 06/23/18 06/23/18 12:39 13:32 14:08 WBC RBC Hgb Hct MCV MCH RDW [place] % (Auto) [place] # Seg Neutrophils # PT INR APTT Heparin Anti-Xa Level > 2.00 H POC ABG pH POC ABG pCO2 POC ABG pO2 Potassium Carbon Dioxide BUN Creatinine Glucose POC Glucose 151 H 140 H Calcium Total Bilirubin Alkaline Phosphatase Troponin T Albumin Urine Creatinine 06/23/18 06/23/18 06/23/18 18:00 19:33 21:31 WBC RBC Hgb Hct MCV MCH RDW [place] % (Auto) [place] # Seg Neutrophils # PT INR APTT Heparin Anti-Xa Level 1.74 H POC ABG pH POC ABG pCO2 POC ABG pO2 Potassium Carbon Dioxide BUN Creatinine Glucose POC Glucose 141 H 153 H Calcium Total Bilirubin Alkaline Phosphatase Troponin T Albumin Urine Creatinine 06/24/18 06/24/18 06/24/18 02:36 03:55 03:55 WBC 12.9 H RBC Hgb 9.9 L Hct MCV 70 L MCH 22 L RDW 22.1 H [place] % (Auto) [place] # Seg Neutrophils # PT INR APTT Heparin Anti-Xa Level POC ABG pH POC ABG pCO2 POC ABG pO2 Potassium Carbon Dioxide BUN 25 H Creatinine 1.6 H Glucose 151 H POC Glucose 162 H Calcium 8.2 L Total Bilirubin Alkaline Phosphatase Troponin T Albumin Urine Creatinine 06/24/18 06/24/18 06/24/18 03:55 05:01 09:34 WBC RBC Hgb Hct MCV MCH RDW [place] % (Auto) [place] # Seg Neutrophils # PT INR APTT Heparin Anti-Xa Level 1.75 H POC ABG pH POC ABG pCO2 POC ABG pO2 Potassium Carbon Dioxide BUN Creatinine Glucose POC Glucose 175 H 143 H Calcium Total Bilirubin Alkaline Phosphatase Troponin T Albumin Urine Creatinine 06/24/18 06/24/18 06/24/18 12:50 14:29 17:08 WBC RBC Hgb Hct MCV MCH RDW [place] % (Auto) [place] # Seg Neutrophils # PT INR APTT Heparin Anti-Xa Level 1.60 H POC ABG pH POC ABG pCO2 POC ABG pO2 Potassium Carbon Dioxide BUN Creatinine Glucose POC Glucose 169 H 138 H Calcium Total Bilirubin Alkaline Phosphatase Troponin T Albumin Urine Creatinine 06/24/18 06/24/18 06/25/18 21:13 21:50 01:45 WBC RBC Hgb Hct MCV MCH RDW [place] % (Auto) [place] # Seg Neutrophils # PT INR APTT Heparin Anti-Xa Level 1.53 H POC ABG pH POC ABG pCO2 POC ABG pO2 Potassium Carbon Dioxide BUN Creatinine Glucose POC Glucose 186 H 177 H Calcium Total Bilirubin Alkaline Phosphatase Troponin T Albumin Urine Creatinine 06/25/18 06/25/18 06/25/18 05:23 05:41 09:55 WBC RBC Hgb Hct MCV MCH RDW [place] % (Auto) [place] # Seg Neutrophils # PT INR APTT Heparin Anti-Xa Level 1.13 H POC ABG pH POC ABG pCO2 POC ABG pO2 Potassium Carbon Dioxide BUN Creatinine Glucose POC Glucose 160 H 181 H Calcium Total Bilirubin Alkaline Phosphatase Troponin T Albumin Urine Creatinine 06/25/18 06/25/18 06/25/18 12:54 14:27 14:33 WBC RBC Hgb Hct MCV MCH RDW [place] % (Auto) [place] # Seg Neutrophils # PT INR APTT Heparin Anti-Xa Level 0.73 H POC ABG pH POC ABG pCO2 POC ABG pO2 Potassium 3.4 L Carbon Dioxide BUN 30 H Creatinine 2.1 H Glucose 220 H POC Glucose 218 H Calcium Total Bilirubin Alkaline Phosphatase Troponin T Albumin Urine Creatinine 06/25/18 06/25/18 06/26/18 17:36 21:40 01:49 WBC RBC Hgb Hct MCV MCH RDW [place] % (Auto) [place] # Seg Neutrophils # PT INR APTT Heparin Anti-Xa Level POC ABG pH POC ABG pCO2 POC ABG pO2 Potassium Carbon Dioxide BUN Creatinine Glucose POC Glucose 219 H 162 H 152 H Calcium Total Bilirubin Alkaline Phosphatase Troponin T Albumin Urine Creatinine 06/26/18 06/26/18 06/26/18 04:43 05:50 09:43 WBC RBC Hgb 8.8 L Hct 27.7 L MCV MCH RDW [place] % (Auto) [place] # Seg Neutrophils # PT INR APTT Heparin Anti-Xa Level POC ABG pH POC ABG pCO2 POC ABG pO2 Potassium Carbon Dioxide BUN Creatinine Glucose POC Glucose 176 H 206 H Calcium Total Bilirubin Alkaline Phosphatase Troponin T Albumin Urine Creatinine 06/26/18 06/26/18 06/26/18 10:14 10:14 12:43 WBC RBC Hgb 9.5 L Hct 30.0 L MCV 69 L MCH 22 L RDW 22.4 H [place] % (Auto) 11.0 H [place] # 1.0 H Seg Neutrophils # PT INR APTT Heparin Anti-Xa Level POC ABG pH 7.311 L POC ABG pCO2 46.6 H POC ABG pO2 Potassium Carbon Dioxide BUN 34 H Creatinine 2.4 H Glucose 194 H POC Glucose Calcium Total Bilirubin Alkaline Phosphatase Troponin T Albumin Urine Creatinine 06/26/18 06/26/18 06/27/18 14:30 17:32 00:00 WBC RBC Hgb Hct MCV MCH RDW [place] % (Auto) [place] # Seg Neutrophils # PT INR APTT Heparin Anti-Xa Level POC ABG pH POC ABG pCO2 POC ABG pO2 Potassium Carbon Dioxide BUN Creatinine Glucose POC Glucose 219 H 228 H 173 H Calcium Total Bilirubin Alkaline Phosphatase Troponin T Albumin Urine Creatinine 06/27/18 06/27/18 06/27/18 01:25 06:06 10:24 WBC RBC Hgb Hct MCV MCH RDW [place] % (Auto) [place] # Seg Neutrophils # PT INR APTT Heparin Anti-Xa Level POC ABG pH POC ABG pCO2 POC ABG pO2 Potassium Carbon Dioxide BUN Creatinine Glucose POC Glucose 178 H 157 H 171 H Calcium Total Bilirubin Alkaline Phosphatase Troponin T Albumin Urine Creatinine 06/27/18 06/27/18 06/27/18 12:24 12:24 18:13 WBC RBC Hgb Hct MCV MCH RDW [place] % (Auto) [place] # Seg Neutrophils # PT INR APTT Heparin Anti-Xa Level POC ABG pH POC ABG pCO2 POC ABG pO2 Potassium Carbon Dioxide BUN Creatinine 3.3 H Glucose POC Glucose 192 H 158 H Calcium Total Bilirubin Alkaline Phosphatase Troponin T Albumin Urine Creatinine 06/27/18 06/27/18 06/27/18 22:23 22:34 Unknown WBC RBC Hgb Hct MCV MCH RDW [place] % (Auto) [place] # Seg Neutrophils # PT INR APTT Heparin Anti-Xa Level 0.13 L POC ABG pH POC ABG pCO2 POC ABG pO2 Potassium Carbon Dioxide BUN Creatinine Glucose POC Glucose 137 H Calcium Total Bilirubin Alkaline Phosphatase Troponin T Albumin Urine Creatinine 192.2 H 06/28/18 06/28/18 06/28/18 03:25 04:06 06:44 WBC RBC Hgb Hct MCV MCH RDW [place] % (Auto) [place] # Seg Neutrophils # PT INR APTT Heparin Anti-Xa Level POC ABG pH POC ABG pCO2 POC ABG pO2 Potassium Carbon Dioxide 19 L BUN 49 H Creatinine 3.8 H Glucose 159 H POC Glucose 149 H 174 H Calcium Total Bilirubin Alkaline Phosphatase Troponin T Albumin Urine Creatinine 06/28/18 06/28/18 06/28/18 08:59 14:32 17:34 WBC RBC Hgb Hct MCV MCH RDW [place] % (Auto) [place] # Seg Neutrophils # PT INR APTT Heparin Anti-Xa Level POC ABG pH POC ABG pCO2 POC ABG pO2 Potassium Carbon Dioxide BUN Creatinine Glucose POC Glucose 167 H 161 H 162 H Calcium Total Bilirubin Alkaline Phosphatase Troponin T Albumin Urine Creatinine 06/28/18 06/29/18 06/29/18 23:03 02:59 04:15 WBC RBC Hgb Hct MCV MCH RDW [place] % (Auto) [place] # Seg Neutrophils # PT INR APTT Heparin Anti-Xa Level POC ABG pH POC ABG pCO2 POC ABG pO2 Potassium Carbon Dioxide 17 L BUN 55 H Creatinine 4.3 H Glucose 141 H POC Glucose 198 H 162 H Calcium Total Bilirubin Alkaline Phosphatase Troponin T Albumin Urine Creatinine 06/29/18 06/29/18 06/29/18 05:41 09:35 15:06 WBC RBC Hgb Hct MCV MCH RDW [place] % (Auto) [place] # Seg Neutrophils # PT INR APTT Heparin Anti-Xa Level 0.18 L POC ABG pH POC ABG pCO2 POC ABG pO2 Potassium Carbon Dioxide BUN Creatinine Glucose POC Glucose 125 H 128 H Calcium Total Bilirubin Alkaline Phosphatase Troponin T Albumin Urine Creatinine 06/29/18 06/29/18 06/29/18 16:26 18:30 21:34 WBC RBC Hgb Hct MCV MCH RDW [place] % (Auto) [place] # Seg Neutrophils # PT INR APTT Heparin Anti-Xa Level POC ABG pH POC ABG pCO2 POC ABG pO2 Potassium Carbon Dioxide BUN Creatinine Glucose POC Glucose 211 H 211 H 114 H Calcium Total Bilirubin Alkaline Phosphatase Troponin T Albumin Urine Creatinine 06/30/18 06/30/18 06/30/18 00:11 01:57 05:43 WBC RBC Hgb Hct MCV MCH RDW [place] % (Auto) [place] # Seg Neutrophils # PT INR APTT Heparin Anti-Xa Level < 0.10 L POC ABG pH POC ABG pCO2 POC ABG pO2 Potassium Carbon Dioxide 17 L BUN 60 H Creatinine 5.0 H Glucose 125 H POC Glucose 131 H Calcium Total Bilirubin Alkaline Phosphatase Troponin T Albumin Urine Creatinine 06/30/18 06/30/18 06:29 09:31 WBC RBC Hgb Hct MCV MCH RDW [place] % (Auto) [place] # Seg Neutrophils # PT INR APTT Heparin Anti-Xa Level POC ABG pH POC ABG pCO2 POC ABG pO2 Potassium Carbon Dioxide BUN Creatinine Glucose POC Glucose 141 H 139 H Calcium Total Bilirubin Alkaline Phosphatase Troponin T Albumin Urine Creatinine Allied health notes reviewed: nursing
[2018-06-30] MEDS: COREG PO SCH ×2 (09:36→21:04)
[2018-06-30] MEDS: SODIUM CHLORIDE FLUSH SYRINGE 10 ML IV SCH ×2 (09:36→21:05)
[2018-06-30] MEDS: PEPCID PO SCH (09:36)
--- NOTE | 2018-06-30 11:28 | XRay Report ---
AP CHEST: HISTORY: Short of breath Mild cardiomegaly, mild pulmonary congestion and small left pleural effusion are identified. Mild compressive atelectasis is suspected at the left lung base, otherwise, the lungs are clear. No pneumothorax. IMPRESSION: Mild CHF.
[2018-06-30 13:17] LABS: INR 1.17 (0.87-1.13)
[2018-06-30] MEDS: PROVENTIL IH SCH ×3 (13:29→21:04)
[2018-06-30] MEDS: LASIX IV SCH (18:47)
[2018-06-30] MEDS: COUMADIN PO SCH (21:04)
[2018-06-30] MEDS: PULMICORT IH SCH (21:04)
[2018-06-30] MEDS: BROVANA NEBU IH SCH (21:04)
[2018-06-30] MEDS: ATIVAN IV PRN (21:06)
[2018-07-01] MEDS: HEPARIN/ 0.45% NACL-25,000 UNIT/500 ML 25,000 UNIT/500 ML BAG IV SCH ×2 (02:43→22:41)
[2018-07-01] MEDS: HumaLOG SUB-Q SCH ×2 (03:11→05:57)
[2018-07-01] MEDS: COMBIGAN 0.2-0.5% OU SCH (03:14)
[2018-07-01] MEDS: PROVENTIL IH SCH ×3 (04:36→12:40)
[2018-07-01] MEDS: LASIX IV SCH (05:53)
--- NOTE | 2018-07-01 07:39 | Progress Note ---
Assessment and Plan Patient sleeping at this time on BIPAP. Patient is on BPAP 13/7, rate 23, FIO2 40%.O2 saturation 99%.Patient tolerating BIPAP good. Patient is on I/V heparin for acute coronary syndrome. - Patient Problems (1) ARF (acute renal failure) with tubular necrosis Current Visit: Yes Status: Acute Plan to address problem: Management as per nephrology. (2) Altered mental status Current Visit: Yes Status: Acute Plan to address problem: Management as per primary care. (3) Seizures Current Visit: Yes Status: Acute Plan to address problem: Management as per neurology. (4) ACS (acute coronary syndrome) Current Visit: No Status: Acute Plan to address problem: Patient is on I/V Heparin. Management as per cardiology. (5) Atelectasis of left lung Current Visit: Yes Status: Acute Plan to address problem: Albuterol/atrovent aerosol treatments q 6 hours prn for shortness of breath and cough. Brovanna/Budesonide aerosol treatments q 12 hours. Respiratory suctioning. (6) Respiratory failure Current Visit: No Status: Acute Qualifiers: Chronicity: acute Respiratory failure complication: hypoxia Plan to address problem: Patient is on BIPAP 13/7, FIO2 40%, Rate 23. Brovanna/Budesonide aerosol treatments q 12 hours. Patient is on I/V Heparin and Po coumadin. Continue famotidine. (7) Metabolic acidosis Current Visit: Yes Status: Acute Plan to address problem: Likely from renal failure. Recommend Bicarb supplementation as per the renal recommendation. Subjective Date of service: 07/01/18 Principal diagnosis: Acute Hypoxemic Resp failure; Pneumonia (Likely aspiration); JULISA; SIRS Interval history: Patient sleeping at this time on BIPAP. Patient is on BPAP 13/7, rate 23, FIO2 40%.O2 saturation 99%.Patient tolerating BIPAP good. Patient is on I/V heparin and PO Coumadin for acute coronary syndrome. Objective Vital Signs - 12hr 06/30/18 06/30/18 06/30/18 20:00 20:01 20:22 Temperature 97.6 F Pulse Rate 67 65 67 Pulse Rate [ Anterior Bilateral Throughout] Pulse Rate [ 67 From Monitor] Respiratory 14 16 18 Rate Respiratory Rate [Anterior Bilateral Throughout] Blood Pressure 129/55 136/68 O2 Sat by Pulse 989 H 99 99 Oximetry 06/30/18 06/30/18 06/30/18 20:31 20:35 20:37 Temperature Pulse Rate 69 68 68 Pulse Rate [ Anterior Bilateral Throughout] Pulse Rate [ From Monitor] Respiratory 24 23 23 Rate Respiratory Rate [Anterior Bilateral Throughout] Blood Pressure 129/55 129/55 129/55 O2 Sat by Pulse 99 99 99 Oximetry 06/30/18 06/30/18 06/30/18 20:42 20:54 21:01 Temperature Pulse Rate 70 Pulse Rate [ 68 65 Anterior Bilateral Throughout] Pulse Rate [ From Monitor] Respiratory 26 H Rate Respiratory 23 23 Rate [Anterior Bilateral Throughout] Blood Pressure 123/57 O2 Sat by Pulse 100 Oximetry 06/30/18 06/30/18 06/30/18 21:04 21:31 22:00 Temperature Pulse Rate 70 67 68 Pulse Rate [ Anterior Bilateral Throughout] Pulse Rate [ From Monitor] Respiratory 20 17 Rate Respiratory Rate [Anterior Bilateral Throughout] Blood Pressure 123/57 129/55 123/57 O2 Sat by Pulse 100 100 Oximetry 06/30/18 06/30/18 06/30/18 22:31 23:01 23:31 Temperature Pulse Rate 71 70 69 Pulse Rate [ Anterior Bilateral Throughout] Pulse Rate [ From Monitor] Respiratory 25 H 25 H 13 Rate Respiratory Rate [Anterior Bilateral Throughout] Blood Pressure 123/57 133/59 133/59 O2 Sat by Pulse 100 99 99 Oximetry 06/30/18 07/01/18 07/01/18 23:45 00:00 00:01 Temperature 97.7 F Pulse Rate 69 68 71 Pulse Rate [ Anterior Bilateral Throughout] Pulse Rate [ 69 From Monitor] Respiratory 26 H 21 28 H Rate Respiratory Rate [Anterior Bilateral Throughout] Blood Pressure 133/59 135/56 O2 Sat by Pulse 99 98 99 Oximetry 07/01/18 07/01/18 07/01/18 00:31 01:01 01:31 Temperature Pulse Rate 69 69 72 Pulse Rate [ Anterior Bilateral Throughout] Pulse Rate [ From Monitor] Respiratory 26 H 30 H 29 H Rate Respiratory Rate [Anterior Bilateral Throughout] Blood Pressure 133/59 141/60 141/60 O2 Sat by Pulse 98 99 98 Oximetry 07/01/18 07/01/18 03:40 03:50 Temperature Pulse Rate 67 Pulse Rate [ 67 63 Anterior Bilateral Throughout] Pulse Rate [ From Monitor] Respiratory 25 H Rate Respiratory 25 H 25 H Rate [Anterior Bilateral Throughout] Blood Pressure 139/59 O2 Sat by Pulse 99 Oximetry Constitutional: no acute distress, asleep, other (elderly looking AAF normocephalic and atraumatic with ETT to MVS and mildly increased resp effort) Eyes: non-icteric ENT: oropharynx moist, other (extubated) Neck: supple, no lymphadenopathy, no JVD, other (no thyromegaly) Effort: mildly labored Ascultation: Bilateral: diminished breath sounds, wheezes (mainly upper air ways.), rhonchi Percussion: Bilateral: not dull Cardiovascular: regular rate and rhythm Gastrointestinal: normoactive bowel sounds, soft, tender, non-distended Integumentary: normal Extremities: no cyanosis, no edema, pulses normal, no ischemia or petechiae Neurologic: normal mental status, non-focal exam (grossly), pupils equal and round, CN II-XII normal Psychiatric: anxious CBC and BMP: 06/26/18 10:14 07/01/18 06:03 ABG, PT/INR, D-dimer: ABG POC ABG pH 7.292 (7.35-7.45) L 06/30/18 12:16 POC ABG pCO2 34.9 (35-45) L 06/30/18 12:16 POC ABG pO2 79 (80-105) L 06/30/18 12:16 POC ABG HCO3 16.9 06/30/18 12:16 POC ABG Total CO2 18 06/30/18 12:16 POC ABG O2 Sat 94 06/30/18 12:16 PT/INR, D-dimer PT 15.3 Sec. (12.2-14.9) H 06/30/18 12:36 INR 1.17 (0.87-1.13) H 06/30/18 12:36 Abnormal lab findings: Abnormal Labs 06/21/18 06/21/18 06/21/18 14:02 14:06 14:06 WBC RBC Hgb Hct MCV 71 L MCH 22 L RDW 21.1 H [place] % (Auto) [place] # Seg Neutrophils # PT 18.9 H INR 1.54 H APTT Heparin Anti-Xa Level POC ABG pH POC ABG pCO2 POC ABG pO2 Potassium Carbon Dioxide BUN Creatinine Glucose POC Glucose 250 H Calcium Total Bilirubin Alkaline Phosphatase Troponin T Albumin Urine Creatinine 06/21/18 06/21/1806/21/18 14:06 14:23 21:17 WBC RBC Hgb Hct MCV MCH RDW [place] % (Auto) [place] # Seg Neutrophils # PT INR APTT Heparin Anti-Xa Level POC ABG pH 7.499 H 7.600 H POC ABG pCO2 34.8 L 24.9 L POC ABG pO2 342 H 176 H Potassium Carbon Dioxide BUN Creatinine 1.5 H Glucose 214 H POC Glucose Calcium Total Bilirubin 1.30 H Alkaline Phosphatase 174 H Troponin T 0.050 H Albumin 3.1 L Urine Creatinine 06/22/18 06/22/18 06/22/18 03:17 03:17 05:27 WBC 11.5 H RBC 5.07 H Hgb Hct MCV 69 L MCH 21 L RDW 21.9 H [place] % (Auto) 9.8 H [place] # 1.1 H Seg Neutrophils # 7.9 H PT INR APTT Heparin Anti-Xa Level POC ABG pH 7.539 H POC ABG pCO2 30.1 L POC ABG pO2 170 H Potassium Carbon Dioxide BUN Creatinine 1.5 H Glucose 164 H POC Glucose Calcium Total Bilirubin Alkaline Phosphatase Troponin T Albumin Urine Creatinine 06/22/18 06/22/18 06/22/18 17:21 17:50 19:46 WBC RBC Hgb Hct MCV MCH RDW [place] % (Auto) [place] # Seg Neutrophils # PT 17.5 H INR 1.39 H APTT 22.8 L Heparin Anti-Xa Level 1.64 H POC ABG pH POC ABG pCO2 POC ABG pO2 Potassium Carbon Dioxide BUN Creatinine Glucose POC Glucose 240 H Calcium Total Bilirubin Alkaline Phosphatase Troponin T Albumin Urine Creatinine 06/22/18 06/23/18 06/23/18 23:47 01:44 04:14 WBC RBC Hgb Hct MCV MCH RDW [place] % (Auto) [place] # Seg Neutrophils # PT INR APTT Heparin Anti-Xa Level 0.10 L POC ABG pH POC ABG pCO2 POC ABG pO2 Potassium Carbon Dioxide BUN Creatinine Glucose POC Glucose 240 H 229 H Calcium Total Bilirubin Alkaline Phosphatase Troponin T Albumin Urine Creatinine 06/23/18 06/23/18 06/23/18 05:34 09:24 10:24 WBC RBC Hgb Hct MCV MCH RDW [place] % (Auto) [place] # Seg Neutrophils # PT INR APTT Heparin Anti-Xa Level POC ABG pH 7.519 H POC ABG pCO2 POC ABG pO2 133 H Potassium Carbon Dioxide BUN Creatinine Glucose POC Glucose 220 H 183 H Calcium Total Bilirubin Alkaline Phosphatase Troponin T Albumin Urine Creatinine 06/23/18 06/23/18 06/23/18 12:39 13:32 14:08 WBC RBC Hgb Hct MCV MCH RDW [place] % (Auto) [place] # Seg Neutrophils # PT INR APTT Heparin Anti-Xa Level > 2.00 H POC ABG pH POC ABG pCO2 POC ABG pO2 Potassium Carbon Dioxide BUN Creatinine Glucose POC Glucose 151 H 140 H Calcium Total Bilirubin Alkaline Phosphatase Troponin T Albumin Urine Creatinine 06/23/18 06/23/18 06/23/18 18:00 19:33 21:31 WBC RBC Hgb Hct MCV MCH RDW [place] % (Auto) [place] # Seg Neutrophils # PT INR APTT Heparin Anti-Xa Level 1.74 H POC ABG pH POC ABG pCO2 POC ABG pO2 Potassium Carbon Dioxide BUN Creatinine Glucose POC Glucose 141 H 153 H Calcium Total Bilirubin Alkaline Phosphatase Troponin T Albumin Urine Creatinine 06/24/18 06/24/18 06/24/18 02:36 03:55 03:55 WBC 12.9 H RBC Hgb 9.9 L Hct MCV 70 L MCH 22 L RDW 22.1 H [place] % (Auto) [place] # Seg Neutrophils # PT INR APTT Heparin Anti-Xa Level POC ABG pH POC ABG pCO2 POC ABG pO2 Potassium Carbon Dioxide BUN 25 H Creatinine 1.6 H Glucose 151 H POC Glucose 162 H Calcium 8.2 L Total Bilirubin Alkaline Phosphatase Troponin T Albumin Urine Creatinine 06/24/18 06/24/18 06/24/18 03:55 05:01 09:34 WBC RBC Hgb Hct MCV MCH RDW [place] % (Auto) [place] # Seg Neutrophils # PT INR APTT Heparin Anti-Xa Level 1.75 H POC ABG pH POC ABG pCO2 POC ABG pO2 Potassium Carbon Dioxide BUN Creatinine Glucose POC Glucose 175 H 143 H Calcium Total Bilirubin Alkaline Phosphatase Troponin T Albumin Urine Creatinine 06/24/18 06/24/18 06/24/18 12:50 14:29 17:08 WBC RBC Hgb Hct MCV MCH RDW [place] % (Auto) [place] # Seg Neutrophils # PT INR APTT Heparin Anti-Xa Level 1.60 H POC ABG pH POC ABG pCO2 POC ABG pO2 Potassium Carbon Dioxide BUN Creatinine Glucose POC Glucose 169 H 138 H Calcium Total Bilirubin Alkaline Phosphatase Troponin T Albumin Urine Creatinine 06/24/18 06/24/18 06/25/18 21:13 21:50 01:45 WBC RBC Hgb Hct MCV MCH RDW [place] % (Auto) [place] # Seg Neutrophils # PT INR APTT Heparin Anti-Xa Level 1.53 H POC ABG pH POC ABG pCO2 POC ABG pO2 Potassium Carbon Dioxide BUN Creatinine Glucose POC Glucose 186 H 177 H Calcium Total Bilirubin Alkaline Phosphatase Troponin T Albumin Urine Creatinine 06/25/18 06/25/18 06/25/18 05:23 05:41 09:55 WBC RBC Hgb Hct MCV MCH RDW [place] % (Auto) [place] # Seg Neutrophils # PT INR APTT Heparin Anti-Xa Level 1.13 H POC ABG pH POC ABG pCO2 POC ABG pO2 Potassium Carbon Dioxide BUN Creatinine Glucose POC Glucose 160 H 181 H Calcium Total Bilirubin Alkaline Phosphatase Troponin T Albumin Urine Creatinine 06/25/18 06/25/18 06/25/18 12:54 14:27 14:33 WBC RBC Hgb Hct MCV MCH RDW [place] % (Auto) [place] # Seg Neutrophils # PT INR APTT Heparin Anti-Xa Level 0.73 H POC ABG pH POC ABG pCO2 POC ABG pO2 Potassium 3.4 L Carbon Dioxide BUN 30 H Creatinine 2.1 H Glucose 220 H POC Glucose 218 H Calcium Total Bilirubin Alkaline Phosphatase Troponin T Albumin Urine Creatinine 06/25/18 06/25/18 06/26/18 17:36 21:40 01:49 WBC RBC Hgb Hct MCV MCH RDW [place] % (Auto) [place] # Seg Neutrophils # PT INR APTT Heparin Anti-Xa Level POC ABG pH POC ABG pCO2 POC ABG pO2 Potassium Carbon Dioxide BUN Creatinine Glucose POC Glucose 219 H 162 H 152 H Calcium Total Bilirubin Alkaline Phosphatase Troponin T Albumin Urine Creatinine 06/26/18 06/26/18 06/26/18 04:43 05:50 09:43 WBC RBC Hgb 8.8 L Hct 27.7 L MCV MCH RDW [place] % (Auto) [place] # Seg Neutrophils # PT INR APTT Heparin Anti-Xa Level POC ABG pH POC ABG pCO2 POC ABG pO2 Potassium Carbon Dioxide BUN Creatinine Glucose POC Glucose 176 H 206 H Calcium Total Bilirubin Alkaline Phosphatase Troponin T Albumin Urine Creatinine 06/26/18 06/26/18 06/26/18 10:14 10:14 12:43 WBC RBC Hgb 9.5 L Hct 30.0 L MCV 69 L MCH 22 L RDW 22.4 H [place] % (Auto) 11.0 H [place] # 1.0 H Seg Neutrophils # PT INR APTT Heparin Anti-Xa Level POC ABG pH 7.311 L POC ABG pCO2 46.6 H POC ABG pO2 Potassium Carbon Dioxide BUN 34 H Creatinine 2.4 H Glucose 194 H POC Glucose Calcium Total Bilirubin Alkaline Phosphatase Troponin T Albumin Urine Creatinine 06/26/18 06/26/18 06/27/18 14:30 17:32 00:00 WBC RBC Hgb Hct MCV MCH RDW [place] % (Auto) [place] # Seg Neutrophils # PT INR APTT Heparin Anti-Xa Level POC ABG pH POC ABG pCO2 POC ABG pO2 Potassium Carbon Dioxide BUN Creatinine Glucose POC Glucose 219 H 228 H 173 H Calcium Total Bilirubin Alkaline Phosphatase Troponin T Albumin Urine Creatinine 06/27/18 06/27/18 06/27/18 01:25 06:06 10:24 WBC RBC Hgb Hct MCV MCH RDW [place] % (Auto) [place] # Seg Neutrophils # PT INR APTT Heparin Anti-Xa Level POC ABG pH POC ABG pCO2 POC ABG pO2 Potassium Carbon Dioxide BUN Creatinine Glucose POC Glucose 178 H 157 H 171 H Calcium Total Bilirubin Alkaline Phosphatase Troponin T Albumin Urine Creatinine 06/27/18 06/27/18 06/27/18 12:24 12:24 18:13 WBC RBC Hgb Hct MCV MCH RDW [place] % (Auto) [place] # Seg Neutrophils # PT INR APTT Heparin Anti-Xa Level POC ABG pH POC ABG pCO2 POC ABG pO2 Potassium Carbon Dioxide BUN Creatinine 3.3 H Glucose POC Glucose 192 H 158 H Calcium Total Bilirubin Alkaline Phosphatase Troponin T Albumin Urine Creatinine 06/27/18 06/27/18 06/27/18 22:23 22:34 Unknown WBC RBC Hgb Hct MCV MCH RDW [place] % (Auto) [place] # Seg Neutrophils # PT INR APTT Heparin Anti-Xa Level 0.13 L POC ABG pH POC ABG pCO2 POC ABG pO2 Potassium Carbon Dioxide BUN Creatinine Glucose POC Glucose 137 H Calcium Total Bilirubin Alkaline Phosphatase Troponin T Albumin Urine Creatinine 192.2 H 06/28/18 06/28/18 06/28/18 03:25 04:06 06:44 WBC RBC Hgb Hct MCV MCH RDW [place] % (Auto) [place] # Seg Neutrophils # PT INR APTT Heparin Anti-Xa Level POC ABG pH POC ABG pCO2 POC ABG pO2 Potassium Carbon Dioxide 19 L BUN 49 H Creatinine 3.8 H Glucose 159 H POC Glucose 149 H 174 H Calcium Total Bilirubin Alkaline Phosphatase Troponin T Albumin Urine Creatinine 06/28/18 06/28/18 06/28/18 08:59 14:32 17:34 WBC RBC Hgb Hct MCV MCH RDW [place] % (Auto) [place] # Seg Neutrophils # PT INR APTT Heparin Anti-Xa Level POC ABG pH POC ABG pCO2 POC ABG pO2 Potassium Carbon Dioxide BUN Creatinine Glucose POC Glucose 167 H 161 H 162 H Calcium Total Bilirubin Alkaline Phosphatase Troponin T Albumin Urine Creatinine 06/28/18 06/29/18 06/29/18 23:03 02:59 04:15 WBC RBC Hgb Hct MCV MCH RDW [place] % (Auto) [place] # Seg Neutrophils # PT INR APTT Heparin Anti-Xa Level POC ABG pH POC ABG pCO2 POC ABG pO2 Potassium Carbon Dioxide 17 L BUN 55 H Creatinine 4.3 H Glucose 141 H POC Glucose 198 H 162 H Calcium Total Bilirubin Alkaline Phosphatase Troponin T Albumin Urine Creatinine 06/29/18 06/29/18 06/29/18 05:41 09:35 15:06 WBC RBC Hgb Hct MCV MCH RDW [place] % (Auto) [place] # Seg Neutrophils # PT INR APTT Heparin Anti-Xa Level 0.18 L POC ABG pH POC ABG pCO2 POC ABG pO2 Potassium Carbon Dioxide BUN Creatinine Glucose POC Glucose 125 H 128 H Calcium Total Bilirubin Alkaline Phosphatase Troponin T Albumin Urine Creatinine 06/29/18 06/29/18 06/29/18 16:26 18:30 21:34 WBC RBC Hgb Hct MCV MCH RDW [place] % (Auto) [place] # Seg Neutrophils # PT INR APTT Heparin Anti-Xa Level POC ABG pH POC ABG pCO2 POC ABG pO2 Potassium Carbon Dioxide BUN Creatinine Glucose POC Glucose 211 H 211 H 114 H Calcium Total Bilirubin Alkaline Phosphatase Troponin T Albumin Urine Creatinine 06/30/18 06/30/18 06/30/18 00:11 01:57 05:43 WBC RBC Hgb Hct MCV MCH RDW [place] % (Auto) [place] # Seg Neutrophils # PT INR APTT Heparin Anti-Xa Level < 0.10 L POC ABG pH POC ABG pCO2 POC ABG pO2 Potassium Carbon Dioxide 17 L BUN 60 H Creatinine 5.0 H Glucose 125 H POC Glucose 131 H Calcium Total Bilirubin Alkaline Phosphatase Troponin T Albumin Urine Creatinine 01/02/0806/30/18 06/30/18 06:29 09:31 12:16 WBC RBC Hgb Hct MCV MCH RDW [place] % (Auto) [place] # Seg Neutrophils # PT INR APTT Heparin Anti-Xa Level POC ABG pH 7.292 L POC ABG pCO2 34.9 L POC ABG pO2 79 L Potassium Carbon Dioxide BUN Creatinine Glucose POC Glucose 141 H 139 H Calcium Total Bilirubin Alkaline Phosphatase Troponin T Albumin Urine Creatinine 06/30/18 06/30/18 07/01/18 12:36 18:53 02:44 WBC RBC Hgb Hct MCV MCH RDW [place] % (Auto) [place] # Seg Neutrophils # PT 15.3 H INR 1.17 H APTT Heparin Anti-Xa Level 0.83 H POC ABG pH POC ABG pCO2 POC ABG pO2 Potassium Carbon Dioxide BUN Creatinine Glucose POC Glucose 183 H Calcium Total Bilirubin Alkaline Phosphatase Troponin T Albumin Urine Creatinine 07/01/18 06:03 WBC RBC Hgb Hct MCV MCH RDW [place] % (Auto) [place] # Seg Neutrophils # PT INR APTT Heparin Anti-Xa Level POC ABG pH POC ABG pCO2 POC ABG pO2 Potassium Carbon Dioxide 15 L BUN 63 H Creatinine 5.6 H Glucose 145 H POC Glucose Calcium Total Bilirubin Alkaline Phosphatase Troponin T Albumin Urine Creatinine Chest x-ray: report reviewed (Reported mild CHF.), image reviewed Allied health notes reviewed: nursing
[2018-07-01 07:54] LABS: INR 1.3 (0.87-1.13)
--- NOTE | 2018-07-01 08:44 | Progress Note ---
Assessment and Plan Impression * Acute on chronic renal failure. Serum creatinine was 1.7 in March 2018 * Status post respiratory failure * Seizure disorder * Hypertension * Diabetes * Dementia * History of CVA * Metabolic acidosis Recommendations * worsening renal function today * co2 noted, acidosis is worse * will initiate renal replacement therapy today after access placed * Patient may have ATN. * negative urine for eosinophils * Renal ultrasound is normal * continue diuresis * Check office records regarding her previous renal status and workup * Avoid nephrotoxins * Monitor fluid status and electrolytes closely Subjective Date of service: 07/01/18 Principal diagnosis: Acute Hypoxemic Resp failure; Pneumonia (Likely aspiration); JULISA; SIRS Interval history: resting in bed today Objective - Exam Narrative Exam: General appearance: well-developed, well-nourished, appears stated age EENT: PERRL, mucous membranes moist Neck: no JVD, no thyromegaly, no carotid bruit, supple Respiratory: Present: [facility]: regular, normal heart rate, S1S2, no murmurs Gastrointestinal: normal, normoactive bowel sounds Integumentary: no rash, other (1+ edema) - Vital Signs Vital signs: Vital Signs - 12hr 06/30/18 06/30/18 06/30/18 20:54 21:01 21:04 Temperature Pulse Rate 70 70 Pulse Rate [ 65 Anterior Bilateral Throughout] Pulse Rate [ From Monitor] Respiratory 26 H Rate Respiratory 23 Rate [Anterior Bilateral Throughout] Blood Pressure 123/57 123/57 O2 Sat by Pulse 100 Oximetry 06/30/18 06/30/18 06/30/18 21:31 22:00 22:31 Temperature Pulse Rate 67 68 71 Pulse Rate [ Anterior Bilateral Throughout] Pulse Rate [ From Monitor] Respiratory 20 17 25 H Rate Respiratory Rate [Anterior Bilateral Throughout] Blood Pressure 129/55 123/57 123/57 O2 Sat by Pulse 100 100 100 Oximetry 06/30/18 06/30/18 06/30/18 23:01 23:31 23:45 Temperature Pulse Rate 70 69 69 Pulse Rate [ Anterior Bilateral Throughout] Pulse Rate [ From Monitor] Respiratory 25 H 13 26 H Rate Respiratory Rate [Anterior Bilateral Throughout] Blood Pressure 133/59 133/59 133/59 O2 Sat by Pulse 99 99 99 Oximetry 07/01/18 07/01/18 07/01/18 00:00 00:01 00:31 Temperature 97.7 F Pulse Rate 68 71 69 Pulse Rate [ Anterior Bilateral Throughout] Pulse Rate [ 69 From Monitor] Respiratory 21 28 H 26 H Rate Respiratory Rate [Anterior Bilateral Throughout] Blood Pressure 135/56 133/59 O2 Sat by Pulse 98 99 98 Oximetry 07/01/18 07/01/18 07/01/18 01:01 01:31 02:01 Temperature Pulse Rate 69 72 72 Pulse Rate [ Anterior Bilateral Throughout] Pulse Rate [ From Monitor] Respiratory 30 H 29 H 31 H Rate Respiratory Rate [Anterior Bilateral Throughout] Blood Pressure 141/60 141/60 138/70 O2 Sat by Pulse 99 98 98 Oximetry 07/01/18 07/01/18 07/01/18 02:31 03:01 03:31 Temperature Pulse Rate 69 73 68 Pulse Rate [ Anterior Bilateral Throughout] Pulse Rate [ From Monitor] Respiratory 30 H 33 H 27 H Rate Respiratory Rate [Anterior Bilateral Throughout] Blood Pressure 138/70 139/59 139/59 O2 Sat by Pulse 99 98 98 Oximetry 07/01/18 07/01/18 07/01/18 03:40 03:50 04:00 Temperature 97.8 F Pulse Rate 67 69 Pulse Rate [ 67 63 Anterior Bilateral Throughout] Pulse Rate [ 69 From Monitor] Respiratory 25 H 21 Rate Respiratory 25 H 25 H Rate [Anterior Bilateral Throughout] Blood Pressure 139/59 O2 Sat by Pulse 99 98 Oximetry 07/01/18 07/01/18 07/01/18 04:01 04:31 05:01 Temperature Pulse Rate 67 67 69 Pulse Rate [ Anterior Bilateral Throughout] Pulse Rate [ From Monitor] Respiratory 24 21 15 Rate Respiratory Rate [Anterior Bilateral Throughout] Blood Pressure 121/58 121/58 130/59 O2 Sat by Pulse 98 98 99 Oximetry 07/01/18 07/01/18 07/01/18 05:31 06:01 06:31 Temperature Pulse Rate 65 65 67 Pulse Rate [ Anterior Bilateral Throughout] Pulse Rate [ From Monitor] Respiratory 23 25 H 23 Rate Respiratory Rate [Anterior Bilateral Throughout] Blood Pressure 121/58 144/57 144/57 O2 Sat by Pulse 99 98 98 Oximetry 07/01/18 07/01/18 07:00 07:30 Temperature Pulse Rate 70 69 Pulse Rate [ Anterior Bilateral Throughout] Pulse Rate [ From Monitor] Respiratory 24 16 Rate Respiratory Rate [Anterior Bilateral Throughout] Blood Pressure 148/64 148/64 O2 Sat by Pulse 100 98 Oximetry - Lab 06/26/18 10:14 07/01/18 06:03 Most recent lab results Calcium 9.0 mg/dL (8.4-10.2) 07/01/18 06:03 Magnesium 1.70 mg/dL (1.7-2.3) 06/21/18 14:06 Urine Creatinine 192.2 mg/dL (0.1-20.0) H 06/27/18 Unknown Urine Sodium 11 mmol/L 06/27/18 Unknown Medications & Allergies - Medications Allergies/Adverse Reactions: Allergies No Known Allergies Allergy (Unverified 04/06/18 11:56) Home Medications: Home Medications Medication Instructions Recorded Confirmed Last Taken Type Acetaminophen [Acetaminophen TAB] 650 mg PO Q4H PRN 04/06/18 06/21/18 Unknown History Apixaban [Eliquis] 5 mg PO Q12H 04/06/18 06/21/18 Unknown History AtorvaSTATin [Lipitor] 40 mg PO QHS 04/06/18 06/21/18 Unknown History Brimonidine Tartrate/Timolol 1 drop OU Q12H 04/06/18 06/21/18 Unknown History [Combigan 0.2%-0.5% Eye Drops] Donepezil HCl [Aricept] 10 mg PO HS 04/06/18 06/21/18 Unknown History Insulin Glargine [Lantus VIAL] 50 units SUB-Q QHS 04/06/18 06/21/18 Unknown History Insulin Lispro [HumaLOG VIAL] 9 units SUB-Q AC 04/06/18 06/21/18 Unknown History Lispro Insulin [Humalog] See Protocol SUB-Q ACHS 04/06/18 06/21/18 Unknown History Mirtazapine [Remeron] 15 mg PO HS 04/06/18 06/21/18 Unknown History levETIRAcetam [Keppra TAB] 1,000 mg PO Q12H 04/06/18 06/21/18 Unknown History Furosemide [Lasix TAB] 40 mg PO QDAY #30 tablet 04/10/18 06/21/18 Unknown Rx HYDROcodone/APAP 5-325 [[place] 1 each PO Q8HR PRN #7 tablet 04/10/18 06/21/18 Unknown Rx 5-325 mg TAB] Losartan [Cozaar] 25 mg PO QDAY #30 tablet 04/10/18 06/21/18 Unknown Rx Metoprolol Succinate [Toprol Xl] 25 mg PO DAILY #30 tab.er.24h 04/10/18 06/21/18 Unknown Rx Active Medications: Generic Name Dose Route Start Last Admin Trade Name Freq PRN Reason Stop Dose Admin Albuterol 2.5 mg 06/30/18 12:00 07/01/18 04:36 Proventil IH 2.5 mg Q4HRT RICKY Administration Amlodipine Besylate 10 mg 06/22/18 19:00 06/30/18 09:35 Norvasc PO 10 mg QDAY RICKY Administration Arformoterol Tartrate 15 mcg 06/30/18 20:00 06/30/18 21:04 Brovana Nebu IH 15 mcg Q12HRT RICKY Administration Atorvastatin Calcium 40 mg 06/22/18 22:00 06/30/18 21:04 Lipitor PO 40 mg QHS RICKY Administration Brimonidine/Timolol 1 drops 06/22/18 16:00 07/01/18 03:14 Combigan 0.2-0.5% OU 1 drops Q12H RICKY Administration Budesonide 0.5 mg 06/30/18 20:00 06/30/18 21:04 Pulmicort IH 0.5 mg Q12HRT RICKY Administration Carvedilol 12.5 mg 06/22/18 22:00 06/30/18 21:04 Coreg PO 12.5 mg BID RICKY Administration Famotidine 20 mg 06/24/18 10:00 06/30/18 09:36 Pepcid PO 20 mg QDAY RICKY Administration Furosemide 40 mg 06/30/18 18:00 07/01/18 05:53 Lasix IV 40 mg 0600,1800 RICKY Administration Hydralazine HCl 20 mg 06/22/18 16:03 06/22/18 17:00 Apresoline IV 20 mg Q6H PRN Administration HTN Hydrophilic Ointment 1 applic 06/21/18 15:50 Vaseline Lip Therapy TP Q2HR PRN Dry Lips Heparin Sodium/Sodium Chloride 25,000 unit in 500 mls @ 27 mls/hr 06/22/18 17:00 07/01/18 03:43 Heparin/ 0.45% Nacl-25,000 Unit/500 Ml IV 1,350 units/hr TITR RICKY 27 mls/hr Titration Protocol 1,350 UNITS/HR Sodium Chloride 100 mls @ 999 mls/hr 07/01/18 08:41 Nacl 0.9% IV DANNA PRN Hypotension Insulin Human Lispro 0 unit 06/23/18 02:00 07/01/18 05:57 Humalog SUB-Q Not Given Q4HR [facility] Protocol Labetalol HCl 20 mg 06/22/18 18:00 06/22/18 18:55 Normodyne IV 20 mg Q4H PRN Administration BP >160/100; hold for HR <60 Lorazepam 0.5 mg 06/30/18 18:36 06/30/18 21:06 Ativan IV 0.5 mg Q8H PRN Administration Agitation Multi-Ingred Cream/Lotion/Oil/Oint 1 applic 06/21/18 15:50 Artificial Tears Ophth Oint OU Q4HR PRN Dry Eye(s) Sodium Chloride 10 ml 06/21/18 22:00 06/30/18 21:05 Sodium Chloride Flush Syringe 10 Ml IV 10 ml BID RICKY Administration Sodium Chloride 10 ml 06/21/18 15:39 06/22/18 06:27 Sodium Chloride Flush Syringe 10 Ml IV 10 ml PRN PRN Administration LINE FLUSH Warfarin Sodium 7.5 mg 06/30/18 20:00 06/30/18 21:04 Coumadin PO 7.5 mg DAILY@1700 [facility] Administration
[2018-07-01] MEDS: BROVANA NEBU IH SCH ×2 (08:50→20:23)
[2018-07-01] MEDS: PULMICORT IH SCH ×2 (08:50→20:23)
[2018-07-01] MEDS ORDERED: NACL 0.9% 100 ML IV PRN (09:00)
--- NOTE | 2018-07-01 11:35 | Progress Note ---
Assessment and Plan Assessment and plan: Patient is a 68 yo woman from [facility] with a history of seizure disorder, type 2 DM, hypertension, dyslipidemia, CVA, DVT on Eliquis and Dementia who presented to [facility] on 06/21/18 with Seizures and was Intubated. ARF, ATN +vasomotor nephropathy, poa, worsening: Nephrology following-Renal function worsening, Cr up to 5.6, Hemodialysis to start today Acute respiratory failure, s/p ETT intubated (on admission) 06/21/18 >96 hours and extubated 06/26/18: continue o2 support, d/w Dr. Fish, Pulmonology regarding the stridor Status epilepticus: treated with keppra, EEG reviewed again with Dr. Haque Hypertensive Urgency, resolved: iv antihypertensives as needed H/o CVA, she is weaker on the right, ?old RHP: MRI brain still pending since 06/23/18, hold today, breathing too labored. SIRS with organ dysfunction, poa as above Acute Metabolic Encephalopathy per above History of DVT on Eliquis, v/q negative for PE. Continue iv heparin drip with close monitoring, and hold Eliquis because renal failure. Day 2 of Warfarin bridge Respiratory Stidor (developed 06/30/18) most likley due to fluid overload, oliguria and worsening renal failure: treat with racemic epi, nebs and started bipap, given iv lasix with little urine output obn 06/30/18 History Interval history: Patient was seen and examined. Follow-up on current diagnosis of sz. Overnight uneventful. still on bipap, Patient appears to have expressive aphasia. Imaging, nursing note, chart, labs and old chart reviewed. Discussed with patient. Hospitalist Physical - Physical exam Narrative exam: Gen: chronically disable, NAD, Awake, Alert, Orientated x 2, missed year HEENT: NCAT, EOMI, PERRL, OP Clear Neck: supple, no adenopathy, no thyromegaly, no JVD CVS/Heart: RRR, normal S1S2, pulses present bilaterally Chest/Lungs: CTA B, Symmetrical chest expansion, good air entry bilaterally GI/Abdomen: soft, NTND, good bowel sounds, no guarding or rebound /Bladder: no suprapubic tenderness, no CVA or paraspinal tenderness Extermity/Skin: no c/c/e, no obvious rash MSK: right side weaker than left, but spontaneous movement x 4 Neuro: CN 2-12 grossly intact, no new focal deficits, garbled speech Psych: calm - Constitutional Vitals: Temp Pulse Resp BP Pulse Ox 97.8 F 66 22 122/60 96 07/01/18 04:00 07/01/18 08:53 07/01/18 08:53 07/01/18 08:53 07/01/18 08:53 General appearance: Present: obese. Absent: severe distress Results - Labs CBC & Chem 7: 06/26/18 10:14 07/01/18 06:03 Labs: Laboratory Last Values WBC 9.5 K/mm3 (4.5-11.0) 06/26/18 10:14 RBC 4.33 M/mm3 (3.65-5.03) 06/26/18 10:14 Hgb 9.5 gm/dl (10.1-14.3) L 06/26/18 10:14 Hct 30.0 % (30.3-42.9) L 06/26/18 10:14 MCV 69 fl (79-97) L 06/26/18 10:14 MCH 22 pg (28-32) L 06/26/18 10:14 MCHC 32 % (30-34) 06/26/18 10:14 RDW 22.4 % (13.2-15.2) H 06/26/18 10:14 Plt Count 214 K/mm3 (140-440) 06/26/18 10:14 Lymph % (Auto) 24.5 % (13.4-35.0) 06/26/18 10:14 [place] % (Auto) 11.0 % (0.0-7.3) H 06/26/18 10:14 Eos % (Auto) 3.7 % (0.0-4.3) 06/26/18 10:14 Baso % (Auto) 0.2 % (0.0-1.8) 06/26/18 10:14 Lymph # 2.3 K/mm3 (1.2-5.4) 06/26/18 10:14 [place] # 1.0 K/mm3 (0.0-0.8) H 06/26/18 10:14 Eos # 0.4 K/mm3 (0.0-0.4) 06/26/18 10:14 Baso # 0.0 K/mm3 (0.0-0.1) 06/26/18 10:14 Seg Neutrophils % 60.6 % (40.0-70.0) 06/26/18 10:14 Seg Neutrophils # 5.8 K/mm3 (1.8-7.7) 06/26/18 10:14 PT 16.6 Sec. (12.2-14.9) H 07/01/18 07:22 INR 1.30 (0.87-1.13) H 07/01/18 07:22 APTT 22.8 Sec. (24.2-36.6) L 06/22/18 17:21 Heparin Anti-Xa Level 0.89 U.I./ml (0.3-0.7) H 07/01/18 09:37 POC ABG pH 7.292 (7.35-7.45) L 06/30/18 12:16 POC ABG pCO2 34.9 (35-45) L 06/30/18 12:16 POC ABG pO2 79 (80-105) L 06/30/18 12:16 POC ABG HCO3 16.9 06/30/18 12:16 POC ABG Total CO2 18 06/30/18 12:16 POC ABG O2 Sat 94 06/30/18 12:16 POC ABG Base Excess -10 06/30/18 12:16 FiO2 40 % 06/30/18 12:16 Sodium 139 mmol/L (137-145) 07/01/18 06:03 Potassium 4.8 mmol/L (3.6-5.0) 07/01/18 06:03 Chloride 101.0 mmol/L (98-107) 07/01/18 06:03 Carbon Dioxide 15 mmol/L (22-30) L 07/01/18 06:03 Anion Gap 28 mmol/L 07/01/18 06:03 BUN 63 mg/dL (7-17) H 07/01/18 06:03 Creatinine 5.6 mg/dL (0.7-1.2) H 07/01/18 06:03 Estimated GFR 8 ml/min 07/01/18 06:03 BUN/Creatinine Ratio 11 % 07/01/18 06:03 Glucose 145 mg/dL (65-100) H 07/01/18 06:03 POC Glucose 147 (70-105) H 07/01/18 10:42 Calcium 9.0 mg/dL (8.4-10.2) 07/01/18 06:03 Magnesium 1.70 mg/dL (1.7-2.3) 06/21/18 14:06 Total Bilirubin 1.30 mg/dL (0.1-1.2) H 06/21/18 14:06 AST 19 units/L (5-40) 06/21/18 14:06 ALT 17 units/L (7-56) 06/21/18 14:06 Alkaline Phosphatase 174 units/L (35-129) H 06/21/18 14:06 Total Creatine Kinase 102 units/L (30-135) 06/21/18 14:06 CK-MB (CK-2) 2.2 ng/mL (0.0-4.0) 06/21/18 14:06 CK-MB (CK-2) Rel Index 2.1 (0-4) 06/21/18 14:06 Troponin T 0.050 ng/mL (0.00-0.029) H 06/21/18 14:06 Total Protein 6.9 g/dL (6.3-8.2) 06/21/18 14:06 Albumin 3.1 g/dL (3.9-5) L 06/21/18 14:06 Albumin/Globulin Ratio 0.8 % 06/21/18 14:06 Triglycerides 115 mg/dL (2-149) 06/21/18 14:06 Cholesterol 123 mg/dL (50-199) 06/21/18 14:06 LDL Cholesterol Direct 61 mg/dL (50-130) 06/21/18 14:06 HDL Cholesterol 50 mg/dL (40-59) 06/21/18 14:06 Cholesterol/HDL Ratio 2.46 % 06/21/18 14:06 Urine Color Mary (Yellow) 06/27/18 Unknown Urine Turbidity Cloudy (Clear) 06/27/18 Unknown Urine pH 5.0 (5.0-7.0) 06/27/18 Unknown Ur Specific [place] 1.015 (1.003-1.030) 06/27/18 Unknown Urine Protein 100 mg/dl mg/dL (Negative) 06/27/18 Unknown Urine Glucose (UA) Neg mg/dL (Negative) 06/27/18 Unknown Urine Ketones Tr mg/dL (Negative) 06/27/18 Unknown Urine Blood Neg (Negative) 06/27/18 Unknown Urine Nitrite Neg (Negative) 06/27/18 Unknown Urine Bilirubin Neg (Negative) 06/27/18 Unknown Urine Urobilinogen < 2.0 mg/dL (<2.0) 06/27/18 Unknown Ur Leukocyte Esterase Tr (Negative) 06/27/18 Unknown Urine WBC (Auto) 2.0 /HPF (0.0-6.0) 06/27/18 Unknown Urine RBC (Auto) 11.0 /HPF (0.0-6.0) 06/27/18 Unknown U Epithel Cells (Auto) < 1.0 /HPF (0-13.0) 06/27/18 Unknown Urine Bacteria (Auto) 1+ /HPF (Negative) 06/27/18 Unknown Urine Eosinophils None seen (None Seen) 06/27/18 Unknown Urine Creatinine 192.2 mg/dL (0.1-20.0) H 06/27/18 Unknown Urine Sodium 11 mmol/L 06/27/18 Unknown Fraction Sodium Excret 1.6 06/27/18 Unknown Levetiracetam 65.9 mcg/mL 06/21/18 16:01 Hepatitis A IgM Ab Non-reactive (NonReactive) 06/29/18 09:22 Hep Bs Antigen Non-reactive (Negative) 06/29/18 09:22 Hep B Core IgM Ab Non-reactive (NonReactive) 06/29/18 09:22 Hepatitis C Antibody Non-reactive (NonReactive) 06/29/18 09:22 Nutrition/Malnutrition Assess - Dietary Evaluation Nutrition/Malnutrition Findings: Nutrition Notes Start: 06/22/18 10:19 Freq: Status: Active Protocol: Document 06/26/18 14:51 JOHNNIE (Rec: 06/26/18 14:54 JOHNNIE SRW- [email or web address]) Nutrition Notes Initial or Follow up Brief Note Current Diet TF - Vital AF at 45ml/hr Height 5 ft 2 in Weight 92.4 kg [place] Body Weight (lbs) 110.0 BMI 37.2 Subjective/Other Information Pt tolerating TF at goal rate of 45ml/hr. She remains on vent support. Kcal/Kg value to use for calculation 14 Approximate Energy Requirements Using 1294 kcal/Kg Calculation Used for Recommendations Kcal/kg Nutrition Intervention Follow-Up By: 07/01/18 Additional Comments F/U: stable TF, vent status
[2018-07-01] MEDS ORDERED: VERSED ONE (13:30)
[2018-07-01] MEDS ORDERED: SUBLIMAZE ONE (13:30)
[2018-07-01] MEDS ORDERED: HEPARIN/NS 5000 UNIT/500ML(CATH LAB) 500 ML IR ONE (13:31)
[2018-07-01] MEDS ORDERED: XYLOCAINE 2% INFILTRATI ONE (13:31)
[2018-07-01] MEDS ORDERED: NACL 0.9% 250ML 250 ML ONE (13:31)
[2018-07-01] MEDS: HEPARIN 10,000 UNITS/10 ML ONE ×2 (14:26→14:27)
--- NOTE | 2018-07-01 14:33 | Operative Report ---
Operative Report Operative Report: Exam: Ultrasound and fluoroscopic guided placement of vascath Clinical indication: Patient with acute on chronic renal failure, access needed for dialysis Date: 07/01/2018 Procedure: Following an explanation of the risks, benefits and alternatives; written informed consent was obtained from the patient's next of kin. The patient was brought to the injury Suite and placed in supine position on the examination table. Given her respiratory difficulties, the patient was inclined. Initial ultrasound evaluation of the patient's right groin demonstrated a patent right common femoral vein. The patient's groin was prepped and draped in usual sterile fashion. 1% lidocaine was used for anesthesia. Under ultrasound guidance, a 7 cm 18-gauge needle was advanced into the right femoral vein. A 0.035 guidewire was advanced centrally under fluoroscopy. The guidewire was advanced past the previously placed IVC filter. Following serial dilation over the guidewire under fluoroscopy, a 16 Bengali 30 cm dialysis catheter was placed over the guidewire under fluoroscopy with the tip of the catheter position just beyond the filter. Given the increased venous pressures, contrast was injected through the catheter the document intravenous positioning. There is prompt reflux of contrast into the right atrium and hepatic veins. The catheter was securely fasten his skin surface using 2-0 Ethilon suture. The catheter was flushed and then repeat volumes of heparin. Sterile dressings was then applied. The patient tolerated the procedure well. There were no immediate post procedure complications. Sedation was not utilized secondary to patient's obtunded status. Continuous cardiopulmonary monitoring was utilized. Impression: Ultrasound and fluoroscopic guided placement of Vas-Cath via the right common femoral vein
--- NOTE | 2018-07-01 14:47 | Physician Progress Note ---
NEUROLOGICAL PROGRESS NOTE REFERRING PHYSICIAN: Dr. Naga Riggs. REASON FOR EVALUATION: Switching off anticonvulsant Keppra. because of concern about renal failure. I reviewed the history of this patient. She has been here in the hospital for a long time. She has had complicated medical problems. She has been seen by Dr. Tammi Cummins, who is neurologist. HISTORY OF PRESENT ILLNESS: This patient is 68-year-old. She was in a snf and she was found to have seizure. She was described to be in status epilepticus. She was admitted on 06/21/2018 and was seen by Dr. Tammi Cummins the following day and was treated for the seizure. She was put on respirator for fear of aspiration. She was given Versed also. The patient was taking Keppra, and this was increased to 1500 mg b.i.d. The patient has shown some improvement, and she ended up to be extubated, but she has some other multiple issues, especially the renal problem. The creatinine seems to be going up and it was felt to be because of Keppra. The patient has not had any seizure. Therefore, she only had one seizure. Other problems of this patient include diabetes, history of seizure disorder, hypertension, and hyperlipidemia. She was on Eliquis for DVT and also her dementia. Acute respiratory failure. She has hypertension. OBJECTIVE: The patient is on BiPAP. When the BiPAP was removed, she had significant stridor. This seemed to be coming from the larynx. This is mainly like wheezing sound. The patient is definitely having some difficulty with breathing. The patient is also obese. She is able to move both upper and lower extremities, but there is difficulty with the lower extremities because of obesity. The patient did not appear to be confused, but there were times that the nurse described that she was. ASSESSMENT: This patient has multiple medical problems. From what I see now, she is in respiratory failure with some wheezing, but I am not sure whether the sound of the stridor is coming from the larynx. When she is on BiPAP, she is breathing a little bit easier. The concern here from the neurological standpoint is because of the increasing renal failure, which could be related to the levetiracetam. RECOMMENDATION: By reading the history this patient, I believe developed seizure, and from the history only once, I think this is multifactorial. This probably is compounded by the fact that she had a history of stroke. I believe we can probably just discontinue the Keppra at this time since there have been no repeated seizures and his EEG did not show definitive seizure discharge. We can observe closely this patient since she is on the intensive care unit and in case the patient developed seizure, we have the choices and correlating it with the possible need of dialysis. I believe in Nephrology consult that has been done already. Medications that we can use include phenytoin, phenobarbital, oxcarbazepine, Lamictal, Zonegran, etc., which we will make choice on the basis of the patient's renal issue. Prognosis is guarded. Case discussed with Dr. Naga Riggs. JOB# [id number] MARTIN/TYLER
[2018-07-01] MEDS ORDERED: NACL 0.9 (PRIMING MACHINE ONLY DIALYSIS) MC ONE (15:49)
[2018-07-01] MEDS: SODIUM CHLORIDE FLUSH SYRINGE 10 ML IV SCH (22:39)
[2018-07-01] MEDS: COREG PO SCH (22:42)
[2018-07-02] MEDS: PROVENTIL IH SCH ×8 (04:22→20:12)
[2018-07-02 06:40] LABS: INR 1.27 (0.87-1.13)
[2018-07-02] MEDS: HumaLOG SUB-Q SCH ×5 (06:43→21:52)
[2018-07-02] MEDS: LASIX IV SCH ×2 (06:47→17:44)
[2018-07-02 06:53] LABS: Calcium 8.8 mg/dL (8.4-10.2)
[2018-07-02] MEDS: PULMICORT IH SCH ×2 (08:47→20:12)
[2018-07-02] MEDS: BROVANA NEBU IH SCH ×2 (08:47→20:12)
--- NOTE | 2018-07-02 08:52 | Progress Note ---
Assessment and Plan Impression * Acute on chronic renal failure. Serum creatinine was 1.7 in March 2018 * Status post respiratory failure * Seizure disorder * Hypertension * Diabetes * Dementia * History of CVA * Metabolic acidosis Recommendations * HD today, uf as tolerated * strict i/os * Patient may have ATN. * negative urine for eosinophils * Renal ultrasound is normal * continue diuresis * Check office records regarding her previous renal status and workup * Avoid nephrotoxins * Monitor fluid status and electrolytes closely Subjective Date of service: 07/02/18 Principal diagnosis: Acute Hypoxemic Resp failure; Pneumonia (Likely aspiration); JULISA; SIRS Interval history: resting in bed today Objective - Exam Narrative Exam: General appearance: well-developed, well-nourished, appears stated age EENT: PERRL, mucous membranes moist Neck: no JVD, no thyromegaly, no carotid bruit, supple Respiratory: Present: [facility] Cardiology: regular, normal heart rate, S1S2, no murmurs Gastrointestinal: normal, normoactive bowel sounds Integumentary: no rash, other (1+ edema) - Vital Signs Vital signs: Vital Signs - 12hr 07/01/18 07/01/18 07/01/18 21:00 21:30 22:00 Temperature Pulse Rate 74 73 73 Pulse Rate [ Anterior Bilateral Throughout] Pulse Rate [ From Monitor] Pulse Rate [ Posterior Bilateral Bases ] Respiratory 23 23 23 Rate Respiratory Rate [Anterior Bilateral Throughout] Respiratory Rate [Posterior Bilateral Bases] Blood Pressure 130/60 130/60 116/52 O2 Sat by Pulse 97 99 97 Oximetry 07/01/18 07/01/18 07/01/18 22:30 22:42 23:00 Temperature Pulse Rate 72 72 79 Pulse Rate [ Anterior Bilateral Throughout] Pulse Rate [ From Monitor] Pulse Rate [ Posterior Bilateral Bases ] Respiratory 23 25 H Rate Respiratory Rate [Anterior Bilateral Throughout] Respiratory Rate [Posterior Bilateral Bases] Blood Pressure 116/52 116/52 124/63 O2 Sat by Pulse 99 97 Oximetry 07/01/18 07/02/18 07/02/18 23:30 00:00 00:30 Temperature 98.0 F Pulse Rate 77 72 74 Pulse Rate [ Anterior Bilateral Throughout] Pulse Rate [ 69 From Monitor] Pulse Rate [ Posterior Bilateral Bases ] Respiratory 25 H 22 24 Rate Respiratory Rate [Anterior Bilateral Throughout] Respiratory Rate [Posterior Bilateral Bases] Blood Pressure 124/63 123/55 123/55 O2 Sat by Pulse 100 98 99 Oximetry 07/02/18 07/02/18 07/02/18 01:00 01:30 02:00 Temperature Pulse Rate 75 72 81 Pulse Rate [ Anterior Bilateral Throughout] Pulse Rate [ From Monitor] Pulse Rate [ Posterior Bilateral Bases ] Respiratory 25 H 22 22 Rate Respiratory Rate [Anterior Bilateral Throughout] Respiratory Rate [Posterior Bilateral Bases] Blood Pressure 123/55 120/54 120/54 O2 Sat by Pulse 99 99 99 Oximetry 07/02/18 07/02/18 07/02/18 02:30 03:00 03:30 Temperature Pulse Rate 78 74 78 Pulse Rate [ Anterior Bilateral Throughout] Pulse Rate [ From Monitor] Pulse Rate [ Posterior Bilateral Bases ] Respiratory 28 H 25 H 23 Rate Respiratory Rate [Anterior Bilateral Throughout] Respiratory Rate [Posterior Bilateral Bases] Blood Pressure 127/52 132/57 132/57 O2 Sat by Pulse 98 98 99 Oximetry 07/02/18 07/02/18 07/02/18 04:00 04:25 04:30 Temperature 97 F L Pulse Rate 90 70 Pulse Rate [ Anterior Bilateral Throughout] Pulse Rate [ 69 From Monitor] Pulse Rate [ 77 Posterior Bilateral Bases ] Respiratory 21 19 Rate Respiratory Rate [Anterior Bilateral Throughout] Respiratory 20 Rate [Posterior Bilateral Bases] Blood Pressure 114/47 114/47 O2 Sat by Pulse 98 100 Oximetry 07/02/18 07/02/18 07/02/18 04:37 05:00 05:30 Temperature Pulse Rate 73 76 Pulse Rate [ 70 Anterior Bilateral Throughout] Pulse Rate [ From Monitor] Pulse Rate [ 70 Posterior Bilateral Bases ] Respiratory 21 20 Rate Respiratory 21 Rate [Anterior Bilateral Throughout] Respiratory 21 Rate [Posterior Bilateral Bases] Blood Pressure 123/51 114/47 O2 Sat by Pulse 99 100 Oximetry 07/02/18 07/02/18 07/02/18 06:00 06:30 07:00 Temperature Pulse Rate 73 70 70 Pulse Rate [ Anterior Bilateral Throughout] Pulse Rate [ From Monitor] Pulse Rate [ Posterior Bilateral Bases ] Respiratory 21 19 18 Rate Respiratory Rate [Anterior Bilateral Throughout] Respiratory Rate [Posterior Bilateral Bases] Blood Pressure 120/50 120/50 112/47 O2 Sat by Pulse 99 100 97 Oximetry 07/02/18 07/02/18 07/02/18 07:30 08:00 08:30 Temperature 97.9 F Pulse Rate 81 77 80 Pulse Rate [ Anterior Bilateral Throughout] Pulse Rate [ From Monitor] Pulse Rate [ 80 Posterior Bilateral Bases ] Respiratory 27 H 23 25 H Rate Respiratory Rate [Anterior Bilateral Throughout] Respiratory 21 Rate [Posterior Bilateral Bases] Blood Pressure 112/47 112/47 96/52 O2 Sat by Pulse 97 99 100 Oximetry 07/02/18 08:49 Temperature Pulse Rate Pulse Rate [ Anterior Bilateral Throughout] Pulse Rate [ From Monitor] Pulse Rate [ Posterior Bilateral Bases ] Respiratory Rate Respiratory Rate [Anterior Bilateral Throughout] Respiratory Rate [Posterior Bilateral Bases] Blood Pressure O2 Sat by Pulse 100 Oximetry - Lab 06/26/18 10:14 07/02/18 05:23 Most recent lab results Calcium 8.8 mg/dL (8.4-10.2) 07/02/18 05:23 Magnesium 1.70 mg/dL (1.7-2.3) 06/21/18 14:06 Urine Creatinine 192.2 mg/dL (0.1-20.0) H 06/27/18 Unknown Urine Sodium 11 mmol/L 06/27/18 Unknown Medications & Allergies - Medications Allergies/Adverse Reactions: Allergies No Known Allergies Allergy (Unverified 04/06/18 11:56) Home Medications: Home Medications Medication Instructions Recorded Confirmed Last Taken Type Acetaminophen [Acetaminophen TAB] 650 mg PO Q4H PRN 04/06/18 06/21/18 Unknown History Apixaban [Eliquis] 5 mg PO Q12H 04/06/18 06/21/18 Unknown History AtorvaSTATin [Lipitor] 40 mg PO QHS 04/06/18 06/21/18 Unknown History Brimonidine Tartrate/Timolol 1 drop OU Q12H 04/06/18 06/21/18 Unknown History [Combigan 0.2%-0.5% Eye Drops] Donepezil HCl [Aricept] 10 mg PO HS 04/06/18 06/21/18 Unknown History Insulin Glargine [Lantus VIAL] 50 units SUB-Q QHS 04/06/18 06/21/18 Unknown History Insulin Lispro [HumaLOG VIAL] 9 units SUB-Q AC 04/06/18 06/21/18 Unknown History Lispro Insulin [Humalog] See Protocol SUB-Q ACHS 04/06/18 06/21/18 Unknown History Mirtazapine [Remeron] 15 mg PO HS 10/15/18 12/30/18 Unknown History levETIRAcetam [Keppra TAB] 1,000 mg PO Q12H 04/06/18 06/21/18 Unknown History Furosemide [Lasix TAB] 40 mg PO QDAY #30 tablet 04/10/18 06/21/18 Unknown Rx HYDROcodone/APAP 5-325 [[place] 1 each PO Q8HR PRN #7 tablet 04/10/18 06/21/18 Unknown Rx 5-325 mg TAB] Losartan [Cozaar] 25 mg PO QDAY #30 tablet 04/10/18 06/21/18 Unknown Rx Metoprolol Succinate [Toprol Xl] 25 mg PO DAILY #30 tab.er.24h 04/10/18 06/21/18 Unknown Rx Active Medications: Generic Name Dose Route Start Last Admin Trade Name Freq PRN Reason Stop Dose Admin Albuterol 2.5 mg 06/30/18 12:00 07/02/18 08:47 Proventil IH Not Given Q4HRT RICKY Amlodipine Besylate 10 mg 06/22/18 19:00 06/30/18 09:35 Norvasc PO 10 mg QDAY RICKY Administration Arformoterol Tartrate 15 mcg 06/30/18 20:00 07/02/18 08:47 Brovana Nebu IH 15 mcg Q12HRT RICKY Administration Atorvastatin Calcium 40 mg 06/22/18 22:00 07/01/18 22:44 Lipitor PO 40 mg QHS RICKY Administration Brimonidine/Timolol 1 drops 06/22/18 16:00 07/01/18 03:14 Combigan 0.2-0.5% OU 1 drops Q12H RICKY Administration Budesonide 0.5 mg 06/30/18 20:00 07/02/18 08:47 Pulmicort IH 0.5 mg Q12HRT RICKY Administration Carvedilol 12.5 mg 06/22/18 22:00 07/01/18 22:42 Coreg PO 12.5 mg BID RICKY Administration Famotidine 20 mg 06/24/18 10:00 06/30/18 09:36 Pepcid PO 20 mg QDAY RICKY Administration Furosemide 40 mg 06/30/18 18:00 07/02/18 06:47 Lasix IV 40 mg 0600,1800 RICKY Administration Hydralazine HCl 20 mg 06/22/18 16:03 06/22/18 17:00 Apresoline IV 20 mg Q6H PRN Administration HTN Hydrophilic Ointment 1 applic 06/21/18 15:50 Vaseline Lip Therapy TP Q2HR PRN Dry Lips Heparin Sodium/Sodium Chloride 25,000 unit in 500 mls @ 27 mls/hr 06/22/18 17:00 07/01/18 22:41 Heparin/ 0.45% Nacl-25,000 Unit/500 Ml IV 1,250 units/hr TITR RICKY 25 mls/hr Administration Protocol 1,350 UNITS/HR Sodium Chloride 100 mls @ 999 mls/hr 07/01/18 09:00 Nacl 0.9% IV DANNA PRN Hypotension Insulin Human Lispro 0 unit 06/23/18 02:00 07/02/18 06:43 Humalog SUB-Q Not Given Q4HR [facility] Protocol Labetalol HCl 20 mg 06/22/18 18:00 06/22/18 18:55 Normodyne IV 20 mg Q4H PRN Administration BP >160/100; hold for HR <60 Lorazepam 0.5 mg 06/30/18 18:36 06/30/18 21:06 Ativan IV 0.5 mg Q8H PRN Administration Agitation Multi-Ingred Cream/Lotion/Oil/Oint 1 applic 06/21/18 15:50 Artificial Tears Ophth Oint OU Q4HR PRN Dry Eye(s) Sodium Chloride 10 ml 06/21/18 22:00 07/01/18 22:39 Sodium Chloride Flush Syringe 10 Ml IV 10 ml BID RICKY Administration Sodium Chloride 10 ml 06/21/18 15:39 06/22/18 06:27 Sodium Chloride Flush Syringe 10 Ml IV 10 ml PRN PRN Administration LINE FLUSH Warfarin Sodium 7.5 mg 06/30/18 20:00 06/30/18 21:04 Coumadin PO 7.5 mg DAILY@1700 [facility] Administration
[2018-07-02] MEDS ORDERED: NACL 0.9 (PRIMING MACHINE ONLY DIALYSIS) MC ONE ×2 (11:41→12:21)
[2018-07-02] MEDS: COREG PO SCH ×2 (13:11→21:43)
[2018-07-02] MEDS: PEPCID PO SCH (13:12)
[2018-07-02] MEDS: NORVASC PO SCH (13:12)
[2018-07-02] MEDS: SODIUM CHLORIDE FLUSH SYRINGE 10 ML IV SCH ×2 (13:13→21:44)
--- NOTE | 2018-07-02 15:00 | Progress Note ---
Assessment and Plan Acute Hypoxemic Respiratory failure on MVS Pneumonia (Likely aspiration) JULISA Respiratory Alkalosis Acute on Chronic Encephalopathy SIRS due to infectious process with acute organ dysfunction Seizures Obesity Diabetes type II Hypertension Hyperlipidemia H/O CVA H/O DVT Dementia Debility - continue scheduled BIPAP qhs in short term - neurology evaluation ongoing and input appreciated - continue Keppra for seizures (1500mg bid) - completed empiric CAP antibiotics - transitioned to oral anticoagulation - Stress ulcer prophylaxis - Monitor renal function - Avoid nephrotoxic agents, adjust all medications for GFR and CrCL - advance diet per ST - continue to wean supplemental oxygen to keep O2 sats>90% - Accuchecks, glycemic control. Target blood glucose of 140-180mg/dL - continue other care per attending / other consultants .... re-evaluate in am & prn Subjective Date of service: 07/02/18 Principal diagnosis: Acute Hypoxemic Resp failure; Pneumonia (Likely aspiration); JULISA; SIRS Interval history: Patient is seen today for: Acute Hypoxemic Respiratory failure on MVS; Pneumonia (Likely aspiration); JULISA; Acute on Chronic Encephalopathy; SIRS Seen and examined at bedside; 24hour events reviewed; nursing and respiratory care staff consulted; no adverse overnight events reported to me; resting peacefully in bed; no emesis or overt aspiration; no new issues respiratory-alex Objective Vital Signs - 12hr 07/02/18 07/02/18 07/02/18 03:00 03:30 04:00 Temperature 97 F L Pulse Rate 74 78 90 Pulse Rate [ Anterior Bilateral Throughout] Pulse Rate [ 69 From Monitor] Pulse Rate [ Posterior Bilateral Bases ] Respiratory 25 H 23 21 Rate Respiratory Rate [Anterior Bilateral Throughout] Respiratory Rate [Posterior Bilateral Bases] Blood Pressure 132/57 132/57 114/47 O2 Sat by Pulse 98 99 98 Oximetry O2 Sat by Pulse Oximetry [ Anterior Bilateral Throughout] 07/02/18 07/02/18 07/02/18 04:25 04:30 04:37 Temperature Pulse Rate 70 Pulse Rate [ 70 Anterior Bilateral Throughout] Pulse Rate [ From Monitor] Pulse Rate [ 77 70 Posterior Bilateral Bases ] Respiratory 19 Rate Respiratory 21 Rate [Anterior Bilateral Throughout] Respiratory 20 21 Rate [Posterior Bilateral Bases] Blood Pressure 114/47 O2 Sat by Pulse 100 Oximetry O2 Sat by Pulse Oximetry [ Anterior Bilateral Throughout] 07/02/18 07/02/18 07/02/18 05:00 05:30 06:00 Temperature Pulse Rate 73 76 73 Pulse Rate [ Anterior Bilateral Throughout] Pulse Rate [ From Monitor] Pulse Rate [ Posterior Bilateral Bases ] Respiratory 21 20 21 Rate Respiratory Rate [Anterior Bilateral Throughout] Respiratory Rate [Posterior Bilateral Bases] Blood Pressure 123/51 114/47 120/50 O2 Sat by Pulse 99 100 99 Oximetry O2 Sat by Pulse Oximetry [ Anterior Bilateral Throughout] 07/02/18 07/02/18 07/02/18 06:30 07:00 07:30 Temperature Pulse Rate 70 70 81 Pulse Rate [ Anterior Bilateral Throughout] Pulse Rate [ From Monitor] Pulse Rate [ Posterior Bilateral Bases ] Respiratory 19 18 27 H Rate Respiratory Rate [Anterior Bilateral Throughout] Respiratory Rate [Posterior Bilateral Bases] Blood Pressure 120/50 112/47 112/47 O2 Sat by Pulse 100 97 97 Oximetry O2 Sat by Pulse Oximetry [ Anterior Bilateral Throughout] 07/02/18 07/02/18 07/02/18 08:00 08:30 08:49 Temperature 97.9 F Pulse Rate 77 80 Pulse Rate [ Anterior Bilateral Throughout] Pulse Rate [ 81 From Monitor] Pulse Rate [ 80 Posterior Bilateral Bases ] Respiratory 26 H 25 H Rate Respiratory Rate [Anterior Bilateral Throughout] Respiratory 21 Rate [Posterior Bilateral Bases] Blood Pressure 112/47 96/52 O2 Sat by Pulse 98 100 100 Oximetry O2 Sat by Pulse Oximetry [ Anterior Bilateral Throughout] 07/02/18 07/02/18 07/02/18 09:00 09:13 09:30 Temperature Pulse Rate 85 81 Pulse Rate [ Anterior Bilateral Throughout] Pulse Rate [ From Monitor] Pulse Rate [ 82 Posterior Bilateral Bases ] Respiratory 24 27 H Rate Respiratory Rate [Anterior Bilateral Throughout] Respiratory 22 Rate [Posterior Bilateral Bases] Blood Pressure 96/52 96/52 O2 Sat by Pulse 99 100 Oximetry O2 Sat by Pulse Oximetry [ Anterior Bilateral Throughout] 07/02/18 07/02/18 07/02/18 10:00 10:15 10:30 Temperature 97.9 F Pulse Rate 79 86 86 Pulse Rate [ Anterior Bilateral Throughout] Pulse Rate [ From Monitor] Pulse Rate [ Posterior Bilateral Bases ] Respiratory 18 Rate Respiratory Rate [Anterior Bilateral Throughout] Respiratory Rate [Posterior Bilateral Bases] Blood Pressure 136/63 147/71 134/58 O2 Sat by Pulse Oximetry O2 Sat by Pulse 98 Oximetry [ Anterior Bilateral Throughout] 07/02/18 07/02/18 07/02/18 10:45 11:00 11:15 Temperature Pulse Rate 89 83 86 Pulse Rate [ Anterior Bilateral Throughout] Pulse Rate [ From Monitor] Pulse Rate [ Posterior Bilateral Bases ] Respiratory Rate Respiratory Rate [Anterior Bilateral Throughout] Respiratory Rate [Posterior Bilateral Bases] Blood Pressure 148/65 104/45 138/56 O2 Sat by Pulse Oximetry O2 Sat by Pulse Oximetry [ Anterior Bilateral Throughout] 07/02/18 07/02/18 07/02/18 11:30 11:45 12:00 Temperature 98.6 F Pulse Rate 87 84 83 Pulse Rate [ Anterior Bilateral Throughout] Pulse Rate [ 81 From Monitor] Pulse Rate [ Posterior Bilateral Bases ] Respiratory 26 H Rate Respiratory Rate [Anterior Bilateral Throughout] Respiratory Rate [Posterior Bilateral Bases] Blood Pressure 139/56 139/74 162/76 O2 Sat by Pulse 98 Oximetry O2 Sat by Pulse Oximetry [ Anterior Bilateral Throughout] 07/02/18 07/02/18 07/02/18 12:15 12:30 12:35 Temperature 97.9 F Pulse Rate 84 88 92 H Pulse Rate [ Anterior Bilateral Throughout] Pulse Rate [ From Monitor] Pulse Rate [ Posterior Bilateral Bases ] Respiratory 18 Rate Respiratory Rate [Anterior Bilateral Throughout] Respiratory Rate [Posterior Bilateral Bases] Blood Pressure 151/69 153/27 160/26 O2 Sat by Pulse Oximetry O2 Sat by Pulse Oximetry [ Anterior Bilateral Throughout] 07/02/18 07/02/18 07/02/18 12:56 13:00 13:11 Temperature Pulse Rate 86 84 Pulse Rate [ Anterior Bilateral Throughout] Pulse Rate [ From Monitor] Pulse Rate [ Posterior Bilateral Bases ] Respiratory 13 22 Rate Respiratory Rate [Anterior Bilateral Throughout] Respiratory Rate [Posterior Bilateral Bases] Blood Pressure 141/78 O2 Sat by Pulse 94 100 Oximetry O2 Sat by Pulse Oximetry [ Anterior Bilateral Throughout] 07/02/18 07/02/18 07/02/18 13:12 13:34 13:41 Temperature Pulse Rate 84 Pulse Rate [ Anterior Bilateral Throughout] Pulse Rate [ From Monitor] Pulse Rate [ 88 85 Posterior Bilateral Bases ] Respiratory Rate Respiratory Rate [Anterior Bilateral Throughout] Respiratory 18 21 Rate [Posterior Bilateral Bases] Blood Pressure 141/78 O2 Sat by Pulse Oximetry O2 Sat by Pulse Oximetry [ Anterior Bilateral Throughout] Constitutional: no acute distress, other (elderly looking AAF normocephalic and atraumatic with ETT to MVS and mildly increased resp effort) Eyes: non-icteric ENT: oropharynx moist, other (extubated) Neck: supple, no lymphadenopathy, no JVD, other (no thyromegaly) Effort: mildly labored Ascultation: Bilateral: diminished breath sounds, wheezes (mainly upper air ways.), rhonchi Percussion: Bilateral: not dull Cardiovascular: regular rate and rhythm Gastrointestinal: normoactive bowel sounds, soft, tender, non-distended Integumentary: normal Extremities: no cyanosis, no edema, pulses normal, no ischemia or petechiae Neurologic: normal mental status, non-focal exam (grossly), pupils equal and round, CN II-XII normal Psychiatric: mood appropriate, affect normal CBC and BMP: 06/26/18 10:14 07/02/18 05:23 ABG, PT/INR, D-dimer: ABG POC ABG pH 7.292 (7.35-7.45) L 06/30/18 12:16 POC ABG pCO2 34.9 (35-45) L 06/30/18 12:16 POC ABG pO2 79 (80-105) L 06/30/18 12:16 POC ABG HCO3 16.9 06/30/18 12:16 POC ABG Total CO2 18 06/30/18 12:16 POC ABG O2 Sat 94 06/30/18 12:16 PT/INR, D-dimer PT 16.3 Sec. (12.2-14.9) H 07/02/18 05:23 INR 1.27 (0.87-1.13) H 07/02/18 05:23 Abnormal lab findings: Abnormal Labs 06/21/18 06/21/18 06/21/18 14:02 14:06 14:06 WBC RBC Hgb Hct MCV 71 L MCH 22 L RDW 21.1 H [place] % (Auto) [place] # Seg Neutrophils # PT 18.9 H INR 1.54 H APTT Heparin Anti-Xa Level POC ABG pH POC ABG pCO2 POC ABG pO2 Potassium Chloride Carbon Dioxide BUN Creatinine Glucose POC Glucose 250 H Calcium Total Bilirubin Alkaline Phosphatase Troponin T Albumin Urine Creatinine 06/21/18 06/21/18 06/21/18 14:06 14:23 21:17 WBC RBC Hgb Hct MCV MCH RDW [place] % (Auto) [place] # Seg Neutrophils # PT INR APTT Heparin Anti-Xa Level POC ABG pH 7.499 H 7.600 H POC ABG pCO2 34.8 L 24.9 L POC ABG pO2 342 H 176 H Potassium Chloride Carbon Dioxide BUN Creatinine 1.5 H Glucose 214 H POC Glucose Calcium Total Bilirubin 1.30 H Alkaline Phosphatase 174 H Troponin T 0.050 H Albumin 3.1 L Urine Creatinine 06/22/18 06/22/18 06/22/18 03:17 03:17 05:27 WBC 11.5 H RBC 5.07 H Hgb Hct MCV 69 L MCH 21 L RDW 21.9 H [place] % (Auto) 9.8 H [place] # 1.1 H Seg Neutrophils # 7.9 H PT INR APTT Heparin Anti-Xa Level POC ABG pH 7.539 H POC ABG pCO2 30.1 L POC ABG pO2 170 H Potassium Chloride Carbon Dioxide BUN Creatinine 1.5 H Glucose 164 H POC Glucose Calcium Total Bilirubin Alkaline Phosphatase Troponin T Albumin Urine Creatinine 06/22/18 06/22/18 06/22/18 17:21 17:50 19:46 WBC RBC Hgb Hct MCV MCH RDW [place] % (Auto) [place] # Seg Neutrophils # PT 17.5 H INR 1.39 H APTT 22.8 L Heparin Anti-Xa Level 1.64 H POC ABG pH POC ABG pCO2 POC ABG pO2 Potassium Chloride Carbon Dioxide BUN Creatinine Glucose POC Glucose 240 H Calcium Total Bilirubin Alkaline Phosphatase Troponin T Albumin Urine Creatinine 06/22/18 06/23/18 06/23/18 23:47 01:44 04:14 WBC RBC Hgb Hct MCV MCH RDW [place] % (Auto) [place] # Seg Neutrophils # PT INR APTT Heparin Anti-Xa Level 0.10 L POC ABG pH POC ABG pCO2 POC ABG pO2 Potassium Chloride Carbon Dioxide BUN Creatinine Glucose POC Glucose 240 H 229 H Calcium Total Bilirubin Alkaline Phosphatase Troponin T Albumin Urine Creatinine 06/23/18 06/23/18 06/23/18 05:34 09:24 10:24 WBC RBC Hgb Hct MCV MCH RDW [place] % (Auto) [place] # Seg Neutrophils # PT INR APTT Heparin Anti-Xa Level POC ABG pH 7.519 H POC ABG pCO2 POC ABG pO2 133 H Potassium Chloride Carbon Dioxide BUN Creatinine Glucose POC Glucose 220 H 183 H Calcium Total Bilirubin Alkaline Phosphatase Troponin T Albumin Urine Creatinine 06/23/18 06/23/18 06/23/18 12:39 13:32 14:08 WBC RBC Hgb Hct MCV MCH RDW [place] % (Auto) [place] # Seg Neutrophils # PT INR APTT Heparin Anti-Xa Level > 2.00 H POC ABG pH POC ABG pCO2 POC ABG pO2 Potassium Chloride Carbon Dioxide BUN Creatinine Glucose POC Glucose 151 H 140 H Calcium Total Bilirubin Alkaline Phosphatase Troponin T Albumin Urine Creatinine 06/23/18 06/23/18 06/23/18 18:00 19:33 21:31 WBC RBC Hgb Hct MCV MCH RDW [place] % (Auto) [place] # Seg Neutrophils # PT INR APTT Heparin Anti-Xa Level 1.74 H POC ABG pH POC ABG pCO2 POC ABG pO2 Potassium Chloride Carbon Dioxide BUN Creatinine Glucose POC Glucose 141 H 153 H Calcium Total Bilirubin Alkaline Phosphatase Troponin T Albumin Urine Creatinine 06/24/18 06/24/18 06/24/18 02:36 03:55 03:55 WBC 12.9 H RBC Hgb 9.9 L Hct MCV 70 L MCH 22 L RDW 22.1 H [place] % (Auto) [place] # Seg Neutrophils # PT INR APTT Heparin Anti-Xa Level POC ABG pH POC ABG pCO2 POC ABG pO2 Potassium Chloride Carbon Dioxide BUN 25 H Creatinine 1.6 H Glucose 151 H POC Glucose 162 H Calcium 8.2 L Total Bilirubin Alkaline Phosphatase Troponin T Albumin Urine Creatinine 06/24/18 06/24/18 06/24/18 03:55 05:01 09:34 WBC RBC Hgb Hct MCV MCH RDW [place] % (Auto) [place] # Seg Neutrophils # PT INR APTT Heparin Anti-Xa Level 1.75 H POC ABG pH POC ABG pCO2 POC ABG pO2 Potassium Chloride Carbon Dioxide BUN Creatinine Glucose POC Glucose 175 H 143 H Calcium Total Bilirubin Alkaline Phosphatase Troponin T Albumin Urine Creatinine 06/24/18 06/24/18 06/24/18 12:50 14:29 17:08 WBC RBC Hgb Hct MCV MCH RDW [place] % (Auto) [place] # Seg Neutrophils # PT INR APTT Heparin Anti-Xa Level 1.60 H POC ABG pH POC ABG pCO2 POC ABG pO2 Potassium Chloride Carbon Dioxide BUN Creatinine Glucose POC Glucose 169 H 138 H Calcium Total Bilirubin Alkaline Phosphatase Troponin T Albumin Urine Creatinine 06/24/18 06/24/18 06/25/18 21:13 21:50 01:45 WBC RBC Hgb Hct MCV MCH RDW [place] % (Auto) [place] # Seg Neutrophils # PT INR APTT Heparin Anti-Xa Level 1.53 H POC ABG pH POC ABG pCO2 POC ABG pO2 Potassium Chloride Carbon Dioxide BUN Creatinine Glucose POC Glucose 186 H 177 H Calcium Total Bilirubin Alkaline Phosphatase Troponin T Albumin Urine Creatinine 06/25/18 06/25/18 06/25/18 05:23 05:41 09:55 WBC RBC Hgb Hct MCV MCH RDW [place] % (Auto) [place] # Seg Neutrophils # PT INR APTT Heparin Anti-Xa Level 1.13 H POC ABG pH POC ABG pCO2 POC ABG pO2 Potassium Chloride Carbon Dioxide BUN Creatinine Glucose POC Glucose 160 H 181 H Calcium Total Bilirubin Alkaline Phosphatase Troponin T Albumin Urine Creatinine 06/25/18 06/25/18 06/25/18 12:54 14:27 14:33 WBC RBC Hgb Hct MCV MCH RDW [place] % (Auto) [place] # Seg Neutrophils # PT INR APTT Heparin Anti-Xa Level 0.73 H POC ABG pH POC ABG pCO2 POC ABG pO2 Potassium 3.4 L Chloride Carbon Dioxide BUN 30 H Creatinine 2.1 H Glucose 220 H POC Glucose 218 H Calcium Total Bilirubin Alkaline Phosphatase Troponin T Albumin Urine Creatinine 06/25/18 06/25/18 06/26/18 17:36 21:40 01:49 WBC RBC Hgb Hct MCV MCH RDW [place] % (Auto) [place] # Seg Neutrophils # PT INR APTT Heparin Anti-Xa Level POC ABG pH POC ABG pCO2 POC ABG pO2 Potassium Chloride Carbon Dioxide BUN Creatinine Glucose POC Glucose 219 H 162 H 152 H Calcium Total Bilirubin Alkaline Phosphatase Troponin T Albumin Urine Creatinine 06/26/18 06/26/18 06/26/18 04:43 05:50 09:43 WBC RBC Hgb 8.8 L Hct 27.7 L MCV MCH RDW [place] % (Auto) [place] # Seg Neutrophils # PT INR APTT Heparin Anti-Xa Level POC ABG pH POC ABG pCO2 POC ABG pO2 Potassium Chloride Carbon Dioxide BUN Creatinine Glucose POC Glucose 176 H 206 H Calcium Total Bilirubin Alkaline Phosphatase Troponin T Albumin Urine Creatinine 06/26/18 06/26/18 06/26/18 10:14 10:14 12:43 WBC RBC Hgb 9.5 L Hct 30.0 L MCV 69 L MCH 22 L RDW 22.4 H [place] % (Auto) 11.0 H [place] # 1.0 H Seg Neutrophils # PT INR APTT Heparin Anti-Xa Level POC ABG pH 7.311 L POC ABG pCO2 46.6 H POC ABG pO2 Potassium Chloride Carbon Dioxide BUN 34 H Creatinine 2.4 H Glucose 194 H POC Glucose Calcium Total Bilirubin Alkaline Phosphatase Troponin T Albumin Urine Creatinine 06/26/18 06/26/18 06/27/18 14:30 17:32 00:00 WBC RBC Hgb Hct MCV MCH RDW [place] % (Auto) [place] # Seg Neutrophils # PT INR APTT Heparin Anti-Xa Level POC ABG pH POC ABG pCO2 POC ABG pO2 Potassium Chloride Carbon Dioxide BUN Creatinine Glucose POC Glucose 219 H 228 H 173 H Calcium Total Bilirubin Alkaline Phosphatase Troponin T Albumin Urine Creatinine 06/27/18 06/27/18 06/27/18 01:25 06:06 10:24 WBC RBC Hgb Hct MCV MCH RDW [place] % (Auto) [place] # Seg Neutrophils # PT INR APTT Heparin Anti-Xa Level POC ABG pH POC ABG pCO2 POC ABG pO2 Potassium Chloride Carbon Dioxide BUN Creatinine Glucose POC Glucose 178 H 157 H 171 H Calcium Total Bilirubin Alkaline Phosphatase Troponin T Albumin Urine Creatinine 06/27/18 06/27/18 06/27/18 12:24 12:24 18:13 WBC RBC Hgb Hct MCV MCH RDW [place] % (Auto) [place] # Seg Neutrophils # PT INR APTT Heparin Anti-Xa Level POC ABG pH POC ABG pCO2 POC ABG pO2 Potassium Chloride Carbon Dioxide BUN Creatinine 3.3 H Glucose POC Glucose 192 H 158 H Calcium Total Bilirubin Alkaline Phosphatase Troponin T Albumin Urine Creatinine 06/27/18 06/27/18 06/27/18 22:23 22:34 Unknown WBC RBC Hgb Hct MCV MCH RDW [place] % (Auto) [place] # Seg Neutrophils # PT INR APTT Heparin Anti-Xa Level 0.13 L POC ABG pH POC ABG pCO2 POC ABG pO2 Potassium Chloride Carbon Dioxide BUN Creatinine Glucose POC Glucose 137 H Calcium Total Bilirubin Alkaline Phosphatase Troponin T Albumin Urine Creatinine 192.2 H 06/28/18 06/28/18 06/28/18 03:25 04:06 06:44 WBC RBC Hgb Hct MCV MCH RDW [place] % (Auto) [place] # Seg Neutrophils # PT INR APTT Heparin Anti-Xa Level POC ABG pH POC ABG pCO2 POC ABG pO2 Potassium Chloride Carbon Dioxide 19 L BUN 49 H Creatinine 3.8 H Glucose 159 H POC Glucose 149 H 174 H Calcium Total Bilirubin Alkaline Phosphatase Troponin T Albumin Urine Creatinine 06/28/18 06/28/18 06/28/18 08:59 14:32 17:34 WBC RBC Hgb Hct MCV MCH RDW [place] % (Auto) [place] # Seg Neutrophils # PT INR APTT Heparin Anti-Xa Level POC ABG pH POC ABG pCO2 POC ABG pO2 Potassium Chloride Carbon Dioxide BUN Creatinine Glucose POC Glucose 167 H 161 H 162 H Calcium Total Bilirubin Alkaline Phosphatase Troponin T Albumin Urine Creatinine 06/28/18 06/29/18 06/29/18 23:03 02:59 04:15 WBC RBC Hgb Hct MCV MCH RDW [place] % (Auto) [place] # Seg Neutrophils # PT INR APTT Heparin Anti-Xa Level POC ABG pH POC ABG pCO2 POC ABG pO2 Potassium Chloride Carbon Dioxide 17 L BUN 55 H Creatinine 4.3 H Glucose 141 H POC Glucose 198 H 162 H Calcium Total Bilirubin Alkaline Phosphatase Troponin T Albumin Urine Creatinine 06/29/18 06/29/18 06/29/18 05:41 09:35 15:06 WBC RBC Hgb Hct MCV MCH RDW [place] % (Auto) [place] # Seg Neutrophils # PT INR APTT Heparin Anti-Xa Level 0.18 L POC ABG pH POC ABG pCO2 POC ABG pO2 Potassium Chloride Carbon Dioxide BUN Creatinine Glucose POC Glucose 125 H 128 H Calcium Total Bilirubin Alkaline Phosphatase Troponin T Albumin Urine Creatinine 06/29/18 06/29/18 06/29/18 16:26 18:30 21:34 WBC RBC Hgb Hct MCV MCH RDW [place] % (Auto) [place] # Seg Neutrophils # PT INR APTT Heparin Anti-Xa Level POC ABG pH POC ABG pCO2 POC ABG pO2 Potassium Chloride Carbon Dioxide BUN Creatinine Glucose POC Glucose 211 H 211 H 114 H Calcium Total Bilirubin Alkaline Phosphatase Troponin T Albumin Urine Creatinine 06/30/18 06/30/18 06/30/18 00:11 01:57 05:43 WBC RBC Hgb Hct MCV MCH RDW [place] % (Auto) [place] # Seg Neutrophils # PT INR APTT Heparin Anti-Xa Level < 0.10 L POC ABG pH POC ABG pCO2 POC ABG pO2 Potassium Chloride Carbon Dioxide 17 L BUN 60 H Creatinine 5.0 H Glucose 125 H POC Glucose 131 H Calcium Total Bilirubin Alkaline Phosphatase Troponin T Albumin Urine Creatinine 06/30/18 06/30/18 06/30/18 06:29 09:31 12:16 WBC RBC Hgb Hct MCV MCH RDW [place] % (Auto) [place] # Seg Neutrophils # PT INR APTT Heparin Anti-Xa Level POC ABG pH 7.292 L POC ABG pCO2 34.9 L POC ABG pO2 79 L Potassium Chloride Carbon Dioxide BUN Creatinine Glucose POC Glucose 141 H 139 H Calcium Total Bilirubin Alkaline Phosphatase Troponin T Albumin Urine Creatinine 06/30/18 06/30/18 06/30/18 12:36 18:53 22:33 WBC RBC Hgb Hct MCV MCH RDW [place] % (Auto) [place] # Seg Neutrophils # PT 15.3 H INR 1.17 H APTT Heparin Anti-Xa Level POC ABG pH POC ABG pCO2 POC ABG pO2 Potassium Chloride Carbon Dioxide BUN Creatinine Glucose POC Glucose 183 H 184 H Calcium Total Bilirubin Alkaline Phosphatase Troponin T Albumin Urine Creatinine 07/01/18 07/01/18 07/01/18 02:43 02:44 05:55 WBC RBC Hgb Hct MCV MCH RDW [place] % (Auto) [place] # Seg Neutrophils # PT INR APTT Heparin Anti-Xa Level 0.83 H POC ABG pH POC ABG pCO2 POC ABG pO2 Potassium Chloride Carbon Dioxide BUN Creatinine Glucose POC Glucose 143 H 165 H Calcium Total Bilirubin Alkaline Phosphatase Troponin T Albumin Urine Creatinine 07/01/18 07/01/18 07/01/18 06:03 07:22 09:37 WBC RBC Hgb Hct MCV MCH RDW [place] % (Auto) [place] # Seg Neutrophils # PT 16.6 H INR 1.30 H APTT Heparin Anti-Xa Level 0.89 H POC ABG pH POC ABG pCO2 POC ABG pO2 Potassium Chloride Carbon Dioxide 15 L BUN 63 H Creatinine 5.6 H Glucose 145 H POC Glucose Calcium Total Bilirubin Alkaline Phosphatase Troponin T Albumin Urine Creatinine 07/01/18 07/02/18 07/02/18 10:42 00:28 05:23 WBC RBC Hgb Hct MCV MCH RDW [place] % (Auto) [place] # Seg Neutrophils # PT INR APTT Heparin Anti-Xa Level POC ABG pH POC ABG pCO2 POC ABG pO2 Potassium Chloride 97.9 L Carbon Dioxide 18 L BUN 38 H Creatinine 4.2 H Glucose 128 H POC Glucose 147 H 126 H Calcium Total Bilirubin Alkaline Phosphatase Troponin T Albumin Urine Creatinine 07/02/18 07/02/18 07/02/18 05:23 07:34 07:52 WBC RBC Hgb Hct MCV MCH RDW [place] % (Auto) [place] # Seg Neutrophils # PT 16.3 H INR 1.27 H APTT Heparin Anti-Xa Level 0.74 H POC ABG pH POC ABG pCO2 POC ABG pO2 Potassium Chloride Carbon Dioxide BUN Creatinine Glucose POC Glucose 131 H Calcium Total Bilirubin Alkaline Phosphatase Troponin T Albumin Urine Creatinine 07/02/18 13:45 WBC RBC Hgb Hct MCV MCH RDW [place] % (Auto) [place] # Seg Neutrophils # PT INR APTT Heparin Anti-Xa Level POC ABG pH POC ABG pCO2 POC ABG pO2 Potassium Chloride Carbon Dioxide BUN Creatinine Glucose POC Glucose 135 H Calcium Total Bilirubin Alkaline Phosphatase Troponin T Albumin Urine Creatinine Allied health notes reviewed: nursing
[2018-07-02] MEDS: COMBIGAN 0.2-0.5% OU SCH (16:44)
[2018-07-02] MEDS: HEPARIN/ 0.45% NACL-25,000 UNIT/500 ML 25,000 UNIT/500 ML BAG IV SCH ×2 (16:58→21:53)
[2018-07-02] MEDS: COUMADIN PO SCH (16:59)
--- NOTE | 2018-07-02 17:01 | Progress Note ---
Assessment and Plan Patient is a 68 yo woman from [facility] with a history of seizure disorder, type 2 DM, hypertension, dyslipidemia, CVA, DVT on Eliquis and Dementia who presented to [facility] ED on 06/21/18 with Seizures and was Intubated. ARF, ATN +vasomotor nephropathy, poa, worsening: Nephrology following-Renal function worsening, Cr up to 5.6, Hemodialysis to start today Acute respiratory failure, s/p ETT intubated (on admission) 06/21/18 >96 hours and extubated 06/26/18: continue o2 support, d/w Dr. Fish, Pulmonology regarding the stridor Status epilepticus: treated with keppra, EEG reviewed again with Dr. Haque Hypertensive Urgency, resolved: iv antihypertensives as needed H/o CVA, she is weaker on the right, ?old RHP: MRI brain still pending since 06/23/18, hold today, breathing too labored. SIRS with organ dysfunction, poa as above Acute Metabolic Encephalopathy per above History of DVT on Eliquis, v/q negative for PE. Continue iv heparin drip with close monitoring, and hold Eliquis because renal failure. Day 2 of Warfarin bridge Respiratory Stidor (developed 06/30/18) most likley due to fluid overload, oliguria and worsening renal failure: treat with racemic epi, nebs and started bipap, given iv lasix with little urine output obn 06/30/18 Subjective Date of service: 07/02/18 Principal diagnosis: Acute Hypoxemic Resp failure; Pneumonia (Likely aspiration); JULISA; SIRS Interval history: Patient was seen and examined. Follow-up on current diagnosis of sz. Overnight uneventful. still on bipap, Patient appears to have expressive aphasia. Imaging, nursing note, chart, labs and old chart reviewed. Discussed with patient. Objective - Constitutional Vitals: Vital Signs - 12hr 07/02/18 07/02/18 07/02/18 05:30 06:00 06:30 Temperature Pulse Rate 76 73 70 Pulse Rate [ From Monitor] Pulse Rate [ Posterior Bilateral Bases ] Respiratory 20 21 19 Rate Respiratory Rate [Posterior Bilateral Bases] Blood Pressure 114/47 120/50 120/50 O2 Sat by Pulse 100 99 100 Oximetry O2 Sat by Pulse Oximetry [ Anterior Bilateral Throughout] 07/02/18 07/02/18 07/02/18 07:00 07:30 08:00 Temperature 97.9 F Pulse Rate 70 81 77 Pulse Rate [ 81 From Monitor] Pulse Rate [ 80 Posterior Bilateral Bases ] Respiratory 18 27 H 26 H Rate Respiratory 21 Rate [Posterior Bilateral Bases] Blood Pressure 112/47 112/47 112/47 O2 Sat by Pulse 97 97 98 Oximetry O2 Sat by Pulse Oximetry [ Anterior Bilateral Throughout] 07/02/18 07/02/18 07/02/18 08:30 08:49 09:00 Temperature Pulse Rate 80 85 Pulse Rate [ From Monitor] Pulse Rate [ Posterior Bilateral Bases ] Respiratory 25 H 24 Rate Respiratory Rate [Posterior Bilateral Bases] Blood Pressure 96/52 96/52 O2 Sat by Pulse 100 100 99 Oximetry O2 Sat by Pulse Oximetry [ Anterior Bilateral Throughout] 07/02/18 07/02/18 07/02/18 09:13 09:30 10:00 Temperature 97.9 F Pulse Rate 81 79 Pulse Rate [ From Monitor] Pulse Rate [ 82 Posterior Bilateral Bases ] Respiratory 27 H 18 Rate Respiratory 22 Rate [Posterior Bilateral Bases] Blood Pressure 96/52 136/63 O2 Sat by Pulse 100 Oximetry O2 Sat by Pulse 98 Oximetry [ Anterior Bilateral Throughout] 07/02/18 07/02/18 07/02/18 10:15 10:30 10:45 Temperature Pulse Rate 86 86 89 Pulse Rate [ From Monitor] Pulse Rate [ Posterior Bilateral Bases ] Respiratory Rate Respiratory Rate [Posterior Bilateral Bases] Blood Pressure 147/71 134/58 148/65 O2 Sat by Pulse Oximetry O2 Sat by Pulse Oximetry [ Anterior Bilateral Throughout] 07/02/18 07/02/18 07/02/18 11:00 11:15 11:30 Temperature Pulse Rate 83 86 87 Pulse Rate [ From Monitor] Pulse Rate [ Posterior Bilateral Bases ] Respiratory Rate Respiratory Rate [Posterior Bilateral Bases] Blood Pressure 104/45 138/56 139/56 O2 Sat by Pulse Oximetry O2 Sat by Pulse Oximetry [ Anterior Bilateral Throughout] 07/02/18 07/02/18 07/02/18 11:45 12:00 12:15 Temperature 98.6 F Pulse Rate 84 83 84 Pulse Rate [ 81 From Monitor] Pulse Rate [ Posterior Bilateral Bases ] Respiratory 26 H Rate Respiratory Rate [Posterior Bilateral Bases] Blood Pressure 139/74 162/76 151/69 O2 Sat by Pulse 98 Oximetry O2 Sat by Pulse Oximetry [ Anterior Bilateral Throughout] 07/02/18 07/02/18 07/02/18 12:30 12:35 12:56 Temperature 97.9 F Pulse Rate 88 92 H 86 Pulse Rate [ From Monitor] Pulse Rate [ Posterior Bilateral Bases ] Respiratory 18 13 Rate Respiratory Rate [Posterior Bilateral Bases] Blood Pressure 153/27 160/26 O2 Sat by Pulse 94 Oximetry O2 Sat by Pulse Oximetry [ Anterior Bilateral Throughout] 07/02/18 07/02/18 07/02/18 13:00 13:11 13:12 Temperature Pulse Rate 84 84 Pulse Rate [ From Monitor] Pulse Rate [ Posterior Bilateral Bases ] Respiratory 22 Rate Respiratory Rate [Posterior Bilateral Bases] Blood Pressure 141/78 141/78 O2 Sat by Pulse 100 Oximetry O2 Sat by Pulse Oximetry [ Anterior Bilateral Throughout] 07/02/18 07/02/18 07/02/18 13:30 13:34 13:41 Temperature Pulse Rate 89 Pulse Rate [ From Monitor] Pulse Rate [ 88 85 Posterior Bilateral Bases ] Respiratory 18 Rate Respiratory 18 21 Rate [Posterior Bilateral Bases] Blood Pressure 141/78 O2 Sat by Pulse 100 Oximetry O2 Sat by Pulse Oximetry [ Anterior Bilateral Throughout] 07/02/18 07/02/18 07/02/18 14:00 14:30 15:00 Temperature Pulse Rate 83 76 78 Pulse Rate [ From Monitor] Pulse Rate [ Posterior Bilateral Bases ] Respiratory 21 21 21 Rate Respiratory Rate [Posterior Bilateral Bases] Blood Pressure 140/64 140/64 140/64 O2 Sat by Pulse 98 100 100 Oximetry O2 Sat by Pulse Oximetry [ Anterior Bilateral Throughout] 07/02/18 07/02/18 07/02/18 15:30 16:00 16:21 Temperature Pulse Rate 75 78 Pulse Rate [ 81 From Monitor] Pulse Rate [ 76 Posterior Bilateral Bases ] Respiratory 23 23 Rate Respiratory 18 Rate [Posterior Bilateral Bases] Blood Pressure 140/64 140/64 O2 Sat by Pulse 100 100 Oximetry O2 Sat by Pulse Oximetry [ Anterior Bilateral Throughout] General appearance: Present: no acute distress, well-nourished - EENT Eyes: PERRL, EOM intact ENT: hearing intact, clear oral mucosa Ears: bilateral: normal - Neck Neck: supple, normal ROM - Respiratory Respiratory effort: normal Respiratory: bilateral: CTA - Breasts Breasts: normal - Cardiovascular Rhythm: regular Heart Sounds: Present: S1 & S2. Absent: gallop, rub Extremities: pulses intact, No edema, normal color, Full ROM - Gastrointestinal General gastrointestinal: Present: soft, non-tender, non-distended, normal bowel sounds - Genitourinary Female genitourinary: normal - Integumentary Integumentary: clear, warm, dry - Musculoskeletal Musculoskeletal: 1, strength equal bilaterally - Neurologic Neurologic: moves all extremities - Psychiatric Psychiatric: memory intact, appropriate mood/affect, intact judgment & insight - Labs CBC & Chem 7: 06/26/18 10:14 07/02/18 05:23 Labs: Abnormal lab results 07/02/18 07/02/18 07/02/18 Range/Units 00:28 05:23 05:23 PT 16.3 H (12.2-14.9) Sec. INR 1.27 H (0.87-1.13) Heparin Anti-Xa Level (0.3-0.7) U.I./ml Chloride 97.9 L (98-107) mmol/L Carbon Dioxide 18 L (22-30) mmol/L BUN 38 H (7-17) mg/dL Creatinine 4.2 H (0.7-1.2) mg/dL Glucose 128 H (65-100) mg/dL POC Glucose 126 H (70-105) 07/02/18 07/02/18 07/02/18 Range/Units 07:34 07:52 13:45 PT (12.2-14.9) Sec. INR (0.87-1.13) Heparin Anti-Xa Level 0.74 H (0.3-0.7) U.I./ml Chloride (98-107) mmol/L Carbon Dioxide (22-30) mmol/L BUN (7-17) mg/dL Creatinine (0.7-1.2) mg/dL Glucose (65-100) mg/dL POC Glucose 131 H 135 H (70-105) 07/02/18 Range/Units 15:54 PT (12.2-14.9) Sec. INR (0.87-1.13) Heparin Anti-Xa Level 0.28 L (0.3-0.7) U.I./ml Chloride (98-107) mmol/L Carbon Dioxide (22-30) mmol/L BUN (7-17) mg/dL Creatinine (0.7-1.2) mg/dL Glucose (65-100) mg/dL POC Glucose (70-105)
[2018-07-02 20:14] LABS: Myeloperoxidase Antibody <1.0 AI (<1.0)
[2018-07-02] MEDS ORDERED: TESSALON PERLES PO PRN (21:00)
--- NOTE | 2018-07-02 23:47 | Physician Progress Note ---
SUBJECTIVE: The patient is being followed because of increasing renal failure and the patient is on Keppra. I was asked to evaluate this patient to see whether the anticonvulsant could be discontinued or be switched. Yesterday, the patient went into ____ and some procedure, so I was unable to see her. Right now, the patient is much, much better. She is very comfortable. The other day, she was having some stridor. I was suspecting that she may have something coming from the larynx, but this apparently was intermittent. Right now, she is not on BiPAP and she is very comfortable, breathing easily. She is awake, alert. She is responding and very comfortable. OBJECTIVE: As above. She is breathing easier. Moving all her extremities, but had problem with the lower extremity because of obesity. She is awake. She did not appear to be confused. ASSESSMENT: The patient has multiple medical problems, but now she is medically feeling well. History of seizure, possible Keppra involved with renal problem. PLAN: We have stopped the anti-seizure and we will just observe her closely. I have seen the patient. The patient is not having any seizure. The rest of plan is as before. JOB# [id number] MARTIN/TYLER
[2018-07-03] MEDS: PROVENTIL IH SCH ×6 (00:05→21:32)
[2018-07-03] MEDS: HumaLOG SUB-Q SCH ×4 (03:08→22:49)
[2018-07-03] MEDS: ATIVAN IV PRN (03:43)
[2018-07-03 05:52] LABS: INR 1.3 (0.87-1.13)
[2018-07-03] MEDS: COMBIGAN 0.2-0.5% OU SCH ×2 (06:09→16:30)
[2018-07-03] MEDS: LASIX IV SCH (06:15)
[2018-07-03] MEDS: PULMICORT IH SCH ×2 (07:49→21:02)
[2018-07-03] MEDS: BROVANA NEBU IH SCH ×2 (07:49→21:02)
[2018-07-03] MEDS: PEPCID PO SCH (10:30)
[2018-07-03] MEDS: COREG PO SCH ×2 (10:30→22:40)
[2018-07-03] MEDS: NORVASC PO SCH (10:30)
[2018-07-03] MEDS: SODIUM CHLORIDE FLUSH SYRINGE 10 ML IV SCH ×2 (11:31→22:48)
--- NOTE | 2018-07-03 14:35 | Progress Note ---
Subjective Principal diagnosis: Acute Hypoxemic Resp failure; Pneumonia (Likely aspiration); JULISA; SIRS Interval history: Patient was seen today for follow-up of multiple renal related issues, around 12:15 in the afternoon No complaints of any chest pain pressure or shortness of breath Resting comfortably Interdisciplinary notes that also reviewed Events of 24 hours vitals labs intake output medications were reviewed Past medical history: Reviewed Family history: Reviewed Social history: Reviewed Allergies: Reviewed Physical examination: Vitals: Reviewed HEENT: No pallor or icterus oral mucosa moist Neck: Supple no JVD no thyromegaly Chest: Bilateral clear to auscultation anteriorly Heart: Regular rate and rhythm S1-S2 heard no S3-S4 Abdomen: Soft nontender no voluntary guarding rigidity rebound Extremity: Dry skin less than 1+ peripheral edema Psychiatric: No evidence of agitation and aggression noted Dermatology: No petechial rashes Labs and x-rays: Reviewed from today Assessment and plan Injury with underlying chronic kidney disease Baseline creatinine was 1.7 in March 2018 patient initiated on renal replacement therapy yesterday, will need to reevaluate her tomorrow morning patient is a very poor historian, no emergent indication for dialysis today Patient likely has acute tubular necrosis Status post respiratory failure Kidney ultrasonogram essentially unremarkable at this time Blood pressure is adequately controlled today Patient does need follow-up labs including a basic metabolic profile as well as a CBC please do Vasculitic workup was essentially negative hepatitis profile was negative complement double-stranded DNA negative Patient does have underlying dementia, diabetes, seizure disorder and prior history of CVA Over all prognosis appears to be guarded to poor long-term, Patient was adequately counseled and educated regarding all the renal related issues Laboratory studies, pertinent for discussed with patient All questions were answered and simple Faroese We'll continue to follow and make recommendation for renal standpoint Objective - Vital Signs Vital signs: Vital Signs - 12hr 07/03/18 07/03/18 07/03/18 03:00 03:30 03:57 Temperature Pulse Rate 78 79 Pulse Rate [ From Monitor] Pulse Rate [ 778 H Posterior Bilateral Bases ] Respiratory 21 20 Rate Respiratory 24 Rate [Posterior Bilateral Bases] Blood Pressure 126/55 126/55 O2 Sat by Pulse Oximetry 07/03/18 07/03/18 07/03/18 03:59 04:00 04:30 Temperature Pulse Rate 77 77 74 Pulse Rate [ 78 From Monitor] Pulse Rate [ Posterior Bilateral Bases ] Respiratory 26 H 26 H 25 H Rate Respiratory Rate [Posterior Bilateral Bases] Blood Pressure 126/55 126/55 116/72 O2 Sat by Pulse 99 99 97 Oximetry 07/03/18 07/03/18 07/03/18 04:46 05:00 05:30 Temperature 98.4 F Pulse Rate 75 73 Pulse Rate [ From Monitor] Pulse Rate [ Posterior Bilateral Bases ] Respiratory 24 19 Rate Respiratory Rate [Posterior Bilateral Bases] Blood Pressure 116/72 116/72 O2 Sat by Pulse 100 Oximetry 07/03/18 07/03/18 07/03/18 06:00 06:30 07:00 Temperature Pulse Rate 71 69 69 Pulse Rate [ From Monitor] Pulse Rate [ Posterior Bilateral Bases ] Respiratory 21 20 21 Rate Respiratory Rate [Posterior Bilateral Bases] Blood Pressure 140/64 140/64 140/64 O2 Sat by Pulse 100 100 100 Oximetry 07/03/18 07/03/18 07/03/18 07:30 07:40 07:45 Temperature Pulse Rate 73 73 Pulse Rate [ From Monitor] Pulse Rate [ 73 Posterior Bilateral Bases ] Respiratory 20 20 Rate Respiratory 20 Rate [Posterior Bilateral Bases] Blood Pressure 140/64 140/64 O2 Sat by Pulse 100 99 Oximetry 07/03/18 07/03/18 07/03/18 07:46 08:00 08:30 Temperature 98.4 F Pulse Rate 70 73 Pulse Rate [ From Monitor] Pulse Rate [ 73 Posterior Bilateral Bases ] Respiratory 21 21 Rate Respiratory 19 Rate [Posterior Bilateral Bases] Blood Pressure 136/64 136/64 O2 Sat by Pulse 100 100 Oximetry 07/03/18 07/03/18 07/03/18 09:00 09:30 10:00 Temperature Pulse Rate 73 69 68 Pulse Rate [ From Monitor] Pulse Rate [ Posterior Bilateral Bases ] Respiratory 21 21 19 Rate Respiratory Rate [Posterior Bilateral Bases] Blood Pressure 136/64 136/64 133/63 O2 Sat by Pulse 100 100 97 Oximetry 07/03/18 10:30 Temperature Pulse Rate 69 Pulse Rate [ From Monitor] Pulse Rate [ Posterior Bilateral Bases ] Respiratory 19 Rate Respiratory Rate [Posterior Bilateral Bases] Blood Pressure 136/64 O2 Sat by Pulse 100 Oximetry - Lab 06/26/18 10:14 07/02/18 05:23 Most recent lab results Calcium 8.8 mg/dL (8.4-10.2) 07/02/18 05:23 Magnesium 1.70 mg/dL (1.7-2.3) 06/21/18 14:06 Urine Creatinine 192.2 mg/dL (0.1-20.0) H 06/27/18 Unknown Urine Sodium 11 mmol/L 06/27/18 Unknown Medications & Allergies - Medications Allergies/Adverse Reactions: Allergies No Known Allergies Allergy (Unverified 04/06/18 11:56) Home Medications: Home Medications Medication Instructions Recorded Confirmed Last Taken Type Acetaminophen [Acetaminophen TAB] 650 mg PO Q4H PRN 04/06/18 06/21/18 Unknown History Apixaban [Eliquis] 5 mg PO Q12H 04/06/18 06/21/18 Unknown History AtorvaSTATin [Lipitor] 40 mg PO QHS 04/06/18 06/21/18 Unknown History Brimonidine Tartrate/Timolol 1 drop OU Q12H 04/06/18 06/21/18 Unknown History [Combigan 0.2%-0.5% Eye Drops] Donepezil HCl [Aricept] 10 mg PO HS 04/06/18 06/21/18 Unknown History Insulin Glargine [Lantus VIAL] 50 units SUB-Q QHS 04/06/18 06/21/18 Unknown History Insulin Lispro [HumaLOG VIAL] 9 units SUB-Q AC 04/06/18 06/21/18 Unknown History Lispro Insulin [Humalog] See Protocol SUB-Q ACHS 04/06/18 06/21/18 Unknown History Mirtazapine [Remeron] 15 mg PO HS 04/06/18 06/21/18 Unknown History levETIRAcetam [Keppra TAB] 1,000 mg PO Q12H 04/06/18 06/21/18 Unknown History Furosemide [Lasix TAB] 40 mg PO QDAY #30 tablet 04/10/18 06/21/18 Unknown Rx HYDROcodone/APAP 5-325 [[place] 1 each PO Q8HR PRN #7 tablet 04/10/18 06/21/18 Unknown Rx 5-325 mg TAB] Losartan [Cozaar] 25 mg PO QDAY #30 tablet 04/10/18 06/21/18 Unknown Rx Metoprolol Succinate [Toprol Xl] 25 mg PO DAILY #30 tab.er.24h 04/10/18 06/21/18 Unknown Rx Active Medications: Generic Name Dose Route Start Last Admin Trade Name Freq PRN Reason Stop Dose Admin Albuterol 2.5 mg 06/30/18 12:00 07/03/18 14:20 Proventil IH 2.5 mg Q4HRT RICKY Administration Amlodipine Besylate 10 mg 06/22/18 19:00 07/02/18 13:12 Norvasc PO 10 mg QDAY RICKY Administration Arformoterol Tartrate 15 mcg 06/30/18 20:00 07/03/18 07:49 Brovana Nebu IH Not Given Q12HRT RICKY Atorvastatin Calcium 40 mg 06/22/18 22:00 07/02/18 21:43 Lipitor PO 40 mg QHS RICKY Administration Benzonatate 100 mg 07/02/18 21:00 07/02/18 21:43 Tessalon Perles PO 100 mg Q8H PRN Administration Cough Brimonidine/Timolol 1 drops 06/22/18 16:00 07/03/18 06:09 Combigan 0.2-0.5% OU Not Given Q12H RICKY Budesonide 0.5 mg 06/30/18 20:00 07/03/18 07:49 Pulmicort IH 0.5 mg Q12HRT RICKY Administration Carvedilol 12.5 mg 06/22/18 22:00 07/02/18 21:43 Coreg PO 12.5 mg BID RICKY Administration Famotidine 20 mg 06/24/18 10:00 07/02/18 13:12 Pepcid PO 20 mg QDAY RICKY Administration Furosemide 40 mg 06/30/18 18:00 07/03/18 06:15 Lasix IV 40 mg 0600,1800 RICKY Administration Hydralazine HCl 20 mg 06/22/18 16:03 06/22/18 17:00 Apresoline IV 20 mg Q6H PRN Administration HTN Hydrophilic Ointment 1 applic 06/21/18 15:50 Vaseline Lip Therapy TP Q2HR PRN Dry Lips Heparin Sodium/Sodium Chloride 25,000 unit in 500 mls @ 27 mls/hr 06/22/18 17:00 07/03/18 03:22 Heparin/ 0.45% Nacl-25,000 Unit/500 Ml IV 1,350 units/hr TITR RICKY 27 mls/hr Titration Protocol 1,350 UNITS/HR Sodium Chloride 100 mls @ 999 mls/hr 07/01/18 09:00 Nacl 0.9% IV DANNA PRN Hypotension Insulin Human Lispro 0 unit 06/23/18 02:00 07/03/18 11:30 Humalog SUB-Q 1 unit Q4HR RICKY Administration Protocol Labetalol HCl 20 mg 06/22/18 18:00 06/22/18 18:55 Normodyne IV 20 mg Q4H PRN Administration BP >160/100; hold for HR <60 Lorazepam 0.5 mg 06/30/18 18:36 07/03/18 03:43 Ativan IV 0.5 mg Q8H PRN Administration Agitation Multi-Ingred Cream/Lotion/Oil/Oint 1 applic 06/21/18 15:50 Artificial Tears Ophth Oint OU Q4HR PRN Dry Eye(s) Sodium Chloride 10 ml 06/21/18 22:00 07/03/18 11:31 Sodium Chloride Flush Syringe 10 Ml IV 10 ml BID RICKY Administration Sodium Chloride 10 ml 06/21/18 15:39 06/22/18 06:27 Sodium Chloride Flush Syringe 10 Ml IV 10 ml PRN PRN Administration LINE FLUSH Warfarin Sodium 7.5 mg 06/30/18 20:00 07/02/18 16:59 Coumadin PO 7.5 mg DAILY@1700 RICKY Administration
--- NOTE | 2018-07-03 14:51 | Progress Note ---
Assessment and Plan Acute Hypoxemic Respiratory failure on MVS Pneumonia (Likely aspiration) JULISA Respiratory Alkalosis Acute on Chronic Encephalopathy SIRS due to infectious process with acute organ dysfunction Seizures Obesity Diabetes type II Hypertension Hyperlipidemia H/O CVA H/O DVT Dementia Debility - continue scheduled BIPAP qhs in short term - neurology evaluation ongoing and input appreciated - continue Keppra for seizures (1500mg bid) - completed empiric CAP antibiotics - transitioned to oral anticoagulation - Stress ulcer prophylaxis - Monitor renal function - Avoid nephrotoxic agents, adjust all medications for GFR and CrCL - advance diet per ST - continue to wean supplemental oxygen to keep O2 sats>90% - Accuchecks, glycemic control. Target blood glucose of 140-180mg/dL - continue other care per attending / other consultants .... re-evaluate in am & prn Subjective Date of service: 07/03/18 Principal diagnosis: Acute Hypoxemic Resp failure; Pneumonia (Likely aspiration); JULISA; SIRS Interval history: Patient is seen today for: Acute Hypoxemic Respiratory failure on MVS; Pneumonia (Likely aspiration); JULISA; Acute on Chronic Encephalopathy; SIRS Seen and examined at bedside; 24hour events reviewed; nursing and respiratory care staff consulted; no adverse overnight events reported to me; resting peacefully in bed; follows simple commands; no new issues otherwise; remains on supplemental oxygen Objective Vital Signs - 12hr 07/03/18 07/03/18 07/03/18 03:00 03:30 03:57 Temperature Pulse Rate 78 79 Pulse Rate [ From Monitor] Pulse Rate [ 778 H Posterior Bilateral Bases ] Respiratory 21 20 Rate Respiratory 24 Rate [Posterior Bilateral Bases] Blood Pressure 126/55 126/55 O2 Sat by Pulse Oximetry 07/03/18 07/03/18 07/03/18 03:59 04:00 04:30 Temperature Pulse Rate 77 77 74 Pulse Rate [ 78 From Monitor] Pulse Rate [ Posterior Bilateral Bases ] Respiratory 26 H 26 H 25 H Rate Respiratory Rate [Posterior Bilateral Bases] Blood Pressure 126/55 126/55 116/72 O2 Sat by Pulse 99 99 97 Oximetry 07/03/18 07/03/18 07/03/18 04:46 05:00 05:30 Temperature 98.4 F Pulse Rate 75 73 Pulse Rate [ From Monitor] Pulse Rate [ Posterior Bilateral Bases ] Respiratory 24 19 Rate Respiratory Rate [Posterior Bilateral Bases] Blood Pressure 116/72 116/72 O2 Sat by Pulse 100 Oximetry 07/03/18 07/03/18 07/03/18 06:00 06:30 07:00 Temperature Pulse Rate 71 69 69 Pulse Rate [ From Monitor] Pulse Rate [ Posterior Bilateral Bases ] Respiratory 21 20 21 Rate Respiratory Rate [Posterior Bilateral Bases] Blood Pressure 140/64 140/64 140/64 O2 Sat by Pulse 100 100 100 Oximetry 07/03/18 07/03/18 07/03/18 07:30 07:40 07:45 Temperature Pulse Rate 73 73 Pulse Rate [ From Monitor] Pulse Rate [ 73 Posterior Bilateral Bases ] Respiratory 20 20 Rate Respiratory 20 Rate [Posterior Bilateral Bases] Blood Pressure 140/64 140/64 O2 Sat by Pulse 100 99 Oximetry 07/03/18 07/03/18 07/03/18 07:46 08:00 08:30 Temperature 98.4 F Pulse Rate 70 73 Pulse Rate [ From Monitor] Pulse Rate [ 73 Posterior Bilateral Bases ] Respiratory 21 21 Rate Respiratory 19 Rate [Posterior Bilateral Bases] Blood Pressure 136/64 136/64 O2 Sat by Pulse 100 100 Oximetry 07/03/18 07/03/18 07/03/18 09:00 09:30 10:00 Temperature Pulse Rate 73 69 68 Pulse Rate [ From Monitor] Pulse Rate [ Posterior Bilateral Bases ] Respiratory 21 21 19 Rate Respiratory Rate [Posterior Bilateral Bases] Blood Pressure 136/64 136/64 133/63 O2 Sat by Pulse 100 100 97 Oximetry 07/03/18 10:30 Temperature Pulse Rate 69 Pulse Rate [ From Monitor] Pulse Rate [ Posterior Bilateral Bases ] Respiratory 19 Rate Respiratory Rate [Posterior Bilateral Bases] Blood Pressure 136/64 O2 Sat by Pulse 100 Oximetry Constitutional: no acute distress, other (elderly looking AAF normocephalic and atraumatic with ETT to MVS and mildly increased resp effort) Eyes: non-icteric ENT: oropharynx moist, other (extubated) Neck: supple, no lymphadenopathy, no JVD, other (no thyromegaly) Effort: mildly labored Ascultation: Bilateral: diminished breath sounds, other (referred upper airway sounds) Percussion: Bilateral: not dull Cardiovascular: regular rate and rhythm Gastrointestinal: normoactive bowel sounds, soft, tender, non-distended Integumentary: normal Extremities: no cyanosis, no edema, pulses normal, no ischemia or petechiae Neurologic: normal mental status, non-focal exam (grossly), pupils equal and round, CN II-XII normal Psychiatric: mood appropriate, affect normal CBC and BMP: 07/06/18 04:03 07/06/18 07:21 ABG, PT/INR, D-dimer: ABG POC ABG pH 7.292 (7.35-7.45) L 06/30/18 12:16 POC ABG pCO2 34.9 (35-45) L 06/30/18 12:16 POC ABG pO2 79 (80-105) L 06/30/18 12:16 POC ABG HCO3 16.9 06/30/18 12:16 POC ABG Total CO2 18 06/30/18 12:16 POC ABG O2 Sat 94 06/30/18 12:16 PT/INR, D-dimer PT 16.6 Sec. (12.2-14.9) H 07/03/18 05:25 INR 1.30 (0.87-1.13) H 07/03/18 05:25 Abnormal lab findings: Abnormal Labs 06/21/18 06/21/18 06/21/18 14:02 14:06 14:06 WBC RBC Hgb Hct MCV 71 L MCH 22 L RDW 21.1 H [place] % (Auto) [place] # Seg Neutrophils # PT 18.9 H INR 1.54 H APTT Heparin Anti-Xa Level POC ABG pH POC ABG pCO2 POC ABG pO2 Potassium Chloride Carbon Dioxide BUN Creatinine Glucose POC Glucose 250 H Calcium Total Bilirubin Alkaline Phosphatase Troponin T Albumin Urine Creatinine 06/21/18 06/21/18 06/21/18 14:06 14:23 21:17 WBC RBC Hgb Hct MCV MCH RDW [place] % (Auto) [place] # Seg Neutrophils # PT INR APTT Heparin Anti-Xa Level POC ABG pH 7.499 H 7.600 H POC ABG pCO2 34.8 L 24.9 L POC ABG pO2 342 H 176 H Potassium Chloride Carbon Dioxide BUN Creatinine 1.5 H Glucose 214 H POC Glucose Calcium Total Bilirubin 1.30 H Alkaline Phosphatase 174 H Troponin T 0.050 H Albumin 3.1 L Urine Creatinine 06/22/18 06/22/18 06/22/18 03:17 03:17 05:27 WBC 11.5 H RBC 5.07 H Hgb Hct MCV 69 L MCH 21 L RDW 21.9 H [place] % (Auto) 9.8 H [place] # 1.1 H Seg Neutrophils # 7.9 H PT INR APTT Heparin Anti-Xa Level POC ABG pH 7.539 H POC ABG pCO2 30.1 L POC ABG pO2 170 H Potassium Chloride Carbon Dioxide BUN Creatinine 1.5 H Glucose 164 H POC Glucose Calcium Total Bilirubin Alkaline Phosphatase Troponin T Albumin Urine Creatinine 06/22/18 06/22/18 06/22/18 17:21 17:50 19:46 WBC RBC Hgb Hct MCV MCH RDW [place] % (Auto) [place] # Seg Neutrophils # PT 17.5 H INR 1.39 H APTT 22.8 L Heparin Anti-Xa Level 1.64 H POC ABG pH POC ABG pCO2 POC ABG pO2 Potassium Chloride Carbon Dioxide BUN Creatinine Glucose POC Glucose 240 H Calcium Total Bilirubin Alkaline Phosphatase Troponin T Albumin Urine Creatinine 06/22/18 06/23/18 06/23/18 23:47 01:44 04:14 WBC RBC Hgb Hct MCV MCH RDW [place] % (Auto) [place] # Seg Neutrophils # PT INR APTT Heparin Anti-Xa Level 0.10 L POC ABG pH POC ABG pCO2 POC ABG pO2 Potassium Chloride Carbon Dioxide BUN Creatinine Glucose POC Glucose 240 H 229 H Calcium Total Bilirubin Alkaline Phosphatase Troponin T Albumin Urine Creatinine 06/23/18 06/23/18 06/23/18 05:34 09:24 10:24 WBC RBC Hgb Hct MCV MCH RDW [place] % (Auto) [place] # Seg Neutrophils # PT INR APTT Heparin Anti-Xa Level POC ABG pH 7.519 H POC ABG pCO2 POC ABG pO2 133 H Potassium Chloride Carbon Dioxide BUN Creatinine Glucose POC Glucose 220 H 183 H Calcium Total Bilirubin Alkaline Phosphatase Troponin T Albumin Urine Creatinine 06/23/18 06/23/18 06/23/18 12:39 13:32 14:08 WBC RBC Hgb Hct MCV MCH RDW [place] % (Auto) [place] # Seg Neutrophils # PT INR APTT Heparin Anti-Xa Level > 2.00 H POC ABG pH POC ABG pCO2 POC ABG pO2 Potassium Chloride Carbon Dioxide BUN Creatinine Glucose POC Glucose 151 H 140 H Calcium Total Bilirubin Alkaline Phosphatase Troponin T Albumin Urine Creatinine 06/23/18 06/23/18 06/23/18 18:00 19:33 21:31 WBC RBC Hgb Hct MCV MCH RDW [place] % (Auto) [place] # Seg Neutrophils # PT INR APTT Heparin Anti-Xa Level 1.74 H POC ABG pH POC ABG pCO2 POC ABG pO2 Potassium Chloride Carbon Dioxide BUN Creatinine Glucose POC Glucose 141 H 153 H Calcium Total Bilirubin Alkaline Phosphatase Troponin T Albumin Urine Creatinine 06/24/18 06/24/18 06/24/18 02:36 03:55 03:55 WBC 12.9 H RBC Hgb 9.9 L Hct MCV 70 L MCH 22 L RDW 22.1 H [place] % (Auto) [place] # Seg Neutrophils # PT INR APTT Heparin Anti-Xa Level POC ABG pH POC ABG pCO2 POC ABG pO2 Potassium Chloride Carbon Dioxide BUN 25 H Creatinine 1.6 H Glucose 151 H POC Glucose 162 H Calcium 8.2 L Total Bilirubin Alkaline Phosphatase Troponin T Albumin Urine Creatinine 06/24/18 06/24/18 06/24/18 03:55 05:01 09:34 WBC RBC Hgb Hct MCV MCH RDW [place] % (Auto) [place] # Seg Neutrophils # PT INR APTT Heparin Anti-Xa Level 1.75 H POC ABG pH POC ABG pCO2 POC ABG pO2 Potassium Chloride Carbon Dioxide BUN Creatinine Glucose POC Glucose 175 H 143 H Calcium Total Bilirubin Alkaline Phosphatase Troponin T Albumin Urine Creatinine 06/24/18 06/24/18 06/24/18 12:50 14:29 17:08 WBC RBC Hgb Hct MCV MCH RDW [place] % (Auto) [place] # Seg Neutrophils # PT INR APTT Heparin Anti-Xa Level 1.60 H POC ABG pH POC ABG pCO2 POC ABG pO2 Potassium Chloride Carbon Dioxide BUN Creatinine Glucose POC Glucose 169 H 138 H Calcium Total Bilirubin Alkaline Phosphatase Troponin T Albumin Urine Creatinine 06/24/18 06/24/18 06/25/18 21:13 21:50 01:45 WBC RBC Hgb Hct MCV MCH RDW [place] % (Auto) [place] # Seg Neutrophils # PT INR APTT Heparin Anti-Xa Level 1.53 H POC ABG pH POC ABG pCO2 POC ABG pO2 Potassium Chloride Carbon Dioxide BUN Creatinine Glucose POC Glucose 186 H 177 H Calcium Total Bilirubin Alkaline Phosphatase Troponin T Albumin Urine Creatinine 06/25/18 06/25/18 06/25/18 05:23 05:41 09:55 WBC RBC Hgb Hct MCV MCH RDW [place] % (Auto) [place] # Seg Neutrophils # PT INR APTT Heparin Anti-Xa Level 1.13 H POC ABG pH POC ABG pCO2 POC ABG pO2 Potassium Chloride Carbon Dioxide BUN Creatinine Glucose POC Glucose 160 H 181 H Calcium Total Bilirubin Alkaline Phosphatase Troponin T Albumin Urine Creatinine 06/25/18 06/25/18 06/25/18 12:54 14:27 14:33 WBC RBC Hgb Hct MCV MCH RDW [place] % (Auto) [place] # Seg Neutrophils # PT INR APTT Heparin Anti-Xa Level 0.73 H POC ABG pH POC ABG pCO2 POC ABG pO2 Potassium 3.4 L Chloride Carbon Dioxide BUN 30 H Creatinine 2.1 H Glucose 220 H POC Glucose 218 H Calcium Total Bilirubin Alkaline Phosphatase Troponin T Albumin Urine Creatinine 06/25/18 06/25/18 06/26/18 17:36 21:40 01:49 WBC RBC Hgb Hct MCV MCH RDW [place] % (Auto) [place] # Seg Neutrophils # PT INR APTT Heparin Anti-Xa Level POC ABG pH POC ABG pCO2 POC ABG pO2 Potassium Chloride Carbon Dioxide BUN Creatinine Glucose POC Glucose 219 H 162 H 152 H Calcium Total Bilirubin Alkaline Phosphatase Troponin T Albumin Urine Creatinine 06/26/18 06/26/18 06/26/18 04:43 05:50 09:43 WBC RBC Hgb 8.8 L Hct 27.7 L MCV MCH RDW [place] % (Auto) [place] # Seg Neutrophils # PT INR APTT Heparin Anti-Xa Level POC ABG pH POC ABG pCO2 POC ABG pO2 Potassium Chloride Carbon Dioxide BUN Creatinine Glucose POC Glucose 176 H 206 H Calcium Total Bilirubin Alkaline Phosphatase Troponin T Albumin Urine Creatinine 06/26/18 06/26/18 06/26/18 10:14 10:14 12:43 WBC RBC Hgb 9.5 L Hct 30.0 L MCV 69 L MCH 22 L RDW 22.4 H [place] % (Auto) 11.0 H [place] # 1.0 H Seg Neutrophils # PT INR APTT Heparin Anti-Xa Level POC ABG pH 7.311 L POC ABG pCO2 46.6 H POC ABG pO2 Potassium Chloride Carbon Dioxide BUN 34 H Creatinine 2.4 H Glucose 194 H POC Glucose Calcium Total Bilirubin Alkaline Phosphatase Troponin T Albumin Urine Creatinine 06/26/18 06/26/18 06/27/18 14:30 17:32 00:00 WBC RBC Hgb Hct MCV MCH RDW [place] % (Auto) [place] # Seg Neutrophils # PT INR APTT Heparin Anti-Xa Level POC ABG pH POC ABG pCO2 POC ABG pO2 Potassium Chloride Carbon Dioxide BUN Creatinine Glucose POC Glucose 219 H 228 H 173 H Calcium Total Bilirubin Alkaline Phosphatase Troponin T Albumin Urine Creatinine 06/27/18 06/27/18 06/27/18 01:25 06:06 10:24 WBC RBC Hgb Hct MCV MCH RDW [place] % (Auto) [place] # Seg Neutrophils # PT INR APTT Heparin Anti-Xa Level POC ABG pH POC ABG pCO2 POC ABG pO2 Potassium Chloride Carbon Dioxide BUN Creatinine Glucose POC Glucose 178 H 157 H 171 H Calcium Total Bilirubin Alkaline Phosphatase Troponin T Albumin Urine Creatinine 06/27/18 06/27/18 06/27/18 12:24 12:24 18:13 WBC RBC Hgb Hct MCV MCH RDW [place] % (Auto) [place] # Seg Neutrophils # PT INR APTT Heparin Anti-Xa Level POC ABG pH POC ABG pCO2 POC ABG pO2 Potassium Chloride Carbon Dioxide BUN Creatinine 3.3 H Glucose POC Glucose 192 H 158 H Calcium Total Bilirubin Alkaline Phosphatase Troponin T Albumin Urine Creatinine 06/27/18 06/27/18 06/27/18 22:23 22:34 Unknown WBC RBC Hgb Hct MCV MCH RDW [place] % (Auto) [place] # Seg Neutrophils # PT INR APTT Heparin Anti-Xa Level 0.13 L POC ABG pH POC ABG pCO2 POC ABG pO2 Potassium Chloride Carbon Dioxide BUN Creatinine Glucose POC Glucose 137 H Calcium Total Bilirubin Alkaline Phosphatase Troponin T Albumin Urine Creatinine 192.2 H 06/28/18 06/28/18 06/28/18 03:25 04:06 06:44 WBC RBC Hgb Hct MCV MCH RDW [place] % (Auto) [place] # Seg Neutrophils # PT INR APTT Heparin Anti-Xa Level POC ABG pH POC ABG pCO2 POC ABG pO2 Potassium Chloride Carbon Dioxide 19 L BUN 49 H Creatinine 3.8 H Glucose 159 H POC Glucose 149 H 174 H Calcium Total Bilirubin Alkaline Phosphatase Troponin T Albumin Urine Creatinine 06/28/18 06/28/18 06/28/18 08:59 14:32 17:34 WBC RBC Hgb Hct MCV MCH RDW [place] % (Auto) [place] # Seg Neutrophils # PT INR APTT Heparin Anti-Xa Level POC ABG pH POC ABG pCO2 POC ABG pO2 Potassium Chloride Carbon Dioxide BUN Creatinine Glucose POC Glucose 167 H 161 H 162 H Calcium Total Bilirubin Alkaline Phosphatase Troponin T Albumin Urine Creatinine 06/28/18 06/29/18 06/29/18 23:03 02:59 04:15 WBC RBC Hgb Hct MCV MCH RDW [place] % (Auto) [place] # Seg Neutrophils # PT INR APTT Heparin Anti-Xa Level POC ABG pH POC ABG pCO2 POC ABG pO2 Potassium Chloride Carbon Dioxide 17 L BUN 55 H Creatinine 4.3 H Glucose 141 H POC Glucose 198 H 162 H Calcium Total Bilirubin Alkaline Phosphatase Troponin T Albumin Urine Creatinine 06/29/18 06/29/18 06/29/18 05:41 09:35 15:06 WBC RBC Hgb Hct MCV MCH RDW [place] % (Auto) [place] # Seg Neutrophils # PT INR APTT Heparin Anti-Xa Level 0.18 L POC ABG pH POC ABG pCO2 POC ABG pO2 Potassium Chloride Carbon Dioxide BUN Creatinine Glucose POC Glucose 125 H 128 H Calcium Total Bilirubin Alkaline Phosphatase Troponin T Albumin Urine Creatinine 06/29/18 06/29/18 06/29/18 16:26 18:30 21:34 WBC RBC Hgb Hct MCV MCH RDW [place] % (Auto) [place] # Seg Neutrophils # PT INR APTT Heparin Anti-Xa Level POC ABG pH POC ABG pCO2 POC ABG pO2 Potassium Chloride Carbon Dioxide BUN Creatinine Glucose POC Glucose 211 H 211 H 114 H Calcium Total Bilirubin Alkaline Phosphatase Troponin T Albumin Urine Creatinine 06/30/18 06/30/18 06/30/18 00:11 01:57 05:43 WBC RBC Hgb Hct MCV MCH RDW [place] % (Auto) [place] # Seg Neutrophils # PT INR APTT Heparin Anti-Xa Level < 0.10 L POC ABG pH POC ABG pCO2 POC ABG pO2 Potassium Chloride Carbon Dioxide 17 L BUN 60 H Creatinine 5.0 H Glucose 125 H POC Glucose 131 H Calcium Total Bilirubin Alkaline Phosphatase Troponin T Albumin Urine Creatinine 06/30/18 06/30/18 06/30/18 06:29 09:31 12:16 WBC RBC Hgb Hct MCV MCH RDW [place] % (Auto) [place] # Seg Neutrophils # PT INR APTT Heparin Anti-Xa Level POC ABG pH 7.292 L POC ABG pCO2 34.9 L POC ABG pO2 79 L Potassium Chloride Carbon Dioxide BUN Creatinine Glucose POC Glucose 141 H 139 H Calcium Total Bilirubin Alkaline Phosphatase Troponin T Albumin Urine Creatinine 06/30/18 06/30/18 06/30/18 12:36 18:53 22:33 WBC RBC Hgb Hct MCV MCH RDW [place] % (Auto) [place] # Seg Neutrophils # PT 15.3 H INR 1.17 H APTT Heparin Anti-Xa Level POC ABG pH POC ABG pCO2 POC ABG pO2 Potassium Chloride Carbon Dioxide BUN Creatinine Glucose POC Glucose 183 H 184 H Calcium Total Bilirubin Alkaline Phosphatase Troponin T Albumin Urine Creatinine 07/01/18 07/01/18 07/01/18 02:43 02:44 05:55 WBC RBC Hgb Hct MCV MCH RDW [place] % (Auto) [place] # Seg Neutrophils # PT INR APTT Heparin Anti-Xa Level 0.83 H POC ABG pH POC ABG pCO2 POC ABG pO2 Potassium Chloride Carbon Dioxide BUN Creatinine Glucose POC Glucose 143 H 165 H Calcium Total Bilirubin Alkaline Phosphatase Troponin T Albumin Urine Creatinine 07/01/18 07/01/18 07/01/18 06:03 07:22 09:37 WBC RBC Hgb Hct MCV MCH RDW [place] % (Auto) [place] # Seg Neutrophils # PT 16.6 H INR 1.30 H APTT Heparin Anti-Xa Level 0.89 H POC ABG pH POC ABG pCO2 POC ABG pO2 Potassium Chloride Carbon Dioxide 15 L BUN 63 H Creatinine 5.6 H Glucose 145 H POC Glucose Calcium Total Bilirubin Alkaline Phosphatase Troponin T Albumin Urine Creatinine 07/01/18 07/02/18 07/02/18 10:42 00:28 05:23 WBC RBC Hgb Hct MCV MCH RDW [place] % (Auto) [place] # Seg Neutrophils # PT INR APTT Heparin Anti-Xa Level POC ABG pH POC ABG pCO2 POC ABG pO2 Potassium Chloride 97.9 L Carbon Dioxide 18 L BUN 38 H Creatinine 4.2 H Glucose 128 H POC Glucose 147 H 126 H Calcium Total Bilirubin Alkaline Phosphatase Troponin T Albumin Urine Creatinine 07/02/18 07/02/18 07/02/18 05:23 07:34 07:52 WBC RBC Hgb Hct MCV MCH RDW [place] % (Auto) [place] # Seg Neutrophils # PT 16.3 H INR 1.27 H APTT Heparin Anti-Xa Level 0.74 H POC ABG pH POC ABG pCO2 POC ABG pO2 Potassium Chloride Carbon Dioxide BUN Creatinine Glucose POC Glucose 131 H Calcium Total Bilirubin Alkaline Phosphatase Troponin T Albumin Urine Creatinine 07/02/18 07/02/18 07/02/18 13:45 15:54 16:15 WBC RBC Hgb Hct MCV MCH RDW [place] % (Auto) [place] # Seg Neutrophils # PT INR APTT Heparin Anti-Xa Level 0.28 L POC ABG pH POC ABG pCO2 POC ABG pO2 Potassium Chloride Carbon Dioxide BUN Creatinine Glucose POC Glucose 135 H 160 H Calcium Total Bilirubin Alkaline Phosphatase Troponin T Albumin Urine Creatinine 07/02/18 07/02/18 07/03/18 17:20 21:54 00:59 WBC RBC Hgb Hct MCV MCH RDW [place] % (Auto) [place] # Seg Neutrophils # PT INR APTT Heparin Anti-Xa Level 0.28 L POC ABG pH POC ABG pCO2 POC ABG pO2 Potassium Chloride Carbon Dioxide BUN Creatinine Glucose POC Glucose 161 H 192 H Calcium Total Bilirubin Alkaline Phosphatase Troponin T Albumin Urine Creatinine 07/03/18 07/03/18 07/03/18 02:32 05:25 06:24 WBC RBC Hgb Hct MCV MCH RDW [place] % (Auto) [place] # Seg Neutrophils # PT 16.6 H INR 1.30 H APTT Heparin Anti-Xa Level POC ABG pH POC ABG pCO2 POC ABG pO2 Potassium Chloride Carbon Dioxide BUN Creatinine Glucose POC Glucose 168 H 153 H Calcium Total Bilirubin Alkaline Phosphatase Troponin T Albumin Urine Creatinine 07/03/18 09:46 WBC RBC Hgb Hct MCV MCH RDW [place] % (Auto) [place] # Seg Neutrophils # PT INR APTT Heparin Anti-Xa Level POC ABG pH POC ABG pCO2 POC ABG pO2 Potassium Chloride Carbon Dioxide BUN Creatinine Glucose POC Glucose 163 H Calcium Total Bilirubin Alkaline Phosphatase Troponin T Albumin Urine Creatinine Allied health notes reviewed: nursing
[2018-07-03] MEDS ORDERED: NACL 0.9 (PRIMING MACHINE ONLY DIALYSIS) MC ONE (16:23)
[2018-07-03] MEDS: COUMADIN PO SCH (17:00)
[2018-07-03] MEDS ORDERED: PROVENTIL IH ONE (17:59)
--- NOTE | 2018-07-03 18:09 | Progress Note ---
Assessment and Plan Patient is a 68 yo woman from [facility] with a history of seizure disorder, type 2 DM, hypertension, dyslipidemia, CVA, DVT on Eliquis and Dementia who presented to [facility] ED on 06/21/18 with Seizures and was Intubated. ARF, ATN +vasomotor nephropathy, poa, worsening: Nephrology following-Renal function worsening, Cr up to 5.6, Hemodialysis to start today Acute respiratory failure, s/p ETT intubated (on admission) 06/21/18 >96 hours and extubated 06/26/18: continue o2 support, d/w Dr. Fish, Pulmonology regarding the stridor Status epilepticus: treated with keppra, EEG reviewed again with Dr. Haque Hypertensive Urgency, resolved: iv antihypertensives as needed H/o CVA, she is weaker on the right, ?old RHP: SIRS with organ dysfunction, poa as above Acute Metabolic Encephalopathy per above History of DVT on Eliquis, v/q negative for PE. Continue iv heparin drip with close monitoring, and hold Eliquis because renal failure. Day 2 of Warfarin bridge Respiratory Stidor (developed 06/30/18) most likley due to fluid overload, oliguria and worsening renal failure: treat with racemic epi, nebs and started bipap, given iv lasix with little urine output obn 06/30/18 improving Anticipate discharge in couple of days Subjective Date of service: 07/03/18 Principal diagnosis: Acute Hypoxemic Resp failure; Pneumonia (Likely aspiration); JULISA; SIRS Interval history: Patient was seen and examined. Follow-up on current diagnosis of sz. Overnight uneventful. still on bipap, Patient appears to have expressive aphasia. Imaging, nursing note, chart, labs and old chart reviewed. Discussed with patient. Objective - Constitutional Vitals: Vital Signs - 12hr 07/03/18 07/03/18 07/03/18 06:30 07:00 07:30 Temperature Pulse Rate 69 69 73 Pulse Rate [ Posterior Bilateral Bases ] Respiratory 20 21 20 Rate Respiratory Rate [Posterior Bilateral Bases] Blood Pressure 140/64 140/64 140/64 O2 Sat by Pulse 100 100 100 Oximetry 07/03/18 07/03/18 07/03/18 07:40 07:45 07:46 Temperature Pulse Rate 73 Pulse Rate [ 73 73 Posterior Bilateral Bases ] Respiratory 20 Rate Respiratory 20 19 Rate [Posterior Bilateral Bases] Blood Pressure 140/64 O2 Sat by Pulse 99 Oximetry 07/03/18 07/03/18 07/03/18 08:00 08:30 09:00 Temperature 98.4 F Pulse Rate 70 73 73 Pulse Rate [ Posterior Bilateral Bases ] Respiratory 21 21 21 Rate Respiratory Rate [Posterior Bilateral Bases] Blood Pressure 136/64 136/64 136/64 O2 Sat by Pulse 100 100 100 Oximetry 07/03/18 07/03/18 07/03/18 09:30 10:00 10:30 Temperature Pulse Rate 69 68 69 Pulse Rate [ Posterior Bilateral Bases ] Respiratory 21 19 19 Rate Respiratory Rate [Posterior Bilateral Bases] Blood Pressure 136/64 133/63 136/64 O2 Sat by Pulse 100 97 100 Oximetry 07/03/18 07/03/18 16:00 17:59 Temperature Pulse Rate Pulse Rate [ 80 81 Posterior Bilateral Bases ] Respiratory Rate Respiratory 18 19 Rate [Posterior Bilateral Bases] Blood Pressure O2 Sat by Pulse Oximetry General appearance: Present: no acute distress, mild distress, well-nourished - EENT Eyes: PERRL, EOM intact ENT: hearing intact, clear oral mucosa Ears: bilateral: normal - Neck Neck: supple, normal ROM - Respiratory Respiratory effort: normal Respiratory: bilateral: CTA, rhonchi, wheezing - Breasts Breasts: normal - Cardiovascular Rhythm: regular Heart Sounds: Present: S1 & S2. Absent: gallop, rub Extremities: pulses intact, No edema, normal color, Full ROM - Gastrointestinal General gastrointestinal: Present: soft, non-tender, non-distended, normal bowel sounds - Genitourinary Female genitourinary: normal - Integumentary Integumentary: clear, warm, dry - Musculoskeletal Musculoskeletal: 1, strength equal bilaterally - Neurologic Neurologic: moves all extremities - Psychiatric Psychiatric: memory intact, appropriate mood/affect, intact judgment & insight - Labs CBC & Chem 7: 07/04/18 05:05 07/04/18 05:05 Labs: Abnormal lab results 07/02/18 07/03/18 07/03/18 Range/Units 21:54 00:59 02:32 PT (12.2-14.9) Sec. INR (0.87-1.13) Heparin Anti-Xa Level 0.28 L (0.3-0.7) U.I./ml POC Glucose 192 H 168 H (70-105) 07/03/18 07/03/18 07/03/18 Range/Units 05:25 06:24 09:46 PT 16.6 H (12.2-14.9) Sec. INR 1.30 H (0.87-1.13) Heparin Anti-Xa Level (0.3-0.7) U.I./ml POC Glucose 153 H 163 H (70-105)
--- NOTE | 2018-07-04 00:37 | Physician Progress Note ---
SUBJECTIVE: The patient is being followed neurologically because of a history of seizure. She seems to be having problem with Keppra with increasing renal failure. I evaluated the patient and decided to discontinue the anticonvulsant. We will just closely observe her and decide when she will have the seizures. The patient was doing very, very well yesterday. She was awake and even communicating. It seems that this is same through the hospital course. This morning, she is on BiPAP and seems to be sleepy, but when we remove the BiPAP, she woke up, but does not respond very well. OBJECTIVE: We removed the BiPAP. She was awake, eyes open and moving her extremities. She appeared to be somewhat confused. She was much better yesterday. ASSESSMENT: The patient has intermittent encephalopathy, which I believe are secondary to multiple medical problems. There has been no further seizure. She is off anticonvulsants, which I believe is good. The patient has multiple medical problems including obesity, diabetes, hypertension, stroke, dementia, etc. PLAN: Continue current management. Her prognosis for full recovery looks very poor on the basis of multiple medical problems. Continuing withholding any anticonvulsants for now. Neurologically will be followed by the coming [facility] neurologist. JOB# [id number] MARTIN/TYLER
[2018-07-04] MEDS: PROVENTIL IH SCH ×7 (04:40→23:27)
[2018-07-04] MEDS: HumaLOG SUB-Q SCH ×3 (05:50→21:54)
[2018-07-04] MEDS: LASIX IV SCH (05:52)
[2018-07-04] MEDS: SODIUM CHLORIDE FLUSH SYRINGE 10 ML IV SCH ×3 (05:53→22:03)
[2018-07-04] MEDS: ATIVAN IV PRN ×2 (05:54→12:32)
[2018-07-04 05:55] LABS: Basophils # (Auto) 0.1 K/mm3 (0.0-0.1); Basophils % (Auto) 0.6 % (0.0-1.8); Eosinophils # (Auto) 0.2 K/mm3 (0.0-0.4); Eosinophils % (Auto) 2.1 % (0.0-4.3); Hemoglobin 9.8 gm/dl (10.1-14.3); Lymphocytes # (Auto) 2.6 K/mm3 (1.2-5.4); Lymphocytes % (Auto) 23.5 % (13.4-35.0); Mean Corpuscular HGB Conc 32 % (30-34); Monocytes # (Auto) 1.2 K/mm3 (0.0-0.8); Platelet Count 317 K/mm3 (140-440); Red Blood Count 4.48 M/mm3 (3.65-5.03)
[2018-07-04 05:56] LABS: Mean Corpuscular Volume 69 fl (79-97); Red Cell Distribution Width 22.6 % (13.2-15.2)
[2018-07-04 06:03] LABS: INR 1.73 (0.87-1.13)
[2018-07-04 06:14] LABS: Calcium 8.5 mg/dL (8.4-10.2)
[2018-07-04] MEDS: BROVANA NEBU IH SCH ×2 (07:34→19:29)
[2018-07-04] MEDS: PULMICORT IH SCH ×2 (07:34→19:29)
--- NOTE | 2018-07-04 11:14 | Progress Note ---
Subjective Principal diagnosis: Acute Hypoxemic Resp failure; Pneumonia (Likely aspiration); JULISA; SIRS Interval history: Patient was seen today for follow-up of multiple renal related issues, around 12:15 in the afternoon has had hemodialysis yesterday, she is more alert and pleasant shortness of breath is better Still having cough and congestion Events of 24 hours vitals labs intake output medications were reviewed Past medical history: Reviewed Family history: Reviewed Social history: Reviewed Allergies: Reviewed Physical examination: Vitals: Reviewed HEENT: No pallor or icterus oral mucosa moist Neck: Supple no JVD no thyromegaly Chest: she has bilateral basilar crackles Heart: Regular rate and rhythm S1-S2 heard no S3-S4 Abdomen: Soft nontender no voluntary guarding rigidity rebound Extremity: Dry skin less than 1+ peripheral edema Psychiatric: No evidence of agitation and aggression noted Dermatology: No petechial rashes Labs and x-rays: Reviewed from today Assessment and plan acute kidney Injury with underlying chronic kidney disease Baseline creatinine was 1.7 in March 2018 Will give another dialysis treatment today ultrafiltration as tolerated Discussed with Dr. Lan, continue with hemodialysis as tolerated Tomorrow will be a break day for her Reduce amlodipine to 5 mg and if needed will discontinue Increase Lasix Follow up on the labsperiodically Vasculitic workup was essentially negative hepatitis profile was negative complement double-stranded DNA negative Patient does have underlying dementia, diabetes, seizure disorder and prior history of CVA patient was educated about all the renal related issues She does have limited understanding but does feel better today We'll continue to follow and make recommendation for renal standpoint Objective - Vital Signs Vital signs: Vital Signs - 12hr 07/03/18 07/04/18 07/04/18 23:30 00:00 01:00 Temperature 98 F Pulse Rate 78 76 77 Pulse Rate [ 78 From Monitor] Pulse Rate [ Posterior Bilateral Bases ] Respiratory 23 20 22 Rate Respiratory Rate [Posterior Bilateral Bases] Blood Pressure 138/56 138/56 139/43 O2 Sat by Pulse 100 100 Oximetry 07/04/18 07/04/18 07/04/18 02:00 03:00 04:00 Temperature 98.8 F Pulse Rate 82 84 89 Pulse Rate [ 72 From Monitor] Pulse Rate [ 78 Posterior Bilateral Bases ] Respiratory 18 22 26 H Rate Respiratory 21 Rate [Posterior Bilateral Bases] Blood Pressure 142/52 142/52 151/59 O2 Sat by Pulse 100 100 98 Oximetry 07/04/18 07/04/18 07/04/18 04:45 05:00 05:05 Temperature Pulse Rate 95 H 95 H Pulse Rate [ From Monitor] Pulse Rate [ 94 H 96 H Posterior Bilateral Bases ] Respiratory 26 H 27 H Rate Respiratory 27 H 27 H Rate [Posterior Bilateral Bases] Blood Pressure 135/92 135/92 O2 Sat by Pulse 96 94 Oximetry 07/04/18 07/04/18 07/04/18 06:25 07:35 07:36 Temperature 98.2 F Pulse Rate Pulse Rate [ From Monitor] Pulse Rate [ 88 Posterior Bilateral Bases ] Respiratory Rate Respiratory 18 Rate [Posterior Bilateral Bases] Blood Pressure O2 Sat by Pulse 96 Oximetry 07/04/18 07:45 Temperature Pulse Rate Pulse Rate [ From Monitor] Pulse Rate [ 89 Posterior Bilateral Bases ] Respiratory Rate Respiratory 18 Rate [Posterior Bilateral Bases] Blood Pressure O2 Sat by Pulse Oximetry - Lab 07/04/18 05:05 07/04/18 05:05 Most recent lab results Calcium 8.5 mg/dL (8.4-10.2) 07/04/18 05:05 Phosphorus 4.10 mg/dL (2.5-4.5) 07/03/18 13:36 Magnesium 1.80 mg/dL (1.7-2.3) 07/03/18 13:36 Urine Creatinine 192.2 mg/dL (0.1-20.0) H 06/27/18 Unknown Urine Sodium 11 mmol/L 06/27/18 Unknown Medications & Allergies - Medications Allergies/Adverse Reactions: Allergies No Known Allergies Allergy (Unverified 04/06/18 11:56) Home Medications: Home Medications Medication Instructions Recorded Confirmed Last Taken Type Acetaminophen [Acetaminophen TAB] 650 mg PO Q4H PRN 04/06/18 06/21/18 Unknown History Apixaban [Eliquis] 5 mg PO Q12H 04/06/18 06/21/18 Unknown History AtorvaSTATin [Lipitor] 40 mg PO QHS 04/06/18 06/21/18 Unknown History Brimonidine Tartrate/Timolol 1 drop OU Q12H 04/06/18 06/21/18 Unknown History [Combigan 0.2%-0.5% Eye Drops] Donepezil HCl [Aricept] 10 mg PO HS 04/06/18 06/21/18 Unknown History Insulin Glargine [Lantus VIAL] 50 units SUB-Q QHS 04/06/18 06/21/18 Unknown H istory Insulin Lispro [HumaLOG VIAL] 9 units SUB-Q AC 04/06/18 06/21/18 Unknown History Lispro Insulin [Humalog] See Protocol SUB-Q ACHS 04/06/18 06/21/18 Unknown History Mirtazapine [Remeron] 15 mg PO HS 04/06/18 06/21/18 Unknown History levETIRAcetam [Keppra TAB] 1,000 mg PO Q12H 04/06/18 06/21/18 Unknown History Furosemide [Lasix TAB] 40 mg PO QDAY #30 tablet 04/10/18 06/21/18 Unknown Rx HYDROcodone/APAP 5-325 [[place] 1 each PO Q8HR PRN #7 tablet 04/10/18 06/21/18 Unknown Rx 5-325 mg TAB] Losartan [Cozaar] 25 mg PO QDAY #30 tablet 04/10/18 06/21/18 Unknown Rx Metoprolol Succinate [Toprol Xl] 25 mg PO DAILY #30 tab.er.24h 04/10/18 06/21/18 Unknown Rx Active Medications: Generic Name Dose Route Start Last Admin Trade Name Freq PRN Reason Stop Dose Admin Albuterol 2.5 mg 06/30/18 12:00 07/04/18 07:34 Proventil IH Not Given Q4HRT RICKY Amlodipine Besylate 10 mg 06/22/18 19:00 07/03/18 10:30 Norvasc PO Not Given QDAY RICKY Arformoterol Tartrate 15 mcg 06/30/18 20:00 07/04/18 07:34 Brovana Nebu IH 15 mcg Q12HRT RICKY Administration Atorvastatin Calcium 40 mg 06/22/18 22:00 07/03/18 22:41 Lipitor PO 40 mg QHS RICKY Administration Benzonatate 100 mg 07/02/18 21:00 07/02/18 21:43 Tessalon Perles PO 100 mg Q8H PRN Administration Cough Brimonidine/Timolol 1 drops 06/22/18 16:00 07/03/18 16:30 Combigan 0.2-0.5% OU Not Given Q12H RICKY Budesonide 0.5 mg 06/30/18 20:00 07/04/18 07:34 Pulmicort IH 0.5 mg Q12HRT RICKY Administration Carvedilol 12.5 mg 06/22/18 22:00 07/03/18 22:40 Coreg PO 12.5 mg BID RICKY Administration Famotidine 20 mg 06/24/18 10:00 07/03/18 10:30 Pepcid PO Not Given QDAY RICKY Furosemide 40 mg 06/30/18 18:00 07/04/18 05:52 Lasix IV 40 mg 0600,1800 RICKY Administration Guaifenesin 600 mg 07/04/18 10:00 Mucinex Er PO BID [facility] Hydralazine HCl 20 mg 06/22/18 16:03 06/22/18 17:00 Apresoline IV 20 mg Q6H PRN Administration HTN Hydrophilic Ointment 1 applic 06/21/18 15:50 Vaseline Lip Therapy TP Q2HR PRN Dry Lips Heparin Sodium/Sodium Chloride 25,000 unit in 500 mls @ 27 mls/hr 06/22/18 17:00 07/03/18 03:22 Heparin/ 0.45% Nacl-25,000 Unit/500 Ml IV 1,350 units/hr TITR RICKY 27 mls/hr Titration Protocol 1,350 UNITS/HR Sodium Chloride 100 mls @ 999 mls/hr 07/01/18 09:00 Nacl 0.9% IV DANNA PRN Hypotension Insulin Human Lispro 0 unit 06/23/18 02:00 07/04/18 05:50 Humalog SUB-Q Not Given Q4HR [facility] Protocol Labetalol HCl 20 mg 06/22/18 18:00 06/22/18 18:55 Normodyne IV 20 mg Q4H PRN Administration BP >160/100; hold for HR <60 Lorazepam 0.5 mg 06/30/18 18:36 07/04/18 05:54 Ativan IV 0.5 mg Q8H PRN Administration Agitation Multi-Ingred Cream/Lotion/Oil/Oint 1 applic 06/21/18 15:50 Artificial Tears Ophth Oint OU Q4HR PRN Dry Eye(s) Sodium Chloride 10 ml 06/21/18 22:00 07/04/18 05:53 Sodium Chloride Flush Syringe 10 Ml IV 10 ml BID RICKY Administration Sodium Chloride 10 ml 06/21/18 15:39 06/22/18 06:27 Sodium Chloride Flush Syringe 10 Ml IV 10 ml PRN PRN Administration LINE FLUSH Warfarin Sodium 7.5 mg 06/30/18 20:00 07/03/18 17:00 Coumadin PO Not Given DAILY@1700 RICKY
[2018-07-04] MEDS ORDERED: NACL 0.9% 100 ML IV PRN (11:42)
[2018-07-04] MEDS: MUCINEX ER PO SCH ×2 (11:49→22:02)
[2018-07-04] MEDS: PEPCID PO SCH (11:50)
[2018-07-04] MEDS: COREG PO SCH ×2 (11:50→22:01)
[2018-07-04] MEDS: APRESOLINE IV PRN (12:07)
[2018-07-04] MEDS: HEPARIN/ 0.45% NACL-25,000 UNIT/500 ML 25,000 UNIT/500 ML BAG IV SCH (14:00)
[2018-07-04] MEDS: COUMADIN PO SCH (20:29)
--- NOTE | 2018-07-04 20:30 | Progress Note ---
Assessment and Plan Patient sleeping at this time on on O2 3 litres. O2 saturation 98%. No wheezing. No acute respiratory distress.Patient is on I/V heparin and PO coumadin. INR 1.73 - Patient Problems (1) ARF (acute renal failure) with tubular necrosis Current Visit: Yes Status: Acute Plan to address problem: Management as per nephrology. (2) Altered mental status Current Visit: Yes Status: Acute Plan to address problem: Management as per primary care. (3) Seizures Current Visit: Yes Status: Acute Plan to address problem: Management as per neurology. (4) ACS (acute coronary syndrome) Current Visit: No Status: Acute Plan to address problem: Patient is on I/V Heparin. Management as per cardiology. (5) Atelectasis of left lung Current Visit: Yes Status: Acute Plan to address problem: Albuterol/atrovent aerosol treatments q 6 hours prn for shortness of breath and cough. Brovanna/Budesonide aerosol treatments q 12 hours. Respiratory suctioning. (6) Respiratory failure Current Visit: No Status: Acute Qualifiers: Chronicity: acute Respiratory failure complication: hypoxia Plan to address problem: Patient is on BIPAP 13/7, FIO2 40%, Rate 23. Brovanna/Budesonide aerosol treatments q 12 hours. Patient is on I/V Heparin and Po coumadin. Continue famotidine. (7) Metabolic acidosis Current Visit: Yes Status: Acute Plan to address problem: Likely from renal failure. Recommend Bicarb supplementation as per the renal recommendation. Subjective Date of service: 07/04/18 Principal diagnosis: Acute Hypoxemic Resp failure; Pneumonia (Likely aspiration); JULISA; SIRS Interval history: Patient sleeping at this time on on O2 3 litres. O2 saturation 98%. No wheezing. No acute respiratory distress.Patient is on I/V heparin and PO coumadin. INR 1.73 Objective Vital Signs - 12hr 07/04/18 07/04/18 07/04/18 09:00 10:00 11:00 Temperature Pulse Rate 81 84 85 Pulse Rate [ From Monitor] Pulse Rate [ Posterior Bilateral Bases ] Respiratory 21 19 25 H Rate Respiratory Rate [Posterior Bilateral Bases] Blood Pressure 172/78 130/88 133/81 O2 Sat by Pulse Oximetry O2 Sat by Pulse Oximetry [ Posterior Bilateral Bases ] 07/04/18 07/04/18 07/04/18 11:50 12:00 12:07 Temperature 98.1 F Pulse Rate 86 82 85 Pulse Rate [ 84 From Monitor] Pulse Rate [ Posterior Bilateral Bases ] Respiratory 26 H Rate Respiratory Rate [Posterior Bilateral Bases] Blood Pressure 173/83 173/83 167/85 O2 Sat by Pulse 99 Oximetry O2 Sat by Pulse Oximetry [ Posterior Bilateral Bases ] 07/04/18 07/04/18 07/04/18 13:00 14:00 14:55 Temperature Pulse Rate 88 79 98 H Pulse Rate [ From Monitor] Pulse Rate [ Posterior Bilateral Bases ] Respiratory 28 H 22 30 H Rate Respiratory Rate [Posterior Bilateral Bases] Blood Pressure 167/85 145/72 O2 Sat by Pulse 98 97 94 Oximetry O2 Sat by Pulse Oximetry [ Posterior Bilateral Bases ] 07/04/18 07/04/18 07/04/18 15:00 15:01 15:06 Temperature Pulse Rate 75 Pulse Rate [ From Monitor] Pulse Rate [ 90 92 H Posterior Bilateral Bases ] Respiratory 21 Rate Respiratory 20 18 Rate [Posterior Bilateral Bases] Blood Pressure 130/68 O2 Sat by Pulse 97 Oximetry O2 Sat by Pulse Oximetry [ Posterior Bilateral Bases ] 07/04/18 07/04/18 07/04/18 15:30 15:45 16:00 Temperature 98.1 F Pulse Rate 78 76 80 Pulse Rate [ From Monitor] Pulse Rate [ Posterior Bilateral Bases ] Respiratory 18 Rate Respiratory Rate [Posterior Bilateral Bases] Blood Pressure 122/65 127/66 127/69 O2 Sat by Pulse Oximetry O2 Sat by Pulse 97 Oximetry [ Posterior Bilateral Bases ] 07/04/18 07/04/18 07/04/18 16:15 16:30 16:45 Temperature Pulse Rate 79 80 80 Pulse Rate [ From Monitor] Pulse Rate [ Posterior Bilateral Bases ] Respiratory Rate Respiratory Rate [Posterior Bilateral Bases] Blood Pressure 130/61 127/67 127/67 O2 Sat by Pulse Oximetry O2 Sat by Pulse Oximetry [ Posterior Bilateral Bases ] 07/04/18 07/04/18 07/04/18 17:00 17:15 17:30 Temperature Pulse Rate 81 80 81 Pulse Rate [ From Monitor] Pulse Rate [ Posterior Bilateral Bases ] Respiratory Rate Respiratory Rate [Posterior Bilateral Bases] Blood Pressure 122/68 136/71 134/71 O2 Sat by Pulse Oximetry O2 Sat by Pulse Oximetry [ Posterior Bilateral Bases ] 07/04/18 07/04/18 07/04/18 17:45 18:00 18:15 Temperature Pulse Rate 79 79 79 Pulse Rate [ From Monitor] Pulse Rate [ Posterior Bilateral Bases ] Respiratory Rate Respiratory Rate [Posterior Bilateral Bases] Blood Pressure 131/71 134/70 134/69 O2 Sat by Pulse Oximetry O2 Sat by Pulse Oximetry [ Posterior Bilateral Bases ] 07/04/18 07/04/18 07/04/18 18:30 18:40 18:50 Temperature 98.0 F Pulse Rate 81 79 Pulse Rate [ From Monitor] Pulse Rate [ Posterior Bilateral Bases ] Respiratory 18 Rate Respiratory Rate [Posterior Bilateral Bases] Blood Pressure 138/71 130/68 O2 Sat by Pulse 98 Oximetry O2 Sat by Pulse Oximetry [ Posterior Bilateral Bases ] 07/04/18 07/04/18 07/04/18 19:00 19:32 20:00 Temperature 98.2 F Pulse Rate 79 81 Pulse Rate [ From Monitor] Pulse Rate [ 78 81 Posterior Bilateral Bases ] Respiratory 21 20 Rate Respiratory 20 21 Rate [Posterior Bilateral Bases] Blood Pressure 140/67 140/67 O2 Sat by Pulse 97 98 97 Oximetry O2 Sat by Pulse Oximetry [ Posterior Bilateral Bases ] Constitutional: no acute distress, asleep, other (elderly looking AAF normocephalic and atraumatic with ETT to MVS and mildly increased resp effort) Eyes: non-icteric ENT: oropharynx moist, other (extubated) Neck: supple, no lymphadenopathy, no JVD, other (no thyromegaly) Effort: mildly labored Ascultation: Bilateral: diminished breath sounds, wheezes (mainly upper air ways.), rhonchi Percussion: Bilateral: not dull Cardiovascular: regular rate and rhythm Gastrointestinal: normoactive bowel sounds, soft, tender, non-distended Integumentary: normal Extremities: no cyanosis, no edema, pulses normal, no ischemia or petechiae Neurologic: normal mental status, non-focal exam (grossly), pupils equal and round, CN II-XII normal Psychiatric: other (Patient sleeping at this time.) CBC and BMP: 07/04/18 05:05 07/04/18 05:05 ABG, PT/INR, D-dimer: ABG POC ABG pH 7.292 (7.35-7.45) L 06/30/18 12:16 POC ABG pCO2 34.9 (35-45) L 06/30/18 12:16 POC ABG pO2 79 (80-105) L 06/30/18 12:16 POC ABG HCO3 16.9 06/30/18 12:16 POC ABG Total CO2 18 06/30/18 12:16 POC ABG O2 Sat 94 06/30/18 12:16 PT/INR, D-dimer PT 20.7 Sec. (12.2-14.9) H 07/04/18 05:05 INR 1.73 (0.87-1.13) H 07/04/18 05:05 Abnormal lab findings: Abnormal Labs 06/21/18 06/21/18 06/21/18 14:02 14:06 14:06 WBC RBC Hgb Hct MCV 71 L MCH 22 L RDW 21.1 H [place] % (Auto) [place] # Seg Neutrophils # PT 18.9 H INR 1.54 H APTT Heparin Anti-Xa Level POC ABG pH POC ABG pCO2 POC ABG pO2 Potassium Chloride Carbon Dioxide BUN Creatinine Glucose POC Glucose 250 H Calcium Total Bilirubin Alkaline Phosphatase Troponin T Albumin Urine Creatinine 06/21/18 06/21/18 06/21/18 14:06 14:23 21:17 WBC RBC Hgb Hct MCV MCH RDW [place] % (Auto) [place] # Seg Neutrophils # PT INR APTT Heparin Anti-Xa Level POC ABG pH 7.499 H 7.600 H POC ABG pCO2 34.8 L 24.9 L POC ABG pO2 342 H 176 H Potassium Chloride Carbon Dioxide BUN Creatinine 1.5 H Glucose 214 H POC Glucose Calcium Total Bilirubin 1.30 H Alkaline Phosphatase 174 H Troponin T 0.050 H Albumin 3.1 L Urine Creatinine 06/22/18 06/22/18 06/22/18 03:17 03:17 05:27 WBC 11.5 H RBC 5.07 H Hgb Hct MCV 69 L MCH 21 L RDW 21.9 H [place] % (Auto) 9.8 H [place] # 1.1 H Seg Neutrophils # 7.9 H PT INR APTT Heparin Anti-Xa Level POC ABG pH 7.539 H POC ABG pCO2 30.1 L POC ABG pO2 170 H Potassium Chloride Carbon Dioxide BUN Creatinine 1.5 H Glucose 164 H POC Glucose Calcium Total Bilirubin Alkaline Phosphatase Troponin T Albumin Urine Creatinine 06/22/18 06/22/18 06/22/18 17:21 17:50 19:46 WBC RBC Hgb Hct MCV MCH RDW [place] % (Auto) [place] # Seg Neutrophils # PT 17.5 H INR 1.39 H APTT 22.8 L Heparin Anti-Xa Level 1.64 H POC ABG pH POC ABG pCO2 POC ABG pO2 Potassium Chloride Carbon Dioxide BUN Creatinine Glucose POC Glucose 240 H Calcium Total Bilirubin Alkaline Phosphatase Troponin T Albumin Urine Creatinine 06/22/18 06/23/18 06/23/18 23:47 01:44 04:14 WBC RBC Hgb Hct MCV MCH RDW [place] % (Auto) [place] # Seg Neutrophils # PT INR APTT Heparin Anti-Xa Level 0.10 L POC ABG pH POC ABG pCO2 POC ABG pO2 Potassium Chloride Carbon Dioxide BUN Creatinine Glucose POC Glucose 240 H 229 H Calcium Total Bilirubin Alkaline Phosphatase Troponin T Albumin Urine Creatinine 06/23/18 06/23/18 06/23/18 05:34 09:24 10:24 WBC RBC Hgb Hct MCV MCH RDW [place] % (Auto) [place] # Seg Neutrophils # PT INR APTT Heparin Anti-Xa Level POC ABG pH 7.519 H POC ABG pCO2 POC ABG pO2 133 H Potassium Chloride Carbon Dioxide BUN Creatinine Glucose POC Glucose 220 H 183 H Calcium Total Bilirubin Alkaline Phosphatase Troponin T Albumin Urine Creatinine 06/23/18 06/23/18 06/23/18 12:39 13:32 14:08 WBC RBC Hgb Hct MCV MCH RDW [place] % (Auto) [place] # Seg Neutrophils # PT INR APTT Heparin Anti-Xa Level > 2.00 H POC ABG pH POC ABG pCO2 POC ABG pO2 Potassium Chloride Carbon Dioxide BUN Creatinine Glucose POC Glucose 151 H 140 H Calcium Total Bilirubin Alkaline Phosphatase Troponin T Albumin Urine Creatinine 06/23/18 06/23/18 06/23/18 18:00 19:33 21:31 WBC RBC Hgb Hct MCV MCH RDW [place] % (Auto) [place] # Seg Neutrophils # PT INR APTT Heparin Anti-Xa Level 1.74 H POC ABG pH POC ABG pCO2 POC ABG pO2 Potassium Chloride Carbon Dioxide BUN Creatinine Glucose POC Glucose 141 H 153 H Calcium Total Bilirubin Alkaline Phosphatase Troponin T Albumin Urine Creatinine 06/24/18 06/24/18 06/24/18 02:36 03:55 03:55 WBC 12.9 H RBC Hgb 9.9 L Hct MCV 70 L MCH 22 L RDW 22.1 H [place] % (Auto) [place] # Seg Neutrophils # PT INR APTT Heparin Anti-Xa Level POC ABG pH POC ABG pCO2 POC ABG pO2 Potassium Chloride Carbon Dioxide BUN 25 H Creatinine 1.6 H Glucose 151 H POC Glucose 162 H Calcium 8.2 L Total Bilirubin Alkaline Phosphatase Troponin T Albumin Urine Creatinine 06/24/18 06/24/18 06/24/18 03:55 05:01 09:34 WBC RBC Hgb Hct MCV MCH RDW [place] % (Auto) [place] # Seg Neutrophils # PT INR APTT Heparin Anti-Xa Level 1.75 H POC ABG pH POC ABG pCO2 POC ABG pO2 Potassium Chloride Carbon Dioxide BUN Creatinine Glucose POC Glucose 175 H 143 H Calcium Total Bilirubin Alkaline Phosphatase Troponin T Albumin Urine Creatinine 06/24/18 06/24/18 06/24/18 12:50 14:29 17:08 WBC RBC Hgb Hct MCV MCH RDW [place] % (Auto) [place] # Seg Neutrophils # PT INR APTT Heparin Anti-Xa Level 1.60 H POC ABG pH POC ABG pCO2 POC ABG pO2 Potassium Chloride Carbon Dioxide BUN Creatinine Glucose POC Glucose 169 H 138 H Calcium Total Bilirubin Alkaline Phosphatase Troponin T Albumin Urine Creatinine 06/24/18 06/24/18 06/25/18 21:13 21:50 01:45 WBC RBC Hgb Hct MCV MCH RDW [place] % (Auto) [place] # Seg Neutrophils # PT INR APTT Heparin Anti-Xa Level 1.53 H POC ABG pH POC ABG pCO2 POC ABG pO2 Potassium Chloride Carbon Dioxide BUN Creatinine Glucose POC Glucose 186 H 177 H Calcium Total Bilirubin Alkaline Phosphatase Troponin T Albumin Urine Creatinine 06/25/18 06/25/18 06/25/18 05:23 05:41 09:55 WBC RBC Hgb Hct MCV MCH RDW [place] % (Auto) [place] # Seg Neutrophils # PT INR APTT Heparin Anti-Xa Level 1.13 H POC ABG pH POC ABG pCO2 POC ABG pO2 Potassium Chloride Carbon Dioxide BUN Creatinine Glucose POC Glucose 160 H 181 H Calcium Total Bilirubin Alkaline Phosphatase Troponin T Albumin Urine Creatinine 06/25/18 06/25/18 06/25/18 12:54 14:27 14:33 WBC RBC Hgb Hct MCV MCH RDW [place] % (Auto) [place] # Seg Neutrophils # PT INR APTT Heparin Anti-Xa Level 0.73 H POC ABG pH POC ABG pCO2 POC ABG pO2 Potassium 3.4 L Chloride Carbon Dioxide BUN 30 H Creatinine 2.1 H Glucose 220 H POC Glucose 218 H Calcium Total Bilirubin Alkaline Phosphatase Troponin T Albumin Urine Creatinine 06/25/18 06/25/18 06/26/18 17:36 21:40 01:49 WBC RBC Hgb Hct MCV MCH RDW [place] % (Auto) [place] # Seg Neutrophils # PT INR APTT Heparin Anti-Xa Level POC ABG pH POC ABG pCO2 POC ABG pO2 Potassium Chloride Carbon Dioxide BUN Creatinine Glucose POC Glucose 219 H 162 H 152 H Calcium Total Bilirubin Alkaline Phosphatase Troponin T Albumin Urine Creatinine 06/26/18 06/26/18 06/26/18 04:43 05:50 09:43 WBC RBC Hgb 8.8 L Hct 27.7 L MCV MCH RDW [place] % (Auto) [place] # Seg Neutrophils # PT INR APTT Heparin Anti-Xa Level POC ABG pH POC ABG pCO2 POC ABG pO2 Potassium Chloride Carbon Dioxide BUN Creatinine Glucose POC Glucose 176 H 206 H Calcium Total Bilirubin Alkaline Phosphatase Troponin T Albumin Urine Creatinine 06/26/18 06/26/18 06/26/18 10:14 10:14 12:43 WBC RBC Hgb 9.5 L Hct 30.0 L MCV 69 L MCH 22 L RDW 22.4 H [place] % (Auto) 11.0 H [place] # 1.0 H Seg Neutrophils # PT INR APTT Heparin Anti-Xa Level POC ABG pH 7.311 L POC ABG pCO2 46.6 H POC ABG pO2 Potassium Chloride Carbon Dioxide BUN 34 H Creatinine 2.4 H Glucose 194 H POC Glucose Calcium Total Bilirubin Alkaline Phosphatase Troponin T Albumin Urine Creatinine 06/26/18 06/26/18 06/27/18 14:30 17:32 00:00 WBC RBC Hgb Hct MCV MCH RDW [place] % (Auto) [place] # Seg Neutrophils # PT INR APTT Heparin Anti-Xa Level POC ABG pH POC ABG pCO2 POC ABG pO2 Potassium Chloride Carbon Dioxide BUN Creatinine Glucose POC Glucose 219 H 228 H 173 H Calcium Total Bilirubin Alkaline Phosphatase Troponin T Albumin Urine Creatinine 06/27/18 06/27/18 06/27/18 01:25 06:06 10:24 WBC RBC Hgb Hct MCV MCH RDW [place] % (Auto) [place] # Seg Neutrophils # PT INR APTT Heparin Anti-Xa Level POC ABG pH POC ABG pCO2 POC ABG pO2 Potassium Chloride Carbon Dioxide BUN Creatinine Glucose POC Glucose 178 H 157 H 171 H Calcium Total Bilirubin Alkaline Phosphatase Troponin T Albumin Urine Creatinine 06/27/18 06/27/18 06/27/18 12:24 12:24 18:13 WBC RBC Hgb Hct MCV MCH RDW [place] % (Auto) [place] # Seg Neutrophils # PT INR APTT Heparin Anti-Xa Level POC ABG pH POC ABG pCO2 POC ABG pO2 Potassium Chloride Carbon Dioxide BUN Creatinine 3.3 H Glucose POC Glucose 192 H 158 H Calcium Total Bilirubin Alkaline Phosphatase Troponin T Albumin Urine Creatinine 06/27/18 06/27/18 06/27/18 22:23 22:34 Unknown WBC RBC Hgb Hct MCV MCH RDW [place] % (Auto) [place] # Seg Neutrophils # PT INR APTT Heparin Anti-Xa Level 0.13 L POC ABG pH POC ABG pCO2 POC ABG pO2 Potassium Chloride Carbon Dioxide BUN Creatinine Glucose POC Glucose 137 H Calcium Total Bilirubin Alkaline Phosphatase Troponin T Albumin Urine Creatinine 192.2 H 06/28/18 06/28/18 06/28/18 03:25 04:06 06:44 WBC RBC Hgb Hct MCV MCH RDW [place] % (Auto) [place] # Seg Neutrophils # PT INR APTT Heparin Anti-Xa Level POC ABG pH POC ABG pCO2 POC ABG pO2 Potassium Chloride Carbon Dioxide 19 L BUN 49 H Creatinine 3.8 H Glucose 159 H POC Glucose 149 H 174 H Calcium Total Bilirubin Alkaline Phosphatase Troponin T Albumin Urine Creatinine 06/28/18 06/28/18 06/28/18 08:59 14:32 17:34 WBC RBC Hgb Hct MCV MCH RDW [place] % (Auto) [place] # Seg Neutrophils # PT INR APTT Heparin Anti-Xa Level POC ABG pH POC ABG pCO2 POC ABG pO2 Potassium Chloride Carbon Dioxide BUN Creatinine Glucose POC Glucose 167 H 161 H 162 H Calcium Total Bilirubin Alkaline Phosphatase Troponin T Albumin Urine Creatinine 06/28/18 06/29/18 06/29/18 23:03 02:59 04:15 WBC RBC Hgb Hct MCV MCH RDW [place] % (Auto) [place] # Seg Neutrophils # PT INR APTT Heparin Anti-Xa Level POC ABG pH POC ABG pCO2 POC ABG pO2 Potassium Chloride Carbon Dioxide 17 L BUN 55 H Creatinine 4.3 H Glucose 141 H POC Glucose 198 H 162 H Calcium Total Bilirubin Alkaline Phosphatase Troponin T Albumin Urine Creatinine 06/29/18 06/29/18 06/29/18 05:41 09:35 15:06 WBC RBC Hgb Hct MCV MCH RDW [place] % (Auto) [place] # Seg Neutrophils # PT INR APTT Heparin Anti-Xa Level 0.18 L POC ABG pH POC ABG pCO2 POC ABG pO2 Potassium Chloride Carbon Dioxide BUN Creatinine Glucose POC Glucose 125 H 128 H Calcium Total Bilirubin Alkaline Phosphatase Troponin T Albumin Urine Creatinine 06/29/18 06/29/18 06/29/18 16:26 18:30 21:34 WBC RBC Hgb Hct MCV MCH RDW [place] % (Auto) [place] # Seg Neutrophils # PT INR APTT Heparin Anti-Xa Level POC ABG pH POC ABG pCO2 POC ABG pO2 Potassium Chloride Carbon Dioxide BUN Creatinine Glucose POC Glucose 211 H 211 H 114 H Calcium Total Bilirubin Alkaline Phosphatase Troponin T Albumin Urine Creatinine 06/30/18 06/30/18 06/30/18 00:11 01:57 05:43 WBC RBC Hgb Hct MCV MCH RDW [place] % (Auto) [place] # Seg Neutrophils # PT INR APTT Heparin Anti-Xa Level < 0.10 L POC ABG pH POC ABG pCO2 POC ABG pO2 Potassium Chloride Carbon Dioxide 17 L BUN 60 H Creatinine 5.0 H Glucose 125 H POC Glucose 131 H Calcium Total Bilirubin Alkaline Phosphatase Troponin T Albumin Urine Creatinine 06/30/18 06/30/18 06/30/18 06:29 09:31 12:16 WBC RBC Hgb Hct MCV MCH RDW [place] % (Auto) [place] # Seg Neutrophils # PT INR APTT Heparin Anti-Xa Level POC ABG pH 7.292 L POC ABG pCO2 34.9 L POC ABG pO2 79 L Potassium Chloride Carbon Dioxide BUN Creatinine Glucose POC Glucose 141 H 139 H Calcium Total Bilirubin Alkaline Phosphatase Troponin T Albumin Urine Creatinine 06/30/18 06/30/18 06/30/18 12:36 18:53 22:33 WBC RBC Hgb Hct MCV MCH RDW [place] % (Auto) [place] # Seg Neutrophils # PT 15.3 H INR 1.17 H APTT Heparin Anti-Xa Level POC ABG pH POC ABG pCO2 POC ABG pO2 Potassium Chloride Carbon Dioxide BUN Creatinine Glucose POC Glucose 183 H 184 H Calcium Total Bilirubin Alkaline Phosphatase Troponin T Albumin Urine Creatinine 07/01/18 07/01/18 07/01/18 02:43 02:44 05:55 WBC RBC Hgb Hct MCV MCH RDW [place] % (Auto) [place] # Seg Neutrophils # PT INR APTT Heparin Anti-Xa Level 0.83 H POC ABG pH POC ABG pCO2 POC ABG pO2 Potassium Chloride Carbon Dioxide BUN Creatinine Glucose POC Glucose 143 H 165 H Calcium Total Bilirubin Alkaline Phosphatase Troponin T Albumin Urine Creatinine 07/01/18 07/01/18 07/01/18 06:03 07:22 09:37 WBC RBC Hgb Hct MCV MCH RDW [place] % (Auto) [place] # Seg Neutrophils # PT 16.6 H INR 1.30 H APTT Heparin Anti-Xa Level 0.89 H POC ABG pH POC ABG pCO2 POC ABG pO2 Potassium Chloride Carbon Dioxide 15 L BUN 63 H Creatinine 5.6 H Glucose 145 H POC Glucose Calcium Total Bilirubin Alkaline Phosphatase Troponin T Albumin Urine Creatinine 07/01/18 07/02/18 07/02/18 10:42 00:28 05:23 WBC RBC Hgb Hct MCV MCH RDW [place] % (Auto) [place] # Seg Neutrophils # PT INR APTT Heparin Anti-Xa Level POC ABG pH POC ABG pCO2 POC ABG pO2 Potassium Chloride 97.9 L Carbon Dioxide 18 L BUN 38 H Creatinine 4.2 H Glucose 128 H POC Glucose 147 H 126 H Calcium Total Bilirubin Alkaline Phosphatase Troponin T Albumin Urine Creatinine 07/02/18 07/02/18 07/02/18 05:23 07:34 07:52 WBC RBC Hgb Hct MCV MCH RDW [place] % (Auto) [place] # Seg Neutrophils # PT 16.3 H INR 1.27 H APTT Heparin Anti-Xa Level 0.74 H POC ABG pH POC ABG pCO2 POC ABG pO2 Potassium Chloride Carbon Dioxide BUN Creatinine Glucose POC Glucose 131 H Calcium Total Bilirubin Alkaline Phosphatase Troponin T Albumin Urine Creatinine 07/02/18 07/02/18 07/02/18 13:45 15:54 16:15 WBC RBC Hgb Hct MCV MCH RDW [place] % (Auto) [place] # Seg Neutrophils # PT INR APTT Heparin Anti-Xa Level 0.28 L POC ABG pH POC ABG pCO2 POC ABG pO2 Potassium Chloride Carbon Dioxide BUN Creatinine Glucose POC Glucose 135 H 160 H Calcium Total Bilirubin Alkaline Phosphatase Troponin T Albumin Urine Creatinine 07/02/18 07/02/18 07/03/18 17:20 21:54 00:59 WBC RBC Hgb Hct MCV MCH RDW [place] % (Auto) [place] # Seg Neutrophils # PT INR APTT Heparin Anti-Xa Level 0.28 L POC ABG pH POC ABG pCO2 POC ABG pO2 Potassium Chloride Carbon Dioxide BUN Creatinine Glucose POC Glucose 161 H 192 H Calcium Total Bilirubin Alkaline Phosphatase Troponin T Albumin Urine Creatinine 07/03/18 07/03/18 07/03/18 02:32 05:25 06:24 WBC RBC Hgb Hct MCV MCH RDW [place] % (Auto) [place] # Seg Neutrophils # PT 16.6 H INR 1.30 H APTT Heparin Anti-Xa Level POC ABG pH POC ABG pCO2 POC ABG pO2 Potassium Chloride Carbon Dioxide BUN Creatinine Glucose POC Glucose 168 H 153 H Calcium Total Bilirubin Alkaline Phosphatase Troponin T Albumin Urine Creatinine 07/03/18 07/03/18 07/04/18 09:46 22:46 04:20 WBC RBC Hgb Hct MCV MCH RDW [place] % (Auto) [place] # Seg Neutrophils # PT INR APTT Heparin Anti-Xa Level POC ABG pH POC ABG pCO2 POC ABG pO2 Potassium Chloride Carbon Dioxide BUN Creatinine Glucose POC Glucose 163 H 130 H 151 H Calcium Total Bilirubin Alkaline Phosphatase Troponin T Albumin Urine Creatinine 07/04/18 07/04/18 07/04/18 05:05 05:05 05:05 WBC RBC Hgb 9.8 L Hct MCV 69 L MCH 22 L RDW 22.6 H [place] % (Auto) 11.0 H [place] # 1.2 H Seg Neutrophils # PT 20.7 H INR 1.73 H APTT Heparin Anti-Xa Level POC ABG pH POC ABG pCO2 POC ABG pO2 Potassium Chloride Carbon Dioxide BUN Creatinine 3.3 H Glucose 166 H POC Glucose Calcium Total Bilirubin Alkaline Phosphatase Troponin T Albumin Urine Creatinine 07/04/18 07/04/18 10:15 10:31 WBC RBC Hgb Hct MCV MCH RDW [place] % (Auto) [place] # Seg Neutrophils # PT INR APTT Heparin Anti-Xa Level 0.81 H POC ABG pH POC ABG pCO2 POC ABG pO2 Potassium Chloride Carbon Dioxide BUN Creatinine Glucose POC Glucose 118 H Calcium Total Bilirubin Alkaline Phosphatase Troponin T Albumin Urine Creatinine Allied health notes reviewed: nursing
[2018-07-05] MEDS: HumaLOG SUB-Q SCH ×5 (02:26→23:16)
[2018-07-05] MEDS: ATIVAN IV PRN (02:43)
[2018-07-05] MEDS: PROVENTIL IH SCH ×4 (03:34→20:30)
[2018-07-05] MEDS: COMBIGAN 0.2-0.5% OU SCH ×2 (05:15→17:49)
[2018-07-05 05:32] LABS: Basophils # (Auto) 0.1 K/mm3 (0.0-0.1); Eosinophils # (Auto) 0.3 K/mm3 (0.0-0.4); Eosinophils % (Auto) 2.7 % (0.0-4.3); Hematocrit 28.2 % (30.3-42.9); Hemoglobin 8.9 gm/dl (10.1-14.3); Lymphocytes % (Auto) 21.3 % (13.4-35.0); Mean Corpuscular HGB Conc 32 % (30-34); Monocytes # (Auto) 0.9 K/mm3 (0.0-0.8); Monocytes % (Auto) 9.8 % (0.0-7.3); Platelet Count 268 K/mm3 (140-440); Red Blood Count 4.07 M/mm3 (3.65-5.03)
[2018-07-05 05:36] LABS: Mean Corpuscular Volume 69 fl (79-97); Red Cell Distribution Width 22.3 % (13.2-15.2)
[2018-07-05 05:38] LABS: INR 1.62 (0.87-1.13)
[2018-07-05] MEDS: PULMICORT IH SCH ×2 (08:12→20:29)
[2018-07-05] MEDS: BROVANA NEBU IH SCH ×2 (08:15→20:30)
[2018-07-05] MEDS ORDERED: LASIX IV STA (09:45)
[2018-07-05 09:53] LABS: Calcium 8.5 mg/dL (8.4-10.2)
[2018-07-05] MEDS: LASIX IV SCH (09:56)
[2018-07-05] MEDS: SOLU-Medrol IV SCH ×3 (09:58→21:26)
[2018-07-05] MEDS: SODIUM CHLORIDE FLUSH SYRINGE 10 ML IV SCH ×2 (10:00→21:26)
[2018-07-05] MEDS: NORVASC PO SCH (10:00)
[2018-07-05] MEDS: MUCINEX ER PO SCH ×2 (10:00→21:28)
[2018-07-05] MEDS: COREG PO SCH ×2 (10:00→21:27)
[2018-07-05] MEDS: PEPCID PO SCH (10:00)
--- NOTE | 2018-07-05 11:07 | Progress Note ---
Subjective Principal diagnosis: Acute Hypoxemic Resp failure; Pneumonia (Likely aspiration); JULISA; SIRS Interval history: Patient was seen today for follow-up of multiple renal related issues, around 12:15 in the afternoon has had hemodialysis yesterday She is feeling better Cough and congestion is better Events of 24 hours vitals labs intake output medications were reviewed Past medical history: Reviewed Family history: Reviewed Social history: Reviewed Allergies: Reviewed Physical examination: Vitals: Reviewed HEENT: No pallor or icterus oral mucosa moist Neck: Supple no JVD no thyromegaly Chest: she has bilateral basilar crackles Heart: Regular rate and rhythm S1-S2 heard no S3-S4 Abdomen: Soft nontender no voluntary guarding rigidity rebound Extremity: Dry skin less than 1+ peripheral edema Psychiatric: No evidence of agitation and aggression noted Dermatology: No petechial rashes Labs and x-rays: Reviewed from today Assessment and plan acute kidney Injury with underlying chronic kidney disease Baseline creatinine was 1.7 in March 2018 patient will receive hemodialysis treatment tomorrow now for 3-1/2 hours at least Continue to monitor her blood pressure Maintain fluid restriction Follow-up on the labs Vasculitic workup was essentially negative hepatitis profile was negative complement double-stranded DNA negative Patient does have underlying dementia, diabetes, seizure disorder and prior history of CVA renal prognosis guarded to poor We'll continue to follow and make recommendation for renal standpoint Objective - Vital Signs Vital signs: Vital Signs - 12hr 07/04/18 07/04/18 07/04/18 23:10 23:29 23:40 Temperature Pulse Rate 79 75 Pulse Rate [ From Monitor] Pulse Rate [ 75 80 Posterior Bilateral Bases ] Respiratory 21 23 Rate Respiratory 22 23 Rate [Posterior Bilateral Bases] Blood Pressure 156/76 O2 Sat by Pulse 100 97 Oximetry 07/05/18 07/05/18 07/05/18 00:00 01:00 02:00 Temperature 98.2 F Pulse Rate 94 H 92 H 95 H Pulse Rate [ 93 H From Monitor] Pulse Rate [ Posterior Bilateral Bases ] Respiratory 15 22 21 Rate Respiratory Rate [Posterior Bilateral Bases] Blood Pressure 161/76 151/67 157/73 O2 Sat by Pulse 97 97 98 Oximetry 07/05/18 07/05/18 07/05/18 03:00 04:00 05:00 Temperature 98.3 F Pulse Rate 94 H 90 90 Pulse Rate [ 90 From Monitor] Pulse Rate [ Posterior Bilateral Bases ] Respiratory 25 H 20 19 Rate Respiratory Rate [Posterior Bilateral Bases] Blood Pressure 134/63 145/66 149/98 O2 Sat by Pulse 99 100 99 Oximetry 07/05/18 07/05/18 07/05/18 06:00 08:00 09:34 Temperature 97.9 F Pulse Rate 90 71 Pulse Rate [ From Monitor] Pulse Rate [ Posterior Bilateral Bases ] Respiratory 22 21 Rate Respiratory Rate [Posterior Bilateral Bases] Blood Pressure 144/85 164/73 O2 Sat by Pulse 100 965 H 98 Oximetry - Lab 07/05/18 04:59 07/05/18 04:59 Most recent lab results Calcium 8.5 mg/dL (8.4-10.2) 07/05/18 04:59 Phosphorus 4.10 mg/dL (2.5-4.5) 07/03/18 13:36 Magnesium 1.80 mg/dL (1.7-2.3) 07/03/18 13:36 Urine Creatinine 192.2 mg/dL (0.1-20.0) H 06/27/18 Unknown Urine Sodium 11 mmol/L 06/27/18 Unknown Medications & Allergies - Medications Allergies/Adverse Reactions: Allergies No Known Allergies Allergy (Unverified 04/06/18 11:56) Home Medications: Home Medications Medication Instructions Recorded Confirmed Last Taken Type Acetaminophen [Acetaminophen TAB] 650 mg PO Q4H PRN 04/06/18 06/21/18 Unknown History Apixaban [Eliquis] 5 mg PO Q12H 04/06/18 06/21/18 Unknown History AtorvaSTATin [Lipitor] 40 mg PO QHS 04/06/18 06/21/18 Unknown History Brimonidine Tartrate/Timolol 1 drop OU Q12H 04/06/18 06/21/18 Unknown History [Combigan 0.2%-0.5% Eye Drops] Donepezil HCl [Aricept] 10 mg PO HS 04/06/18 06/21/18 Unknown History Insulin Glargine [Lantus VIAL] 50 units SUB-Q QHS 04/06/18 06/21/18 Unknown History Insulin Lispro [HumaLOG VIAL] 9 units SUB-Q AC 04/06/18 06/21/18 Unknown History Lispro Insulin [Humalog] See Protocol SUB-Q ACHS 04/06/18 06/21/18 Unknown History Mirtazapine [Remeron] 15 mg PO HS 04/06/18 06/21/18 Unknown History levETIRAcetam [Keppra TAB] 1,000 mg PO Q12H 04/06/18 06/21/18 Unknown History Furosemide [Lasix TAB] 40 mg PO QDAY #30 tablet 04/10/18 06/21/18 Unknown Rx HYDROcodone/APAP 5-325 [Morris 1 each PO Q8HR PRN #7 tablet 04/10/18 06/21/18 Unknown Rx 5-325 mg TAB] Losartan [Cozaar] 25 mg PO QDAY #30 tablet 04/10/18 06/21/18 Unknown Rx Metoprolol Succinate [Toprol Xl] 25 mg PO DAILY #30 tab.er.24h 04/10/18 06/21/18 Unknown Rx Active Medications: Generic Name Dose Route Start Last Admin Trade Name Freq PRN Reason Stop Dose Admin Albuterol 2.5 mg 06/30/18 12:00 07/05/18 08:12 Proventil IH 2.5 mg Q4HRT RICKY Administration Amlodipine Besylate 5 mg 07/04/18 11:15 Norvasc PO QDAY RICKY Arformoterol Tartrate 15 mcg 06/30/18 20:00 07/05/18 08:15 Brovana Nebu IH Not Given Q12HRT RICKY Atorvastatin Calcium 40 mg 06/22/18 22:00 07/04/18 22:02 Lipitor PO 40 mg QHS RICKY Administration Benzonatate 100 mg 07/02/18 21:00 07/02/18 21:43 Tessalon Perles PO 100 mg Q8H PRN Administration Cough Brimonidine/Timolol 1 drops 06/22/18 16:00 07/05/18 05:15 Combigan 0.2-0.5% OU 1 drops Q12H RICKY Administration Budesonide 0.5 mg 06/30/18 20:00 07/05/18 08:12 Pulmicort IH 0.5 mg Q12HRT RICKY Administration Carvedilol 12.5 mg 06/22/18 22:00 07/04/18 22:01 Coreg PO 12.5 mg BID RICKY Administration Epinephrine 0.5 ml 07/05/18 10:32 S2 Racepinephrine 2.25% IH Q4HRT PRN Wheezing Famotidine 20 mg 06/24/18 10:00 07/04/18 11:50 Pepcid PO 20 mg QDAY RICKY Administration Furosemide 80 mg 07/05/18 10:00 07/05/18 09:56 Lasix IV 80 mg DAILY RICKY Administration Guaifenesin 600 mg 07/04/18 10:00 07/04/18 22:02 Mucinex Er PO 600 mg BID RICKY Administration Hydralazine HCl 20 mg 06/22/18 16:03 07/04/18 12:07 Apresoline IV 20 mg Q6H PRN Administration HTN Hydrophilic Ointment 1 applic 06/21/18 15:50 Vaseline Lip Therapy TP Q2HR PRN Dry Lips Heparin Sodium/Sodium Chloride 25,000 unit in 500 mls @ 27 mls/hr 06/22/18 17:00 07/04/18 23:11 Heparin/ 0.45% Nacl-25,000 Unit/500 Ml IV 1,250 units/hr TITR RICKY 25 mls/hr Titration Protocol 1,350 UNITS/HR Sodium Chloride 100 mls @ 999 mls/hr 07/01/18 09:00 Nacl 0.9% IV DANNA PRN Hypotension Sodium Chloride 100 mls @ 999 mls/hr 07/04/18 11:42 Nacl 0.9% IV DANNA PRN Hypotension Insulin Human Lispro 0 unit 06/23/18 02:00 07/05/18 05:23 Humalog SUB-Q Not Given Q4HR [facility] Protocol Labetalol HCl 20 mg 06/22/18 18:00 06/22/18 18:55 Normodyne IV 20 mg Q4H PRN Administration BP >160/100; hold for HR <60 Lorazepam 0.5 mg 06/30/18 18:36 07/05/18 02:43 Ativan IV 0.5 mg Q8H PRN Administration Agitation Methylprednisolone Sodium Succinate 60 mg 07/05/18 10:00 07/05/18 09:58 Solu-Medrol IV 60 mg Q8HR RICKY Administration Multi-Ingred Cream/Lotion/Oil/Oint 1 applic 06/21/18 15:50 Artificial Tears Ophth Oint OU Q4HR PRN Dry Eye(s) Sodium Chloride 10 ml 06/21/18 22:00 07/04/18 22:03 Sodium Chloride Flush Syringe 10 Ml IV 10 ml BID RICKY Administration Sodium Chloride 10 ml 06/21/18 15:39 06/22/18 06:27 Sodium Chloride Flush Syringe 10 Ml IV 10 ml PRN PRN Administration LINE FLUSH Warfarin Sodium 7.5 mg 06/30/18 20:00 07/04/18 20:29 Coumadin PO Not Given DAILY@1700 RICKY
[2018-07-05] MEDS: HEPARIN/ 0.45% NACL-25,000 UNIT/500 ML 25,000 UNIT/500 ML BAG IV SCH (12:41)
--- NOTE | 2018-07-05 14:50 | Progress Note ---
Assessment and Plan Patient is a 68 yo woman from [facility] with a history of seizure disorder, type 2 DM, hypertension, dyslipidemia, CVA, DVT on Eliquis and Dementia who presented to [facility] ED on 06/21/18 with Seizures and was Intubated. ARF, ATN +vasomotor nephropathy, poa, worsening: Nephrology following-Renal function worsening, Cr up to 5.6,On Hemodialysis Acute respiratory failure, s/p ETT intubated (on admission) 06/21/18 >96 hours and extubated 06/26/18: continue o2 support, d/w Dr. Fish, Pulmonology regarding the stridor Status epilepticus: treated with keppra, EEG reviewed again with Dr. Haque Hypertensive Urgency, resolved: iv antihypertensives as needed H/o CVA, she is weaker on the right, ?old RHP: SIRS with organ dysfunction, poa as above Acute Metabolic Encephalopathy per above History of DVT on Eliquis, v/q negative for PE. Continue iv heparin drip with close monitoring, and hold Eliquis because renal failure. Day 2 of Warfarin bridge Respiratory Stidor (developed 06/30/18) most likley due to fluid overload, oliguria and worsening renal failure: treat with racemic epi, nebs and started bipap, given iv lasix with little urine output obn 06/30/18 improving Anticipate discharge in couple of days Subjective Date of service: 07/05/18 Principal diagnosis: Acute Hypoxemic Resp failure; Pneumonia (Likely a spiration); JULISA; SIRS Interval history: Patient doing better Objective - Constitutional Vitals: Vital Signs - 12hr 07/05/18 07/05/18 07/05/18 03:00 04:00 05:00 Temperature 98.3 F Pulse Rate 94 H 90 90 Pulse Rate [ 90 From Monitor] Pulse Rate [ Posterior Bilateral Bases ] Respiratory 25 H 20 19 Rate Respiratory Rate [Posterior Bilateral Bases] Blood Pressure 134/63 145/66 149/98 O2 Sat by Pulse 99 100 99 Oximetry 07/05/18 07/05/18 07/05/18 06:00 07:00 08:00 Temperature 97.9 F Pulse Rate 90 87 89 Pulse Rate [ 89 From Monitor] Pulse Rate [ 81 Posterior Bilateral Bases ] Respiratory 22 20 18 Rate Respiratory 18 Rate [Posterior Bilateral Bases] Blood Pressure 144/85 141/61 142/76 O2 Sat by Pulse 100 99 99 Oximetry 07/05/18 07/05/18 07/05/18 08:10 09:00 09:34 Temperature Pulse Rate 87 71 Pulse Rate [ From Monitor] Pulse Rate [ 82 Posterior Bilateral Bases ] Respiratory 23 21 Rate Respiratory 18 Rate [Posterior Bilateral Bases] Blood Pressure 142/76 164/73 O2 Sat by Pulse 93 98 Oximetry 07/05/18 07/05/18 07/05/18 10:00 11:00 11:57 Temperature 98.1 F Pulse Rate 80 70 Pulse Rate [ From Monitor] Pulse Rate [ Posterior Bilateral Bases ] Respiratory 25 H 20 Rate Respiratory Rate [Posterior Bilateral Bases] Blood Pressure 163/93 133/59 O2 Sat by Pulse 95 98 Oximetry 07/05/18 07/05/18 07/05/18 12:00 13:00 14:00 Temperature Pulse Rate 67 65 63 Pulse Rate [ From Monitor] Pulse Rate [ 63 Posterior Bilateral Bases ] Respiratory 20 21 19 Rate Respiratory 20 Rate [Posterior Bilateral Bases] Blood Pressure 142/67 132/56 130/56 O2 Sat by Pulse 98 96 98 Oximetry 07/05/18 14:10 Temperature Pulse Rate Pulse Rate [ From Monitor] Pulse Rate [ 65 Posterior Bilateral Bases ] Respiratory Rate Respiratory 20 Rate [Posterior Bilateral Bases] Blood Pressure O2 Sat by Pulse Oximetry General appearance: Present: no acute distress, well-nourished - EENT Eyes: PERRL, EOM intact ENT: hearing intact, clear oral mucosa Ears: bilateral: normal - Neck Neck: supple, normal ROM - Respiratory Respiratory effort: normal Respiratory: bilateral: CTA - Breasts Breasts: normal - Cardiovascular Heart rate: 78 Rhythm: regular Heart Sounds: Present: S1 & S2. Absent: gallop, rub Extremities: pulses intact, No edema, normal color, Full ROM - Gastrointestinal General gastrointestinal: Present: soft, non-tender, non-distended, normal bowel sounds - Genitourinary Female genitourinary: normal - Integumentary Integumentary: clear, warm, dry - Musculoskeletal Musculoskeletal: 1, strength equal bilaterally - Neurologic Neurologic: moves all extremities - Psychiatric Psychiatric: memory intact, appropriate mood/affect, intact judgment & insight - Labs CBC & Chem 7: 07/05/18 04:59 07/05/18 04:59 Labs: Abnormal lab results 07/04/18 07/05/18 07/05/18 Range/Units 21:56 02:28 04:59 Hgb (10.1-14.3) gm/dl Hct (30.3-42.9) % MCV (79-97) fl MCH (28-32) pg RDW (13.2-15.2) % [place] % (Auto) (0.0-7.3) % [place] # (0.0-0.8) K/mm3 PT 19.7 H (12.2-14.9) Sec. INR 1.62 H (0.87-1.13) Creatinine (0.7-1.2) mg/dL Glucose (65-100) mg/dL POC Glucose 165 H 153 H (70-105) 07/05/18 07/05/18 07/05/18 Range/Units 04:59 04:59 05:24 Hgb 8.9 L (10.1-14.3) gm/dl Hct 28.2 L (30.3-42.9) % MCV 69 L (79-97) fl MCH 22 L (28-32) pg RDW 22.3 H (13.2-15.2) % [place] % (Auto) 9.8 H (0.0-7.3) % [place] # 0.9 H (0.0-0.8) K/mm3 PT (12.2-14.9) Sec. INR (0.87-1.13) Creatinine 2.5 H (0.7-1.2) mg/dL Glucose 177 H (65-100) mg/dL POC Glucose 161 H (70-105) 07/05/18 Range/Units 11:23 Hgb (10.1-14.3) gm/dl Hct (30.3-42.9) % MCV (79-97) fl MCH (28-32) pg RDW (13.2-15.2) % [place] % (Auto) (0.0-7.3) % [place] # (0.0-0.8) K/mm3 PT (12.2-14.9) Sec. INR (0.87-1.13) Creatinine (0.7-1.2) mg/dL Glucose (65-100) mg/dL POC Glucose 208 H (70-105)
--- NOTE | 2018-07-05 14:55 | Progress Note ---
Assessment and Plan atient having some respiratory distress. Patient is on Face mask with FIO2 60% , O2 saturation running 97%. Patient having wheezing, mainly in upper air ways.Patient started on I/V steroids. Also giving recemic epinephrine. Patient is on I/V heparin and PO coumadin. INR 1.62 - Patient Problems (1) ARF (acute renal failure) with tubular necrosis Current Visit: Yes Status: Acute Plan to address problem: Management as per nephrology. (2) Altered mental status Current Visit: Yes Status: Acute Plan to address problem: Management as per primary care. (3) Seizures Current Visit: Yes Status: Acute Plan to address problem: Management as per neurology. (4) ACS (acute coronary syndrome) Current Visit: No Status: Acute Plan to address problem: Patient is on I/V Heparin. Management as per cardiology. (5) Atelectasis of left lung Current Visit: Yes Status: Acute Plan to address problem: Albuterol/atrovent aerosol treatments q 6 hours prn for shortness of breath and cough. Brovanna/Budesonide aerosol treatments q 12 hours. Respiratory suctioning. (6) Respiratory failure Current Visit: No Status: Acute Qualifiers: Chronicity: acute Respiratory failure complication: hypoxia Qualified Code(s): J96.01 - Acute respiratory failure with hypoxia Plan to address problem: Patient is on BIPAP 20/10, FIO2 50%, Rate 16. Brovanna/Budesonide aerosol treatments q 12 hours. Patient is on I/V Heparin and Po coumadin. Continue famotidine. Started on I/V solumedrol. (7) Metabolic acidosis Current Visit: Yes Status: Acute Plan to address problem: Likely from renal failure. Recommend Bicarb supplementation as per the renal recommendation. Subjective Date of service: 07/05/18 Principal diagnosis: Acute Hypoxemic Resp failure; Pneumonia (Likely aspiration); JULISA; SIRS Interval history: Patient having some respiratory distress. Patient is on Face mask with FIO2 60% , O2 saturation running 97%. Patient having wheezing, mainly in upper air ways.Patient started on I/V steroids. Also giving recemic epinephrine. Patient is on I/V heparin and PO coumadin. INR 1.62 Objective Vital Signs - 12hr 07/05/18 07/05/18 07/05/18 03:00 04:00 05:00 Temperature 98.3 F Pulse Rate 94 H 90 90 Pulse Rate [ 90 From Monitor] Pulse Rate [ Posterior Bilateral Bases ] Respiratory 25 H 20 19 Rate Respiratory Rate [Posterior Bilateral Bases] Blood Pressure 134/63 145/66 149/98 O2 Sat by Pulse 99 100 99 Oximetry 07/05/18 07/05/18 07/05/18 06:00 07:00 08:00 Temperature 97.9 F Pulse Rate 90 87 89 Pulse Rate [ 89 From Monitor] Pulse Rate [ 81 Posterior Bilateral Bases ] Respiratory 22 20 18 Rate Respiratory 18 Rate [Posterior Bilateral Bases] Blood Pressure 144/85 141/61 142/76 O2 Sat by Pulse 100 99 99 Oximetry 07/05/18 07/05/18 07/05/18 08:10 09:00 09:34 Temperature Pulse Rate 87 71 Pulse Rate [ From Monitor] Pulse Rate [ 82 Posterior Bilateral Bases ] Respiratory 23 21 Rate Respiratory 18 Rate [Posterior Bilateral Bases] Blood Pressure 142/76 164/73 O2 Sat by Pulse 93 98 Oximetry 07/05/18 07/05/18 07/05/18 10:00 11:00 11:57 Temperature 98.1 F Pulse Rate 80 70 Pulse Rate [ From Monitor] Pulse Rate [ Posterior Bilateral Bases ] Respiratory 25 H 20 Rate Respiratory Rate [Posterior Bilateral Bases] Blood Pressure 163/93 133/59 O2 Sat by Pulse 95 98 Oximetry 07/05/18 07/05/18 07/05/18 12:00 13:00 14:00 Temperature Pulse Rate 67 65 63 Pulse Rate [ From Monitor] Pulse Rate [ 63 Posterior Bilateral Bases ] Respiratory 20 21 19 Rate Respiratory 20 Rate [Posterior Bilateral Bases] Blood Pressure 142/67 132/56 130/56 O2 Sat by Pulse 98 96 98 Oximetry 07/05/18 14:10 Temperature Pulse Rate Pulse Rate [ From Monitor] Pulse Rate [ 65 Posterior Bilateral Bases ] Respiratory Rate Respiratory 20 Rate [Posterior Bilateral Bases] Blood Pressure O2 Sat by Pulse Oximetry Constitutional: alert, appears uncomfortable, other (Patient having wheezing mainly upper air ways.) Eyes: non-icteric ENT: oropharynx moist, other (extubated) Neck: supple, no lymphadenopathy, no JVD, other (no thyromegaly) Effort: mildly labored Ascultation: Bilateral: diminished breath sounds, wheezes (mainly upper air ways.), rhonchi Percussion: Bilateral: not dull Cardiovascular: regular rate and rhythm Gastrointestinal: normoactive bowel sounds, soft, tender, non-distended Integumentary: normal Extremities: no cyanosis, no edema, pulses normal, no ischemia or petechiae Neurologic: normal mental status, non-focal exam (grossly), pupils equal and round, CN II-XII normal Psychiatric: other (Patient sleeping at this time.) CBC and BMP: 07/05/18 04:59 07/05/18 04:59 ABG, PT/INR, D-dimer: ABG POC ABG pH 7.292 (7.35-7.45) L 06/30/18 12:16 POC ABG pCO2 34.9 (35-45) L 06/30/18 12:16 POC ABG pO2 79 (80-105) L 06/30/18 12:16 POC ABG HCO3 16.9 06/30/18 12:16 POC ABG Total CO2 18 06/30/18 12:16 POC ABG O2 Sat 94 06/30/18 12:16 PT/INR, D-dimer PT 19.7 Sec. (12.2-14.9) H 07/05/18 04:59 INR 1.62 (0.87-1.13) H 07/05/18 04:59 Abnormal lab findings: Abnormal Labs 06/21/18 06/21/18 06/21/18 14:02 14:06 14:06 WBC RBC Hgb Hct MCV 71 L MCH 22 L RDW 21.1 H [place] % (Auto) [place] # Seg Neutrophils # PT 18.9 H INR 1.54 H APTT Heparin Anti-Xa Level POC ABG pH POC ABG pCO2 POC ABG pO2 Potassium Chloride Carbon Dioxide BUN Creatinine Glucose POC Glucose 250 H Calcium Total Bilirubin Alkaline Phosphatase Troponin T Albumin Urine Creatinine 06/21/18 06/21/18 06/21/18 14:06 14:23 21:17 WBC RBC Hgb Hct MCV MCH RDW [place] % (Auto) [place] # Seg Neutrophils # PT INR APTT Heparin Anti-Xa Level POC ABG pH 7.499 H 7.600 H POC ABG pCO2 34.8 L 24.9 L POC ABG pO2 342 H 176 H Potassium Chloride Carbon Dioxide BUN Creatinine 1.5 H Glucose 214 H POC Glucose Calcium Total Bilirubin 1.30 H Alkaline Phosphatase 174 H Troponin T 0.050 H Albumin 3.1 L Urine Creatinine 06/22/18 06/22/18 06/22/18 03:17 03:17 05:27 WBC 11.5 H RBC 5.07 H Hgb Hct MCV 69 L MCH 21 L RDW 21.9 H [place] % (Auto) 9.8 H [place] # 1.1 H Seg Neutrophils # 7.9 H PT INR APTT Heparin Anti-Xa Level POC ABG pH 7.539 H POC ABG pCO2 30.1 L POC ABG pO2 170 H Potassium Chloride Carbon Dioxide BUN Creatinine 1.5 H Glucose 164 H POC Glucose Calcium Total Bilirubin Alkaline Phosphatase Troponin T Albumin Urine Creatinine 06/22/18 06/22/18 06/22/18 17:21 17:50 19:46 WBC RBC Hgb Hct MCV MCH RDW [place] % (Auto) [place] # Seg Neutrophils # PT 17.5 H INR 1.39 H APTT 22.8 L Heparin Anti-Xa Level 1.64 H POC ABG pH POC ABG pCO2 POC ABG pO2 Potassium Chloride Carbon Dioxide BUN Creatinine Glucose POC Glucose 240 H Calcium Total Bilirubin Alkaline Phosphatase Troponin T Albumin Urine Creatinine 06/22/18 06/23/18 06/23/18 23:47 01:44 04:14 WBC RBC Hgb Hct MCV MCH RDW [place] % (Auto) [place] # Seg Neutrophils # PT INR APTT Heparin Anti-Xa Level 0.10 L POC ABG pH POC ABG pCO2 POC ABG pO2 Potassium Chloride Carbon Dioxide BUN Creatinine Glucose POC Glucose 240 H 229 H Calcium Total Bilirubin Alkaline Phosphatase Troponin T Albumin Urine Creatinine 06/23/18 06/23/18 06/23/18 05:34 09:24 10:24 WBC RBC Hgb Hct MCV MCH RDW [place] % (Auto) [place] # Seg Neutrophils # PT INR APTT Heparin Anti-Xa Level POC ABG pH 7.519 H POC ABG pCO2 POC ABG pO2 133 H Potassium Chloride Carbon Dioxide BUN Creatinine Glucose POC Glucose 220 H 183 H Calcium Total Bilirubin Alkaline Phosphatase Troponin T Albumin Urine Creatinine 06/23/18 06/23/18 06/23/18 12:39 13:32 14:08 WBC RBC Hgb Hct MCV MCH RDW [place] % (Auto) [place] # Seg Neutrophils # PT INR APTT Heparin Anti-Xa Level > 2.00 H POC ABG pH POC ABG pCO2 POC ABG pO2 Potassium Chloride Carbon Dioxide BUN Creatinine Glucose POC Glucose 151 H 140 H Calcium Total Bilirubin Alkaline Phosphatase Troponin T Albumin Urine Creatinine 06/23/18 06/23/18 06/23/18 18:00 19:33 21:31 WBC RBC Hgb Hct MCV MCH RDW [place] % (Auto) [place] # Seg Neutrophils # PT INR APTT Heparin Anti-Xa Level 1.74 H POC ABG pH POC ABG pCO2 POC ABG pO2 Potassium Chloride Carbon Dioxide BUN Creatinine Glucose POC Glucose 141 H 153 H Calcium Total Bilirubin Alkaline Phosphatase Troponin T Albumin Urine Creatinine 06/24/18 06/24/18 06/24/18 02:36 03:55 03:55 WBC 12.9 H RBC Hgb 9.9 L Hct MCV 70 L MCH 22 L RDW 22.1 H [place] % (Auto) [place] # Seg Neutrophils # PT INR APTT Heparin Anti-Xa Level POC ABG pH POC ABG pCO2 POC ABG pO2 Potassium Chloride Carbon Dioxide BUN 25 H Creatinine 1.6 H Glucose 151 H POC Glucose 162 H Calcium 8.2 L Total Bilirubin Alkaline Phosphatase Troponin T Albumin Urine Creatinine 06/24/18 06/24/18 06/24/18 03:55 05:01 09:34 WBC RBC Hgb Hct MCV MCH RDW [place] % (Auto) [place] # Seg Neutrophils # PT INR APTT Heparin Anti-Xa Level 1.75 H POC ABG pH POC ABG pCO2 POC ABG pO2 Potassium Chloride Carbon Dioxide BUN Creatinine Glucose POC Glucose 175 H 143 H Calcium Total Bilirubin Alkaline Phosphatase Troponin T Albumin Urine Creatinine 06/24/18 06/24/18 06/24/18 12:50 14:29 17:08 WBC RBC Hgb Hct MCV MCH RDW [place] % (Auto) [place] # Seg Neutrophils # PT INR APTT Heparin Anti-Xa Level 1.60 H POC ABG pH POC ABG pCO2 POC ABG pO2 Potassium Chloride Carbon Dioxide BUN Creatinine Glucose POC Glucose 169 H 138 H Calcium Total Bilirubin Alkaline Phosphatase Troponin T Albumin Urine Creatinine 06/24/18 06/24/18 06/25/18 21:13 21:50 01:45 WBC RBC Hgb Hct MCV MCH RDW [place] % (Auto) [place] # Seg Neutrophils # PT INR APTT Heparin Anti-Xa Level 1.53 H POC ABG pH POC ABG pCO2 POC ABG pO2 Potassium Chloride Carbon Dioxide BUN Creatinine Glucose POC Glucose 186 H 177 H Calcium Total Bilirubin Alkaline Phosphatase Troponin T Albumin Urine Creatinine 06/25/18 06/25/18 06/25/18 05:23 05:41 09:55 WBC RBC Hgb Hct MCV MCH RDW [place] % (Auto) [place] # Seg Neutrophils # PT INR APTT Heparin Anti-Xa Level 1.13 H POC ABG pH POC ABG pCO2 POC ABG pO2 Potassium Chloride Carbon Dioxide BUN Creatinine Glucose POC Glucose 160 H 181 H Calcium Total Bilirubin Alkaline Phosphatase Troponin T Albumin Urine Creatinine 06/25/18 06/25/18 06/25/18 12:54 14:27 14:33 WBC RBC Hgb Hct MCV MCH RDW [place] % (Auto) [place] # Seg Neutrophils # PT INR APTT Heparin Anti-Xa Level 0.73 H POC ABG pH POC ABG pCO2 POC ABG pO2 Potassium 3.4 L Chloride Carbon Dioxide BUN 30 H Creatinine 2.1 H Glucose 220 H POC Glucose 218 H Calcium Total Bilirubin Alkaline Phosphatase Troponin T Albumin Urine Creatinine 06/25/18 06/25/18 06/26/18 17:36 21:40 01:49 WBC RBC Hgb Hct MCV MCH RDW [place] % (Auto) [place] # Seg Neutrophils # PT INR APTT Heparin Anti-Xa Level POC ABG pH POC ABG pCO2 POC ABG pO2 Potassium Chloride Carbon Dioxide BUN Creatinine Glucose POC Glucose 219 H 162 H 152 H Calcium Total Bilirubin Alkaline Phosphatase Troponin T Albumin Urine Creatinine 06/26/18 06/26/18 06/26/18 04:43 05:50 09:43 WBC RBC Hgb 8.8 L Hct 27.7 L MCV MCH RDW [place] % (Auto) [place] # Seg Neutrophils # PT INR APTT Heparin Anti-Xa Level POC ABG pH POC ABG pCO2 POC ABG pO2 Potassium Chloride Carbon Dioxide BUN Creatinine Glucose POC Glucose 176 H 206 H Calcium Total Bilirubin Alkaline Phosphatase Troponin T Albumin Urine Creatinine 06/26/18 06/26/18 06/26/18 10:14 10:14 12:43 WBC RBC Hgb 9.5 L Hct 30.0 L MCV 69 L MCH 22 L RDW 22.4 H [place] % (Auto) 11.0 H [place] # 1.0 H Seg Neutrophils # PT INR APTT Heparin Anti-Xa Level POC ABG pH 7.311 L POC ABG pCO2 46.6 H POC ABG pO2 Potassium Chloride Carbon Dioxide BUN 34 H Creatinine 2.4 H Glucose 194 H POC Glucose Calcium Total Bilirubin Alkaline Phosphatase Troponin T Albumin Urine Creatinine 06/26/18 06/26/18 06/27/18 14:30 17:32 00:00 WBC RBC Hgb Hct MCV MCH RDW [place] % (Auto) [place] # Seg Neutrophils # PT INR APTT Heparin Anti-Xa Level POC ABG pH POC ABG pCO2 POC ABG pO2 Potassium Chloride Carbon Dioxide BUN Creatinine Glucose POC Glucose 219 H 228 H 173 H Calcium Total Bilirubin Alkaline Phosphatase Troponin T Albumin Urine Creatinine 06/27/18 06/27/18 06/27/18 01:25 06:06 10:24 WBC RBC Hgb Hct MCV MCH RDW [place] % (Auto) [place] # Seg Neutrophils # PT INR APTT Heparin Anti-Xa Level POC ABG pH POC ABG pCO2 POC ABG pO2 Potassium Chloride Carbon Dioxide BUN Creatinine Glucose POC Glucose 178 H 157 H 171 H Calcium Total Bilirubin Alkaline Phosphatase Troponin T Albumin Urine Creatinine 06/27/18 06/27/18 06/27/18 12:24 12:24 18:13 WBC RBC Hgb Hct MCV MCH RDW [place] % (Auto) [place] # Seg Neutrophils # PT INR APTT Heparin Anti-Xa Level POC ABG pH POC ABG pCO2 POC ABG pO2 Potassium Chloride Carbon Dioxide BUN Creatinine 3.3 H Glucose POC Glucose 192 H 158 H Calcium Total Bilirubin Alkaline Phosphatase Troponin T Albumin Urine Creatinine 06/27/18 06/27/18 06/27/18 22:23 22:34 Unknown WBC RBC Hgb Hct MCV MCH RDW [place] % (Auto) [place] # Seg Neutrophils # PT INR APTT Heparin Anti-Xa Level 0.13 L POC ABG pH POC ABG pCO2 POC ABG pO2 Potassium Chloride Carbon Dioxide BUN Creatinine Glucose POC Glucose 137 H Calcium Total Bilirubin Alkaline Phosphatase Troponin T Albumin Urine Creatinine 192.2 H 06/28/18 06/28/18 06/28/18 03:25 04:06 06:44 WBC RBC Hgb Hct MCV MCH RDW [place] % (Auto) [place] # Seg Neutrophils # PT INR APTT Heparin Anti-Xa Level POC ABG pH POC ABG pCO2 POC ABG pO2 Potassium Chloride Carbon Dioxide 19 L BUN 49 H Creatinine 3.8 H Glucose 159 H POC Glucose 149 H 174 H Calcium Total Bilirubin Alkaline Phosphatase Troponin T Albumin Urine Creatinine 06/28/18 06/28/18 06/28/18 08:59 14:32 17:34 WBC RBC Hgb Hct MCV MCH RDW [place] % (Auto) [place] # Seg Neutrophils # PT INR APTT Heparin Anti-Xa Level POC ABG pH POC ABG pCO2 POC ABG pO2 Potassium Chloride Carbon Dioxide BUN Creatinine Glucose POC Glucose 167 H 161 H 162 H Calcium Total Bilirubin Alkaline Phosphatase Troponin T Albumin Urine Creatinine 06/28/18 06/29/18 06/29/18 23:03 02:59 04:15 WBC RBC Hgb Hct MCV MCH RDW [place] % (Auto) [place] # Seg Neutrophils # PT INR APTT Heparin Anti-Xa Level POC ABG pH POC ABG pCO2 POC ABG pO2 Potassium Chloride Carbon Dioxide 17 L BUN 55 H Creatinine 4.3 H Glucose 141 H POC Glucose 198 H 162 H Calcium Total Bilirubin Alkaline Phosphatase Troponin T Albumin Urine Creatinine 06/29/18 06/29/18 06/29/18 05:41 09:35 15:06 WBC RBC Hgb Hct MCV MCH RDW [place] % (Auto) [place] # Seg Neutrophils # PT INR APTT Heparin Anti-Xa Level 0.18 L POC ABG pH POC ABG pCO2 POC ABG pO2 Potassium Chloride Carbon Dioxide BUN Creatinine Glucose POC Glucose 125 H 128 H Calcium Total Bilirubin Alkaline Phosphatase Troponin T Albumin Urine Creatinine 06/29/18 06/29/18 06/29/18 16:26 18:30 21:34 WBC RBC Hgb Hct MCV MCH RDW [place] % (Auto) [place] # Seg Neutrophils # PT INR APTT Heparin Anti-Xa Level POC ABG pH POC ABG pCO2 POC ABG pO2 Potassium Chloride Carbon Dioxide BUN Creatinine Glucose POC Glucose 211 H 211 H 114 H Calcium Total Bilirubin Alkaline Phosphatase Troponin T Albumin Urine Creatinine 06/30/18 06/30/18 06/30/18 00:11 01:57 05:43 WBC RBC Hgb Hct MCV MCH RDW [place] % (Auto) [place] # Seg Neutrophils # PT INR APTT Heparin Anti-Xa Level < 0.10 L POC ABG pH POC ABG pCO2 POC ABG pO2 Potassium Chloride Carbon Dioxide 17 L BUN 60 H Creatinine 5.0 H Glucose 125 H POC Glucose 131 H Calcium Total Bilirubin Alkaline Phosphatase Troponin T Albumin Urine Creatinine 06/30/18 06/30/18 06/30/18 06:29 09:31 12:16 WBC RBC Hgb Hct MCV MCH RDW [place] % (Auto) [place] # Seg Neutrophils # PT INR APTT Heparin Anti-Xa Level POC ABG pH 7.292 L POC ABG pCO2 34.9 L POC ABG pO2 79 L Potassium Chloride Carbon Dioxide BUN Creatinine Glucose POC Glucose 141 H 139 H Calcium Total Bilirubin Alkaline Phosphatase Troponin T Albumin Urine Creatinine 06/30/18 06/30/18 06/30/18 12:36 18:53 22:33 WBC RBC Hgb Hct MCV MCH RDW [place] % (Auto) [place] # Seg Neutrophils # PT 15.3 H INR 1.17 H APTT Heparin Anti-Xa Level POC ABG pH POC ABG pCO2 POC ABG pO2 Potassium Chloride Carbon Dioxide BUN Creatinine Glucose POC Glucose 183 H 184 H Calcium Total Bilirubin Alkaline Phosphatase Troponin T Albumin Urine Creatinine 07/01/18 07/01/18 07/01/18 02:43 02:44 05:55 WBC RBC Hgb Hct MCV MCH RDW [place] % (Auto) [place] # Seg Neutrophils # PT INR APTT Heparin Anti-Xa Level 0.83 H POC ABG pH POC ABG pCO2 POC ABG pO2 Potassium Chloride Carbon Dioxide BUN Creatinine Glucose POC Glucose 143 H 165 H Calcium Total Bilirubin Alkaline Phosphatase Troponin T Albumin Urine Creatinine 07/01/18 07/01/18 07/01/18 06:03 07:22 09:37 WBC RBC Hgb Hct MCV MCH RDW [place] % (Auto) [place] # Seg Neutrophils # PT 16.6 H INR 1.30 H APTT Heparin Anti-Xa Level 0.89 H POC ABG pH POC ABG pCO2 POC ABG pO2 Potassium Chloride Carbon Dioxide 15 L BUN 63 H Creatinine 5.6 H Glucose 145 H POC Glucose Calcium Total Bilirubin Alkaline Phosphatase Troponin T Albumin Urine Creatinine 07/01/18 07/02/18 07/02/18 10:42 00:28 05:23 WBC RBC Hgb Hct MCV MCH RDW [place] % (Auto) [place] # Seg Neutrophils # PT INR APTT Heparin Anti-Xa Level POC ABG pH POC ABG pCO2 POC ABG pO2 Potassium Chloride 97.9 L Carbon Dioxide 18 L BUN 38 H Creatinine 4.2 H Glucose 128 H POC Glucose 147 H 126 H Calcium Total Bilirubin Alkaline Phosphatase Troponin T Albumin Urine Creatinine 07/02/18 07/02/18 07/02/18 05:23 07:34 07:52 WBC RBC Hgb Hct MCV MCH RDW [place] % (Auto) [place] # Seg Neutrophils # PT 16.3 H INR 1.27 H APTT Heparin Anti-Xa Level 0.74 H POC ABG pH POC ABG pCO2 POC ABG pO2 Potassium Chloride Carbon Dioxide BUN Creatinine Glucose POC Glucose 131 H Calcium Total Bilirubin Alkaline Phosphatase Troponin T Albumin Urine Creatinine 07/02/18 07/02/18 07/02/18 13:45 15:54 16:15 WBC RBC Hgb Hct MCV MCH RDW [place] % (Auto) [place] # Seg Neutrophils # PT INR APTT Heparin Anti-Xa Level 0.28 L POC ABG pH POC ABG pCO2 POC ABG pO2 Potassium Chloride Carbon Dioxide BUN Creatinine Glucose POC Glucose 135 H 160 H Calcium Total Bilirubin Alkaline Phosphatase Troponin T Albumin Urine Creatinine 07/02/18 07/02/18 07/03/18 17:20 21:54 00:59 WBC RBC Hgb Hct MCV MCH RDW [place] % (Auto) [place] # Seg Neutrophils # PT INR APTT Heparin Anti-Xa Level 0.28 L POC ABG pH POC ABG pCO2 POC ABG pO2 Potassium Chloride Carbon Dioxide BUN Creatinine Glucose POC Glucose 161 H 192 H Calcium Total Bilirubin Alkaline Phosphatase Troponin T Albumin Urine Creatinine 07/03/18 07/03/18 07/03/18 02:32 05:25 06:24 WBC RBC Hgb Hct MCV MCH RDW [place] % (Auto) [place] # Seg Neutrophils # PT 16.6 H INR 1.30 H APTT Heparin Anti-Xa Level POC ABG pH POC ABG pCO2 POC ABG pO2 Potassium Chloride Carbon Dioxide BUN Creatinine Glucose POC Glucose 168 H 153 H Calcium Total Bilirubin Alkaline Phosphatase Troponin T Albumin Urine Creatinine 07/03/18 07/03/18 07/04/18 09:46 22:46 04:20 WBC RBC Hgb Hct MCV MCH RDW [place] % (Auto) [place] # Seg Neutrophils # PT INR APTT Heparin Anti-Xa Level POC ABG pH POC ABG pCO2 POC ABG pO2 Potassium Chloride Carbon Dioxide BUN Creatinine Glucose POC Glucose 163 H 130 H 151 H Calcium Total Bilirubin Alkaline Phosphatase Troponin T Albumin Urine Creatinine 07/04/18 07/04/18 07/04/18 05:05 05:05 05:05 WBC RBC Hgb 9.8 L Hct MCV 69 L MCH 22 L RDW 22.6 H [place] % (Auto) 11.0 H [place] # 1.2 H Seg Neutrophils # PT 20.7 H INR 1.73 H APTT Heparin Anti-Xa Level POC ABG pH POC ABG pCO2 POC ABG pO2 Potassium Chloride Carbon Dioxide BUN Creatinine 3.3 H Glucose 166 H POC Glucose Calcium Total Bilirubin Alkaline Phosphatase Troponin T Albumin Urine Creatinine 07/04/18 07/04/18 07/04/18 10:15 10:31 21:56 WBC RBC Hgb Hct MCV MCH RDW [place] % (Auto) [place] # Seg Neutrophils # PT INR APTT Heparin Anti-Xa Level 0.81 H POC ABG pH POC ABG pCO2 POC ABG pO2 Potassium Chloride Carbon Dioxide BUN Creatinine Glucose POC Glucose 118 H 165 H Calcium Total Bilirubin Alkaline Phosphatase Troponin T Albumin Urine Creatinine 07/05/18 07/05/18 07/05/18 02:28 04:59 04:59 WBC RBC Hgb 8.9 L Hct 28.2 L MCV 69 L MCH 22 L RDW 22.3 H [place] % (Auto) 9.8 H [place] # 0.9 H Seg Neutrophils # PT 19.7 H INR 1.62 H APTT Heparin Anti-Xa Level POC ABG pH POC ABG pCO2 POC ABG pO2 Potassium Chloride Carbon Dioxide BUN Creatinine Glucose POC Glucose 153 H Calcium Total Bilirubin Alkaline Phosphatase Troponin T Albumin Urine Creatinine 07/05/18 07/05/18 07/05/18 04:59 05:24 11:23 WBC RBC Hgb Hct MCV MCH RDW [place] % (Auto) [place] # Seg Neutrophils # PT INR APTT Heparin Anti-Xa Level POC ABG pH POC ABG pCO2 POC ABG pO2 Potassium Chloride Carbon Dioxide BUN Creatinine 2.5 H Glucose 177 H POC Glucose 161 H 208 H Calcium Total Bilirubin Alkaline Phosphatase Troponin T Albumin Urine Creatinine Allied health notes reviewed: nursing
[2018-07-05] MEDS ORDERED: SOLU-Medrol IV STA (17:24)
[2018-07-05] MEDS: COUMADIN PO SCH (17:49)
--- NOTE | 2018-07-05 22:13 | Progress Note ---
Assessment and Plan Patient is a 68 yo woman from [facility] with a history of seizure disorder, type 2 DM, hypertension, dyslipidemia, CVA, DVT on Eliquis and Dementia who presented to [facility] ED on 06/21/18 with Seizures and was Intubated. ARF, ATN +vasomotor nephropathy, poa, worsening: Nephrology following-Renal function worsening, Cr up to 5.6,On On Hemodialysis Acute respiratory failure, s/p ETT intubated (on admission) 06/21/18 >96 hours and extubated 06/26/18: continue o2 support, d/w Dr. Fish, Pulmonology regarding the stridor Status epilepticus: treated with keppra, EEG reviewed again with Dr. Haque Hypertensive Urgency, resolved: iv antihypertensives as needed H/o CVA, she is weaker on the right, ?old RHP: SIRS with organ dysfunction, poa as above Acute Metabolic Encephalopathy per above History of DVT on Eliquis, v/q negative for PE. Continue iv heparin drip with close monitoring, and hold Eliquis because renal failure. Day 2 of Warfarin bridge Respiratory Stidor (developed 06/30/18) most likley due to fluid overload, oliguria and worsening renal failure: treat with racemic epi, nebs and started bipap, given iv lasix with little urine output obn 06/30/18 improving Anticipate discharge on Friday Subjective Date of service: 07/04/18 Principal diagnosis: Acute Hypoxemic Resp failure; Pneumonia (Likely aspira tion); JULISA; SIRS Interval history: Patient doing better Objective - Constitutional Vitals: Vital Signs - 12hr 07/05/18 07/05/18 07/05/18 11:00 11:57 12:00 Temperature 98.1 F 98.4 F Pulse Rate 70 67 Pulse Rate [ Anterior Bilateral Throughout] Pulse Rate [ 70 From Monitor] Pulse Rate [ Posterior Bilateral Bases ] Respiratory 20 20 Rate Respiratory Rate [Anterior Bilateral Throughout] Respiratory Rate [Posterior Bilateral Bases] Blood Pressure 133/59 142/67 O2 Sat by Pulse 98 97 Oximetry 07/05/18 07/05/18 07/05/18 13:00 14:00 14:10 Temperature Pulse Rate 65 63 Pulse Rate [ Anterior Bilateral Throughout] Pulse Rate [ From Monitor] Pulse Rate [ 63 65 Posterior Bilateral Bases ] Respiratory 21 19 Rate Respiratory Rate [Anterior Bilateral Throughout] Respiratory 20 20 Rate [Posterior Bilateral Bases] Blood Pressure 132/56 130/56 O2 Sat by Pulse 96 98 Oximetry 07/05/18 07/05/18 07/05/18 15:00 16:00 17:00 Temperature 98 F Pulse Rate 69 71 84 Pulse Rate [ Anterior Bilateral Throughout] Pulse Rate [ 70 From Monitor] Pulse Rate [ Posterior Bilateral Bases ] Respiratory 18 19 13 Rate Respiratory Rate [Anterior Bilateral Throughout] Respiratory Rate [Posterior Bilateral Bases] Blood Pressure 137/74 137/74 134/80 O2 Sat by Pulse 98 100 98 Oximetry 07/05/18 07/05/18 07/05/18 18:00 20:31 20:34 Temperature Pulse Rate 73 65 Pulse Rate [ 65 Anterior Bilateral Throughout] Pulse Rate [ From Monitor] Pulse Rate [ Posterior Bilateral Bases ] Respiratory 14 14 Rate Respiratory 14 Rate [Anterior Bilateral Throughout] Respiratory Rate [Posterior Bilateral Bases] Blood Pressure 181/86 154/74 O2 Sat by Pulse 100 100 Oximetry 07/05/18 07/05/18 20:45 21:27 Temperature Pulse Rate 74 Pulse Rate [ 67 Anterior Bilateral Throughout] Pulse Rate [ From Monitor] Pulse Rate [ Posterior Bilateral Bases ] Respiratory Rate Respiratory 14 Rate [Anterior Bilateral Throughout] Respiratory Rate [Posterior Bilateral Bases] Blood Pressure 150/70 O2 Sat by Pulse Oximetry General appearance: Present: no acute distress, well-nourished - EENT Eyes: PERRL, EOM intact ENT: hearing intact, clear oral mucosa Ears: bilateral: normal - Neck Neck: supple, normal ROM - Respiratory Respiratory effort: normal Respiratory: bilateral: CTA - Breasts Breasts: normal - Cardiovascular Heart rate: 80 Rhythm: regular Heart Sounds: Present: S1 & S2. Absent: gallop, rub Extremities: no ischemia, pulses intact, No edema, normal color, Full ROM - Gastrointestinal General gastrointestinal: Present: soft, non-tender, non-distended, normal bowel sounds - Genitourinary Female genitourinary: normal - Integumentary Integumentary: clear, warm, dry - Musculoskeletal Musculoskeletal: 1, strength equal bilaterally - Neurologic Neurologic: moves all extremities - Psychiatric Psychiatric: memory intact, appropriate mood/affect, intact judgment & insight - Allied health notes Allied health notes reviewed: nursing, case management - Labs CBC & Chem 7: 07/05/18 04:59 07/05/18 04:59 Labs: Abnormal lab results 07/05/18 07/05/18 07/05/18 Range/Units 02:28 04:59 04:59 Hgb 8.9 L (10.1-14.3) gm/dl Hct 28.2 L (30.3-42.9) % MCV 69 L (79-97) fl MCH 22 L (28-32) pg RDW 22.3 H (13.2-15.2) % [place] % (Auto) 9.8 H (0.0-7.3) % [place] # 0.9 H (0.0-0.8) K/mm3 PT 19.7 H (12.2-14.9) Sec. INR 1.62 H (0.87-1.13) Heparin Anti-Xa Level (0.3-0.7) U.I./ml Creatinine (0.7-1.2) mg/dL Glucose (65-100) mg/dL POC Glucose 153 H (70-105) 07/05/18 07/05/18 07/05/18 Range/Units 04:59 05:24 11:23 Hgb (10.1-14.3) gm/dl Hct (30.3-42.9) % MCV (79-97) fl MCH (28-32) pg RDW (13.2-15.2) % [place] % (Auto) (0.0-7.3) % [place] # (0.0-0.8) K/mm3 PT (12.2-14.9) Sec. INR (0.87-1.13) Heparin Anti-Xa Level (0.3-0.7) U.I./ml Creatinine 2.5 H (0.7-1.2) mg/dL Glucose 177 H (65-100) mg/dL POC Glucose 161 H 208 H (70-105) 07/05/18 Range/Units 20:22 Hgb (10.1-14.3) gm/dl Hct (30.3-42.9) % MCV (79-97) fl MCH (28-32) pg RDW (13.2-15.2) % [place] % (Auto) (0.0-7.3) % [place] # (0.0-0.8) K/mm3 PT (12.2-14.9) Sec. INR (0.87-1.13) Heparin Anti-Xa Level 1.14 H (0.3-0.7) U.I./ml Creatinine (0.7-1.2) mg/dL Glucose (65-100) mg/dL POC Glucose (70-105)
[2018-07-05] MEDS ORDERED: PROVENTIL IH PRN (23:18)
[2018-07-06] MEDS: PROVENTIL IH SCH ×3 (02:35→13:47)
[2018-07-06] MEDS: HumaLOG SUB-Q SCH ×4 (03:19→11:54)
[2018-07-06] MEDS: COMBIGAN 0.2-0.5% OU SCH (03:23)
[2018-07-06 04:26] LABS: Albumin 2.7 g/dL (3.8-4.8); Gamma Globulin 1.3 g/dL (0.8-1.7)
[2018-07-06 04:57] LABS: Basophils % (Auto) 0.1 % (0.0-1.8); Hematocrit 31.5 % (30.3-42.9); Lymphocytes # (Auto) 1.1 K/mm3 (1.2-5.4); Lymphocytes % (Auto) 14.3 % (13.4-35.0); Mean Corpuscular HGB Conc 32 % (30-34); Mean Corpuscular Volume 71 fl (79-97); Monocytes # (Auto) 0.1 K/mm3 (0.0-0.8); Monocytes % (Auto) 1.8 % (0.0-7.3); Platelet Count 257 K/mm3 (140-440); Red Blood Count 4.45 M/mm3 (3.65-5.03); Red Cell Distribution Width 23.5 % (13.2-15.2)
[2018-07-06] MEDS: SOLU-Medrol IV SCH ×2 (05:23→13:08)
[2018-07-06 05:48] LABS: Blood Urea Nitrogen TNR mg/dL (7-17)
[2018-07-06 05:49] LABS: BUN/Creatinine Ratio TNR; Calcium TNR mg/dL (8.4-10.2); Hemolysis Index TNR
[2018-07-06 06:23] LABS: INR 2.54 (0.87-1.13)
[2018-07-06 08:00] LABS: Calcium 9.2 mg/dL (8.4-10.2)
[2018-07-06] MEDS: BROVANA NEBU IH SCH (08:12)
[2018-07-06] MEDS: PULMICORT IH SCH (08:12)
--- NOTE | 2018-07-06 09:09 | XRay Report ---
CHEST XRAY, 2 VIEWS: History: Possible CHF. Findings: Mild improvement in pulmonary venous congestion and small left pleural effusion is demonstrated since 06/30/18. Heart size is at the upper limits of normal. No evidence for pneumonia or pneumothorax. The thoracic cage is grossly intact. IMPRESSION: Mild improvement in congestive changes and small left pleural effusion since 06/30/18.
--- NOTE | 2018-07-06 09:49 | Progress Note ---
Subjective Principal diagnosis: Acute Hypoxemic Resp failure; Pneumonia (Likely aspiration); JULISA; SIRS Interval history: She was seen today for follow-up on multiple renal related issues She is feeling somewhat better Case was also discussed with IMI service lian Ferreira plan of care and discharge Made him aware that patient will need outpatient dialysis as well Events of 24 hours vitals labs intake output medications were reviewed Past medical history: Reviewed Family history: Reviewed Social history: Reviewed Allergies: Reviewed Physical examination: Vitals: Reviewed HEENT: No pallor or icterus oral mucosa moist Neck: Supple no JVD no thyromegaly Chest: she has bilateral basilar crackles Heart: Regular rate and rhythm S1-S2 heard no S3-S4 Abdomen: Soft nontender no voluntary guarding rigidity rebound Extremity: Dry skin less than 1+ peripheral edema Psychiatric: No evidence of agitation and aggression noted Dermatology: No petechial rashes Labs and x-rays: Reviewed from today Assessment and plan Acute on chronic renal failure patient's creatinine today see 0.3 review of old records show that her creatinine has been running around 1.7-2.1 as of March 2018 in our records, likely etiology for renal failure appears to be due to acute tubular necrosis given that patient has issues with volume overload shortness of breath she is in need for ongoing dialysis for now Due to acute severe renal failure with volume overload patient will need ongoing hemodialysis treatment. If she is being discharged she will need to be set up for outpatient dialysis at least 3 times per week While in the hospital she will need to continue with hemodialysis treatment. Discussed with hospital medicine service Dr. Lan about the current treatment plan Also made him aware that I tried to call patient's next of kin at the provider telephone number in our system but it said that the voicemail was not set up Also discussed with him about having social media senior associate and conservation planner getting involved, for possible dialysis chair time Patient is currently not felt to be ESRD Patient was adequately counseled and educated regarding multiple renal related issues and need for ongoing dialysis, She seems to be doing better with the dialysis that was started herea History of multiple underlying comorbidities including diabetes, hypertension, stroke, dementia, depression, DVT Encephalopathy: Slowly improving Renal prognosis is guarded to poor given her age and multiple comorbidities, she is in need for ongoing dialysis for now She will need periodic labs as well as follow-up chest x-rays, avoid any nephrot oxic medications We'll continue to follow and make recommendation for renal standpoint, Objective - Vital Signs Vital signs: Vital Signs - 12hr 07/05/18 07/05/18 07/06/18 22:00 23:00 00:00 Temperature 97.5 F L Pulse Rate 69 67 65 Pulse Rate [ Anterior Bilateral Throughout] Pulse Rate [ 64 From Monitor] Respiratory 14 14 14 Rate Respiratory Rate [Anterior Bilateral Throughout] Blood Pressure 150/73 169/83 159/75 O2 Sat by Pulse 100 100 100 Oximetry 07/06/18 07/06/18 07/06/18 00:30 01:00 02:00 Temperature Pulse Rate 67 64 65 Pulse Rate [ Anterior Bilateral Throughout] Pulse Rate [ From Monitor] Respiratory 14 14 14 Rate Respiratory Rate [Anterior Bilateral Throughout] Blood Pressure 147/72 147/72 150/71 O2 Sat by Pulse 100 100 100 Oximetry 07/06/18 07/06/18 07/06/18 03:00 04:00 04:25 Temperature 98.1 F Pulse Rate 72 66 71 Pulse Rate [ Anterior Bilateral Throughout] Pulse Rate [ 68 From Monitor] Respiratory 18 15 15 Rate Respiratory Rate [Anterior Bilateral Throughout] Blood Pressure 160/83 140/77 140/77 O2 Sat by Pulse 100 100 100 Oximetry 07/06/18 07/06/18 07/06/18 05:00 06:00 07:00 Temperature Pulse Rate 67 69 74 Pulse Rate [ Anterior Bilateral Throughout] Pulse Rate [ From Monitor] Respiratory 14 14 19 Rate Respiratory Rate [Anterior Bilateral Throughout] Blood Pressure 143/71 155/77 163/76 O2 Sat by Pulse 100 100 100 Oximetry 07/06/18 07/06/18 07/06/18 08:00 08:10 09:06 Temperature 98.9 F Pulse Rate 72 83 Pulse Rate [ 72 82 Anterior Bilateral Throughout] Pulse Rate [ 82 From Monitor] Respiratory 13 17 Rate Respiratory 14 18 Rate [Anterior Bilateral Throughout] Blood Pressure 163/77 181/71 O2 Sat by Pulse 100 98 Oximetry 07/06/18 09:25 Temperature Pulse Rate Pulse Rate [ Anterior Bilateral Throughout] Pulse Rate [ From Monitor] Respiratory Rate Respiratory Rate [Anterior Bilateral Throughout] Blood Pressure O2 Sat by Pulse 100 Oximetry - Lab 07/06/18 04:03 07/06/18 07:21 Most recent lab results Calcium 9.2 mg/dL (8.4-10.2) 07/06/18 07:21 Phosphorus 4.10 mg/dL (2.5-4.5) 07/03/18 13:36 Magnesium 1.80 mg/dL (1.7-2.3) 07/03/18 13:36 Urine Creatinine 192.2 mg/dL (0.1-20.0) H 06/27/18 Unknown Urine Sodium 11 mmol/L 06/27/18 Unknown Medications & Allergies - Medications Allergies/Adverse Reactions: Allergies No Known Allergies Allergy (Unverified 04/06/18 11:56) Home Medications: Home Medications Medication Instructions Recorded Confirmed Last Taken Type Acetaminophen [Acetaminophen TAB] 650 mg PO Q4H PRN 04/06/18 06/21/18 Unknown History AtorvaSTATin [Lipitor] 40 mg PO QHS 04/06/18 06/21/18 Unknown History Donepezil HCl [Aricept] 10 mg PO HS 04/06/18 06/21/18 Unknown History Insulin Glargine [Lantus VIAL] 50 units SUB-Q QHS 04/06/18 06/21/18 Unknown History Insulin Lispro [HumaLOG VIAL] 9 units SUB-Q AC 04/06/18 06/21/18 Unknown History Lispro Insulin [Humalog] See Protocol SUB-Q ACHS 04/06/18 06/21/18 Unknown History Mirtazapine [Remeron] 15 mg PO HS 04/06/18 06/21/18 Unknown History levETIRAcetam [Keppra TAB] 1,000 mg PO Q12H 04/06/18 06/21/18 Unknown History Losartan [Cozaar] 25 mg PO QDAY #30 tablet 04/10/18 06/21/18 Unknown Rx Metoprolol Succinate [Toprol Xl] 25 mg PO DAILY #30 tab.er.24h 04/10/18 06/21/18 Unknown Rx ALBUTEROL NEB's [Proventil 0.083% 2.5 mg IH Q6HRT nebu 07/06/18 Unknown Rx NEBS] Arformoterol Nebu [Brovana Nebu] 15 mcg IH Q12HRT ml 07/06/18 Unknown Rx AtorvaSTATin [Lipitor] 40 mg PO QHS tablet 07/06/18 Unknown Rx Brimonidine/Timolol 0.2-0.5% 1 drops OU Q12H bottle 07/06/18 Unknown Rx [Combigan 0.2-0.5%] Budesonide [Pulmicort Respules] 0.5 mg IH Q12HRT nebu 07/06/18 Unknown Rx Carvedilol [Coreg] 12.5 mg PO BID tablet 07/06/18 Unknown Rx Famotidine [Pepcid] 20 mg PO QDAY tablet 07/06/18 Unknown Rx HYDROcodone/APAP 5-325 [[place] 1 each PO Q8HR PRN #12 tablet 07/06/18 Unknown Rx 5-325 mg TAB] RACEPINEPHrine [S2 Racepinephrine 0.5 ml IH Q4HRT PRN nebu 07/06/18 Unknown Rx 2.25%] Warfarin [Coumadin] 7.5 mg PO DAILY@1700 tablet 07/06/18 Unknown Rx amLODIPine [Norvasc] 5 mg PO QDAY tablet 07/06/18 Unknown Rx guaiFENesin ER [Mucinex ER] 600 mg PO BID tablet 07/06/18 Unknown Rx Active Medications: Generic Name Dose Route Start Last Admin Trade Name Fre PRN Reason Stop Dose Admin Albuterol 2.5 mg 07/05/18 23:18 Proventil IH Q4HRT PRN Shortness Of Breath Albuterol 2.5 mg 07/06/18 02:00 07/06/18 09:33 Proventil IH Not Given Q6HRT RICKY Amlodipine Besylate 5 mg 07/04/18 11:15 07/05/18 10:00 Norvasc PO Not Given QDAY RICKY Arformoterol Tartrate 15 mcg 06/30/18 20:00 07/06/18 08:12 Brovana Nebu IH 15 mcg Q12HRT RICKY Administration Atorvastatin Calcium 40 mg 06/22/18 22:00 07/05/18 21:27 Lipitor PO 40 mg QHS RICKY Administration Benzonatate 100 mg 07/02/18 21:00 07/02/18 21:43 Tessalon Perles PO 100 mg Q8H PRN Administration Cough Brimonidine/Timolol 1 drops 06/22/18 16:00 07/06/18 03:23 Combigan 0.2-0.5% OU 1 drops Q12H RICKY Administration Budesonide 0.5 mg 06/30/18 20:00 07/06/18 08:12 Pulmicort IH 0.5 mg Q12HRT RICKY Administration Carvedilol 12.5 mg 06/22/18 22:00 07/05/18 21:27 Coreg PO 12.5 mg BID RICKY Administration Epinephrine 0.5 ml 07/05/18 10:32 07/05/18 20:29 S2 Racepinephrine 2.25% IH 0.5 ml Q4HRT PRN Administration Wheezing Famotidine 20 mg 06/24/18 10:00 07/05/18 10:00 Pepcid PO Not Given QDAY RICKY Furosemide 80 mg 07/05/18 10:00 07/05/18 09:56 Lasix IV 80 mg DAILY RICKY Administration Guaifenesin 600 mg 07/04/18 10:00 07/05/18 21:28 Mucinex Er PO 600 mg BID RICKY Administration Hydralazine HCl 20 mg 06/22/18 16:03 07/04/18 12:07 Apresoline IV 20 mg Q6H PRN Administration HTN Hydrophilic Ointment 1 applic 06/21/18 15:50 Vaseline Lip Therapy TP Q2HR PRN Dry Lips Heparin Sodium/Sodium Chloride 25,000 unit in 500 mls @ 27 mls/hr 06/22/18 17:00 07/05/18 23:42 Heparin/ 0.45% Nacl-25,000 Unit/500 Ml IV 1,050 units/hr TITR RICKY 21 mls/hr Titration Protocol 1,350 UNITS/HR Sodium Chloride 100 mls @ 999 mls/hr 07/04/18 11:42 Nacl 0.9% IV DANNA PRN Hypotension Insulin Human Lispro 0 unit 06/23/18 02:00 07/06/18 06:42 Humalog SUB-Q 1 unit Q4HR RICKY Administration Protocol Labetalol HCl 20 mg 06/22/18 18:00 06/22/18 18:55 Normodyne IV 20 mg Q4H PRN Administration BP >160/100; hold for HR <60 Lorazepam 0.5 mg 06/30/18 18:36 07/05/18 02:43 Ativan IV 0.5 mg Q8H PRN Administration Agitation Methylprednisolone Sodium Succinate 60 mg 07/05/18 10:00 07/06/18 05:23 Solu-Medrol IV 60 mg Q8HR RICKY Administration Multi-Ingred Cream/Lotion/Oil/Oint 1 applic 06/21/18 15:50 Artificial Tears Ophth Oint OU Q4HR PRN Dry Eye(s) Sodium Chloride 10 ml 06/21/18 22:00 07/05/18 21:26 Sodium Chloride Flush Syringe 10 Ml IV 10 ml BID RICKY Administration Sodium Chloride 10 ml 06/21/18 15:39 06/22/18 06:27 Sodium Chloride Flush Syringe 10 Ml IV 10 ml PRN PRN Administration LINE FLUSH Warfarin Sodium 7.5 mg 06/30/18 20:00 07/05/18 17:49 Coumadin PO 7.5 mg DAILY@1700 RICKY Administration
[2018-07-06] MEDS ORDERED: NACL 0.9% 100 ML IV PRN (09:50)
[2018-07-06] MEDS: PEPCID PO SCH ×2 (10:09→10:11)
[2018-07-06] MEDS: COREG PO SCH ×2 (10:09→10:11)
[2018-07-06] MEDS: LASIX IV SCH (10:09)
[2018-07-06] MEDS: NORVASC PO SCH (10:10)
[2018-07-06] MEDS: SODIUM CHLORIDE FLUSH SYRINGE 10 ML IV SCH (10:11)
[2018-07-06] MEDS: MUCINEX ER PO SCH (10:14)
[2018-07-06] MEDS: HEPARIN/ 0.45% NACL-25,000 UNIT/500 ML 25,000 UNIT/500 ML BAG IV SCH (11:53)
--- NOTE | 2018-07-06 13:16 | Progress Note ---
Assessment and Plan Patient breathing better.Patient presently resting on BIPAP 12/10, rate 15, FIO2 30% and O2 saturation running 100%. Tolerating BIPAP good.Patient about to receive hemodialysis. - Patient Problems (1) ARF (acute renal failure) with tubular necrosis Current Visit: Yes Status: Acute Plan to address problem: Management as per nephrology. (2) Altered mental status Current Visit: Yes Status: Acute Plan to address problem: Management as per primary care. (3) Seizures Current Visit: Yes Status: Acute Plan to address problem: Management as per neurology. (4) ACS (acute coronary syndrome) Current Visit: No Status: Acute Plan to address problem: Patient is on I/V Heparin. Management as per cardiology. (5) Atelectasis of left lung Current Visit: Yes Status: Acute Plan to address problem: Albuterol/atrovent aerosol treatments q 6 hours prn for shortness of breath and cough. Brovanna/Budesonide aerosol treatments q 12 hours. Started on I/V solumedral. Respiratory suctioning. (6) Respiratory failure Current Visit: No Status: Acute Qualifiers: Chronicity: acute Respiratory failure complication: hypoxia Qualified Code(s): J96.01 - Acute respiratory failure with hypoxia Plan to address problem: Patient is on BIPAP 20/10, FIO2 30%, Rate 15. Brovanna/Budesonide aerosol treatments q 12 hours. Patient is on I/V Heparin and Po coumadin. Continue famotidine. Started on I/V solumedrol. (7) Metabolic acidosis Current Visit: Yes Status: Acute Plan to address problem: Likely from renal failure. Recommend Bicarb supplementation as per the renal recommendation. Subjective Date of service: 07/06/18 Principal diagnosis: Acute Hypoxemic Resp failure; Pneumonia (Likely aspiration); JULISA; SIRS Interval history: Patient breathing better.Patient presently resting on BIPAP 12/10, rate 15, FIO2 30% and O2 saturation running 100%. Tolerating BIPAP good.Patient about to receive hemodialysis. Objective Vital Signs - 12hr 07/06/18 07/06/18 07/06/18 02:00 03:00 04:00 Temperature 98.1 F Pulse Rate 65 72 66 Pulse Rate [ Anterior Bilateral Throughout] Pulse Rate [ 68 From Monitor] Respiratory 14 18 15 Rate Respiratory Rate [Anterior Bilateral Throughout] Blood Pressure 150/71 160/83 140/77 O2 Sat by Pulse 100 100 100 Oximetry 07/06/18 07/06/18 07/06/18 04:25 05:00 06:00 Temperature Pulse Rate 71 67 69 Pulse Rate [ Anterior Bilateral Throughout] Pulse Rate [ From Monitor] Respiratory 15 14 14 Rate Respiratory Rate [Anterior Bilateral Throughout] Blood Pressure 140/77 143/71 155/77 O2 Sat by Pulse 100 100 100 Oximetry 07/06/18 07/06/18 07/06/18 07:00 08:00 08:10 Temperature 98.9 F Pulse Rate 74 72 Pulse Rate [ 72 82 Anterior Bilateral Throughout] Pulse Rate [ 82 From Monitor] Respiratory 19 13 Rate Respiratory 14 18 Rate [Anterior Bilateral Throughout] Blood Pressure 163/76 163/77 O2 Sat by Pulse 100 100 Oximetry 07/06/18 07/06/18 07/06/18 09:00 09:06 09:25 Temperature Pulse Rate 82 83 Pulse Rate [ Anterior Bilateral Throughout] Pulse Rate [ From Monitor] Respiratory 15 17 Rate Respiratory Rate [Anterior Bilateral Throughout] Blood Pressure 182/87 181/71 O2 Sat by Pulse 99 98 100 Oximetry 07/06/18 07/06/18 07/06/18 10:00 10:09 10:10 Temperature Pulse Rate 77 81 80 Pulse Rate [ Anterior Bilateral Throughout] Pulse Rate [ From Monitor] Respiratory 16 Rate Respiratory Rate [Anterior Bilateral Throughout] Blood Pressure 161/74 156/63 156/63 O2 Sat by Pulse 100 Oximetry 07/06/18 07/06/18 07/06/18 10:11 11:00 12:00 Temperature 98.6 F Pulse Rate 79 77 69 Pulse Rate [ Anterior Bilateral Throughout] Pulse Rate [ 82 From Monitor] Respiratory 14 15 Rate Respiratory Rate [Anterior Bilateral Throughout] Blood Pressure 156/63 156/63 173/68 O2 Sat by Pulse 99 99 Oximetry Constitutional: no acute distress, alert, other (Patient having wheezing mainly upper air ways.) Eyes: non-icteric ENT: oropharynx moist, other (extubated) Neck: supple, no lymphadenopathy, no JVD, other (no thyromegaly) Effort: mildly labored Ascultation: Bilateral: diminished breath sounds, wheezes (mainly upper air ways.), rhonchi Percussion: Bilateral: not dull Cardiovascular: regular rate and rhythm Gastrointestinal: normoactive bowel sounds, soft, tender, non-distended Integumentary: normal Extremities: no cyanosis, no edema, pulses normal, no ischemia or petechiae Neurologic: normal mental status, non-focal exam (grossly), pupils equal and round, CN II-XII normal Psychiatric: other (Patient sleeping at this time.) CBC and BMP: 07/06/18 04:03 07/06/18 07:21 ABG, PT/INR, D-dimer: ABG POC ABG pH 7.381 (7.35-7.45) 07/06/18 09:30 POC ABG pCO2 49.2 (35-45) H 07/06/18 09:30 POC ABG pO2 109 (80-105) H 07/06/18 09:30 POC ABG HCO3 29.2 07/06/18 09:30 POC ABG Total CO2 31 07/06/18 09:30 POC ABG O2 Sat 98 07/06/18 09:30 PT/INR, D-dimer PT 27.7 Sec. (12.2-14.9) H 07/06/18 04:03 INR 2.54 (0.87-1.13) H 07/06/18 04:03 Abnormal lab findings: Abnormal Labs 06/21/18 06/21/18 06/21/18 14:02 14:06 14:06 WBC RBC Hgb Hct MCV 71 L MCH 22 L RDW 21.1 H [place] % (Auto) Lymph # [place] # Seg Neutrophils % Seg Neutrophils # PT 18.9 H INR 1.54 H APTT Heparin Anti-Xa Level POC ABG pH POC ABG pCO2 POC ABG pO2 Sodium Potassium Chloride Carbon Dioxide BUN Creatinine Glucose POC Glucose 250 H Calcium Total Bilirubin Alkaline Phosphatase Troponin T Albumin Tquqt-9-Ikfhfodax Eziba-7-Bndijuhuq PEP Interpretation PTH Intact Urine Creatinine 06/21/18 06/21/18 06/21/18 14:06 14:23 21:17 WBC RBC Hgb Hct MCV MCH RDW [place] % (Auto) Lymph # [place] # Seg Neutrophils % Seg Neutrophils # PT INR APTT Heparin Anti-Xa Level POC ABG pH 7.499 H 7.600 H POC ABG pCO2 34.8 L 24.9 L POC ABG pO2 342 H 176 H Sodium Potassium Chloride Carbon Dioxide BUN Creatinine 1.5 H Glucose 214 H POC Glucose Calcium Total Bilirubin 1.30 H Alkaline Phosphatase 174 H Troponin T 0.050 H Albumin 3.1 L Wkadf-3-Deyvatjsa Gtynq-4-Ticukiqwo PEP Interpretation PTH Intact Urine Creatinine 06/22/18 06/22/18 06/22/18 03:17 03:17 05:27 WBC 11.5 H RBC 5.07 H Hgb Hct MCV 69 L MCH 21 L RDW 21.9 H [place] % (Auto) 9.8 H Lymph # [place] # 1.1 H Seg Neutrophils % Seg Neutrophils # 7.9 H PT INR APTT Heparin Anti-Xa Level POC ABG pH 7.539 H POC ABG pCO2 30.1 L POC ABG pO2 170 H Sodium Potassium Chloride Carbon Dioxide BUN Creatinine 1.5 H Glucose 164 H POC Glucose Calcium Total Bilirubin Alkaline Phosphatase Troponin T Albumin Gqgse-5-Xsbkkcwcg Rzmhl-1-Bvvuckhau PEP Interpretation PTH Intact Urine Creatinine 06/22/18 06/22/18 06/22/18 17:21 17:50 19:46 WBC RBC Hgb Hct MCV MCH RDW [place] % (Auto) Lymph # [place] # Seg Neutrophils % Seg Neutrophils # PT 17.5 H INR 1.39 H APTT 22.8 L Heparin Anti-Xa Level 1.64 H POC ABG pH POC ABG pCO2 POC ABG pO2 Sodium Potassium Chloride Carbon Dioxide BUN Creatinine Glucose POC Glucose 240 H Calcium Total Bilirubin Alkaline Phosphatase Troponin T Albumin Qdotp-7-Jwrzoztdv Cjruo-7-Dtgndxusn PEP Interpretation PTH Intact Urine Creatinine 06/22/18 06/23/18 06/23/18 23:47 01:44 04:14 WBC RBC Hgb Hct MCV MCH RDW [place] % (Auto) Lymph # [place] # Seg Neutrophils % Seg Neutrophils # PT INR APTT Heparin Anti-Xa Level 0.10 L POC ABG pH POC ABG pCO2 POC ABG pO2 Sodium Potassium Chloride Carbon Dioxide BUN Creatinine Glucose POC Glucose 240 H 229 H Calcium Total Bilirubin Alkaline Phosphatase Troponin T Albumin Ciszf-9-Dkpyafkfq Ungqm-9-Qhxakexnz PEP Interpretation PTH Intact Urine Creatinine 06/23/18 06/23/18 06/23/18 05:34 09:24 10:24 WBC RBC Hgb Hct MCV MCH RDW [place] % (Auto) Lymph # [place] # Seg Neutrophils % Seg Neutrophils # PT INR APTT Heparin Anti-Xa Level POC ABG pH 7.519 H POC ABG pCO2 POC ABG pO2 133 H Sodium Potassium Chloride Carbon Dioxide BUN Creatinine Glucose POC Glucose 220 H 183 H Calcium Total Bilirubin Alkaline Phosphatase Troponin T Albumin Rnfru-4-Cigyjdizp Oerdu-4-Llqoyjqui PEP Interpretation PTH Intact Urine Creatinine 06/23/18 06/23/18 06/23/18 12:39 13:32 14:08 WBC RBC Hgb Hct MCV MCH RDW [place] % (Auto) Lymph # [place] # Seg Neutrophils % Seg Neutrophils # PT INR APTT Heparin Anti-Xa Level > 2.00 H POC ABG pH POC ABG pCO2 POC ABG pO2 Sodium Potassium Chloride Carbon Dioxide BUN Creatinine Glucose POC Glucose 151 H 140 H Calcium Total Bilirubin Alkaline Phosphatase Troponin T Albumin Sdlbm-6-Jphytdvti Uiocx-9-Jhchkmscu PEP Interpretation PTH Intact Urine Creatinine 06/23/18 06/23/18 06/23/18 18:00 19:33 21:31 WBC RBC Hgb Hct MCV MCH RDW [place] % (Auto) Lymph # [place] # Seg Neutrophils % Seg Neutrophils # PT INR APTT Heparin Anti-Xa Level 1.74 H POC ABG pH POC ABG pCO2 POC ABG pO2 Sodium Potassium Chloride Carbon Dioxide BUN Creatinine Glucose POC Glucose 141 H 153 H Calcium Total Bilirubin Alkaline Phosphatase Troponin T Albumin Njvrr-0-Tkatpwhub Vvdgm-6-Eyicepccs PEP Interpretation PTH Intact Urine Creatinine 06/24/18 06/24/18 06/24/18 02:36 03:55 03:55 WBC 12.9 H RBC Hgb 9.9 L Hct MCV 70 L MCH 22 L RDW 22.1 H [place] % (Auto) Lymph # [place] # Seg Neutrophils % Seg Neutrophils # PT INR APTT Heparin Anti-Xa Level POC ABG pH POC ABG pCO2 POC ABG pO2 Sodium Potassium Chloride Carbon Dioxide BUN 25 H Creatinine 1.6 H Glucose 151 H POC Glucose 162 H Calcium 8.2 L Total Bilirubin Alkaline Phosphatase Troponin T Albumin Uttql-9-Zyzngmqpv Jayic-6-Eyzfntsku PEP Interpretation PTH Intact Urine Creatinine 06/24/18 06/24/18 06/24/18 03:55 05:01 09:34 WBC RBC Hgb Hct MCV MCH RDW [place] % (Auto) Lymph # [place] # Seg Neutrophils % Seg Neutrophils # PT INR APTT Heparin Anti-Xa Level 1.75 H POC ABG pH POC ABG pCO2 POC ABG pO2 Sodium Potassium Chloride Carbon Dioxide BUN Creatinine Glucose POC Glucose 175 H 143 H Calcium Total Bilirubin Alkaline Phosphatase Troponin T Albumin Aatuv-0-Abjyfzptu Dyjcw-1-Detqpgoqc PEP Interpretation PTH Intact Urine Creatinine 06/24/18 06/24/18 06/24/18 12:50 14:29 17:08 WBC RBC Hgb Hct MCV MCH RDW [place] % (Auto) Lymph # [place] # Seg Neutrophils % Seg Neutrophils # PT INR APTT Heparin Anti-Xa Level 1.60 H POC ABG pH POC ABG pCO2 POC ABG pO2 Sodium Potassium Chloride Carbon Dioxide BUN Creatinine Glucose POC Glucose 169 H 138 H Calcium Total Bilirubin Alkaline Phosphatase Troponin T Albumin Ttxgi-5-Abuwfqzmf Rvreb-0-Wbyhefjng PEP Interpretation PTH Intact Urine Creatinine 06/24/18 06/24/18 06/25/18 21:13 21:50 01:45 WBC RBC Hgb Hct MCV MCH RDW [place] % (Auto) Lymph # [place] # Seg Neutrophils % Seg Neutrophils # PT INR APTT Heparin Anti-Xa Level 1.53 H POC ABG pH POC ABG pCO2 POC ABG pO2 Sodium Potassium Chloride Carbon Dioxide BUN Creatinine Glucose POC Glucose 186 H 177 H Calcium Total Bilirubin Alkaline Phosphatase Troponin T Albumin Kjgly-8-Bsybchsnn Ilxho-3-Ymqikzumy PEP Interpretation PTH Intact Urine Creatinine 06/25/18 06/25/18 06/25/18 05:23 05:41 09:55 WBC RBC Hgb Hct MCV MCH RDW [place] % (Auto) Lymph # [place] # Seg Neutrophils % Seg Neutrophils # PT INR APTT Heparin Anti-Xa Level 1.13 H POC ABG pH POC ABG pCO2 POC ABG pO2 Sodium Potassium Chloride Carbon Dioxide BUN Creatinine Glucose POC Glucose 160 H 181 H Calcium Total Bilirubin Alkaline Phosphatase Troponin T Albumin Pdfhs-5-Llinypvls Vyoqi-6-Tfsuynubv PEP Interpretation PTH Intact Urine Creatinine 06/25/18 06/25/18 06/25/18 12:54 14:27 14:33 WBC RBC Hgb Hct MCV MCH RDW [place] % (Auto) Lymph # [place] # Seg Neutrophils % Seg Neutrophils # PT INR APTT Heparin Anti-Xa Level 0.73 H POC ABG pH POC ABG pCO2 POC ABG pO2 Sodium Potassium 3.4 L Chloride Carbon Dioxide BUN 30 H Creatinine 2.1 H Glucose 220 H POC Glucose 218 H Calcium Total Bilirubin Alkaline Phosphatase Troponin T Albumin Uxlvd-8-Ertawoozx Hhplq-1-Jyfqceovx PEP Interpretation PTH Intact Urine Creatinine 06/25/18 06/25/18 06/26/18 17:36 21:40 01:49 WBC RBC Hgb Hct MCV MCH RDW [place] % (Auto) Lymph # [place] # Seg Neutrophils % Seg Neutrophils # PT INR APTT Heparin Anti-Xa Level POC ABG pH POC ABG pCO2 POC ABG pO2 Sodium Potassium Chloride Carbon Dioxide BUN Creatinine Glucose POC Glucose 219 H 162 H 152 H Calcium Total Bilirubin Alkaline Phosphatase Troponin T Albumin Tezkp-7-Nhznbrilj Tlrcr-8-Wombtflxv PEP Interpretation PTH Intact Urine Creatinine 06/26/18 06/26/18 06/26/18 04:43 05:50 09:43 WBC RBC Hgb 8.8 L Hct 27.7 L MCV MCH RDW [place] % (Auto) Lymph # [place] # Seg Neutrophils % Seg Neutrophils # PT INR APTT Heparin Anti-Xa Level POC ABG pH POC ABG pCO2 POC ABG pO2 Sodium Potassium Chloride Carbon Dioxide BUN Creatinine Glucose POC Glucose 176 H 206 H Calcium Total Bilirubin Alkaline Phosphatase Troponin T Albumin Jvhxi-5-Sqddzndwm Nnmpc-7-Zsmwobczl PEP Interpretation PTH Intact Urine Creatinine 06/26/18 06/26/18 06/26/18 10:14 10:14 12:43 WBC RBC Hgb 9.5 L Hct 30.0 L MCV 69 L MCH 22 L RDW 22.4 H [place] % (Auto) 11.0 H Lymph # [place] # 1.0 H Seg Neutrophils % Seg Neutrophils # PT INR APTT Heparin Anti-Xa Level POC ABG pH 7.311 L POC ABG pCO2 46.6 H POC ABG pO2 Sodium Potassium Chloride Carbon Dioxide BUN 34 H Creatinine 2.4 H Glucose 194 H POC Glucose Calcium Total Bilirubin Alkaline Phosphatase Troponin T Albumin Fjuny-0-Oijgppmxv Gypbr-1-Oeoxjorey PEP Interpretation PTH Intact Urine Creatinine 06/26/18 06/26/18 06/27/18 14:30 17:32 00:00 WBC RBC Hgb Hct MCV MCH RDW [place] % (Auto) Lymph # [place] # Seg Neutrophils % Seg Neutrophils # PT INR APTT Heparin Anti-Xa Level POC ABG pH POC ABG pCO2 POC ABG pO2 Sodium Potassium Chloride Carbon Dioxide BUN Creatinine Glucose POC Glucose 219 H 228 H 173 H Calcium Total Bilirubin Alkaline Phosphatase Troponin T Albumin Wmpml-4-Yeypgvzmq Qssvt-9-Aezeaprgp PEP Interpretation PTH Intact Urine Creatinine 06/27/18 06/27/18 06/27/18 01:25 06:06 10:24 WBC RBC Hgb Hct MCV MCH RDW [place] % (Auto) Lymph # [place] # Seg Neutrophils % Seg Neutrophils # PT INR APTT Heparin Anti-Xa Level POC ABG pH POC ABG pCO2 POC ABG pO2 Sodium Potassium Chloride Carbon Dioxide BUN Creatinine Glucose POC Glucose 178 H 157 H 171 H Calcium Total Bilirubin Alkaline Phosphatase Troponin T Albumin Huqkb-0-Hclhlbize Farct-4-Vtswkcsbq PEP Interpretation PTH Intact Urine Creatinine 06/27/18 06/27/18 06/27/18 12:24 12:24 18:13 WBC RBC Hgb Hct MCV MCH RDW [place] % (Auto) Lymph # [place] # Seg Neutrophils % Seg Neutrophils # PT INR APTT Heparin Anti-Xa Level POC ABG pH POC ABG pCO2 POC ABG pO2 Sodium Potassium Chloride Carbon Dioxide BUN Creatinine 3.3 H Glucose POC Glucose 192 H 158 H Calcium Total Bilirubin Alkaline Phosphatase Troponin T Albumin Qcaut-8-Jbwzvsjhc Nflad-4-Gavknzsnv PEP Interpretation PTH Intact Urine Creatinine 06/27/18 06/27/18 06/27/18 22:23 22:34 Unknown WBC RBC Hgb Hct MCV MCH RDW [place] % (Auto) Lymph # [place] # Seg Neutrophils % Seg Neutrophils # PT INR APTT Heparin Anti-Xa Level 0.13 L POC ABG pH POC ABG pCO2 POC ABG pO2 Sodium Potassium Chloride Carbon Dioxide BUN Creatinine Glucose POC Glucose 137 H Calcium Total Bilirubin Alkaline Phosphatase Troponin T Albumin Nbfiz-3-Uklovxypg Ndvqt-5-Xhxazwrtc PEP Interpretation PTH Intact Urine Creatinine 192.2 H 06/28/18 06/28/18 06/28/18 03:25 04:06 06:44 WBC RBC Hgb Hct MCV MCH RDW [place] % (Auto) Lymph # [place] # Seg Neutrophils % Seg Neutrophils # PT INR APTT Heparin Anti-Xa Level POC ABG pH POC ABG pCO2 POC ABG pO2 Sodium Potassium Chloride Carbon Dioxide 19 L BUN 49 H Creatinine 3.8 H Glucose 159 H POC Glucose 149 H 174 H Calcium Total Bilirubin Alkaline Phosphatase Troponin T Albumin Gjmex-5-Doanalget Tjyoi-0-Ivwdgveqy PEP Interpretation PTH Intact Urine Creatinine 06/28/18 06/28/18 06/28/18 08:59 14:32 17:34 WBC RBC Hgb Hct MCV MCH RDW [place] % (Auto) Lymph # [place] # Seg Neutrophils % Seg Neutrophils # PT INR APTT Heparin Anti-Xa Level POC ABG pH POC ABG pCO2 POC ABG pO2 Sodium Potassium Chloride Carbon Dioxide BUN Creatinine Glucose POC Glucose 167 H 161 H 162 H Calcium Total Bilirubin Alkaline Phosphatase Troponin T Albumin Skobz-8-Uujyfflur Oovfo-3-Wopfrixcv PEP Interpretation PTH Intact Urine Creatinine 06/28/18 06/29/18 06/29/18 23:03 02:59 04:15 WBC RBC Hgb Hct MCV MCH RDW [place] % (Auto) Lymph # [place] # Seg Neutrophils % Seg Neutrophils # PT INR APTT Heparin Anti-Xa Level POC ABG pH POC ABG pCO2 POC ABG pO2 Sodium Potassium Chloride Carbon Dioxide 17 L BUN 55 H Creatinine 4.3 H Glucose 141 H POC Glucose 198 H 162 H Calcium Total Bilirubin Alkaline Phosphatase Troponin T Albumin Wvswd-2-Txdaoyjjw Gtrfm-0-Ohwdtedvu PEP Interpretation PTH Intact Urine Creatinine 06/29/18 06/29/18 06/29/18 05:41 09:35 15:06 WBC RBC Hgb Hct MCV MCH RDW [place] % (Auto) Lymph # [place] # Seg Neutrophils % Seg Neutrophils # PT INR APTT Heparin Anti-Xa Level 0.18 L POC ABG pH POC ABG pCO2 POC ABG pO2 Sodium Potassium Chloride Carbon Dioxide BUN Creatinine Glucose POC Glucose 125 H 128 H Calcium Total Bilirubin Alkaline Phosphatase Troponin T Albumin Egkpx-6-Vrfeghdio Xbxkt-6-Kuqelqnzq PEP Interpretation PTH Intact Urine Creatinine 06/29/18 06/29/18 06/29/18 16:26 18:30 21:34 WBC RBC Hgb Hct MCV MCH RDW [place] % (Auto) Lymph # [place] # Seg Neutrophils % Seg Neutrophils # PT INR APTT Heparin Anti-Xa Level POC ABG pH POC ABG pCO2 POC ABG pO2 Sodium Potassium Chloride Carbon Dioxide BUN Creatinine Glucose POC Glucose 211 H 211 H 114 H Calcium Total Bilirubin Alkaline Phosphatase Troponin T Albumin Nesvy-8-Vzgwavncf Cdffu-5-Yhgkrbpop PEP Interpretation PTH Intact Urine Creatinine 06/30/18 06/30/18 06/30/18 00:11 01:57 02:18 WBC RBC Hgb Hct MCV MCH RDW [place] % (Auto) Lymph # [place] # Seg Neutrophils % Seg Neutrophils # PT INR APTT Heparin Anti-Xa Level < 0.10 L POC ABG pH POC ABG pCO2 POC ABG pO2 Sodium Potassium Chloride Carbon Dioxide BUN Creatinine Glucose POC Glucose 131 H Calcium Total Bilirubin Alkaline Phosphatase Troponin T Albumin 2.7 L Grejw-1-Ngcmrpzbh 0.5 H Kbdao-4-Zwuylamoe 1.0 H PEP Interpretation see below H PTH Intact Urine Creatinine 06/30/18 06/30/18 06/30/18 05:43 06:29 09:31 WBC RBC Hgb Hct MCV MCH RDW [place] % (Auto) Lymph # [place] # Seg Neutrophils % Seg Neutrophils # PT INR APTT Heparin Anti-Xa Level POC ABG pH POC ABG pCO2 POC ABG pO2 Sodium Potassium Chloride Carbon Dioxide 17 L BUN 60 H Creatinine 5.0 H Glucose 125 H POC Glucose 141 H 139 H Calcium Total Bilirubin Alkaline Phosphatase Troponin T Albumin [place]ao-7-Fonlcxquy Sskgc-4-Flujuiyuw PEP Interpretation PTH Intact Urine Creatinine 06/30/18 06/30/18 06/30/18 12:16 12:36 18:53 WBC RBC Hgb Hct MCV MCH RDW [place] % (Auto) Lymph # [place] # Seg Neutrophils % Seg Neutrophils # PT 15.3 H INR 1.17 H APTT Heparin Anti-Xa Level POC ABG pH 7.292 L POC ABG pCO2 34.9 L POC ABG pO2 79 L Sodium Potassium Chloride Carbon Dioxide BUN Creatinine Glucose POC Glucose 183 H Calcium Total Bilirubin Alkaline Phosphatase Troponin T Albumin Fcxdt-2-Vmihrorqu Bdbsd-5-Stealrnfy PEP Interpretation PTH Intact Urine Creatinine 06/30/18 07/01/18 07/01/18 22:33 02:43 02:44 WBC RBC Hgb Hct MCV MCH RDW [place] % (Auto) Lymph # [place] # Seg Neutrophils % Seg Neutrophils # PT INR APTT Heparin Anti-Xa Level 0.83 H POC ABG pH POC ABG pCO2 POC ABG pO2 Sodium Potassium Chloride Carbon Dioxide BUN Creatinine Glucose POC Glucose 184 H 143 H Calcium Total Bilirubin Alkaline Phosphatase Troponin T Albumin Hliyw-4-Buintfgxp Qzutf-3-Zvokqdkvh PEP Interpretation PTH Intact Urine Creatinine 07/01/18 07/01/18 07/01/18 05:55 06:03 07:22 WBC RBC Hgb Hct MCV MCH RDW [place] % (Auto) Lymph # [place] # Seg Neutrophils % Seg Neutrophils # PT 16.6 H INR 1.30 H APTT Heparin Anti-Xa Level POC ABG pH POC ABG pCO2 POC ABG pO2 Sodium Potassium Chloride Carbon Dioxide 15 L BUN 63 H Creatinine 5.6 H Glucose 145 H POC Glucose 165 H Calcium Total Bilirubin Alkaline Phosphatase Troponin T Albumin Shwuq-8-Heaydznbe Vqioi-6-Hhsakkunv PEP Interpretation PTH Intact Urine Creatinine 07/01/18 07/01/18 07/02/18 09:37 10:42 00:28 WBC RBC Hgb Hct MCV MCH RDW [place] % (Auto) Lymph # [place] # Seg Neutrophils % Seg Neutrophils # PT INR APTT Heparin Anti-Xa Level 0.89 H POC ABG pH POC ABG pCO2 POC ABG pO2 Sodium Potassium Chloride Carbon Dioxide BUN Creatinine Glucose POC Glucose 147 H 126 H Calcium Total Bilirubin Alkaline Phosphatase Troponin T Albumin Moebh-6-Wgutuntie Zxiga-2-Efmyezkcw PEP Interpretation PTH Intact Urine Creatinine 07/02/18 07/02/18 07/02/18 05:23 05:23 07:34 WBC RBC Hgb Hct MCV MCH RDW [place] % (Auto) Lymph # [place] # Seg Neutrophils % Seg Neutrophils # PT 16.3 H INR 1.27 H APTT Heparin Anti-Xa Level 0.74 H POC ABG pH POC ABG pCO2 POC ABG pO2 Sodium Potassium Chloride 97.9 L Carbon Dioxide 18 L BUN 38 H Creatinine 4.2 H Glucose 128 H POC Glucose Calcium Total Bilirubin Alkaline Phosphatase Troponin T Albumin Klwnu-6-Hgblfwgcs Uedwt-0-Pajijnmvd PEP Interpretation PTH Intact Urine Creatinine 07/02/18 07/02/18 07/02/18 07:52 13:45 15:54 WBC RBC Hgb Hct MCV MCH RDW [place] % (Auto) Lymph # [place] # Seg Neutrophils % Seg Neutrophils # PT INR APTT Heparin Anti-Xa Level 0.28 L POC ABG pH POC ABG pCO2 POC ABG pO2 Sodium Potassium Chloride Carbon Dioxide BUN Creatinine Glucose POC Glucose 131 H 135 H Calcium Total Bilirubin Alkaline Phosphatase Troponin T Albumin Wjjyx-2-Eexwpvbat Djpkw-9-Litvyogvk PEP Interpretation PTH Intact Urine Creatinine 07/02/18 07/02/18 07/02/18 16:15 17:20 21:54 WBC RBC Hgb Hct MCV MCH RDW [place] % (Auto) Lymph # [place] # Seg Neutrophils % Seg Neutrophils # PT INR APTT Heparin Anti-Xa Level POC ABG pH POC ABG pCO2 POC ABG pO2 Sodium Potassium Chloride Carbon Dioxide BUN Creatinine Glucose POC Glucose 160 H 161 H 192 H Calcium Total Bilirubin Alkaline Phosphatase Troponin T Albumin Tczqn-1-Ctxesntcv Nwxwn-0-Jusgphunn PEP Interpretation PTH Intact Urine Creatinine 07/03/18 07/03/18 07/03/18 00:59 02:32 05:25 WBC RBC Hgb Hct MCV MCH RDW [place] % (Auto) Lymph # [place] # Seg Neutrophils % Seg Neutrophils # PT 16.6 H INR 1.30 H APTT Heparin Anti-Xa Level 0.28 L POC ABG pH POC ABG pCO2 POC ABG pO2 Sodium Potassium Chloride Carbon Dioxide BUN Creatinine Glucose POC Glucose 168 H Calcium Total Bilirubin Alkaline Phosphatase Troponin T Albumin Fozlw-1-Ffudtrcsi Ifrmf-8-Gcmhrbzcu PEP Interpretation PTH Intact Urine Creatinine 07/03/18 07/03/18 07/03/18 06:24 09:46 22:46 WBC RBC Hgb Hct MCV MCH RDW [place] % (Auto) Lymph # [place] # Seg Neutrophils % Seg Neutrophils # PT INR APTT Heparin Anti-Xa Level POC ABG pH POC ABG pCO2 POC ABG pO2 Sodium Potassium Chloride Carbon Dioxide BUN Creatinine Glucose POC Glucose 153 H 163 H 130 H Calcium Total Bilirubin Alkaline Phosphatase Troponin T Albumin Amkao-3-Kvikwiivw Lnxif-7-Rsgkdqxbw PEP Interpretation PTH Intact Urine Creatinine 07/04/18 07/04/18 07/04/18 04:20 05:05 05:05 WBC RBC Hgb 9.8 L Hct MCV 69 L MCH 22 L RDW 22.6 H [place] % (Auto) 11.0 H Lymph # [place] # 1.2 H Seg Neutrophils % Seg Neutrophils # PT 20.7 H INR 1.73 H APTT Heparin Anti-Xa Level POC ABG pH POC ABG pCO2 POC ABG pO2 Sodium Potassium Chloride Carbon Dioxide BUN Creatinine Glucose POC Glucose 151 H Calcium Total Bilirubin Alkaline Phosphatase Troponin T Albumin Ywbzv-3-Uaclitasm Rrmkn-4-Lzddoktlx PEP Interpretation PTH Intact Urine Creatinine 07/04/18 07/04/18 07/04/18 05:05 10:15 10:31 WBC RBC Hgb Hct MCV MCH RDW [place] % (Auto) Lymph # [place] # Seg Neutrophils % Seg Neutrophils # PT INR APTT Heparin Anti-Xa Level 0.81 H POC ABG pH POC ABG pCO2 POC ABG pO2 Sodium Potassium Chloride Carbon Dioxide BUN Creatinine 3.3 H Glucose 166 H POC Glucose 118 H Calcium Total Bilirubin Alkaline Phosphatase Troponin T Albumin Xzaqw-3-Xblwnsywk Gflhg-5-Xxdcnhlui PEP Interpretation PTH Intact Urine Creatinine 07/04/18 07/05/18 07/05/18 21:56 02:28 04:59 WBC RBC Hgb Hct MCV MCH RDW [place] % (Auto) Lymph # [place] # Seg Neutrophils % Seg Neutrophils # PT 19.7 H INR 1.62 H APTT Heparin Anti-Xa Level POC ABG pH POC ABG pCO2 POC ABG pO2 Sodium Potassium Chloride Carbon Dioxide BUN Creatinine Glucose POC Glucose 165 H 153 H Calcium Total Bilirubin Alkaline Phosphatase Troponin T Albumin Xnwha-0-Aaqubdcnt Ekpec-7-Nrhbezjxi PEP Interpretation PTH Intact Urine Creatinine 07/05/18 07/05/18 07/05/18 04:59 04:59 05:24 WBC RBC Hgb 8.9 L Hct 28.2 L MCV 69 L MCH 22 L RDW 22.3 H [place] % (Auto) 9.8 H Lymph # [place] # 0.9 H Seg Neutrophils % Seg Neutrophils # PT INR APTT Heparin Anti-Xa Level POC ABG pH POC ABG pCO2 POC ABG pO2 Sodium Potassium Chloride Carbon Dioxide BUN Creatinine 2.5 H Glucose 177 H POC Glucose 161 H Calcium Total Bilirubin Alkaline Phosphatase Troponin T Albumin Ytlon-7-Jccgrovdj Fgjic-0-Fbjvytvbs PEP Interpretation PTH Intact Urine Creatinine 07/05/18 07/05/18 07/05/18 11:23 17:35 20:22 WBC RBC Hgb Hct MCV MCH RDW [place] % (Auto) Lymph # [place] # Seg Neutrophils % Seg Neutrophils # PT INR APTT Heparin Anti-Xa Level 1.14 H POC ABG pH POC ABG pCO2 POC ABG pO2 Sodium Potassium Chloride Carbon Dioxide BUN Creatinine Glucose POC Glucose 208 H 248 H Calcium Total Bilirubin Alkaline Phosphatase Troponin T Albumin Jddyp-2-Hqjxalnsp Stfsd-2-Ofzpblbuc PEP Interpretation PTH Intact Urine Creatinine 07/05/18 07/06/18 07/06/18 21:37 02:55 04:03 WBC RBC Hgb Hct MCV MCH RDW [place] % (Auto) Lymph # [place] # Seg Neutrophils % Seg Neutrophils # PT 27.7 H INR 2.54 H APTT Heparin Anti-Xa Level POC ABG pH POC ABG pCO2 POC ABG pO2 Sodium Potassium Chloride Carbon Dioxide BUN Creatinine Glucose POC Glucose 308 H 196 H Calcium Total Bilirubin Alkaline Phosphatase Troponin T Albumin Puwcf-1-Ewoxddtdp Ehxqj-9-Imgnqpgwu PEP Interpretation PTH Intact Urine Creatinine 07/06/18 07/06/18 07/06/18 04:03 05:29 07:21 WBC RBC Hgb 10.0 L Hct MCV 71 L MCH 23 L RDW 23.5 H [place] % (Auto) Lymph # 1.1 L [place] # Seg Neutrophils % 83.8 H Seg Neutrophils # PT INR APTT Heparin Anti-Xa Level POC ABG pH POC ABG pCO2 POC ABG pO2 Sodium 136 L Potassium Chloride 97.0 L Carbon Dioxide BUN Creatinine 3.3 H Glucose 195 H POC Glucose 199 H Calcium Total Bilirubin Alkaline Phosphatase Troponin T Albumin Odted-3-Jsitzvbkh Osiey-5-Wbrvdiari PEP Interpretation PTH Intact Urine Creatinine 07/06/18 07/06/18 07/06/18 09:30 10:36 11:47 WBC RBC Hgb Hct MCV MCH RDW [place] % (Auto) Lymph # [place] # Seg Neutrophils % Seg Neutrophils # PT INR APTT Heparin Anti-Xa Level POC ABG pH POC ABG pCO2 49.2 H POC ABG pO2 109 H Sodium Potassium Chloride Carbon Dioxide BUN Creatinine Glucose POC Glucose 239 H Calcium Total Bilirubin Alkaline Phosphatase Troponin T Albumin Fwweo-6-Gpzhsnwbc Dijjo-2-Okcbmbrtj PEP Interpretation PTH Intact 149.1 H Urine Creatinine Chest x-ray: report reviewed (Mild improvement in congestive changes.Small left pleural effusion.), image reviewed Allied health notes reviewed: nursing
--- NOTE | 2018-07-06 15:56 | Discharge Summary ---
Providers - Providers Date of Admission: 06/21/18 16:02 Date of discharge: 07/06/18 Attending physician: YVONNE MARSH 06/27/18 06:10 Consult to Physician [CONS] Routine Comment: Consulting Provider: ELIAS CLARK Physician Instructions: Reason For Exam: tawana 06/27/18 16:36 Speech Therapy Evaluation and Treat [CONS] Routine Reason For Exam: Swallow evaluation, post extubation. 06/30/18 13:36 Consult to Physician [CONS] Routine Comment: Consulting Provider: HÉCTOR GUY Physician Instructions: Reason For Exam: vasc cath placement 06/21/18 15:41 Consult to Physician [CONS] Routine Comment: Consulting Provider: KALIA BUSH Physician Instructions: Reason For Exam: resp failure 06/21/18 15:50 Consult to Dietitian/Nutrition [CONS] Routine Physician Instructions: Reason For Exam: Reason for Consult: Evaluate nutritional intake 06/22/18 16:26 Consult to Physician [CONS] Routine Comment: Consulting Provider: HÉCTOR MCKEE Physician Instructions: Reason For Exam: seizure 06/22/18 16:27 Consult to Dietitian/Nutrition [CONS] Routine Physician Instructions: Reason For Exam: Reason for Consult: Write/Manage Tube Feeding 06/22/18 17:11 Consult to Physician [CONS] Routine Comment: Consulting Provider: JOSÉ MANUEL MOREIRA Physician Instructions: Reason For Exam: seizures Primary care physician: RAFA PRAKASH Hospitalization Condition: Fair Hospital course: Patient is a 68 yo woman from [facility] with a history of seizure disorder, type 2 DM, hypertension, dyslipidemia, CVA, DVT on Eliquis and Dementia who presented to [facility] ED on 06/21/18 with Seizures and was Intubated. ARF, ATN +vasomotor nephropathy, poa, worsening: Nephrology following-Renal function worsening, Cr up to 5.6,On Cont Hemodialysis M/W/F.Had HD today ,patient to Follow with Dr Carloz Keita or [facility] [employer] Acute respiratory failure, s/p ETT intubated (on admission) 06/21/18 >96 hours and extubated 06/26/18: continue o2 support, Still on Bipap .Continue BIpap and Pulmonary f/u Seizure disorder Cont Keppra Hypertensive Urgency, resolved: iv antihypertensives as needed H/o CVA, she is weaker on the right, PT/OT SIRS with organ dysfunction, poa resolved Acute Metabolic Encephalopathy resolved History of DVT on Eliquis, Cont warfarin,INR Therapeutic Respiratory Stidor (developed 06/30/18) most likley due to fluid overload, oliguria and worsening renal failure: nebs and bipap, Disposition: DC/TX-70 ANOTHER TYPE HLTHCARE Core Measure Documentation - Palliative Care Palliative Care/ Comfort Measures: Not Applicable - Core Measures Any of the following diagnoses?: none Exam - Constitutional Vitals: Temp Pulse Resp BP Pulse Ox 98.1 F 73 13 150/64 99 07/06/18 14:15 07/06/18 15:30 07/06/18 15:00 07/06/18 15:30 07/06/18 15:00 General appearance: Present: mild distress, well-nourished - EENT Eyes: Present: PERRL ENT: hearing intact, clear oral mucosa - Neck Neck: Present: supple, normal ROM - Respiratory Respiratory effort: normal Respiratory: bilateral: CTA - Cardiovascular Heart rate: 88 Rhythm: regular Heart Sounds: Present: S1 & S2. Absent: rub, click - Extremities Extremities: no ischemia, pulses intact, pulses symmetrical, No edema Peripheral Pulses: within normal limits - Abdominal General gastrointestinal: Present: soft, non-tender, non-distended, normal bowel sounds Female genitourinary: Present: normal - Integumentary Integumentary: Present: clear, warm, dry - Musculoskeletal Musculoskeletal: gait normal, strength equal bilaterally - Psychiatric Psychiatric: appropriate mood/affect, intact judgment & insight - Neurologic Neurologic: CNII-XII intact, moves all extremities - Allied Health Allied health notes reviewed: nursing, case management Plan Weight Bearing Status: Weight Bear as Tolerated Diet: renal Durable Medical Equipment Needed Upon Discharge: Walker-Standard Follow up with: RAFA PRAKASH MD [Primary Care Provider] - 3-5 Days Forms: Warfarin Discharge Instruction
--- NOTE | 2018-07-06 16:03 | Discharge Summary ---
Providers - Providers Date of Admission: 06/21/18 16:02 Date of discharge: 07/06/18 Attending physician: YVONNE MARSH 06/27/18 06:10 Consult to Physician [CONS] Routine Comment: Consulting Provider: ELIAS CLARK Physician Instructions: Reason For Exam: tawana 06/27/18 16:36 Speech Therapy Evaluation and Treat [CONS] Routine Reason For Exam: Swallow evaluation, post extubation. 06/30/18 13:36 Consult to Physician [CONS] Routine Comment: Consulting Provider: HÉCTOR GUY Physician Instructions: Reason For Exam: vasc cath placement 06/21/18 15:41 Consult to Physician [CONS] Routine Comment: Consulting Provider: KALIA BUSH Physician Instructions: Reason For Exam: resp failure 06/21/18 15:50 Consult to Dietitian/Nutrition [CONS] Routine Physician Instructions: Reason For Exam: Reason for Consult: Evaluate nutritional intake 06/22/18 16:26 Consult to Physician [CONS] Routine Comment: Consulting Provider: HÉCTOR MCKEE Physician Instructions: Reason For Exam: seizure 06/22/18 16:27 Consult to Dietitian/Nutrition [CONS] Routine Physician Instructions: Reason For Exam: Reason for Consult: Write/Manage Tube Feeding 06/22/18 17:11 Consult to Physician [CONS] Routine Comment: Consulting Provider: JOSÉ MANUEL MOREIRA Physician Instructions: Reason For Exam: seizures Primary care physician: RAFA PRAKASH Hospitalization Condition: Fair Hospital course: Hospital course: Patient is a 68 yo woman from [facility] with a history of seizure disorder, type 2 DM, hypertension, dyslipidemia, CVA, DVT on Eliquis and Dementia who presented to [facility] ED on 06/21/18 with Seizures and was Intubated. ARF, ATN +vasomotor nephropathy, poa, worsening: Nephrology following-Renal function worsening, Cr up to 5.6,On Cont Hemodialysis M/W/F.Had HD today ,patient to Follow with Dr Carloz Keita or [facility] [employer] Acute respiratory failure, s/p ETT intubated (on admission) 06/21/18 >96 hours and extubated 06/26/18: continue o2 support, Still on Bipap .Continue BIpap and Pulmonary f/u Seizure disorder Cont Keppra Hypertensive Urgency, resolved: iv antihypertensives as needed H/o CVA, she is weaker on the right, PT/OT SIRS with organ dysfunction, poa resolved Acute Metabolic Encephalopathy resolved History of DVT on Eliquis, Cont warfarin,INR Therapeutic Respiratory Stidor (developed 06/30/18) most likley due to fluid overload, oliguria and worsening renal failure: nebs and bipap, Disposition: DC/TX-70 ANOTHER TYPE HLTHCARE Disposition: DC/TX-70 ANOTHER TYPE HLTHCARE Core Measure Documentation - Palliative Care Palliative Care/ Comfort Measures: Not Applicable - Core Measures Any of the following diagnoses?: none Exam - Constitutional Vitals: Temp Pulse Resp BP Pulse Ox 98.1 F 73 13 150/64 99 07/06/18 14:15 07/06/18 15:30 07/06/18 15:00 07/06/18 15:30 07/06/18 15:00 General appearance: Present: mild distress, well-nourished - EENT Eyes: Present: PERRL ENT: hearing intact, clear oral mucosa - Neck Neck: Present: supple, normal ROM - Respiratory Respiratory effort: normal Respiratory: bilateral: CTA - Cardiovascular Heart rate: 88 Rhythm: regular Heart Sounds: Present: S1 & S2. Absent: rub, click - Extremities Extremities: no ischemia, pulses intact, pulses symmetrical, No edema Peripheral Pulses: within normal limits - Abdominal General gastrointestinal: Present: soft, non-tender, non-distended, normal bowel sounds Female genitourinary: Present: normal - Rectal Rectal Exam: deferred - Integumentary Integumentary: Present: clear, warm, dry - Musculoskeletal Musculoskeletal: gait normal, strength equal bilaterally - Psychiatric Psychiatric: appropriate mood/affect, intact judgment & insight - Neurologic Neurologic: CNII-XII intact, moves all extremities - Allied Health Allied health notes reviewed: nursing Plan Weight Bearing Status: Weight Bear as Tolerated Diet: renal Special Instructions: restrict fluid intake to (1 liter) Durable Medical Equipment Needed Upon Discharge: Walker-Standard Follow up with: RAFA PRAKASH MD [Primary Care Provider] - 3-5 Days Forms: Warfarin Discharge Instruction
[2018-07-06] MEDS ORDERED: PANCREAZE DR 10,500 UNIT FEEDTUBE PRN (16:09)
[2018-07-06] MEDS ORDERED: SODIUM BICARBONATE FEEDTUBE PRN (16:09)
[2018-07-06] MEDS ORDERED: SIMPLE SYRUP FEEDTUBE PRN ×2 (16:09)
[2018-07-06] MEDS: COUMADIN PO SCH (19:18)
[2018-07-06 20:13] VITALS: BP 147/68
== END 2018-07-06 20:20 | DRG 207 ==
LOC: ED 13:17 → CC1 16:02 → IMCU 06-28 21:39
PROVIDERS: ADMIT Internal Medicine; ATTEND Internal Medicine
PROC: 5A1955Z Respiratory Ventilation, Greater than 96 Consecutive Hours (ICD-10-PCS; principal; 2018-06-21)
PROC: 0BH17EZ Insertion of Endotracheal Airway into Trachea, Via Natural or Artificial Opening (ICD-10-PCS; 2018-06-21)
PROC: 4A033R1 Measurement of Arterial Saturation, Peripheral, Percutaneous Approach (ICD-10-PCS; 2018-06-21)
PROC: 06HM33Z Insertion of Infusion Device into Right Femoral Vein, Percutaneous Approach (ICD-10-PCS; 2018-07-01)
PROC: B51B1ZA Fluoroscopy of Right Lower Extremity Veins using Low Osmolar Contrast, Guidance (ICD-10-PCS; 2018-07-01)
PROC: 5A1D70Z Performance of Urinary Filtration, Intermittent, Less than 6 Hours Per Day (ICD-10-PCS; 2018-07-01)
PROC: B54BZZA Ultrasonography of Right Lower Extremity Veins, Guidance (ICD-10-PCS; 2018-07-01)
PROC: 5A1D70Z Performance of Urinary Filtration, Intermittent, Less than 6 Hours Per Day (ICD-10-PCS; 2018-07-02)
PROC: 5A1D70Z Performance of Urinary Filtration, Intermittent, Less than 6 Hours Per Day (ICD-10-PCS; 2018-07-03)
PROC: 5A1D70Z Performance of Urinary Filtration, Intermittent, Less than 6 Hours Per Day (ICD-10-PCS; 2018-07-04)
PROC: 5A1D70Z Performance of Urinary Filtration, Intermittent, Less than 6 Hours Per Day (ICD-10-PCS; 2018-07-06)
DX: J96.01 Acute respiratory failure with hypoxia (principal); N17.0 Acute kidney failure with tubular necrosis; G93.41 Metabolic encephalopathy; J69.0 Pneumonitis due to inhalation of food and vomit; R65.11 Systemic inflammatory response syndrome (SIRS) of non-infectious origin with acute organ dysfunction; J98.11 Atelectasis; G40.901 Epilepsy, unspecified, not intractable, with status epilepticus; E78.5 Hyperlipidemia, unspecified; Z86.718 Personal history of other venous thrombosis and embolism; Z79.01 Long term (current) use of anticoagulants; F03.90 Unspecified dementia, unspecified severity, without behavioral disturbance, psychotic disturbance, mood disturbance, and anxiety; I16.0 Hypertensive urgency; F32.9 Major depressive disorder, single episode, unspecified; E66.9 Obesity, unspecified; Z79.899 Other long term (current) drug therapy; E11.65 Type 2 diabetes mellitus with hyperglycemia; Z83.3 Family history of diabetes mellitus; I12.9 Hypertensive chronic kidney disease with stage 1 through stage 4 chronic kidney disease, or unspecified chronic kidney disease; E11.22 Type 2 diabetes mellitus with diabetic chronic kidney disease; N18.9 Chronic kidney disease, unspecified; H40.9 Unspecified glaucoma
CPT/HCPCS: 36415; 36556; 36600; 70450; 71045; 74018; 76770; 78580; 80048; 80053; 80061; 80074; 80177; 81001; 82550; 82553; 82565; 82570; 82803; 82962; 83735; 83970; 84100; 84165; 84295; 84300; 84484; 85014; 85018; 85025; 85027; 85049; 85520; 85610; 85730; 86021; 86160; 86225; 87040; 87070; 87205; 89050; 93005; 93010; 93970; 94002; 94003; 94640; 94660; 94760; 95819; 96365; 96366; 96367; 96368; 96375; G0378; A9270-GY; A9540; C1752; J0330; J0360; J0456; J0696; J1644; J1815; J1940; J1953; J2001; J2060; J2250; J2930; J3010; J3480; J7030; J7050; Q9967